=== PATIENT | female | born 1940 | race Caucasian/White ===

== ENCOUNTER 2017-09-14 06:45 | Emergency (ER) | payer MEDICARE, OTHER, SELFPAY ==
[2017-09-14 06:47] VITALS: BP 114/64; PULSE 80; RESP 16; TEMP 36.6; O2SAT 97; BMI 30.8
[2017-09-14 08:32] LABS: ALB/GLOB Ratio 0.9 RATIO (0.9-2.4); AST(SGOT) 30 U/L (15-37); Alanine Aminotransfer ALT/SGPT 55 U/L (13-56); Albumin, Serum 3.1 g/dL (3.2-5.0); Alkaline Phosphatase 250 U/L (45-117); Anion Gap 6 (5-15); BUN 30 mg/dL (7-18); BUN/Creat Ratio 28.3 RATIO (10-20); Calcium,Total 8.7 mg/dL (8.5-10.1); Chloride 104 mmol/L (98-107); Creatinine, Serum 1.06 mg/dL (0.55-1.02); EST Glomerular Filtration Rate 53 mL/min (>60); Est Glom Filt Rate - Afr Amer 65 mL/min (>60); Estimated Creatinine Clearance 39.99 ml/min; Globulin 3.6 g/dL (2.2-4.2); Glucose 89 mg/dL (74-106); Potassium 3.8 mmol/L (3.5-5.1); Protein, Total 6.7 g/dL (6.4-8.2); Sodium Level 140 mmol/L (136-145)
[2017-09-14 09:03] VITALS: BP 129/57; PULSE 71; RESP 16; O2SAT 95
--- NOTE | 2017-09-14 09:44 | ED.VISSUMM ---
- ER Visit Summary Date of Service: 09/14/17 Chief Complaint: Medication reaction History of Present Illness: The patient is a 77 F who had been taking Wallkill for low back pain/sciatica. This was being given to her by her primary care physician who is in [facility]. Patient states that on Monday she began to take Percocet and states that her bilateral feet and legs began to tingle. Last night she took a Percocet at around 0230 hours and shortly thereafter around 0400 hrs. began to have tingling and itching diffusely in her body. She thought that she was taking Benadryl but actually took a Coricidin. The squad was called and they gave her 25 mg of IV Benadryl which has improved her symptoms. Patient does not wish to take the Percocet again. The patient is supposed to have physical therapy coming to her home to meet requirements of an MRI. She denies any foot drop or leg weakness. Physical Examination: Afebrile vital signs are stable Gen: Well-nourished well-developed Head: Normocephalic atraumatic Eyes: Perrl EOMI ENT: TMs clear no rhinorrhea moist mucous membranes Neck: Supple no lymphadenopathy no JVD nontender CVS: Regular rate rhythm no murmurs normal S1-S2 Respiratory: No distress clear to auscultation bilaterally chest nontender Abdomen: Soft nontender nondistended normal bowel sounds no masses Back: Low back diffuse tenderness to palpation Extremity: Nontender no edema Skin: Normal color no rash Neuro: alert orientated ?3 CN II-XII intact normal strength sensation reflexes Psych: Normal affect normal mood Test Results: CMP was normal Emergency Department Course and Treatment: Patient symptoms have resolved. His been greater than 6 hours since her Percocet. She had been taking a half a tablet of 5/325 Wallkill every 3 hours. When I have her take one full tablet every 3 hours as a trial. At this point I would not feel comfortable doing stronger medication such as a fentanyl patch without knowing her history better and we did for your primary care doctor for further pain management. Impression: 1. Medication reaction This note was generated with [employer] dictation software. It may contain incorrect words, spelling, and punctuation that were not noted in review of the chart prior to signing ED Disposition - Plan for ED Patient: Disposition: Home or Assisted Living Chief Complaint: Allergic Reaction Instructions: ED Drug React Adverse Other Prescriptions: Hydrocodone/Acetaminophen [Wallkill 5-325 Tablet] 1 - 2 ea PO Q3H PRN 4 Days #20 tab PRN Reason: Pain Referrals: [facility],Out of [Primary Care Provider] - As soon as possible
--- NOTE | 2017-09-14 09:52 | ED.DCSUM_ITS ---
- ER Visit Summary Date of Service: 09/14/17 Chief Complaint: Medication reaction History of Present Illness: The patient is a 77 F who had been taking Arp for low back pain/sciatica. This was being given to her by her primary care physician who is in [facility]. Patient states that on Monday she began to take Percocet and states that her bilateral feet and legs began to tingle. Last night she took a Percocet at around 0230 hours and shortly thereafter around 0400 hrs. began to have tingling and itching diffusely in her body. She thought that she was taking Benadryl but actually took a Coricidin. The squad was called and they gave her 25 mg of IV Benadryl which has improved her symptoms. Patient does not wish to take the Percocet again. The patient is supposed to have physical therapy coming to her home to meet requirements of an MRI. She denies any foot drop or leg weakness. Physical Examination: Afebrile vital signs are stable Gen: Well-nourished well-developed Head: Normocephalic atraumatic Eyes: Perrl EOMI ENT: TMs clear no rhinorrhea moist mucous membranes Neck: Supple no lymphadenopathy no JVD nontender CVS: Regular rate rhythm no murmurs normal S1-S2 Respiratory: No distress clear to auscultation bilaterally chest nontender Abdomen: Soft nontender nondistended normal bowel sounds no masses Back: Low back diffuse tenderness to palpation Extremity: Nontender no edema Skin: Normal color no rash Neuro: alert orientated ?3 CN II-XII intact normal strength sensation reflexes Psych: Normal affect normal mood Test Results: CMP was normal Emergency Department Course and Treatment: Patient symptoms have resolved. His been greater than 6 hours since her Percocet. She had been taking a half a tablet of 5/325 Arp every 3 hours. When I have her take one full tablet every 3 hours as a trial. At this point I would not feel comfortable doing stronger medication such as a fentanyl patch without knowing her history better and we did for your primary care doctor for further pain management. Impression: 1. Medication reaction This note was generated with [employer] dictation software. It may contain incorrect words, spelling, and punctuation that were not noted in review of the chart prior to signing ED Disposition - Plan for ED Patient: Disposition: Home or Assisted Living Chief Complaint: Allergic Reaction Instructions: ED Drug React Adverse Other Prescriptions: Hydrocodone/Acetaminophen [Arp 5-325 Tablet] 1 - 2 ea PO Q3H PRN 4 Days #20 tab PRN Reason: Pain Referrals: Town [facility],Out of [Primary Care Provider] - As soon as possible
[2017-09-14] MEDS: HYDROcodone Bitartrate/Apap 5/325 Tablet PO (10:00)
[2017-09-14 10:01] VITALS: BP 129/57; PULSE 71; RESP 18; O2SAT 99
== END 2017-09-14 10:03 | disposition home or self-care (01) ==
PROVIDERS: Emergency Provider Emergency Medicine
DX: R20.2 Paresthesia of skin (principal); T40.2X5A Adverse effect of other opioids, initial encounter; Y92.9 Unspecified place or not applicable; E78.00 Pure hypercholesterolemia, unspecified; E11.9 Type 2 diabetes mellitus without complications; K21.9 Gastro-esophageal reflux disease without esophagitis; M54.40 Lumbago with sciatica, unspecified side; Z79.82 Long term (current) use of aspirin; Z79.891 Long term (current) use of opiate analgesic; Z79.899 Other long term (current) drug therapy
CPT/HCPCS: 80053; 99285; A4216

== ENCOUNTER 2018-02-07 10:45 | Outpatient (RCR) | payer MEDICARE, OTHER, SELFPAY ==
[2018-01-17 13:59] VITALS: BP 146/78; PULSE 97; RESP 16; TEMP 36.4; BMI 28.3
[2018-01-17 17:03] LABS: Absolute Lymphocyte Count 1.23 X10^3/ul (0.83-4.51); Absolute Neutrophil Count 6.2 X10^3/uL (2.0-7.7); Basophil# 0.02 X10^3/uL; Basophil% 0.3 % (0-1); Eosinophil# 0.09 X10^3/uL; Eosinophils% 1.1 % (0-5); Hematocrit 41.2 % (37-47); Lymphocyte # 1.23 X10^3/ul (4.0); Lymphocyte % 15.6 % (19-41); Mean Corp Hgb Conc 31.6 g/gl (32-36); Mean Corpuscular Hgb 29.7 pg (27.0-32.0); Mean Corpuscular Volume 94.1 fL (81-99); Mean Platelet Vol. 10.6 fl (6.2-12.0); Monocyte# 0.37 X10^3/uL; Monocyte% 4.7 % (0-10); Neutrophil # 6.18 X10^3/uL (2.7-7.7); Neutrophil % 78.3 % (47-70); POSITIVE COUNT NO; POSITIVE DIFFERENTIAL NO; POSITIVE MORPHOLOGY NO; Platelet Count 295 K/mm3 (150-450); RBC Distribution Width CV 16.2 % (11.6-14.6); RBC Distribution Width SD 56.3 fl (35.1-43.9); Red Blood Count 4.38 M/mm3 (4.2-5.4); White Blood Count 7.9 K/mm3 (4.4-11.0)
[2018-01-17 17:25] LABS: ALB/GLOB Ratio 0.9 RATIO (0.9-2.4); AST(SGOT) 15 U/L (15-37); Alanine Aminotransfer ALT/SGPT 19 U/L (13-56); Albumin, Serum 3.3 g/dL (3.2-5.0); Alkaline Phosphatase 132 U/L (45-117); Anion Gap 8 (5-15); BUN 18 mg/dL (7-18); Calcium,Total 8.9 mg/dL (8.5-10.1); Chloride 105 mmol/L (98-107); EST Glomerular Filtration Rate 57 mL/min (>60); Est Glom Filt Rate - Afr Amer 69 mL/min (>60); Estimated Creatinine Clearance 42.39 ml/min; Globulin 3.8 g/dL (2.2-4.2); Glucose 80 mg/dL (74-106); Potassium 4.1 mmol/L (3.5-5.1); Prealbumin 15.6 mg/dL (20.0-40.0); Protein, Total 7.1 g/dL (6.4-8.2); Sodium Level 143 mmol/L (136-145)
--- NOTE | 2018-01-17 23:26 | PCM.WC.PN ---
(1) Ulcer of left lower extremity with fat layer exposed Status: Chronic Current Visit: Yes Code(s): L97.922 - Non-pressure chronic ulcer of unspecified part of left lower leg with fat layer exposed (2) Localized edema Status: Chronic Current Visit: Yes Code(s): R60.0 - Localized edema (3) Peripheral vascular disease Status: Suspected Current Visit: Yes Code(s): I73.9 - Peripheral vascular disease, unspecified (4) Venous insufficiency Status: Suspected Current Visit: Yes Code(s): I87.2 - Venous insufficiency (chronic) (peripheral) (5) Delayed wound healing Status: Chronic Current Visit: Yes Code(s): T14.8XXD - Other injury of unspecified body region, subsequent encounter (6) Malnutrition Status: Suspected Current Visit: Yes Code(s): E46 - Unspecified protein-calorie malnutrition Type of Wound Date of Service: 01/17/18 Chief Complaint: Left leg ulcer History of Wound: This 77-year-old female with significant past medical history of hypertension, hyperlipidemia, GERD, history of throat cancer now with impaired ability to eat presents with a chronic left leg ulcer with an onset of approximately November 2017. She is previously seeing qa specialist Dr. Scherer for this condition and local wound care has been initiated. She denies fever, chill, nausea, vomiting, loss of appetite. She has continued leg swelling. She denies claudication. She denies rest paresthesias. She does have an ongoing rash to the lower extremities. Surgical history: Knee surgery and cholecystectomy. Social history: Denies smoking. Review of systems: Denies shortness of breath, chest pain, calf pain, GI upset, lower extremity rest paresthesias, claudication Progress of Wound: Stable - Physical Exam Vital Signs Temp Pulse Resp BP 97.5 F L 97 16 146/78 H 01/17/18 13:59 01/17/18 13:59 01/17/18 13:59 01/17/18 13:59 General: Alert, Oriented x3, Cooperative HEENT: Atraumatic Extremities: No cyanosis, Capillary Refill Less than 3 Seconds - All digits bilateral, No Calf Tenderness - Negative Katy and Garrett sign bilateral compartments remain soft and palpation bilateral active range of motion digits and ankles noted bilateral, Edema - Bilateral lower extremity moderate, Peripheral Pulses Normal - 2 out of 4 palpable DP pulse bilateral lower extremity nonpalpable PT pulse bilateral Skin: Ulcer/ Wound - There is no purulence, erythema, streaking, odor, or acute signs of infection left. There is rash noted bilateral lower extremities which is not appear to be localized just at the ulcer site. The ulcer site has fibrous peeling skin slough upon debridement this is granular and there is no deep tissue exposed, - - The peripheral skin is hairless and atrophic Wound Measurements and Assessment WC - Nurse 1 - General Ulcer Measurement Start: 01/17/18 13:58 Freq: Status: Active Protocol: Activity Type Activity Date Activity User E-Sign Co-Sign Detail Recorded Client Recorded Date Recorded By Document 01/17/18 13:59 [id number] 01/17/18 14:13 01/17/18 13:59 Wound Center Nurse 1 [Ulcer Assessment] #1 LATERAL LLE -Combined with other wound No -Current Size (cm) - Length 2 -Current Size (cm) - Width 2 -Current Size (cm) - Depth 0.3 -Total Square Cm 4 -Date of Last Picture (Recall this 01/17/18 field) -Photo Taken Yes -Epithelialization None Present -Tunneling No -Undermining/Tunneling No -Circular Undermining No -Exudate Amt None Present (0 %) -Wound Margin Distinct, Outline Attached -Granulation Amt None Present (0 %) -Granulation Quality N/A -Slough/Fibrin Yes -Necrosis Amt Large (67-100%) -Necrotic Tissue Type Eschar -Structure Exposed None/Limited to Skin Breakdown -Texture (Rosie-wound Skin Appearance) Localized Edema -Moisture (Rosie-wound Skin Appearance Dry/Scaly ) -Color (Rosie-wound Skin Appearance) Erythema -Temperature (Rosie-wound Skin No Abnormality Appearance) (Pt Warm) -Tenderness on Palpation (Rosie-wound Yes Skin Appearance) -Ulcer Cleansing Rinsed/ Irrigated with Saline -Foul Odor after Cleansing No -Anesthetic Used 5% Lidocaine Gel [Edema Assessment] -Lower Limb Edema Present Yes -Right Calf (cm) 34.7 -Right Ankle (cm) 23.4 -Left Calf (cm) 36.7 -Left Ankle (cm) 24.9 WC - Nurse 2 - General Ulcer CM Notes Start: 01/17/18 13:58 Freq: Status: Active Protocol: Activity Type Activity Date Activity User E-Sign Co-Sign Detail Recorded Client Recorded Date Recorded By Document 01/17/18 14:52 [id number] 01/17/18 14:57 01/17/18 14:52 Wound Center Nurse 2 [Procedure/Treatment] #1 LATERAL LLE -Time 14:54 -Correct Patient Yes -Correct Side, Site, Position Yes -Correct Procedure Yes -Procedure Performed Yes -Type of Procedure Debridement -Clinical Debridement Subcutaneous -Post Debridement Size (cm) - Length 2.0 -Post Debridement Size (cm) - Width 1.5 -Post Debridement Size (cm) - Depth 0.2 -Total Square Cm 3.00 -Wound/Ulcer Outcome Not Healed -Ulcer Cleansing Rinsed/ Irrigated with Saline -Foul Odor after Cleansing No -Bioengineered Tissue No -Bleeding Controlled with Pressure -Treatment Response Procedure Tolerated Well [See Physician Procedure note for Specifics] Pain Scale: 0-10 Numeric [Pain] -Is Patient Pain Free? Yes Musculoskeletal: No Tenderness to Palpation of Joints or Extremities, Muscle Wasting Neurological: Sensory exam intact to light touch and pain - Equal bilateral leg ankle and foot dermatomes to light touch Psych/Mental Status: Normal Affect, Appropriate Debridement Note Post-Debridement Measurements/Treatment WC - Nurse 2 - General Ulcer CM Notes Start: 01/17/18 13:58 Freq: Status: Active Protocol: Activity Type Activity Date Activity User E-Sign Co-Sign Detail Recorded Client Recorded Date Recorded By Document 01/17/18 14:52 [id number] 01/17/18 14:57 01/17/18 14:52 Wound Center Nurse 2 #1 [facility] LLE -Time 14:54 -Correct Patient Yes -Correct Side, Site, Position Yes -Correct Procedure Yes -Procedure Performed Yes -Type of Procedure Debridement -Clinical Debridement Subcutaneous -Post Debridement Size (cm) - Length 2.0 -Post Debridement Size (cm) - Width 1.5 -Post Debridement Size (cm) - Depth 0.2 -Total Square Cm 3.00 -Wound/Ulcer Outcome Not Healed -Ulcer Cleansing Rinsed/ Irrigated with Saline -Foul Odor after Cleansing No -Bioengineered Tissue No -Bleeding Controlled with Pressure -Treatment Response Procedure Tolerated Well Pain Scale: 0-10 Numeric Is Patient Pain Free? Yes Wound debrided: lateral leg Laterality: Left Type of Debridement: Excisional debridement Anesthesia Used: 4% Lidocaine Solution Depth: in the subcutaneous layer Percentage of wound debrided: 100 Instrument Used: #15 blade Tissue Removed: fibrous, devitalized subcutaneous, biofilm, slough Severity: Fat Layer Exposed Amount of bleeding with debridement: Mild Bleeding Controlled with: Pressure Patient tolerated procedure well Assessment/Plan Active Problems Ulcer of left lower extremity with fat layer exposed (Chronic) Localized edema (Chronic) Delayed wound healing (Chronic) Assessment: Left leg ulcer with fat layer exposed. Edema lower extremity. Rule out peripheral vascular disease. Malnutrition suspected. Delayed healing Plan: I reviewed and discussed this patient's case today. Subcutaneous excisional debridement was performed as noted in the clinical panel. To change dressing daily with Falguni. This is a chronic ulcer has been present for over one month and a time. Her notes from Dr. Scherer will be requested. I recommend application of advanced wound care product, epi fix, prior authorization will be initiated. The indications, plan application, expected healing time management were discussed in detail. To keep pressure off of this ulcer site by avoiding laying on the side. To also decrease pressure by wearing light compression dressing of the single layer Tubigrip; this is applied today. Noninvasive arterial vascular studies were ordered to rule out arterial deficiency because this is a delayed healing ulcer site and she has nonpalpable PT pulses. I will follow-up with the results upon completion. I also provided an order for baseline labs including CBC CMP and prealbumin. It is noted she mainly takes nutritional supplement shakes as a form of dietary intake and I suspect malnutrition. I will offer her a future nutrition referral to optimize healing. I answered all her questions. She was reassured no local or systemic signs of illness are suspected today. To return to the wound healing center in 1 week or call sooner if she has any questions or concerns.
--- NOTE | 2018-01-17 23:29 | PN.PCM_ITS ---
(1) Ulcer of left lower extremity with fat layer exposed Status: Chronic Current Visit: Yes Code(s): L97.922 - Non-pressure chronic ulcer of unspecified part of left lower leg with fat layer exposed (2) Localized edema Status: Chronic Current Visit: Yes Code(s): R60.0 - Localized edema (3) Peripheral vascular disease Status: Suspected Current Visit: Yes Code(s): I73.9 - Peripheral vascular disease, unspecified (4) Venous insufficiency Status: Suspected Current Visit: Yes Code(s): I87.2 - Venous insufficiency (chronic) (peripheral) (5) Delayed wound healing Status: Chronic Current Visit: Yes Code(s): T14.8XXD - Other injury of unspecified body region, subsequent encounter (6) Malnutrition Status: Suspected Current Visit: Yes Code(s): E46 - Unspecified protein- calorie malnutrition Type of Wound Date of Service: 01/17/18 Chief Complaint: Left leg ulcer History of Wound: This 77-year-old female with significant past medical history of hypertension, hyperlipidemia, GERD, history of throat cancer now with impaired ability to eat presents with a chronic left leg ulcer with an onset of approximately November 2017. She is previously seeing document photographer Dr. Scherer for this condition and local wound care has been initiated. She denies fever, chill, nausea, vomiting, loss of appetite. She has continued leg swelling. She denies claudication. She denies rest paresthesias. She does have an ongoing rash to the lower extremities. Surgical history: Knee surgery and cholecystectomy. Social history: Denies smoking. Review of systems: Denies shortness of breath, chest pain, calf pain, GI upset, lower extremity rest paresthesias, claudication Progress of Wound: Stable - Physical Exam Vital Signs Temp Pulse Resp BP 97.5 F L 97 16 146/78 H 01/17/18 13:59 01/17/18 13:59 01/17/18 13:59 01/17/18 13:59 General: Alert, Oriented x3, Cooperative HEENT: Atraumatic Extremities: No cyanosis, Capillary Refill Less than 3 Seconds - All digits bilateral, No Calf Tenderness - Negative Katy and Garrett sign bilateral compartments remain soft and palpation bilateral active range of motion digits and ankles noted bilateral, Edema - Bilateral lower extremity moderate, Peripheral Pulses Normal - 2 out of 4 palpable DP pulse bilateral lower extremity nonpalpable PT pulse bilateral Skin: Ulcer/ Wound - There is no purulence, erythema, streaking, odor, or acute signs of infection left. There is rash noted bilateral lower extremities which is not appear to be localized just at the ulcer site. The ulcer site has fibrous peeling skin slough upon debridement this is granular and there is no deep tissue exposed, - - The peripheral skin is hairless and atrophic Wound Measurements and Assessment WC - Nurse 1 - General Ulcer Measurement Start: 01/17/18 13:58 Freq: Status: Active Protocol: Activity Type Activity Date Activity User E-Sign Co-Sign Detail Recorded Client Recorded Date Recorded By Document 01/17/18 13:59 [id number] 01/17/18 14:13 01/17/18 13:59 Wound Center Nurse 1 [Ulcer Assessment] #1 LATERAL LLE -Combined with other wound No -Current Size (cm) - Length 2 -Current Size (cm) - Width 2 -Current Size (cm) - Depth 0.3 -Total Square Cm 4 -Date of Last Picture (Recall this 01/17/18 field) -Photo Taken Yes -Epithelialization None Present -Tunneling No -Undermining/Tunneling No -Circular Undermining No -Exudate Amt None Present (0 %) -Wound Margin Distinct, Outline Attached -Granulation Amt None Present (0 %) -Granulation Quality N/A -Slough/Fibrin Yes -Necrosis Amt Large (67-100%) -Necrotic Tissue Type Eschar -Structure Exposed None/Limited to Skin Breakdown -Texture (Rosie-wound Skin Appearance) Localized Edema -Moisture (Rosie-wound Skin Appearance Dry/Scaly ) -Color (Rosie-wound Skin Appearance) Erythema -Temperature (Rosie-wound Skin No Abnormality Appearance) (Pt Warm) -Tenderness on Palpation (Rosie-wound Yes Skin Appearance) -Ulcer Cleansing Rinsed/ Irrigated with Saline -Foul Odor after Cleansing No -Anesthetic Used 5% Lidocaine Gel [Edema Assessment] -Lower Limb Edema Present Yes -Right Calf (cm) 34.7 -Right Ankle (cm) 23.4 -Left Calf (cm) 36.7 -Left Ankle (cm) 24.9 WC - Nurse 2 - General Ulcer CM Notes Start: 01/17/18 13:58 Freq: Status: Active Protocol: Activity Type Activity Date Activity User E-Sign Co-Sign Detail Recorded Client Recorded Date Recorded By Document 01/17/18 14:52 [id number] 01/17/18 14:57 01/17/18 14:52 Wound Center Nurse 2 [Procedure/Treatment] #1 LATERAL LLE -Time 14:54 -Correct Patient Yes -Correct Side, Site, Position Yes -Correct Procedure Yes -Procedure Performed Yes -Type of Procedure Debridement -Clinical Debridement Subcutaneous -Post Debridement Size (cm) - Length 2.0 -Post Debridement Size (cm) - Width 1.5 -Post Debridement Size (cm) - Depth 0.2 -Total Square Cm 3.00 -Wound/Ulcer Outcome Not Healed -Ulcer Cleansing Rinsed/ Irrigated with Saline -Foul Odor after Cleansing No -Bioengineered Tissue No -Bleeding Controlled with Pressure -Treatment Response Procedure Tolerated Well [See Physician Procedure note for Specifics] Pain Scale: 0-10 Numeric [Pain] -Is Patient Pain Free? Yes Musculoskeletal: No Tenderness to Palpation of Joints or Extremities, Muscle Wasting Neurological: Sensory exam intact to light touch and pain - Equal bilateral leg ankle and foot dermatomes to light touch Psych/Mental Status: Normal Affect, Appropriate Debridement Note Post-Debridement Measurements/Treatment WC - Nurse 2 - General Ulcer CM Notes Start: 01/17/18 13:58 Freq: Status: Active Protocol: Activity Type Activity Date Activity User E-Sign Co-Sign Detail Recorded Client Recorded Date Recorded By Document 01/17/18 14:52 [id number] 01/17/18 14:57 01/17/18 14:52 Wound Center Nurse 2 #1 [facility] LLE -Time 14:54 -Correct Patient Yes -Correct Side, Site, Position Yes -Correct Procedure Yes -Procedure Performed Yes -Type of Procedure Debridement -Clinical Debridement Subcutaneous -Post Debridement Size (cm) - Length 2.0 -Post Debridement Size (cm) - Width 1.5 -Post Debridement Size (cm) - Depth 0.2 -Total Square Cm 3.00 -Wound/Ulcer Outcome Not Healed -Ulcer Cleansing Rinsed/ Irrigated with Saline -Foul Odor after Cleansing No -Bioengineered Tissue No -Bleeding Controlled with Pressure -Treatment Response Procedure Tolerated Well Pain Scale: 0-10 Numeric Is Patient Pain Free? Yes Wound debrided: lateral leg Laterality: Left Type of Debridement: Excisional debridement Anesthesia Used: 4% Lidocaine Solution Depth: in the subcutaneous layer Percentage of wound debrided: 100 Instrument Used: #15 blade Tissue Removed: fibrous, devitalized subcutaneous, biofilm, slough Severity: Fat Layer Exposed Amount of bleeding with debridement: Mild Bleeding Controlled with: Pressure Patient tolerated procedure well Assessment/Plan Active Problems Ulcer of left lower extremity with fat layer exposed (Chronic) Localized edema (Chronic) Delayed wound healing (Chronic) Assessment: Left leg ulcer with fat layer exposed. Edema lower extremity. Rule out peripheral vascular disease. Malnutrition suspected. Delayed healing Plan: I reviewed and discussed this patient's case today. Subcutaneous excisional debridement was performed as noted in the clinical panel. To change dressing daily with Falguni. This is a chronic ulcer has been present for over one month and a time. Her notes from Dr. Scherer will be requested. I recommend application of advanced wound care product, epi fix, prior authorization will be initiated. The indications, plan application, expected healing time management were discussed in detail. To keep pressure off of this ulcer site by avoiding laying on the side. To also decrease pressure by wearing light compression dressing of the single layer Tubigrip; this is applied today. Noninvasive arterial vascular studies were ordered to rule out arterial deficiency because this is a delayed healing ulcer site and she has nonpalpable PT pulses. I will follow-up with the results upon completion. I also provided an order for baseline labs including CBC CMP and prealbumin. It is noted she mainly takes nutritional supplement shakes as a form of dietary intake and I suspect malnutrition. I will offer her a future nutrition referral to optimize healing. I answered all her questions. She was reassured no local or systemic signs of illness are suspected today. To return to the wound healing center in 1 week or call sooner if she has any questions or concerns.
[2018-01-24 10:18] VITALS: BP 142/74; PULSE 79; RESP 18; TEMP 36; BMI 28.3
--- NOTE | 2018-01-24 12:00 | PCM.WC.PN ---
(1) Ulcer of left lower extremity with fat layer exposed Status: Chronic Current Visit: Yes Code(s): L97.922 - Non-pressure chronic ulcer of unspecified part of left lower leg with fat layer exposed (2) Localized edema Status: Chronic Current Visit: Yes Code(s): R60.0 - Localized edema (3) Peripheral vascular disease Status: Suspected Current Visit: Yes Code(s): I73.9 - Peripheral vascular disease, unspecified (4) Venous insufficiency Status: Suspected Current Visit: Yes Code(s): I87.2 - Venous insufficiency (chronic) (peripheral) (5) Delayed wound healing Status: Chronic Current Visit: Yes Code(s): T14.8XXD - Other injury of unspecified body region, subsequent encounter (6) Malnutrition Status: Suspected Current Visit: Yes Code(s): E46 - Unspecified protein-calorie malnutrition Type of Wound Date of Service: 01/24/18 Chief Complaint: Left leg ulcer History of Wound: This 77-year-old female with significant past medical history of hypertension, hyperlipidemia, GERD, history of throat cancer now with impaired ability to eat presents with a chronic left leg ulcer with an onset of approximately November 2017. She is previously seeing wire harness assembler Dr. Scherer for this condition and local wound care has been initiated. She denies fever, chill, nausea, vomiting, loss of appetite. She has continued leg swelling. She did obtain her recommended lab work and would like to review that today. She mainly drinks only Ensure shakes each day as her main source of food intake. Progress of Wound: Stable - Physical Exam Vital Signs Temp Pulse Resp BP 96.8 F L 79 18 142/74 H 01/24/18 10:18 01/24/18 10:18 01/24/18 10:18 01/24/18 10:18 General: Alert, Oriented x3, Cooperative Extremities: No cyanosis, Capillary Refill Less than 3 Seconds, No Calf Tenderness - Negative Kayt who presents bilateral, Edema, Peripheral Pulses Normal Skin: Ulcer/ Wound - No purulence, erythema, streaking, odor, or infection Wound Measurements and Assessment WC - Nurse 1 - General Ulcer Measurement Start: 01/17/18 13:58 Freq: Status: Active Protocol: Activity Type Activity Date Activity User E-Sign Co-Sign Detail Recorded Client Recorded Date Recorded By Document 01/24/18 10:18 [id number] 01/24/18 10:24 01/24/18 10:18 Wound Center Nurse 1 [Ulcer Assessment] #1 LATERAL LLE -Current Size (cm) - Length 1.7 -Current Size (cm) - Width 0.9 -Current Size (cm) - Depth 0.1 -Total Square Cm 1.53 -Photo Taken No -Exudate Amt Small (1-33%) -Exudate Type Serosanguineous -Wound Margin Distinct, Outline Attached -Granulation Amt None Present (0 %) -Slough/Fibrin Yes -Necrosis Amt Large (67-100%) -Necrotic Tissue Type Adherent Slough -Structure Exposed N/A -Texture (Rosie-wound Skin Appearance) Localized Edema Scarring -Moisture (Rosie-wound Skin Appearance Dry/Scaly ) -Color (Rosie-wound Skin Appearance) Hemosiderin Staining -Temperature (Rosie-wound Skin No Abnormality Appearance) (Pt Warm) -Ulcer Cleansing Rinsed/ Irrigated with Saline -Foul Odor after Cleansing No -Anesthetic Used 4% Lidocaine Solution [Edema Assessment] -Left Calf (cm) 34 -Left Ankle (cm) 23.5 WC - Nurse 2 - General Ulcer CM Notes Start: 01/17/18 13:58 Freq: Status: Active Protocol: Activity Type Activity Date Activity User E-Sign Co-Sign Detail Recorded Client Recorded Date Recorded By Document 01/24/18 10:58 [id number] 01/24/18 11:12 01/24/18 10:58 Wound Center Nurse 2 [Procedure/Treatment] #1 LATERAL LLE -Time 11:01 -Correct Patient Yes -Correct Side, Site, Position Yes -Correct Procedure Yes -Procedure Performed Yes -Type of Procedure Debridement -Clinical Debridement Subcutaneous -Post Debridement Size (cm) - Length 1.8 -Post Debridement Size (cm) - Width 1.0 -Post Debridement Size (cm) - Depth 0.1 -Total Square Cm 1.80 -Wound/Ulcer Outcome Not Healed -Ulcer Cleansing Rinsed/ Irrigated with Saline -Foul Odor after Cleansing No -Bioengineered Tissue Yes -Type of bioengineered Tissue EPIFIX -Expiration Date 09/10/22 -Product Lot Number [id number] -Percent Used 100 -Saline Lot Number [id number] -Topical Lidocaine (%) 4 -Bleeding Controlled with NA -Treatment Response Procedure Tolerated Well [See Physician Procedure note for Specifics] Pain Scale: 0-10 Numeric [Pain] -Is Patient Pain Free? Yes Musculoskeletal: No Tenderness to Palpation of Joints or Extremities, Muscle Wasting, - - Compartment soft to palpation Neurological: Sensory exam intact to light touch and pain Psych/Mental Status: Normal Affect, Appropriate Debridement Note Post-Debridement Measurements/Treatment WC - Nurse 2 - General Ulcer CM Notes Start: 01/17/18 13:58 Freq: Status: Active Protocol: Activity Type Activity Date Activity User E-Sign Co-Sign Detail Recorded Client Recorded Date Recorded By Document 01/17/18 14:52 [id number] 01/17/18 14:57 Document 01/24/18 10:58 TM [id number] 01/24/18 11:12 01/17/18 01/24/18 14:52 10:58 Wound Center Nurse 2 #1 LATERAL LLE -Time 14:54 11:01 -Correct Patient Yes Yes -Correct Side, Site, Position Yes Yes -Correct Procedure Yes Yes -Procedure Performed Yes Yes -Type of Procedure Debridement Debridement -Clinical Debridement Subcutaneous Subcutaneous -Post Debridement Size (cm) - Length 2.0 1.8 -Post Debridement Size (cm) - Width 1.5 1.0 -Post Debridement Size (cm) - Depth 0.2 0.1 -Total Square Cm 3.00 1.80 -Wound/Ulcer Outcome Not Healed Not Healed -Ulcer Cleansing Rinsed/ Rinsed/ Irrigated with Irrigated with Saline Saline -Foul Odor after Cleansing No No -Bioengineered Tissue No Yes -Type of bioengineered Tissue EPIFIX -Expiration Date 09/10/22 -Product Lot Number [id number] -Percent Used 100 -Saline Lot Number [id number] -Topical Lidocaine (%) 4 -Bleeding Controlled with Pressure NA -Treatment Response Procedure Procedure Tolerated Well Tolerated Well Pain Scale: 0-10 Numeric Is Patient Pain Free? Yes Yes Wound debrided: leg Laterality: Left Type of Debridement: Excisional debridement Anesthesia Used: 4% Lidocaine Solution Depth: in the subcutaneous layer Percentage of wound debrided: 100 Instrument Used: #15 blade Tissue Removed: fibrous, devitalized subcutaneous, biofilm, slough Severity: Fat Layer Exposed Amount of bleeding with debridement: Mild Bleeding Controlled with: Pressure Patient tolerated procedure well Assessment/Plan Active Problems Ulcer of left lower extremity with fat layer exposed (Chronic) Localized edema (Chronic) Delayed wound healing (Chronic) Assessment: Left leg ulcer with fat layer exposed. Edema lower extremity. Rule out peripheral vascular disease. Malnutrition suspected. Delayed healing Plan: I reviewed and discussed this patient's case today. Subcutaneous excisional debridement was performed as noted in the clinical panel. I recommend application of advanced wound care product, epi fix. Prior authorization was obtained and this was applied according to standard protocol after verbal consent was obtained. This was secured in place with Steri-Strips and wound veil. She tolerated this well. She is advised to keep this intact until follow-up visit next week. To keep pressure off of this ulcer site by avoiding laying on the side. To also decrease pressure by wearing light compression dressing of the single layer Tubigrip; this is applied today. Noninvasive arterial vascular studies were reviewed today with a right RICKY of 1.18 and left of 1.3. No significant perfusion impairment is noted. I also provided an order for baseline labs including CBC CMP and prealbumin. No gross abnormalities were noted except the prealbumin level is 15.6. She understands this is a marker of inflammation and possibly nutritional status. It is noted she mainly takes nutritional supplement shakes as a form of dietary intake and I suspect malnutrition. I will offer her a future nutrition referral to optimize healing. A prescription for Fredrick was also provided today and she was advised on proper activities. I answered all her questions. She was reassured no local or systemic signs of illness are suspected today. To return to the wound healing center in 1 week or call sooner if she has any questions or concerns.
--- NOTE | 2018-01-28 20:37 | LEAS ---
Arterial Study - Arterial Study Arterial Study: This is a 77-year-old female with a history of hypertension and hyperlipidemia. The patient also has a history of peripheral arterial occlusive disease. She is brought to the noninvasive vascular laboratory at this time for the purpose of bilateral noninvasive lower extremity arterial assessment. Doppler signal assessment was used to evaluate the pulses at ankle level bilaterally. The posterior tibial and dorsalis pedis pulses were triphasic bilaterally. Segmental limb pressures were obtained bilaterally. The right ankle pressure, as determined by posterior tibial pulse, was measured at 160 mmHg. The right ankle pressure, as determined by dorsalis pedis pulse, was measured at 160 mmHg. The right digital pressure was measured at 118 mmHg. The left ankle pressure, as determined by posterior tibial pulse, was measured at 148 mmHg. The left ankle pressure, as determined by dorsalis pedis pulse, was measured at 177 mmHg. The left digital pressure was measured at 113 mmHg. Pulse?volume recordings were obtained bilaterally and segmentally. Waveform amplitudes appeared to be satisfactory at all levels bilaterally, including low thigh, calf, ankle, and digital levels. Resting ankle?brachial indices were calculated bilaterally. The resting right ankle?brachial index was calculated to be 1.18. The resting left ankle?brachial index was calculated to be 1.30. Digital?brachial indices were calculated bilaterally. The right digital-brachial index was calculated to be 0.87. The left digital-brachial index was calculated to be 0.83. Impression: Based upon the findings of this resting noninvasive lower extremity arterial study, there is no evidence of significant atherosclerotic peripheral arterial occlusive disease in the lower extremities bilaterally. Triphasic waveforms are noted at ankle level bilaterally. Resting ankle?brachial indices were bilaterally normal. Digital-brachial indices were also normal bilaterally. In summary, this represents a normal resting noninvasive lower extremity arterial study bilaterally.
--- NOTE | 2018-01-28 20:43 | LEAS_ITS ---
Arterial Study - Arterial Study Arterial Study: This is a 77-year-old female with a history of hypertension and hyperlipidemia. The patient also has a history of peripheral arterial occlusive disease. She is brought to the noninvasive vascular laboratory at this time for the purpose of bilateral noninvasive lower extremity arterial assessment. Doppler signal assessment was used to evaluate the pulses at ankle level bilaterally. The posterior tibial and dorsalis pedis pulses were triphasic bilaterally. Segmental limb pressures were obtained bilaterally. The right ankle pressure, as determined by posterior tibial pulse, was measured at 160 mmHg. The right ankle pressure, as determined by dorsalis pedis pulse, was measured at 160 mmHg. The right digital pressure was measured at 118 mmHg. The left ankle pressure, as determined by posterior tibial pulse, was measured at 148 mmHg. The left ankle pressure, as determined by dorsalis pedis pulse, was measured at 177 mmHg. The left digital pressure was measured at 113 mmHg. Pulse?volume recordings were obtained bilaterally and segmentally. Waveform a mplitudes appeared to be satisfactory at all levels bilaterally, including low thigh, calf, ankle, and digital levels. Resting ankle?brachial indices were calculated bilaterally. The resting right a nkle?brachial index was calculated to be 1.18. The resting left ankle?brachial index was calculated to be 1.30. Digital?brachial indices were calculated bilaterally. The right digital- brachial index was calculated to be 0.87. The left digital-brachial index was calculated to be 0.83. Impression: Based upon the findings of this resting noninvasive lower extremity arterial study, there is no evidence of significant atherosclerotic peripheral arterial occlusive disease in the lower extremities bilaterally. Triphasic waveforms are noted at ankle level bilaterally. Resting ankle?brachial indices were bilaterally normal. Digital-brachial indices were also normal bilaterally. In summary, this represents a normal resting noninvasive lower extremity arterial study bilaterally.
[2018-01-31 11:36] VITALS: BP 151/78; PULSE 82; RESP 16; TEMP 36.6; BMI 28.3
--- NOTE | 2018-01-31 14:45 | PCM.WC.PN ---
(1) Ulcer of left lower extremity with fat layer exposed Status: Chronic Code(s): L97.922 - Non-pressure chronic ulcer of unspecified part of left lower leg with fat layer exposed (2) Localized edema Status: Chronic Code(s): R60.0 - Localized edema (3) Peripheral vascular disease Status: Suspected Code(s): I73.9 - Peripheral vascular disease, unspecified (4) Venous insufficiency Status: Suspected Code(s): I87.2 - Venous insufficiency (chronic) (peripheral) (5) Delayed wound healing Status: Chronic Code(s): T14.8XXD - Other injury of unspecified body region, subsequent encounter (6) Malnutrition Status: Suspected Code(s): E46 - Unspecified protein-calorie malnutrition Type of Wound Date of Service: 01/31/18 Chief Complaint: Left leg ulcer History of Wound: This 77-year-old female with significant past medical history of hypertension, hyperlipidemia, GERD, history of throat cancer now with impaired ability to eat presents with a chronic left leg ulcer with an onset of approximately November 2017. She is previously seeing line construction supervisor Dr. Scherer for this condition and local wound care has been initiated. She denies fever, chill, nausea, vomiting, loss of appetite. She has continued leg swelling that has decreased with her compression dressing use. She is on a low-dose of prednisone and has decreased skin irritation of her entire body. Progress of Wound: Improving - Physical Exam Vital Signs Temp Pulse Resp BP 97.8 F 82 16 151/78 H 01/31/18 11:36 01/31/18 11:36 01/31/18 11:36 01/31/18 11:36 General: Alert, Oriented x3, Cooperative Extremities: No cyanosis, Capillary Refill Less than 3 Seconds, No Calf Tenderness - Negative Katy and Garrett left, Edema, Peripheral Pulses Normal Skin: Ulcer/ Wound - No purulence, erythema, strain, odor, or infection. The peripheral skin is hairless and atrophic with decreased inflammation. There is peripheral epithelialization that has continued at the ulcer site Wound Measurements and Assessment WC - Nurse 1 - General Ulcer Measurement Start: 01/17/18 13:58 Freq: Status: Active Protocol: Activity Type Activity Date Activity User E-Sign Co-Sign Detail Recorded Client Recorded Date Recorded By Document 01/31/18 11:36 [facility] [id number] 01/31/18 11:44 [facility] 01/31/18 11:36 Wound Center Nurse 1 [Ulcer Assessment] #1 LATERAL LLE -Combined with other wound No -Current Size (cm) - Length 1 -Current Size (cm) - Width 0.5 -Current Size (cm) - Depth 0.1 -Total Square Cm 0.5 -Photo Taken No -Epithelialization Medium 34-66% -Tunneling No -Undermining/Tunneling No -Circular Undermining No -Exudate Amt Small (1-33%) -Exudate Type Serosanguineous -Wound Margin Distinct, Outline Attached -Granulation Amt None Present (0 %) -Slough/Fibrin Yes -Necrosis Amt Large (67-100%) -Necrotic Tissue Type Adherent Slough -Texture (Rosie-wound Skin Appearance) Scarring Rash -Moisture (Rosie-wound Skin Appearance Dry/Scaly ) -Color (Rosie-wound Skin Appearance) Assessed -Temperature (Rosie-wound Skin No Abnormality Appearance) (Pt Warm) -Tenderness on Palpation (Rosie-wound No Skin Appearance) -Ulcer Cleansing Rinsed/ Irrigated with Saline -Foul Odor after Cleansing No -Anesthetic Used 4% Lidocaine Solution [Edema Assessment] -Lower Limb Edema Present Yes -Left Calf (cm) 34.5 -Left Ankle (cm) 23 WC - Nurse 2 - General Ulcer CM Notes Start: 01/17/18 13:58 Freq: Status: Active Protocol: Activity Type Activity Date Activity User E-Sign Co-Sign Detail Recorded Client Recorded Date Recorded By Document 01/31/18 12:29 [id number] 01/31/18 12:30 01/31/18 12:29 Wound Center Nurse 2 [Procedure/Treatment] #1 LATERAL LLE -Time 12:30 -Correct Patient Yes -Correct Side, Site, Position Yes -Correct Procedure Yes -Procedure Performed Yes -Type of Procedure Debridement -Clinical Debridement Subcutaneous -Post Debridement Size (cm) - Length 1.1 -Post Debridement Size (cm) - Width 0.5 -Post Debridement Size (cm) - Depth 0.1 -Total Square Cm 0.55 -Wound/Ulcer Outcome Not Healed -Ulcer Cleansing Rinsed/ Irrigated with Saline -Foul Odor after Cleansing No -Bioengineered Tissue Yes -Type of bioengineered Tissue EPIFIX -Expiration Date 09/10/22 -Product Lot Number [id number] -Percent Used 100 -Saline Lot Number [id number] -Bleeding Controlled with Pressure -Treatment Response Procedure Tolerated Well [See Physician Procedure note for Specifics] Pain Scale: 0-10 Numeric [Pain] -Is Patient Pain Free? Yes Musculoskeletal: No Tenderness to Palpation of Joints or Extremities, Muscle Wasting Neurological: Sensory exam intact to light touch and pain Psych/Mental Status: Normal Affect, Appropriate Debridement Note Post-Debridement Measurements/Treatment WC - Nurse 2 - General Ulcer CM Notes Start: 01/17/18 13:58 Freq: Status: Active Protocol: Activity Type Activity Date Activity User E-Sign Co-Sign Detail Recorded Client Recorded Date Recorded By Document 01/17/18 14:52 [id number] 01/17/18 14:57 Document 01/24/18 10:58 [id number] 01/24/18 11:12 Document 01/31/18 12:29 [id number] 01/31/18 12:30 01/17/18 01/24/18 01/31/18 14:52 10:58 12:29 Wound Center Nurse 2 #1 LATERAL LLE -Time 14:54 11:01 12:30 -Correct Patient Yes Yes Yes -Correct Side, Site, Position Yes Yes Yes -Correct Procedure Yes Yes Yes -Procedure Performed Yes Yes Yes -Type of Procedure Debridement Debridement Debridement -Clinical Debridement Subcutaneous Subcutaneous Subcutaneous -Post Debridement Size (cm) - Length 2.0 1.8 1.1 -Post Debridement Size (cm) - Width 1.5 1.0 0.5 -Post Debridement Size (cm) - Depth 0.2 0.1 0.1 -Total Square Cm 3.00 1.80 0.55 -Wound/Ulcer Outcome Not Healed Not Healed Not Healed -Ulcer Cleansing Rinsed/ Rinsed/ Rinsed/ Irrigated with Irrigated with Irrigated with Saline Saline Saline -Foul Odor after Cleansing No No No -Bioengineered Tissue No Yes Yes -Type of bioengineered Tissue EPIFIX EPIFIX -Expiration Date 09/10/22 09/10/22 -Product Lot Number [id number] -Percent Used 100 100 -Saline Lot Number [id number] -Topical Lidocaine (%) 4 -Bleeding Controlled with Pressure NA Pressure -Treatment Response Procedure Procedure Procedure Tolerated Well Tolerated Well Tolerated Well Pain Scale: 0-10 Numeric Is Patient Pain Free? Yes Yes Yes Wound debrided: leg Laterality: Left Type of Debridement: Excisional debridement Anesthesia Used: 4% Lidocaine Solution Depth: in the subcutaneous layer Percentage of wound debrided: 100 Instrument Used: #15 blade Tissue Removed: fibrous, devitalized subcutaneous, biofilm, slough Severity: Fat Layer Exposed Amount of bleeding with debridement: Mild Bleeding Controlled with: Pressure Patient tolerated procedure well Assessment/Plan Assessment: Left leg ulcer with fat layer exposed. Edema lower extremity. Rule out peripheral vascular disease. Malnutrition suspected. Delayed healing Plan: I reviewed and discussed this patient's case today. Subcutaneous excisional debridement was performed as noted in the clinical panel. I recommend application of advanced wound care product, epi fix. Prior authorization was obtained and this was applied according to standard protocol after verbal consent was obtained. This was secured in place with Steri-Strips and wound veil. She tolerated this well. She is advised to keep this intact until follow-up visit next week. To keep pressure off of this ulcer site by avoiding laying on the side. To also decrease pressure by wearing light compression dressing of the single layer Tubigrip; this is applied today. Noninvasive arterial vascular studies were reviewed today with a right RICKY of 1.18 and left of 1.3. No significant perfusion impairment is noted. I also provided an order for baseline labs including CBC CMP and prealbumin. No gross abnormalities were noted except the prealbumin level is 15.6. She understands this is a marker of inflammation and possibly nutritional status. It is noted she mainly takes nutritional supplement shakes as a form of dietary intake and I suspect malnutrition. I will offer her a future nutrition referral to optimize healing. A prescription for Fredrick was also provided today and she was advised on proper use. I answered all her questions. She was reassured no local or systemic signs of illness are suspected today. To return to the wound healing center in 1 week or call sooner if she has any questions or concerns.
[2018-02-07 11:04] VITALS: BP 130/65; PULSE 92; RESP 18; TEMP 36.4; BMI 28.3
--- NOTE | 2018-02-07 11:49 | PN.PCM_ITS ---
(1) Ulcer of left lower extremity with fat layer exposed Status: Chronic Current Visit: Yes Code(s): L97.922 - Non-pressure chronic ulcer of unspecified part of left lower leg with fat layer exposed (2) Localized edema Status: Chronic Current Visit: Yes Code(s): R60.0 - Localized edema (3) Peripheral vascular disease Status: Suspected Current Visit: Yes Code(s): I73.9 - Peripheral vascular disease, unspecified (4) Venous insufficiency Status: Suspected Current Visit: Yes Code(s): I87.2 - Venous insufficiency (chronic) (peripheral) (5) Delayed wound healing Status: Chronic Current Visit: Yes Code(s): T14.8XXD - Other injury of unspecified body region, subsequent encounter (6) Malnutrition Status: Suspected Current Visit: Yes Code(s): E46 - Unspecified protein- calorie malnutrition Type of Wound Date of Service: 02/07/18 Chief Complaint: Left leg ulcer History of Wound: This 77-year-old female with significant past medical history of hypertension, hyperlipidemia, GERD, history of throat cancer now with impaired ability to eat presents with a chronic left leg ulcer with an onset of approximately November 2017. She is previously seeing maxillofacial surgeon Dr. Scherer for this condition and local wound care has been initiated. She denies fever, chill, nausea, vomiting, loss of appetite. She has continued leg swelling that has decreased with her compression dressing use. She fell and injured her right forearm recently and has a wound at the site now. Progress of Wound: Improving - Physical Exam Vital Signs Temp Pulse Resp BP 97.5 F L 92 18 130/65 H 02/07/18 11:04 02/07/18 11:04 02/07/18 11:04 02/07/18 11:04 General: Alert, Oriented x3, Cooperative Extremities: No cyanosis, Capillary Refill Less than 3 Seconds, No Calf Tenderness - Negative Katy and Garrett sign bilateral, Edema - Moderate bilateral lower extremities Skin: Ulcer/ Wound - No purulence, erythema, streaking, odor, or infection. Peripheral epithelialization is noted. Peripheral skin is hairless, atrophic, and inflammatory lesions are noted and unchanged from last week. Wound Measurements and Assessment WC - Nurse 1 - General Ulcer Measurement Start: 01/17/18 13:58 Freq: Status: Active Protocol: Activity Type Activity Date Activity User E-Sign Co-Sign Detail Recorded Client Recorded Date Recorded By Document 02/07/18 11:04 JF [id number] 02/07/18 11:14 ANNELIESE 02/07/18 11:04 Wound Center Nurse 1 [Ulcer Assessment] 2-right forearm -Combined with other wound No -Current Size (cm) - Length 3.5 -Current Size (cm) - Width 4.0 -Current Size (cm) - Depth 0.1 -Total Square Cm 14.00 -Photo Taken Yes -Epithelialization Small 1-33% -Tunneling No -Undermining/Tunneling No -Circular Undermining No -Exudate Amt Small (1-33%) -Exudate Type Serosanguineous -Wound Margin Flat & Intact -Granulation Amt Large (67-100%) -Granulation Quality [place] -Slough/Fibrin Yes -Necrosis Amt Small (1-33%) -Necrotic Tissue Type Adherent Slough -Structure Exposed N/A -Texture (Rosie-wound Skin Appearance) Assessed Localized Edema -Moisture (Rosie-wound Skin Appearance Assessed ) Dry/Scaly -Color (Rosie-wound Skin Appearance) Assessed -Temperature (Rosie-wound Skin No Abnormality Appearance) (Pt Warm) -Tenderness on Palpation (Rosie-wound No Skin Appearance) -Ulcer Cleansing Rinsed/ Irrigated with Saline -Foul Odor after Cleansing No -Anesthetic Used 4% Lidocaine Solution #1 LATERAL LLE -Combined with other wound No -Current Size (cm) - Length 0.8 -Current Size (cm) - Width 0.4 -Current Size (cm) - Depth 0.1 -Total Square Cm 0.32 -Photo Taken No -Epithelialization Small 1-33% -Tunneling No -Undermining/Tunneling No -Circular Undermining No -Exudate Amt None Present (0 %) -Wound Margin Flat & Intact -Granulation Amt None Present (0 %) -Slough/Fibrin Yes -Necrosis Amt Large (67-100%) -Necrotic Tissue Type Adherent Slough -Structure Exposed N/A -Texture (Rosie-wound Skin Appearance) Assessed Localized Edema -Moisture (Rosie-wound Skin Appearance Assessed ) Dry/Scaly -Color (Rosie-wound Skin Appearance) Assessed -Temperature (Rosie-wound Skin No Abnormality Appearance) (Pt Warm) -Tenderness on Palpation (Rosie-wound No Skin Appearance) -Ulcer Cleansing Wound Cleanser -Foul Odor after Cleansing No -Anesthetic Used 5% Lidocaine Gel [Edema Assessment] -Lower Limb Edema Present Yes -Left Calf (cm) 34.3 -Left Ankle (cm) 22.2 - Nurse 2 - General Ulcer CM Notes Start: 01/17/18 13:58 Freq: Status: Active Protocol: Activity Type Activity Date Activity User E-Sign Co-Sign Detail Recorded Client Recorded Date Recorded By Document 02/07/18 11:26 [id number] 02/07/18 11:28 02/07/18 11:26 Wound Center Nurse 2 [Procedure/Treatment] #1 LATERAL LLE -Time 11:26 -Correct Patient Yes -Correct Side, Site, Position Yes -Correct Procedure Yes -Procedure Performed Yes -Type of Procedure Debridement -Clinical Debridement Subcutaneous -Post Debridement Size (cm) - Length 0.9 -Post Debridement Size (cm) - Width 0.5 -Post Debridement Size (cm) - Depth 0.1 -Total Square Cm 0.45 -Wound/Ulcer Outcome Not Healed -Ulcer Cleansing Rinsed/ Irrigated with Saline -Foul Odor after Cleansing No -Bioengineered Tissue Yes -Type of bioengineered Tissue EPIFIX -Expiration Date 10/11/22 -Product Lot Number [id number] -Percent Used 100 -Saline Lot Number [id number] -Topical Lidocaine (%) 4 -Bleeding Controlled with Pressure -Treatment Response Procedure Tolerated Well [See Physician Procedure note for Specifics] Pain Scale: 0-10 Numeric [Pain] -Is Patient Pain Free? Yes Musculoskeletal: No Tenderness to Palpation of Joints or Extremities, Muscle Wasting, - - Compartments remain soft to palpate left lower extremity Neurological: Sensory exam intact to light touch and pain Psych/Mental Status: Normal Affect, Appropriate Debridement Note Post-Debridement Measurements/Treatment - Nurse 2 - General Ulcer CM Notes Start: 01/17/18 13:58 Freq: Status: Active Protocol: Activity Type Activity Date Activity User E-Sign Co-Sign Detail Recorded Client Recorded Date Recorded By Document 01/17/18 14:52 [id number] 01/17/18 14:57 Document 01/24/18 10:58 TM [id number] 01/24/18 11:12 TM Document 01/31/18 12:29 [id number] 01/31/18 12:30 Document 02/07/18 11:26 [id number] 02/07/18 11:28 01/17/18 01/24/18 01/31/18 14:52 10:58 12:29 Wound Center Nurse 2 #1 LATERAL LLE -Time 14:54 11:01 12:30 -Correct Patient Yes Yes Yes -Correct Side, Site, Position Yes Yes Yes -Correct Procedure Yes Yes Yes -Procedure Performed Yes Yes Yes -Type of Procedure Debridement Debridement Debridement -Clinical Debridement Subcutaneous Subcutaneous Subcutaneous -Post Debridement Size (cm) - Length 2.0 1.8 1.1 -Post Debridement Size (cm) - Width 1.5 1.0 0.5 -Post Debridement Size (cm) - Depth 0.2 0.1 0.1 -Total Square Cm 3.00 1.80 0.55 -Wound/Ulcer Outcome Not Healed Not Healed Not Healed -Ulcer Cleansing Rinsed/ Rinsed/ Rinsed/ Irrigated with Irrigated with Irrigated with Saline Saline Saline -Foul Odor after Cleansing No No No -Bioengineered Tissue No Yes Yes -Type of bioengineered Tissue EPIFIX EPIFIX -Expiration Date 09/10/22 09/10/22 -Product Lot Number [id number] -Percent Used 100 100 -Saline Lot Number [id number] -Topical Lidocaine (%) 4 -Bleeding Controlled with Pressure NA Pressure -Treatment Response Procedure Procedure Procedure Tolerated Well Tolerated Well Tolerated Well Pain Scale: 0-10 Numeric Is Patient Pain Free? Yes Yes Yes 02/07/18 11:26 Wound Center Nurse 2 #1 LATERAL LLE -Time 11:26 -Correct Patient Yes -Correct Side, Site, Position Yes -Correct Procedure Yes -Procedure Performed Yes -Type of Procedure Debridement -Clinical Debridement Subcutaneous -Post Debridement Size (cm) - Length 0.9 -Post Debridement Size (cm) - Width 0.5 -Post Debridement Size (cm) - Depth 0.1 -Total Square Cm 0.45 -Wound/Ulcer Outcome Not Healed -Ulcer Cleansing Rinsed/ Irrigated with Saline -Foul Odor after Cleansing No -Bioengineered Tissue Yes -Type of bioengineered Tissue EPIFIX -Expiration Date 10/11/22 -Product Lot Number [id number] -Percent Used 100 -Saline Lot Number [id number] -Topical Lidocaine (%) 4 -Bleeding Controlled with Pressure -Treatment Response Procedure Tolerated Well Pain Scale: 0-10 Numeric Is Patient Pain Free? Yes Wound debrided: lateral leg Laterality: Left Type of Debridement: Excisional debridement Anesthesia Used: 4% Lidocaine Solution Depth: in the subcutaneous layer Percentage of wound debrided: 100 Instrument Used: #15 blade Tissue Removed: fibrous, devitalized subcutaneous, biofilm, slough Severity: Fat Layer Exposed Amount of bleeding with debridement: Mild Bleeding Controlled with: Pressure Patient tolerated procedure well Assessment/Plan Active Problems Ulcer of left lower extremity with fat layer exposed (Chronic) Localized edema (Chronic) Delayed wound healing (Chronic) Assessment: Left leg ulcer with fat layer exposed. Edema lower extremity. Rule out peripheral vascular disease. Malnutrition suspected. Delayed healing Plan: I reviewed and discussed this patient's case today. Subcutaneous excisional debridement was performed as noted in the clinical panel. I recommend application of advanced wound care product, epi fix. Prior authorization was obtained and this was applied according to standard protocol after verbal consent was obtained. This was secured in place with Steri-Strips and wound veil. She tolerated this well. She is advised to keep this intact until follow-up visit next week. To keep pressure off of this ulcer site by avoiding laying on the side. To also decrease pressure by wearing light compression dressing of the single layer Tubigrip; this is applied today. Noninvasive arterial vascular studies were reviewed today with a right RICKY of 1.18 and left of 1.3. No significant perfusion impairment is noted. I also provided an order for baseline labs including CBC CMP and prealbumin. No gross abnormalities were noted except the prealbumin level is 15.6. She understands this is a marker of inflammation and possibly nutritional status. It is noted she mainly takes nutritional supplement shakes as a form of dietary intake and I suspect malnutrition. I will offer her a future nutrition referral to optimize healing. A prescription for Fredrick was also provided today and she was advised on proper use. I answered all her questions. She was reassured no local or systemic signs of illness are suspected today. To return to the wound healing center in 1 week or call sooner if she has any questions or concerns. Dr. Zuñiga will follow her for her right forearm new wound.
--- NOTE | 2018-02-08 13:26 | PCM.WC.HP ---
(1) Open wound of right forearm Status: Acute Current Visit: Yes Code(s): S51.801A - Unspecified open wound of right forearm, initial encounter Comment: Laceration. History of Present Illness Date of Service: 02/07/18 Chief Complaint: Right forearm wound History of Wound: Ms. Medina is a 77-year-old who is currently following up here at the wound center with Dr. Hill for lower extremity ulcer and now presents with a right forearm wound after she fell against tray table about a week ago. She is applied triple antibiotic ointment and gauze over top with no significant improvement. She otherwise feels well and denies any concerns at this time. 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) Localized edema (Chronic) Delayed wound healing (Chronic) Allergies/Adverse Reactions: Allergies acetaminophen [From Percocet] Allergy (Verified 01/17/18 14:23) Unknown hydrocodone [From Vicodin] Allergy (Verified 01/17/18 14:23) Unknown oxycodone [From Percocet] Allergy (Verified 01/17/18 14:23) Unknown Home Medications: Ambulatory Orders Medication Instructions Recorded Amlodipine [Norvasc] 2.5 mg PO DAILY 12/06/14 Aspirin [Aspirin, Baby] 81 mg PO DAILY@0800 12/06/14 Levothyroxine [Synthroid] 100 mcg PO DAILY 12/06/14 Omeprazole [Prilosec] 40 mg PO DAILY 12/06/14 Pilocarpine HCl 5 mg PO TID 12/06/14 Atorvastatin Calcium [Lipitor] 10 mg PO QHS 01/17/18 Ensure Enlive ml PO 4X/DAY 01/17/18 l [place]/B Bifidum/B Longum 1 each PO DAILY 01/17/18 [Garvey' Colon Health Capsule] Smoking Status: Never smoker Review of Systems Constitutional: Denies: Anorexia, Chills, Fever Eyes: Denies: Blurred vision, Pain, Redness HEENT: Denies: Difficulty Swallowing Cardiovascular: Denies: Chest Pain, Chest Pressure Respiratory: Denies: Cough, Hemoptysis Gastrointestinal: Denies: Abdominal Pain, Hematemesis, Vomiting Skin: Denies: Jaundice - Physical Exam Vital Signs Temp Pulse Resp BP 97.5 F L 92 18 130/65 H 02/07/18 11:04 02/07/18 11:04 02/07/18 11:04 02/07/18 11:04 General: Alert, Oriented x3, Cooperative, No apparent distress HEENT: Atraumatic, Normocephalic Oral: Moist Mucosa Neck: Supple Lungs: Normal air movement Abdomen: Non Tender Extremities: No cyanosis Skin: Ulcer/ Wound Wound Measurements and Assessment WC - Nurse 1 - General Ulcer Measurement Start: 01/17/18 13:58 Freq: Status: Active Protocol: Activity Type Activity Date Activity User E-Sign Co-Sign Detail Recorded Client Recorded Date Recorded By Document 02/07/18 11:04 JF [id number] 02/07/18 11:14 ANNELIESE 02/07/18 11:04 Wound Center Nurse 1 [Ulcer Assessment] 2-right forearm -Combined with other wound No -Current Size (cm) - Length 3.5 -Current Size (cm) - Width 4.0 -Current Size (cm) - Depth 0.1 -Total Square Cm 14.00 -Photo Taken Yes -Epithelialization Small 1-33% -Tunneling No -Undermining/Tunneling No -Circular Undermining No -Exudate Amt Small (1-33%) -Exudate Type Serosanguineous -Wound Margin Flat & Intact -Granulation Amt Large (67-100%) -Granulation Quality [place] -Slough/Fibrin Yes -Necrosis Amt Small (1-33%) -Necrotic Tissue Type Adherent Slough -Structure Exposed N/A -Texture (Rosie-wound Skin Appearance) Assessed Localized Edema -Moisture (Rosie-wound Skin Appearance Assessed ) Dry/Scaly -Color (Rosie-wound Skin Appearance) Assessed -Temperature (Rosie-wound Skin No Abnormality Appearance) (Pt Warm) -Tenderness on Palpation (Rosie-wound No Skin Appearance) -Ulcer Cleansing Rinsed/ Irrigated with Saline -Foul Odor after Cleansing No -Anesthetic Used 4% Lidocaine Solution #1 LATERAL LLE -Combined with other wound No -Current Size (cm) - Length 0.8 -Current Size (cm) - Width 0.4 -Current Size (cm) - Depth 0.1 -Total Square Cm 0.32 -Photo Taken No -Epithelialization Small 1-33% -Tunneling No -Undermining/Tunneling No -Circular Undermining No -Exudate Amt None Present (0 %) -Wound Margin Flat & Intact -Granulation Amt None Present (0 %) -Slough/Fibrin Yes -Necrosis Amt Large (67-100%) -Necrotic Tissue Type Adherent Slough -Structure Exposed N/A -Texture (Rosie-wound Skin Appearance) Assessed Localized Edema -Moisture (Rosie-wound Skin Appearance Assessed ) Dry/Scaly -Color (Rosie-wound Skin Appearance) Assessed -Temperature (Rosie-wound Skin No Abnormality Appearance) (Pt Warm) -Tenderness on Palpation (Rosie-wound No Skin Appearance) -Ulcer Cleansing Wound Cleanser -Foul Odor after Cleansing No -Anesthetic Used 5% Lidocaine Gel [Edema Assessment] -Lower Limb Edema Present Yes -Left Calf (cm) 34.3 -Left Ankle (cm) 22.2 WC - Nurse 2 - General Ulcer CM Notes Start: 01/17/18 13:58 Freq: Status: Active Protocol: Activity Type Activity Date Activity User E-Sign Co-Sign Detail Recorded Client Recorded Date Recorded By Document 02/07/18 11:26 TM [id number] 02/07/18 11:28 TM Document 02/07/18 11:47 MW [id number] 02/07/18 11:49 MW 02/07/18 02/07/18 11:26 11:47 Wound Center Nurse 2 [Procedure/Treatment] 2-right forearm -Time 11:47 -Correct Patient Yes -Correct Side, Site, Position Yes -Correct Procedure Yes -Procedure Performed Yes -Type of Procedure Debridement -Clinical Debridement Subcutaneous -Post Debridement Size (cm) - Length 3.4 -Post Debridement Size (cm) - Width 4.0 -Post Debridement Size (cm) - Depth 0.1 -Total Square Cm 13.60 -Wound/Ulcer Outcome Not Healed -Ulcer Cleansing Rinsed/ Irrigated with Saline -Foul Odor after Cleansing No -Bioengineered Tissue No -Bleeding Controlled with Pressure -Treatment Response Procedure Tolerated Well #1 LATERAL LLE -Time 11:26 -Correct Patient Yes -Correct Side, Site, Position Yes -Correct Procedure Yes -Procedure Performed Yes -Type of Procedure Debridement -Clinical Debridement Subcutaneous -Post Debridement Size (cm) - Length 0.9 -Post Debridement Size (cm) - Width 0.5 -Post Debridement Size (cm) - Depth 0.1 -Total Square Cm 0.45 -Wound/Ulcer Outcome Not Healed -Ulcer Cleansing Rinsed/ Irrigated with Saline -Foul Odor after Cleansing No -Bioengineered Tissue Yes -Type of bioengineered Tissue EPIFIX -Expiration Date 10/11/22 -Product Lot Number [id number] -Percent Used 100 -Saline Lot Number [id number] -Topical Lidocaine (%) 4 -Bleeding Controlled with Pressure -Treatment Response Procedure Tolerated Well [See Physician Procedure note for Specifics] Pain Scale: 0-10 Numeric [Pain] -Is Patient Pain Free? Yes Yes Musculoskeletal: No Muscle Wasting Neurological: Cranial nerves II-XII grossly intact Psych/Mental Status: Normal Affect Debridement Note Post-Debridement Measurements/Treatment WC - Nurse 2 - General Ulcer CM Notes Start: 01/17/18 13:58 Freq: Status: Active Protocol: Activity Type Activity Date Activity User E-Sign Co-Sign Detail Recorded Client Recorded Date Recorded By Document 01/17/18 14:52 [id number] 01/17/18 14:57 Document 01/24/18 10:58 TM [id number] 01/24/18 11:12 TM Document 01/31/18 12:29 JF [id number] 01/31/18 12:30 JF Document 02/07/18 11:26 TM [id number] 02/07/18 11:28 TM Document 02/07/18 11:47 MW [id number] 02/07/18 11:49 MW 01/17/18 01/24/18 01/31/18 14:52 10:58 12:29 Wound Center Nurse 2 2-right forearm -Time -Correct Patient -Correct Side, Site, Position -Correct Procedure -Procedure Performed -Type of Procedure -Clinical Debridement -Post Debridement Size (cm) - Length -Post Debridement Size (cm) - Width -Post Debridement Size (cm) - Depth -Total Square Cm -Wound/Ulcer Outcome -Ulcer Cleansing -Foul Odor after Cleansing -Bioengineered Tissue -Bleeding Controlled with -Treatment Response #1 LATERAL LLE -Time 14:54 11:01 12:30 -Correct Patient Yes Yes Yes -Correct Side, Site, Position Yes Yes Yes -Correct Procedure Yes Yes Yes -Procedure Performed Yes Yes Yes -Type of Procedure Debridement Debridement Debridement -Clinical Debridement Subcutaneous Subcutaneous Subcutaneous -Post Debridement Size (cm) - Length 2.0 1.8 1.1 -Post Debridement Size (cm) - Width 1.5 1.0 0.5 -Post Debridement Size (cm) - Depth 0.2 0.1 0.1 -Total Square Cm 3.00 1.80 0.55 -Wound/Ulcer Outcome Not Healed Not Healed Not Healed -Ulcer Cleansing Rinsed/ Rinsed/ Rinsed/ Irrigated with Irrigated with Irrigated with Saline Saline Saline -Foul Odor after Cleansing No No No -Bioengineered Tissue No Yes Yes -Type of bioengineered Tissue EPIFIX EPIFIX -Expiration Date 09/10/22 09/10/22 -Product Lot Number [id number] -Percent Used 100 100 -Saline Lot Number [id number] -Topical Lidocaine (%) 4 -Bleeding Controlled with Pressure NA Pressure -Treatment Response Procedure Procedure Procedure Tolerated Well Tolerated Well Tolerated Well Pain Scale: 0-10 Numeric Is Patient Pain Free? Yes Yes Yes 02/07/18 02/07/18 11:26 11:47 Wound Center Nurse 2 2-right forearm -Time 11:47 -Correct Patient Yes -Correct Side, Site, Position Yes -Correct Procedure Yes -Procedure Performed Yes -Type of Procedure Debridement -Clinical Debridement Subcutaneous -Post Debridement Size (cm) - Length 3.4 -Post Debridement Size (cm) - Width 4.0 -Post Debridement Size (cm) - Depth 0.1 -Total Square Cm 13.60 -Wound/Ulcer Outcome Not Healed -Ulcer Cleansing Rinsed/ Irrigated with Saline -Foul Odor after Cleansing No -Bioengineered Tissue No -Bleeding Controlled with Pressure -Treatment Response Procedure Tolerated Well #1 LATERAL LLE -Time 11:26 -Correct Patient Yes -Correct Side, Site, Position Yes -Correct Procedure Yes -Procedure Performed Yes -Type of Procedure Debridement -Clinical Debridement Subcutaneous -Post Debridement Size (cm) - Length 0.9 -Post Debridement Size (cm) - Width 0.5 -Post Debridement Size (cm) - Depth 0.1 -Total Square Cm 0.45 -Wound/Ulcer Outcome Not Healed -Ulcer Cleansing Rinsed/ Irrigated with Saline -Foul Odor after Cleansing No -Bioengineered Tissue Yes -Type of bioengineered Tissue EPIFIX -Expiration Date 10/11/22 -Product Lot Number [id number] -Percent Used 100 -Saline Lot Number [id number] -Topical Lidocaine (%) 4 -Bleeding Controlled with Pressure -Treatment Response Procedure Tolerated Well Pain Scale: 0-10 Numeric Is Patient Pain Free? 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 Assessment: Left leg ulcer with fat layer exposed. Edema lower extremity. Rule out peripheral vascular disease. Malnutrition suspected. Delayed healing. Right forearm wound. Plan: Debridement done as documented above. Procedure was well-tolerated. Fibracol with Adaptic over top to right forearm wound. Change daily. Increase protein intake recommended and continue other wound care management per Dr. Hill. Nurse visit for right forearm wound next week and follow-up with me in 2 weeks. This note was generated with [employer] software. It may contain incorrect words, spelling, and punctuation that were not noted in checking the note before signing.
--- NOTE | 2018-02-08 13:31 | HP.PCM_ITS ---
(1) Open wound of right forearm Status: Acute Current Visit: Yes Code(s): S51.801A - Unspecified open wound of right forearm, initial encounter Comment: Laceration. History of Present Illness Date of Service: 02/07/18 Chief Complaint: Right forearm wound History of Wound: Ms. Medina is a 77-year-old who is currently following up here at the wound center with Dr. Hill for lower extremity ulcer and now presents with a right forearm wound after she fell against tray table about a week ago. She is applied triple antibiotic ointment and gauze over top with no significant improvement. She otherwise feels well and denies any concerns at this time. 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) Localized edema (Chronic) Delayed wound healing (Chronic) Allergies/Adverse Reactions: Allergies acetaminophen [From Percocet] Allergy (Verified 01/17/18 14:23) Unknown hydrocodone [From Vicodin] Allergy (Verified 01/17/18 14:23) Unknown oxycodone [From Percocet] Allergy (Verified 01/17/18 14:23) Unknown Home Medications: Ambulatory Orders Medication Instructions Recorded Amlodipine [Norvasc] 2.5 mg PO DAILY 12/06/14 Aspirin [Aspirin, Baby] 81 mg PO DAILY@0800 12/06/14 Levothyroxine [Synthroid] 100 mcg PO DAILY 12/06/14 Omeprazole [Prilosec] 40 mg PO DAILY 12/06/14 Pilocarpine HCl 5 mg PO TID 12/06/14 Atorvastatin Calcium [Lipitor] 10 mg PO QHS 01/17/18 Ensure Enlive ml PO 4X/DAY 01/17/18 l [place]/B Bifidum/B Longum 1 each PO DAILY 01/17/18 [Garvey' Colon Health Capsule] Smoking Status: Never smoker Review of Systems Constitutional: Denies: Anorexia, Chills, Fever Eyes: Denies: Blurred vision, Pain, Redness HEENT: Denies: Difficulty Swallowing Cardiovascular: Denies: Chest Pain, Chest Pressure Respiratory: Denies: Cough, Hemoptysis Gastrointestinal: Denies: Abdominal Pain, Hematemesis, Vomiting Skin: Denies: Jaundice - Physical Exam Vital Signs Temp Pulse Resp BP 97.5 F L 92 18 130/65 H 02/07/18 11:04 02/07/18 11:04 02/07/18 11:04 02/07/18 11:04 General: Alert, Oriented x3, Cooperative, No apparent distress HEENT: Atraumatic, Normocephalic Oral: Moist Mucosa Neck: Supple Lungs: Normal air movement Abdomen: Non Tender Extremities: No cyanosis Skin: Ulcer/ Wound Wound Measurements and Assessment WC - Nurse 1 - General Ulcer Measurement Start: 01/17/18 13:58 Freq: Status: Active Protocol: Activity Type Activity Date Activity User E-Sign Co-Sign Detail Recorded Client Recorded Date Recorded By Document 02/07/18 11:04 JF [id number] 02/07/18 11:14 ANNELIESE 02/07/18 11:04 Wound Center Nurse 1 [Ulcer Assessment] 2-right forearm -Combined with other wound No -Current Size (cm) - Length 3.5 -Current Size (cm) - Width 4.0 -Current Size (cm) - Depth 0.1 -Total Square Cm 14.00 -Photo Taken Yes -Epithelialization Small 1-33% -Tunneling No -Undermining/Tunneling No -Circular Undermining No -Exudate Amt Small (1-33%) -Exudate Type Serosanguineous -Wound Margin Flat & Intact -Granulation Amt Large (67-100%) -Granulation Quality [place] -Slough/Fibrin Yes -Necrosis Amt Small (1-33%) -Necrotic Tissue Type Adherent Slough -Structure Exposed N/A -Texture (Rosie-wound Skin Appearance) Assessed Localized Edema -Moisture (Rosie-wound Skin Appearance Assessed ) Dry/Scaly -Color (Rosie-wound Skin Appearance) Assessed -Temperature (Rosie-wound Skin No Abnormality Appearance) (Pt Warm) -Tenderness on Palpation (Rosie-wound No Skin Appearance) -Ulcer Cleansing Rinsed/ Irrigated with Saline -Foul Odor after Cleansing No -Anesthetic Used 4% Lidocaine Solution #1 LATERAL LLE -Combined with other wound No -Current Size (cm) - Length 0.8 -Current Size (cm) - Width 0.4 -Current Size (cm) - Depth 0.1 -Total Square Cm 0.32 -Photo Taken No -Epithelialization Small 1-33% -Tunneling No -Undermining/Tunneling No -Circular Undermining No -Exudate Amt None Present (0 %) -Wound Margin Flat & Intact -Granulation Amt None Present (0 %) -Slough/Fibrin Yes -Necrosis Amt Large (67-100%) -Necrotic Tissue Type Adherent Slough -Structure Exposed N/A -Texture (Rosie-wound Skin Appearance) Assessed Localized Edema -Moisture (Rosie-wound Skin Appearance Assessed ) Dry/Scaly -Color (Rosie-wound Skin Appearance) Assessed -Temperature (Rosie-wound Skin No Abnormality Appearance) (Pt Warm) -Tenderness on Palpation (Rosie-wound No Skin Appearance) -Ulcer Cleansing Wound Cleanser -Foul Odor after Cleansing No -Anesthetic Used 5% Lidocaine Gel [Edema Assessment] -Lower Limb Edema Present Yes -Left Calf (cm) 34.3 -Left Ankle (cm) 22.2 WC - Nurse 2 - General Ulcer CM Notes Start: 01/17/18 13:58 Freq: Status: Active Protocol: Activity Type Activity Date Activity User E-Sign Co-Sign Detail Recorded Client Recorded Date Recorded By Document 02/07/18 11:26 TM [id number] 02/07/18 11:28 TM Document 02/07/18 11:47 MW [id number] 02/07/18 11:49 MW 02/07/18 02/07/18 11:26 11:47 Wound Center Nurse 2 [Procedure/Treatment] 2-right forearm -Time 11:47 -Correct Patient Yes -Correct Side, Site, Position Yes -Correct Procedure Yes -Procedure Performed Yes -Type of Procedure Debridement -Clinical Debridement Subcutaneous -Post Debridement Size (cm) - Length 3.4 -Post Debridement Size (cm) - Width 4.0 -Post Debridement Size (cm) - Depth 0.1 -Total Square Cm 13.60 -Wound/Ulcer Outcome Not Healed -Ulcer Cleansing Rinsed/ Irrigated with Saline -Foul Odor after Cleansing No -Bioengineered Tissue No -Bleeding Controlled with Pressure -Treatment Response Procedure Tolerated Well #1 LATERAL LLE -Time 11:26 -Correct Patient Yes -Correct Side, Site, Position Yes -Correct Procedure Yes -Procedure Performed Yes -Type of Procedure Debridement -Clinical Debridement Subcutaneous -Post Debridement Size (cm) - Length 0.9 -Post Debridement Size (cm) - Width 0.5 -Post Debridement Size (cm) - Depth 0.1 -Total Square Cm 0.45 -Wound/Ulcer Outcome Not Healed -Ulcer Cleansing Rinsed/ Irrigated with Saline -Foul Odor after Cleansing No -Bioengineered Tissue Yes -Type of bioengineered Tissue EPIFIX -Expiration Date 10/11/22 -Product Lot Number [id number] -Percent Used 100 -Saline Lot Number [id number] -Topical Lidocaine (%) 4 -Bleeding Controlled with Pressure -Treatment Response Procedure Tolerated Well [See Physician Procedure note for Specifics] Pain Scale: 0-10 Numeric [Pain] -Is Patient Pain Free? Yes Yes Musculoskeletal: No Muscle Wasting Neurological: Cranial nerves II-XII grossly intact Psych/Mental Status: Normal Affect Debridement Note Post-Debridement Measurements/Treatment WC - Nurse 2 - General Ulcer CM Notes Start: 01/17/18 13:58 Freq: Status: Active Protocol: Activity Type Activity Date Activity User E-Sign Co-Sign Detail Recorded Client Recorded Date Recorded By Document 01/17/18 14:52 [id number] 01/17/18 14:57 Document 01/24/18 10:58 TM [id number] 01/24/18 11:12 TM Document 01/31/18 12:29 JF [id number] 01/31/18 12:30 JF Document 02/07/18 11:26 TM [id number] 02/07/18 11:28 TM Document 02/07/18 11:47 MW [id number] 02/07/18 11:49 MW 01/17/18 01/24/18 01/31/18 14:52 10:58 12:29 Wound Center Nurse 2 2-right forearm -Time -Correct Patient -Correct Side, Site, Position -Correct Procedure -Procedure Performed -Type of Procedure -Clinical Debridement -Post Debridement Size (cm) - Length -Post Debridement Size (cm) - Width -Post Debridement Size (cm) - Depth -Total Square Cm -Wound/Ulcer Outcome -Ulcer Cleansing -Foul Odor after Cleansing -Bioengineered Tissue -Bleeding Controlled with -Treatment Response #1 LATERAL LLE -Time 14:54 11:01 12:30 -Correct Patient Yes Yes Yes -Correct Side, Site, Position Yes Yes Yes -Correct Procedure Yes Yes Yes -Procedure Performed Yes Yes Yes -Type of Procedure Debridement Debridement Debridement -Clinical Debridement Subcutaneous Subcutaneous Subcutaneous -Post Debridement Size (cm) - Length 2.0 1.8 1.1 -Post Debridement Size (cm) - Width 1.5 1.0 0.5 -Post Debridement Size (cm) - Depth 0.2 0.1 0.1 -Total Square Cm 3.00 1.80 0.55 -Wound/Ulcer Outcome Not Healed Not Healed Not Healed -Ulcer Cleansing Rinsed/ Rinsed/ Rinsed/ Irrigated with Irrigated with Irrigated with Saline Saline Saline -Foul Odor after Cleansing No No No -Bioengineered Tissue No Yes Yes -Type of bioengineered Tissue EPIFIX EPIFIX -Expiration Date 09/10/22 09/10/22 -Product Lot Number [id number] -Percent Used 100 100 -Saline Lot Number [id number] -Topical Lidocaine (%) 4 -Bleeding Controlled with Pressure NA Pressure -Treatment Response Procedure Procedure Procedure Tolerated Well Tolerated Well Tolerated Well Pain Scale: 0-10 Numeric Is Patient Pain Free? Yes Yes Yes 02/07/18 02/07/18 11:26 11:47 Wound Center Nurse 2 2-right forearm -Time 11:47 -Correct Patient Yes -Correct Side, Site, Position Yes -Correct Procedure Yes -Procedure Performed Yes -Type of Procedure Debridement -Clinical Debridement Subcutaneous -Post Debridement Size (cm) - Length 3.4 -Post Debridement Size (cm) - Width 4.0 -Post Debridement Size (cm) - Depth 0.1 -Total Square Cm 13.60 -Wound/Ulcer Outcome Not Healed -Ulcer Cleansing Rinsed/ Irrigated with Saline -Foul Odor after Cleansing No -Bioengineered Tissue No -Bleeding Controlled with Pressure -Treatment Response Procedure Tolerated Well #1 LATERAL LLE -Time 11:26 -Correct Patient Yes -Correct Side, Site, Position Yes -Correct Procedure Yes -Procedure Performed Yes -Type of Procedure Debridement -Clinical Debridement Subcutaneous -Post Debridement Size (cm) - Length 0.9 -Post Debridement Size (cm) - Width 0.5 -Post Debridement Size (cm) - Depth 0.1 -Total Square Cm 0.45 -Wound/Ulcer Outcome Not Healed -Ulcer Cleansing Rinsed/ Irrigated with Saline -Foul Odor after Cleansing No -Bioengineered Tissue Yes -Type of bioengineered Tissue EPIFIX -Expiration Date 10/11/22 -Product Lot Number [id number] -Percent Used 100 -Saline Lot Number [id number] -Topical Lidocaine (%) 4 -Bleeding Controlled with Pressure -Treatment Response Procedure Tolerated Well Pain Scale: 0-10 Numeric Is Patient Pain Free? 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 Assessment: Left leg ulcer with fat layer exposed. Edema lower extremity. Rule out peripheral vascular disease. Malnutrition suspected. Delayed healing. Right forearm wound. Plan: Debridement done as documented above. Procedure was well-tolerated. Fibracol with Adaptic over top to right forearm wound. Change daily. Increase protein intake recommended and continue other wound care management per Dr. Hill. Nurse visit for right forearm wound next week and follow-up with me in 2 weeks. This note was generated with [email or web address] dictation software. It may contain incorrect words, spelling, and punctuation that were not noted in munir cking the note before signing.
== END 2018-02-09 23:59 ==
LOC: WC 10:45
PROVIDERS: Family Provider Internal Medicine; PCP Internal Medicine; Referring Provider Podiatrist; Visit Provider Podiatrist
DX: I73.9 Peripheral vascular disease, unspecified (principal); L97.822 Non-pressure chronic ulcer of other part of left lower leg with fat layer exposed; R60.0 Localized edema; M79.89 Other specified soft tissue disorders; E78.5 Hyperlipidemia, unspecified; K21.9 Gastro-esophageal reflux disease without esophagitis; I10 Essential (primary) hypertension; Z85.819 Personal history of malignant neoplasm of unspecified site of lip, oral cavity, and pharynx; S51.801A Unspecified open wound of right forearm, initial encounter; W19.XXXA Unspecified fall, initial encounter
CPT/HCPCS: 11042; 15271; 80053; 84134; 85025; 93923; 99213; Q4131; G0463

== ENCOUNTER 2018-02-28 10:30 | Outpatient (RCR) | payer MEDICARE, OTHER, SELFPAY ==
[2018-02-10 01:53] VITALS: BP 130/65; PULSE 92; RESP 18; TEMP 36.4
[2018-02-14 13:14] VITALS: BP 141/71; PULSE 90; RESP 18; TEMP 36.3; BMI 28.3
--- NOTE | 2018-02-14 14:58 | PN.PCM_ITS ---
(1) Ulcer of left lower extremity with fat layer exposed Status: Chronic Code(s): L97.922 - Non-pressure chronic ulcer of unspecified part of left lower leg with fat layer exposed (2) Localized edema Status: Chronic Code(s): R60.0 - Localized edema (3) Delayed wound healing Status: Chronic Code(s): T14.8XXD - Other injury of unspecified body region, subsequent encounter (4) Malnutrition Status: Suspected Code(s): E46 - Unspecified protein-calorie malnutrition Type of Wound Chief Complaint: Left leg ulcer History of Wound: Ms. Medina is a 77-year-old who is currently following up here at the wound center for left chronic leg ulcer. She is catheter dressing intact as advised. She denies fever, chills, nausea, vomiting. Her pain is also decreased. Progress of Wound: Improving - Physical Exam Vital Signs Temp Pulse Resp BP 97.3 F L 90 18 141/71 H 02/14/18 13:14 02/14/18 13:14 02/14/18 13:14 02/14/18 13:14 General: Alert, Oriented x3, Cooperative Extremities: No cyanosis, Capillary Refill Less than 3 Seconds, No Calf Tenderness - Negative Katy and Garrett sign bilateral, Diminished Peripheral Pulses, Edema - Bilateral lower extremities Skin: Ulcer/ Wound - No purulence, erythema, streaking, odor, or infection. The peripheral skin is atrophic, hairless, and with inflammatory lesions unchanged from previous visits and with less inflammation Wound Measurements and Assessment WC - Nurse 1 - General Ulcer Measurement Start: 02/14/18 13:14 Freq: Status: Active Protocol: Activity Type Activity Date Activity User E-Sign Co-Sign Detail Recorded Client Recorded Date Recorded By Document 02/14/18 13:14 MW [id number] 02/14/18 13:24 MW 02/14/18 13:14 Wound Center Nurse 1 [Ulcer Assessment] 2-right forearm -Combined with other wound No -Current Size (cm) - Length 2.2 -Current Size (cm) - Width 2.6 -Current Size (cm) - Depth 0.1 -Total Square Cm 5.72 -Photo Taken No -Epithelialization None Present -Tunneling No -Undermining/Tunneling No -Circular Undermining No -Exudate Amt None Present (0 %) -Wound Margin Flat & Intact -Granulation Amt Large (67-100%) -Granulation Quality Red -Slough/Fibrin Yes -Necrosis Amt Small (1-33%) -Necrotic Tissue Type Adherent Slough -Structure Exposed N/A -Texture (Rosie-wound Skin Appearance) Assessed Scarring -Moisture (Rosie-wound Skin Appearance Assessed ) Dry/Scaly -Color (Rosie-wound Skin Appearance) No Abnormality Assessed -Temperature (Rosie-wound Skin No Abnormality Appearance) (Pt Warm) -Tenderness on Palpation (Rosie-wound No Skin Appearance) -Ulcer Cleansing Rinsed/ Irrigated with Saline -Foul Odor after Cleansing No #1 LATERAL LLE -Combined with other wound No -Current Size (cm) - Length 0.1 -Current Size (cm) - Width 0.1 -Current Size (cm) - Depth 0.1 -Total Square Cm 0.01 -Photo Taken No -Epithelialization Small 1-33% -Tunneling No -Undermining/Tunneling No -Circular Undermining No -Exudate Amt None Present (0 %) -Wound Margin Flat & Intact -Granulation Amt None Present (0 %) -Granulation Quality N/A -Slough/Fibrin Yes -Necrosis Amt Large (67-100%) -Necrotic Tissue Type Adherent Slough -Structure Exposed N/A -Texture (Rosie-wound Skin Appearance) Assessed Excoriation Localized Edema Scarring -Moisture (Rosie-wound Skin Appearance Assessed ) Dry/Scaly -Color (Rosie-wound Skin Appearance) Assessed Erythema -Ulcer Cleansing Rinsed/ Irrigated with Saline -Foul Odor after Cleansing No -Anesthetic Used 4% Lidocaine Solution [Edema Assessment] -Lower Limb Edema Present Yes -Right Calf (cm) 35.7 -Right Ankle (cm) 24.2 WC - Nurse 2 - General Ulcer CM Notes Start: 02/14/18 13:14 Freq: Status: Active Protocol: Activity Type Activity Date Activity User E-Sign Co-Sign Detail Recorded Client Recorded Date Recorded By Document 02/14/18 13:42 [email or web address] [id number] 02/14/18 13:44 ANNELIESE 02/14/18 13:42 Wound Center Nurse 2 [Procedure/Treatment] 2-right forearm -Correct Patient No -Correct Side, Site, Position No -Correct Procedure No -Procedure Performed No #1 LATERAL LLE -Time 13:43 -Correct Patient Yes -Correct Side, Site, Position Yes -Correct Procedure Yes -Procedure Performed Yes -Type of Procedure Debridement -Clinical Debridement Subcutaneous -Post Debridement Size (cm) - Length 0.3 -Post Debridement Size (cm) - Width 0.3 -Post Debridement Size (cm) - Depth 0.1 -Total Square Cm 0.09 -Wound/Ulcer Outcome Not Healed -Ulcer Cleansing Rinsed/ Irrigated with Saline -Foul Odor after Cleansing No -Bioengineered Tissue Yes -Type of bioengineered Tissue EPIFIX -Expiration Date 10/11/22 -Product Lot Number [id number] -Percent Used 100 -Saline Lot Number [id number] -Bleeding Controlled with Pressure -Offloading No -Treatment Response Procedure Tolerated Well [See Physician Procedure note for Specifics] Pain Scale: 0-10 Numeric [Pain] -Is Patient Pain Free? Yes Musculoskeletal: No Tenderness to Palpation of Joints or Extremities, Muscle Wasting Neurological: Sensory exam intact to light touch and pain Psych/Mental Status: Normal Affect, Appropriate Debridement Note Post-Debridement Measurements/Treatment WC - Nurse 2 - General Ulcer CM Notes Start: 02/14/18 13:14 Freq: Status: Active Protocol: Activity Type Activity Date Activity User E-Sign Co-Sign Detail Recorded Client Recorded Date Recorded By Document 02/14/18 13:42 [email or web address] [id number] 02/14/18 13:44 ANNELIESE 02/14/18 13:42 Wound Center Nurse 2 2-right forearm -Correct Patient No -Correct Side, Site, Position No -Correct Procedure No -Procedure Performed No #1 LATERAL LLE -Time 13:43 -Correct Patient Yes -Correct Side, Site, Position Yes -Correct Procedure Yes -Procedure Performed Yes -Type of Procedure Debridement -Clinical Debridement Subcutaneous -Post Debridement Size (cm) - Length 0.3 -Post Debridement Size (cm) - Width 0.3 -Post Debridement Size (cm) - Depth 0.1 -Total Square Cm 0.09 -Wound/Ulcer Outcome Not Healed -Ulcer Cleansing Rinsed/ Irrigated with Saline -Foul Odor after Cleansing No -Bioengineered Tissue Yes -Type of bioengineered Tissue EPIFIX -Expiration Date 10/11/22 -Product Lot Number [id number] -Percent Used 100 -Saline Lot Number [id number] -Bleeding Controlled with Pressure -Offloading No -Treatment Response Procedure Tolerated Well Pain Scale: 0-10 Numeric Is Patient Pain Free? Yes Wound debrided: leg Laterality: Left Type of Debridement: Excisional debridement Anesthesia Used: 5% Lidocaine Gel Depth: in the subcutaneous layer Percentage of wound debrided: 100 Instrument Used: #15 blade Tissue Removed: fibrous, devitalized subcutaneous, biofilm, slough Severity: Fat Layer Exposed Amount of bleeding with debridement: Mild Bleeding Controlled with: Pressure Patient tolerated procedure well Assessment/Plan Assessment: Left leg ulcer with fat layer exposed. Edema lower extremity. Rule out peripheral vascular disease. Malnutrition suspected. Delayed healing. Right forearm wound (managed with Dr. Zuñiga) Plan: I reviewed and discussed this patient's case today. Subcutaneous excisional debridement was performed as noted in the clinical panel. I recommend application of advanced wound care product, epi fix. Prior authori zation was obtained and this was applied according to standard protocol after verbal consent was obtained. This was secured in place with Steri-Strips and wound veil. She tolerated this well. She is advised to keep this intact until follow-up visit next week. To keep pressure off of this ulcer site by avoiding laying on the side. To also decrease pressure by wearing light compression dressing of the single layer Tubigrip; this is applied today. Noninvasive arterial vascular studies were reviewed today with a right RICKY of 1.18 and left of 1.3. No significant perfusion impairment is noted. I also provided an order for baseline labs including CBC CMP and prealbumin. No gross abnormalities were noted except the prealbumin level is 15.6. She understands this is a marker of inflammation and possibly nutritional status. It is noted she mainly takes nutritional supplement shakes as a form of dietary intake and I suspect malnutrition. I will offer her a future nutrition referral to optimize healing. A prescription for Fredrick was also provided today and she was advised on proper use. I answered all her questions. She was reassured no local or systemic signs of illness are suspected today. To return to the wound healing center in 1 week or call sooner if she has any questions or concerns. Dr. Zuñiga will follow her for her right forearm ulcer site.
[2018-02-21 10:39] VITALS: BP 120/72; PULSE 83; RESP 16; TEMP 36.2; BMI 28.3
--- NOTE | 2018-02-21 11:10 | PCM.WC.PN ---
(1) Open wound of right forearm Status: Chronic Current Visit: Yes Code(s): S51.801A - Unspecified open wound of right forearm, initial encounter Comment: Laceration. Type of Wound Chief Complaint: Left leg ulcer History of Wound: Ms. Medina is a 77-year-old who is currently following up here at the wound center for left chronic leg ulcer. She is catheter dressing intact as advised. She denies fever, chills, nausea, vomiting. Her pain is also decreased. Progress of Wound: Improving. No new complaints at this time. - Physical Exam Vital Signs Temp Pulse Resp BP 97.1 F L 83 16 120/72 02/21/18 10:39 02/21/18 10:39 02/21/18 10:39 02/21/18 10:39 General: Alert, Oriented x3, Cooperative, No apparent distress HEENT: Atraumatic, Normocephalic Oral: Moist Mucosa Neck: Supple Lungs: Normal air movement Abdomen: Non Tender Extremities: No cyanosis, Edema Skin: Ulcer/ Wound, Rash Present Wound Measurements and Assessment WC - Nurse 1 - General Ulcer Measurement Start: 02/14/18 13:14 Freq: Status: Active Protocol: Activity Type Activity Date Activity User E-Sign Co-Sign Detail Recorded Client Recorded Date Recorded By Document 02/21/18 10:39 [facility] [id number] 02/21/18 10:48 [facility] 02/21/18 10:39 Wound Center Nurse 1 [Ulcer Assessment] 2-right forearm -Combined with other wound No -Current Size (cm) - Length 1.9 -Current Size (cm) - Width 0.9 -Current Size (cm) - Depth 0.1 -Total Square Cm 1.71 -Photo Taken No -Epithelialization Small 1-33% -Tunneling No -Undermining/Tunneling No -Circular Undermining No -Exudate Amt Small (1-33%) -Exudate Type Serosanguineous -Wound Margin Distinct, Outline Attached -Granulation Amt Large (67-100%) -Granulation Quality Red -Slough/Fibrin No -Necrosis Amt None Present (0 %) -Structure Exposed None/Limited to Skin Breakdown -Texture (Rosie-wound Skin Appearance) Excoriation Rash -Moisture (Rosie-wound Skin Appearance Dry/Scaly ) -Color (Rosie-wound Skin Appearance) Assessed Erythema -Temperature (Rosie-wound Skin No Abnormality Appearance) (Pt Warm) -Tenderness on Palpation (Rosie-wound No Skin Appearance) -Ulcer Cleansing Rinsed/ Irrigated with Saline -Foul Odor after Cleansing No -Anesthetic Used 5% Lidocaine Gel #1 LATERAL LLE -Combined with other wound No -Current Size (cm) - Length 0.1 -Current Size (cm) - Width 0.1 -Current Size (cm) - Depth 0.1 -Total Square Cm 0.01 -Epithelialization Large 67-100% -Tunneling No -Undermining/Tunneling No -Circular Undermining No -Exudate Amt Small (1-33%) -Exudate Type Serosanguineous -Wound Margin Distinct, Outline Attached -Texture (Rosie-wound Skin Appearance) Excoriation Scarring Rash -Moisture (Rosie-wound Skin Appearance Dry/Scaly ) -Color (Rosie-wound Skin Appearance) Assessed Erythema -Temperature (Rosie-wound Skin No Abnormality Appearance) (Pt Warm) -Tenderness on Palpation (Rosie-wound No Skin Appearance) -Ulcer Cleansing Rinsed/ Irrigated with Saline -Foul Odor after Cleansing No -Anesthetic Used 5% Lidocaine Gel [Edema Assessment] -Lower Limb Edema Present Yes -Left Calf (cm) 37.6 -Left Ankle (cm) 24.8 WC - Nurse 2 - General Ulcer CM Notes Start: 02/14/18 13:14 Freq: Status: Active Protocol: Activity Type Activity Date Activity User E-Sign Co-Sign Detail Recorded Client Recorded Date Recorded By Document 02/21/18 11:01 MW [id number] 02/21/18 11:02 MW 02/21/18 11:01 Wound Center Nurse 2 [Procedure/Treatment] 2-right forearm -Time 11:01 -Correct Patient Yes -Correct Side, Site, Position Yes -Correct Procedure Yes -Procedure Performed Yes -Type of Procedure Debridement -Clinical Debridement Subcutaneous -Post Debridement Size (cm) - Length 0.9 -Post Debridement Size (cm) - Width 0.9 -Post Debridement Size (cm) - Depth 0.1 -Total Square Cm 0.81 -Wound/Ulcer Outcome Not Healed -Ulcer Cleansing Rinsed/ Irrigated with Saline -Foul Odor after Cleansing No -Bioengineered Tissue No -Bleeding Controlled with Pressure -Offloading No -Treatment Response Procedure Tolerated Well [See Physician Procedure note for Specifics] Pain Scale: 0-10 Numeric [Pain] -Is Patient Pain Free? Yes Musculoskeletal: No Muscle Wasting Neurological: Cranial nerves II-XII grossly intact Psych/Mental Status: Normal Affect Debridement Note Post-Debridement Measurements/Treatment WC - Nurse 2 - General Ulcer CM Notes Start: 02/14/18 13:14 Freq: Status: Active Protocol: Activity Type Activity Date Activity User E-Sign Co-Sign Detail Recorded Client Recorded Date Recorded By Document 02/14/18 13:42 [id number] 02/14/18 13:44 Document 02/21/18 11:01 MW [id number] 02/21/18 11:02 MW 02/14/18 02/21/18 13:42 11:01 Wound Center Nurse 2 2-right forearm -Time 11:01 -Correct Patient No Yes -Correct Side, Site, Position No Yes -Correct Procedure No Yes -Procedure Performed No Yes -Type of Procedure Debridement -Clinical Debridement Subcutaneous -Post Debridement Size (cm) - Length 0.9 -Post Debridement Size (cm) - Width 0.9 -Post Debridement Size (cm) - Depth 0.1 -Total Square Cm 0.81 -Wound/Ulcer Outcome Not Healed -Ulcer Cleansing Rinsed/ Irrigated with Saline -Foul Odor after Cleansing No -Bioengineered Tissue No -Bleeding Controlled with Pressure -Offloading No -Treatment Response Procedure Tolerated Well #1 LATERAL LLE -Time 13:43 -Correct Patient Yes -Correct Side, Site, Position Yes -Correct Procedure Yes -Procedure Performed Yes -Type of Procedure Debridement -Clinical Debridement Subcutaneous -Post Debridement Size (cm) - Length 0.3 -Post Debridement Size (cm) - Width 0.3 -Post Debridement Size (cm) - Depth 0.1 -Total Square Cm 0.09 -Wound/Ulcer Outcome Not Healed -Ulcer Cleansing Rinsed/ Irrigated with Saline -Foul Odor after Cleansing No -Bioengineered Tissue Yes -Type of bioengineered Tissue EPIFIX -Expiration Date 10/11/22 -Product Lot Number [id number] -Percent Used 100 -Saline Lot Number [id number] -Bleeding Controlled with Pressure -Offloading No -Treatment Response Procedure Tolerated Well Pain Scale: 0-10 Numeric Is Patient Pain Free? Yes Yes Wound debrided: Right forearm Wound Grade/Stage: Stage II Type of Debridement: Excisional debridement Anesthesia Used: 4% Lidocaine Solution Depth: Down to and including healthy tissue, in the subcutaneous layer Percentage of wound debrided: 100 Instrument Used: 3mm curette Tissue Removed: Biofilm and devitalized tissue Severity: Fat Layer Exposed Amount of bleeding with debridement: Mild Bleeding Controlled with: Pressure Patient tolerated procedure well Assessment/Plan Active Problems Open wound of right forearm (Chronic) Laceration. Assessment: Left leg ulcer with fat layer exposed. Edema lower extremity. Rule out peripheral vascular disease. Malnutrition suspected. Delayed healing. Right forearm wound (managed with Dr. Zuñiga) Plan: Improving wound. Debridement was documented. Procedure was well-tolerated. Keep right upper extremity as much as possible elevated. Increased protein intake also recommended. All their questions were answered and they were advised to call with any further questions or concerns. Other wound care management per Dr. Hill. Follow-up in 1 week. This note was generated with [employer] dictation software. It may contain incorrect words, spelling, and punctuation that were not noted in checking the note before signing.
--- NOTE | 2018-02-21 11:14 | PN.PCM_ITS ---
(1) Open wound of right forearm Status: Chronic Current Visit: Yes Code(s): S51.801A - Unspecified open wound of right forearm, initial encounter Comment: Laceration. Type of Wound Chief Complaint: Left leg ulcer History of Wound: Ms. Medina is a 77-year-old who is currently following up here at the wound center for left chronic leg ulcer. She is catheter dressing intact as advised. She denies fever, chills, nausea, vomiting. Her pain is also decreased. Progress of Wound: Improving. No new complaints at this time. - Physical Exam Vital Signs Temp Pulse Resp BP 97.1 F L 83 16 120/72 02/21/18 10:39 02/21/18 10:39 02/21/18 10:39 02/21/18 10:39 General: Alert, Oriented x3, Cooperative, No apparent distress HEENT: Atraumatic, Normocephalic Oral: Moist Mucosa Neck: Supple Lungs: Normal air movement Abdomen: Non Tender Extremities: No cyanosis, Edema Skin: Ulcer/ Wound, Rash Present Wound Measurements and Assessment WC - Nurse 1 - General Ulcer Measurement Start: 02/14/18 13:14 Freq: Status: Active Protocol: Activity Type Activity Date Activity User E-Sign Co-Sign Detail Recorded Client Recorded Date Recorded By Document 02/21/18 10:39 [facility] [id number] 02/21/18 10:48 [facility] 02/21/18 10:39 Wound Center Nurse 1 [Ulcer Assessment] 2-right forearm -Combined with other wound No -Current Size (cm) - Length 1.9 -Current Size (cm) - Width 0.9 -Current Size (cm) - Depth 0.1 -Total Square Cm 1.71 -Photo Taken No -Epithelialization Small 1-33% -Tunneling No -Undermining/Tunneling No -Circular Undermining No -Exudate Amt Small (1-33%) -Exudate Type Serosanguineous -Wound Margin Distinct, Outline Attached -Granulation Amt Large (67-100%) -Granulation Quality Red -Slough/Fibrin No -Necrosis Amt None Present (0 %) -Structure Exposed None/Limited to Skin Breakdown -Texture (Rosie-wound Skin Appearance) Excoriation Rash -Moisture (Rosie-wound Skin Appearance Dry/Scaly ) -Color (Rosie-wound Skin Appearance) Assessed Erythema -Temperature (Rosie-wound Skin No Abnormality Appearance) (Pt Warm) -Tenderness on Palpation (Rosie-wound No Skin Appearance) -Ulcer Cleansing Rinsed/ Irrigated with Saline -Foul Odor after Cleansing No -Anesthetic Used 5% Lidocaine Gel #1 LATERAL LLE -Combined with other wound No -Current Size (cm) - Length 0.1 -Current Size (cm) - Width 0.1 -Current Size (cm) - Depth 0.1 -Total Square Cm 0.01 -Epithelialization Large 67-100% -Tunneling No -Undermining/Tunneling No -Circular Undermining No -Exudate Amt Small (1-33%) -Exudate Type Serosanguineous -Wound Margin Distinct, Outline Attached -Texture (Rosie-wound Skin Appearance) Excoriation Scarring Rash -Moisture (Rosie-wound Skin Appearance Dry/Scaly ) -Color (Rosie-wound Skin Appearance) Assessed Erythema -Temperature (Rosie-wound Skin No Abnormality Appearance) (Pt Warm) -Tenderness on Palpation (Rosie-wound No Skin Appearance) -Ulcer Cleansing Rinsed/ Irrigated with Saline -Foul Odor after Cleansing No -Anesthetic Used 5% Lidocaine Gel [Edema Assessment] -Lower Limb Edema Present Yes -Left Calf (cm) 37.6 -Left Ankle (cm) 24.8 WC - Nurse 2 - General Ulcer CM Notes Start: 02/14/18 13:14 Freq: Status: Active Protocol: Activity Type Activity Date Activity User E-Sign Co-Sign Detail Recorded Client Recorded Date Recorded By Document 02/21/18 11:01 MW [id number] 02/21/18 11:02 MW 02/21/18 11:01 Wound Center Nurse 2 [Procedure/Treatment] 2-right forearm -Time 11:01 -Correct Patient Yes -Correct Side, Site, Position Yes -Correct Procedure Yes -Procedure Performed Yes -Type of Procedure Debridement -Clinical Debridement Subcutaneous -Post Debridement Size (cm) - Length 0.9 -Post Debridement Size (cm) - Width 0.9 -Post Debridement Size (cm) - Depth 0.1 -Total Square Cm 0.81 -Wound/Ulcer Outcome Not Healed -Ulcer Cleansing Rinsed/ Irrigated with Saline -Foul Odor after Cleansing No -Bioengineered Tissue No -Bleeding Controlled with Pressure -Offloading No -Treatment Response Procedure Tolerated Well [See Physician Procedure note for Specifics] Pain Scale: 0-10 Numeric [Pain] -Is Patient Pain Free? Yes Musculoskeletal: No Muscle Wasting Neurological: Cranial nerves II-XII grossly intact Psych/Mental Status: Normal Affect Debridement Note Post-Debridement Measurements/Treatment WC - Nurse 2 - General Ulcer CM Notes Start: 02/14/18 13:14 Freq: Status: Active Protocol: Activity Type Activity Date Activity User E-Sign Co-Sign Detail Recorded Client Recorded Date Recorded By Document 02/14/18 13:42 [id number] 02/14/18 13:44 Document 02/21/18 11:01 MW [id number] 02/21/18 11:02 MW 02/14/18 02/21/18 13:42 11:01 Wound Center Nurse 2 2-right forearm -Time 11:01 -Correct Patient No Yes -Correct Side, Site, Position No Yes -Correct Procedure No Yes -Procedure Performed No Yes -Type of Procedure Debridement -Clinical Debridement Subcutaneous -Post Debridement Size (cm) - Length 0.9 -Post Debridement Size (cm) - Width 0.9 -Post Debridement Size (cm) - Depth 0.1 -Total Square Cm 0.81 -Wound/Ulcer Outcome Not Healed -Ulcer Cleansing Rinsed/ Irrigated with Saline -Foul Odor after Cleansing No -Bioengineered Tissue No -Bleeding Controlled with Pressure -Offloading No -Treatment Response Procedure Tolerated Well #1 LATERAL LLE -Time 13:43 -Correct Patient Yes -Correct Side, Site, Position Yes -Correct Procedure Yes -Procedure Performed Yes -Type of Procedure Debridement -Clinical Debridement Subcutaneous -Post Debridement Size (cm) - Length 0.3 -Post Debridement Size (cm) - Width 0.3 -Post Debridement Size (cm) - Depth 0.1 -Total Square Cm 0.09 -Wound/Ulcer Outcome Not Healed -Ulcer Cleansing Rinsed/ Irrigated with Saline -Foul Odor after Cleansing No -Bioengineered Tissue Yes -Type of bioengineered Tissue EPIFIX -Expiration Date 10/11/22 -Product Lot Number [id number] -Percent Used 100 -Saline Lot Number [id number] -Bleeding Controlled with Pressure -Offloading No -Treatment Response Procedure Tolerated Well Pain Scale: 0-10 Numeric Is Patient Pain Free? Yes Yes Wound debrided: Right forearm Wound Grade/Stage: Stage II Type of Debridement: Excisional debridement Anesthesia Used: 4% Lidocaine Solution Depth: Down to and including healthy tissue, in the subcutaneous layer Percentage of wound debrided: 100 Instrument Used: 3mm curette Tissue Removed: Biofilm and devitalized tissue Severity: Fat Layer Exposed Amount of bleeding with debridement: Mild Bleeding Controlled with: Pressure Patient tolerated procedure well Assessment/Plan Active Problems Open wound of right forearm (Chronic) Laceration. Assessment: Left leg ulcer with fat layer exposed. Edema lower extremity. Rule out peripheral vascular disease. Malnutrition suspected. Delayed healing. Right forearm wound (managed with Dr. Zuñiga) Plan: Improving wound. Debridement was documented. Procedure was well- tolerated. Keep right upper extremity as much as possible elevated. Increased protein intake also recommended. All their questions were answered and they were advised to call with any further questions or concerns. Other wound care management per Dr. Hill. Follow-up in 1 week. This note was generated with [employer] dictation software. It may contain incorrect words, spelling, and punctuation that were not noted in checking the note before signing.
--- NOTE | 2018-02-21 13:33 | PN.PCM_ITS ---
(1) Ulcer of left lower extremity with fat layer exposed Status: Chronic Current Visit: Yes Code(s): L97.922 - Non-pressure chronic ulcer of unspecified part of left lower leg with fat layer exposed (2) Localized edema Status: Chronic Current Visit: Yes Code(s): R60.0 - Localized edema (3) Delayed wound healing Status: Chronic Current Visit: Yes Code(s): T14.8XXD - Other injury of unspecified body region, subsequent encounter (4) Malnutrition Status: Suspected Current Visit: Yes Code(s): E46 - Unspecified protein- calorie malnutrition Type of Wound Date of Service: 02/21/18 Chief Complaint: Left leg ulcer History of Wound: Ms. Medina is a 77-year-old who is currently following up here at the wound center for left chronic leg ulcer. She has kept her dressing intact as advised; she denies wound drainage. She denies fever, chills, nausea, vomiting. Her pain is also decreased. Progress of Wound: Healed - Physical Exam Vital Signs Temp Pulse Resp BP 97.1 F L 83 16 120/72 02/21/18 10:39 02/21/18 10:39 02/21/18 10:39 02/21/18 10:39 General: Alert, Oriented x3, Cooperative Extremities: No cyanosis, Capillary Refill Less than 3 Seconds, No Calf Tenderness - Negative Katy and Garrett sign left, Diminished Peripheral Pulses, Edema Skin: Ulcer/ Wound - Full epithelialization is noted to the left leg. There is no purulence, erythema, strength, odor, or infection or deep necrosis. The peripheral skin is hairless and atrophic with inflammatory controlled lesions consistent with her previous examinations Wound Measurements and Assessment WC - Nurse 1 - General Ulcer Measurement Start: 02/14/18 13:14 Freq: Status: Active Protocol: Activity Type Activity Date Activity User E-Sign Co-Sign Detail Recorded Client Recorded Date Recorded By Document 02/21/18 10:39 BMF [id number] 02/21/18 10:48 BMF 02/21/18 10:39 Wound Center Nurse 1 [Ulcer Assessment] 2-right forearm -Combined with other wound No -Current Size (cm) - Length 1.9 -Current Size (cm) - Width 0.9 -Current Size (cm) - Depth 0.1 -Total Square Cm 1.71 -Photo Taken No -Epithelialization Small 1-33% -Tunneling No -Undermining/Tunneling No -Circular Undermining No -Exudate Amt Small (1-33%) -Exudate Type Serosanguineous -Wound Margin Distinct, Outline Attached -Granulation Amt Large (67-100%) -Granulation Quality Red -Slough/Fibrin No -Necrosis Amt None Present (0 %) -Structure Exposed None/Limited to Skin Breakdown -Texture (Rosie-wound Skin Appearance) Excoriation Rash -Moisture (Rosie-wound Skin Appearance Dry/Scaly ) -Color (Rosie-wound Skin Appearance) Assessed Erythema -Temperature (Rosie-wound Skin No Abnormality Appearance) (Pt Warm) -Tenderness on Palpation (Rosie-wound No Skin Appearance) -Ulcer Cleansing Rinsed/ Irrigated with Saline -Foul Odor after Cleansing No -Anesthetic Used 5% Lidocaine Gel #1 LATERAL LLE -Combined with other wound No -Current Size (cm) - Length 0.1 -Current Size (cm) - Width 0.1 -Current Size (cm) - Depth 0.1 -Total Square Cm 0.01 -Epithelialization Large 67-100% -Tunneling No -Undermining/Tunneling No -Circular Undermining No -Exudate Amt Small (1-33%) -Exudate Type Serosanguineous -Wound Margin Distinct, Outline Attached -Texture (Rosie-wound Skin Appearance) Excoriation Scarring Rash -Moisture (Rosie-wound Skin Appearance Dry/Scaly ) -Color (Rosie-wound Skin Appearance) Assessed Erythema -Temperature (Rosie-wound Skin No Abnormality Appearance) (Pt Warm) -Tenderness on Palpation (Rosie-wound No Skin Appearance) -Ulcer Cleansing Rinsed/ Irrigated with Saline -Foul Odor after Cleansing No -Anesthetic Used 5% Lidocaine Gel [Edema Assessment] -Lower Limb Edema Present Yes -Left Calf (cm) 37.6 -Left Ankle (cm) 24.8 WC - Nurse 2 - General Ulcer CM Notes Start: 02/14/18 13:14 Freq: Status: Active Protocol: Activity Type Activity Date Activity User E-Sign Co-Sign Detail Recorded Client Recorded Date Recorded By Document 02/21/18 11:01 MW [id number] 02/21/18 11:02 MW Document 02/21/18 11:10 JF [id number] 02/21/18 11:11 JF 02/21/18 02/21/18 11:01 11:10 Wound Center Nurse 2 [Procedure/Treatment] 2-right forearm -Time 11:01 -Correct Patient Yes -Correct Side, Site, Position Yes -Correct Procedure Yes -Procedure Performed Yes -Type of Procedure Debridement -Clinical Debridement Subcutaneous -Post Debridement Size (cm) - Length 0.9 -Post Debridement Size (cm) - Width 0.9 -Post Debridement Size (cm) - Depth 0.1 -Total Square Cm 0.81 -Wound/Ulcer Outcome Not Healed -Ulcer Cleansing Rinsed/ Irrigated with Saline -Foul Odor after Cleansing No -Bioengineered Tissue No -Bleeding Controlled with Pressure -Offloading No -Treatment Response Procedure Tolerated Well #1 LATERAL LLE -Correct Patient No -Correct Side, Site, Position No -Correct Procedure No -Procedure Performed No -Post Debridement Size (cm) - Length 0 -Post Debridement Size (cm) - Width 0 -Post Debridement Size (cm) - Depth 0 -Total Square Cm 0 -Wound/Ulcer Outcome Healed- Epithelialized [See Physician Procedure note for Specifics] Pain Scale: 0-10 Numeric [Pain] -Is Patient Pain Free? Yes Yes Musculoskeletal: No Tenderness to Palpation of Joints or Extremities, Muscle Wasting Neurological: Sensory exam intact to light touch and pain Psych/Mental Status: Normal Affect, Appropriate Debridement Note Post-Debridement Measurements/Treatment WC - Nurse 2 - General Ulcer CM Notes Start: 02/14/18 13:14 Freq: Status: Active Protocol: Activity Type Activity Date Activity User E-Sign Co-Sign Detail Recorded Client Recorded Date Recorded By Document 02/14/18 13:42 [id number] 02/14/18 13:44 JF Document 02/21/18 11:01 MW [id number] 02/21/18 11:02 MW Document 02/21/18 11:10 JF [id number] 02/21/18 11:11 JF 02/14/18 02/21/18 02/21/18 13:42 11:01 11:10 Wound Center Nurse 2 2-right forearm -Time 11:01 -Correct Patient No Yes -Correct Side, Site, Position No Yes -Correct Procedure No Yes -Procedure Performed No Yes -Type of Procedure Debridement -Clinical Debridement Subcutaneous -Post Debridement Size (cm) - Length 0.9 -Post Debridement Size (cm) - Width 0.9 -Post Debridement Size (cm) - Depth 0.1 -Total Square Cm 0.81 -Wound/Ulcer Outcome Not Healed -Ulcer Cleansing Rinsed/ Irrigated with Saline -Foul Odor after Cleansing No -Bioengineered Tissue No -Bleeding Controlled with Pressure -Offloading No -Treatment Response Procedure Tolerated Well #1 LATERAL LLE -Time 13:43 -Correct Patient Yes No -Correct Side, Site, Position Yes No -Correct Procedure Yes No -Procedure Performed Yes No -Type of Procedure Debridement -Clinical Debridement Subcutaneous -Post Debridement Size (cm) - Length 0.3 0 -Post Debridement Size (cm) - Width 0.3 0 -Post Debridement Size (cm) - Depth 0.1 0 -Total Square Cm 0.09 0 -Wound/Ulcer Outcome Not Healed Healed- Epithelialized -Ulcer Cleansing Rinsed/ Irrigated with Saline -Foul Odor after Cleansing No -Bioengineered Tissue Yes -Type of bioengineered Tissue EPIFIX -Expiration Date 10/11/22 -Product Lot Number [id number] -Percent Used 100 -Saline Lot Number [id number] -Bleeding Controlled with Pressure -Offloading No -Treatment Response Procedure Tolerated Well Pain Scale: 0-10 Numeric Is Patient Pain Free? Yes Yes Yes No debridement was completed today - The ulcer site has healed Assessment/Plan Active Problems Ulcer of left lower extremity with fat layer exposed (Chronic) Localized edema (Chronic) Delayed wound healing (Chronic) Open wound of right forearm (Chronic) Laceration. Assessment: Left leg ulcer healed. Edema lower extremity. Rule out peripheral vascular disease. Malnutrition suspected. Delayed healing. Right forearm wound (managed with Dr. Zuñiga) Plan: I reviewed and discussed her case. Ulcer healing is noted today. To discontinue wound dressings to the left lower extremity because the ulcer site is healed. To continue nutritional supplementation to optimize her arm healing site. She understands the site is very friable and was advised to monitor very close for reopening. She was reassured no signs of infection are noted. Re commend she continue Tubigrip application for edema control until she gets an updated pair of compression stockings. A prescription was provided for her to get knee-high compression stockings with strength 20-30 mmHg at [facility]. She will follow-up with the wound healing center next week with Dr. Zuñiga for her arm ulcer site. To follow-up with the foot [facility] with me in the future if needed. I answered all of her questions.
[2018-02-28 11:54] VITALS: RESP 18; TEMP 37.1; BMI 28.3
--- NOTE | 2018-02-28 12:01 | PCM.WC.PN ---
(1) Open wound of right forearm Status: Chronic Current Visit: Yes Code(s): S51.801A - Unspecified open wound of right forearm, initial encounter Comment: Laceration. Type of Wound Chief Complaint: Left leg ulcer History of Wound: Ms. Medina is a 77-year-old who is currently following up here at the wound center for left chronic leg ulcer. She has kept her dressing intact as advised; she denies wound drainage. She denies fever, chills, nausea, vomiting. Her pain is also decreased. Progress of Wound: Healed - Physical Exam Vital Signs Temp Pulse Resp BP 98.7 F 83 18 120/72 02/28/18 11:54 02/21/18 10:39 02/28/18 11:54 02/21/18 10:39 General: Alert, Oriented x3, Cooperative, No apparent distress HEENT: Atraumatic, Normocephalic Oral: Moist Mucosa Neck: Supple Lungs: Normal air movement Abdomen: Non Tender Extremities: No cyanosis Skin: Rash Present Wound Measurements and Assessment WC - Nurse 1 - General Ulcer Measurement Start: 02/14/18 13:14 Freq: Status: Active Protocol: Activity Type Activity Date Activity User E-Sign Co-Sign Detail Recorded Client Recorded Date Recorded By Document 02/28/18 11:54 [id number] 02/28/18 11:58 02/28/18 11:54 Wound Center Nurse 1 [Ulcer Assessment] 2-right forearm -Combined with other wound No -Current Size (cm) - Length 0 -Current Size (cm) - Width 0 -Current Size (cm) - Depth 0 -Total Square Cm 0 -Date of Last Picture (Recall this 02/28/18 field) -Photo Taken Yes -Epithelialization Large 67-100% -Tunneling No -Undermining/Tunneling No -Circular Undermining No -Classification - Thickness Partial Thickness -Exudate Amt Small (1-33%) -Exudate Type Serous -Wound Margin Distinct, Outline Attached -Granulation Amt Large (67-100%) -Granulation Quality Pale [place] -Slough/Fibrin No -Necrosis Amt None Present (0 %) -Structure Exposed N/A -Texture (Rosie-wound Skin Appearance) Friable -Moisture (Rosie-wound Skin Appearance No Abnormality ) -Color (Rosie-wound Skin Appearance) No Abnormality -Temperature (Rosie-wound Skin No Abnormality Appearance) (Pt Warm) -Tenderness on Palpation (Rosie-wound No Skin Appearance) -Ulcer Cleansing Not Cleansed -Foul Odor after Cleansing No WC - Nurse 2 - General Ulcer CM Notes Start: 02/14/18 13:14 Freq: Status: Active Protocol: Activity Type Activity Date Activity User E-Sign Co-Sign Detail Recorded Client Recorded Date Recorded By Document 02/28/18 11:58 MW [id number] 02/28/18 12:00 MW 02/28/18 11:58 Wound Center Nurse 2 [Procedure/Treatment] -Time 11:59 -Correct Patient Yes -Correct Side, Site, Position Yes -Correct Procedure Yes -Procedure Performed No -Post Debridement Size (cm) - Length 0 -Post Debridement Size (cm) - Width 0 -Post Debridement Size (cm) - Depth 0 -Total Square Cm 0 -Wound/Ulcer Outcome Healed- Epithelialized [See Physician Procedure note for Specifics] Pain Scale: 0-10 Numeric [Pain] -Is Patient Pain Free? Yes Musculoskeletal: No Muscle Wasting Neurological: Cranial nerves II-XII grossly intact Psych/Mental Status: Normal Affect Debridement Note Post-Debridement Measurements/Treatment WC - Nurse 2 - General Ulcer CM Notes Start: 02/14/18 13:14 Freq: Status: Active Protocol: Activity Type Activity Date Activity User E-Sign Co-Sign Detail Recorded Client Recorded Date Recorded By Document 02/14/18 13:42 [id number] 02/14/18 13:44 Document 02/21/18 11:01 [id number] 02/21/18 11:02 Document 02/21/18 11:10 [id number] 02/21/18 11:11 Document 02/28/18 11:58 MW [id number] 02/28/18 12:00 MW 02/14/18 02/21/18 02/21/18 13:42 11:01 11:10 Wound Center Nurse 2 2-right forearm -Time 11:01 -Correct Patient No Yes -Correct Side, Site, Position No Yes -Correct Procedure No Yes -Procedure Performed No Yes -Type of Procedure Debridement -Clinical Debridement Subcutaneous -Post Debridement Size (cm) - Length 0.9 -Post Debridement Size (cm) - Width 0.9 -Post Debridement Size (cm) - Depth 0.1 -Total Square Cm 0.81 -Wound/Ulcer Outcome Not Healed -Ulcer Cleansing Rinsed/ Irrigated with Saline -Foul Odor after Cleansing No -Bioengineered Tissue No -Bleeding Controlled with Pressure -Offloading No -Treatment Response Procedure Tolerated Well #1 LATERAL LLE -Time 13:43 -Correct Patient Yes No -Correct Side, Site, Position Yes No -Correct Procedure Yes No -Procedure Performed Yes No -Type of Procedure Debridement -Clinical Debridement Subcutaneous -Post Debridement Size (cm) - Length 0.3 0 -Post Debridement Size (cm) - Width 0.3 0 -Post Debridement Size (cm) - Depth 0.1 0 -Total Square Cm 0.09 0 -Wound/Ulcer Outcome Not Healed Healed- Epithelialized -Ulcer Cleansing Rinsed/ Irrigated with Saline -Foul Odor after Cleansing No -Bioengineered Tissue Yes -Type of bioengineered Tissue EPIFIX -Expiration Date 10/11/22 -Product Lot Number [id number] -Percent Used 100 -Saline Lot Number [id number] -Bleeding Controlled with Pressure -Offloading No -Treatment Response Procedure Tolerated Well Pain Scale: 0-10 Numeric Is Patient Pain Free? Yes Yes Yes 02/28/18 11:58 Wound Center Nurse 2 2-right forearm -Time 11:59 -Correct Patient Yes -Correct Side, Site, Position Yes -Correct Procedure Yes -Procedure Performed No -Type of Procedure -Clinical Debridement -Post Debridement Size (cm) - Length 0 -Post Debridement Size (cm) - Width 0 -Post Debridement Size (cm) - Depth 0 -Total Square Cm 0 -Wound/Ulcer Outcome Healed- Epithelialized -Ulcer Cleansing -Foul Odor after Cleansing -Bioengineered Tissue -Bleeding Controlled with -Offloading -Treatment Response #1 LATERAL LLE -Time -Correct Patient -Correct Side, Site, Position -Correct Procedure -Procedure Performed -Type of Procedure -Clinical Debridement -Post Debridement Size (cm) - Length -Post Debridement Size (cm) - Width -Post Debridement Size (cm) - Depth -Total Square Cm -Wound/Ulcer Outcome -Ulcer Cleansing -Foul Odor after Cleansing -Bioengineered Tissue -Type of bioengineered Tissue -Expiration Date -Product Lot Number -Percent Used -Saline Lot Number -Bleeding Controlled with -Offloading -Treatment Response Pain Scale: 0-10 Numeric Is Patient Pain Free? Yes No debridement was completed today Assessment/Plan Active Problems Ulcer of left lower extremity with fat layer exposed (Chronic) Localized edema (Chronic) Delayed wound healing (Chronic) Open wound of right forearm (Chronic) Laceration. Assessment: Left leg ulcer healed. Edema lower extremity. Rule out peripheral vascular disease. Malnutrition suspected. Delayed healing. Right forearm wound (managed with Dr. Zuñiga) Plan: Right forearm wound is healed. Adaptic over top for 2 weeks. Keep area protected. Moisturize and hydrate. She was advised to call with any questions or concerns. Discharged from the wound clinic.
--- NOTE | 2018-02-28 12:04 | PN.PCM_ITS ---
(1) Open wound of right forearm Status: Chronic Current Visit: Yes Code(s): S51.801A - Unspecified open wound of right forearm, initial encounter Comment: Laceration. Type of Wound Chief Complaint: Left leg ulcer History of Wound: Ms. Medina is a 77-year-old who is currently following up here at the wound center for left chronic leg ulcer. She has kept her dressing intact as advised; she denies wound drainage. She denies fever, chills, nausea, vomiting. Her pain is also decreased. Progress of Wound: Healed - Physical Exam Vital Signs Temp Pulse Resp BP 98.7 F 83 18 120/72 02/28/18 11:54 02/21/18 10:39 02/28/18 11:54 02/21/18 10:39 General: Alert, Oriented x3, Cooperative, No apparent distress HEENT: Atraumatic, Normocephalic Oral: Moist Mucosa Neck: Supple Lungs: Normal air movement Abdomen: Non Tender Extremities: No cyanosis Skin: Rash Present Wound Measurements and Assessment WC - Nurse 1 - General Ulcer Measurement Start: 02/14/18 13:14 Freq: Status: Active Protocol: Activity Type Activity Date Activity User E-Sign Co-Sign Detail Recorded Client Recorded Date Recorded By Document 02/28/18 11:54 [id number] 02/28/18 11:58 02/28/18 11:54 Wound Center Nurse 1 [Ulcer Assessment] 2-right forearm -Combined with other wound No -Current Size (cm) - Length 0 -Current Size (cm) - Width 0 -Current Size (cm) - Depth 0 -Total Square Cm 0 -Date of Last Picture (Recall this 02/28/18 field) -Photo Taken Yes -Epithelialization Large 67-100% -Tunneling No -Undermining/Tunneling No -Circular Undermining No -Classification - Thickness Partial Thickness -Exudate Amt Small (1-33%) -Exudate Type Serous -Wound Margin Distinct, Outline Attached -Granulation Amt Large (67-100%) -Granulation Quality Pale [place] -Slough/Fibrin No -Necrosis Amt None Present (0 %) -Structure Exposed N/A -Texture (Rosie-wound Skin Appearance) Friable -Moisture (Rosie-wound Skin Appearance No Abnormality ) -Color (Rosie-wound Skin Appearance) No Abnormality -Temperature (Rosie-wound Skin No Abnormality Appearance) (Pt Warm) -Tenderness on Palpation (Rosie-wound No Skin Appearance) -Ulcer Cleansing Not Cleansed -Foul Odor after Cleansing No WC - Nurse 2 - General Ulcer CM Notes Start: 02/14/18 13:14 Freq: Status: Active Protocol: Activity Type Activity Date Activity User E-Sign Co-Sign Detail Recorded Client Recorded Date Recorded By Document 02/28/18 11:58 MW [id number] 02/28/18 12:00 MW 02/28/18 11:58 Wound Center Nurse 2 [Procedure/Treatment] -Time 11:59 -Correct Patient Yes -Correct Side, Site, Position Yes -Correct Procedure Yes -Procedure Performed No -Post Debridement Size (cm) - Length 0 -Post Debridement Size (cm) - Width 0 -Post Debridement Size (cm) - Depth 0 -Total Square Cm 0 -Wound/Ulcer Outcome Healed- Epithelialized [See Physician Procedure note for Specifics] Pain Scale: 0-10 Numeric [Pain] -Is Patient Pain Free? Yes Musculoskeletal: No Muscle Wasting Neurological: Cranial nerves II-XII grossly intact Psych/Mental Status: Normal Affect Debridement Note Post-Debridement Measurements/Treatment WC - Nurse 2 - General Ulcer CM Notes Start: 02/14/18 13:14 Freq: Status: Active Protocol: Activity Type Activity Date Activity User E-Sign Co-Sign Detail Recorded Client Recorded Date Recorded By Document 02/14/18 13:42 [id number] 02/14/18 13:44 Document 02/21/18 11:01 [id number] 02/21/18 11:02 Document 02/21/18 11:10 [id number] 02/21/18 11:11 Document 02/28/18 11:58 MW [id number] 02/28/18 12:00 MW 02/14/18 02/21/18 02/21/18 13:42 11:01 11:10 Wound Center Nurse 2 2-right forearm -Time 11:01 -Correct Patient No Yes -Correct Side, Site, Position No Yes -Correct Procedure No Yes -Procedure Performed No Yes -Type of Procedure Debridement -Clinical Debridement Subcutaneous -Post Debridement Size (cm) - Length 0.9 -Post Debridement Size (cm) - Width 0.9 -Post Debridement Size (cm) - Depth 0.1 -Total Square Cm 0.81 -Wound/Ulcer Outcome Not Healed -Ulcer Cleansing Rinsed/ Irrigated with Saline -Foul Odor after Cleansing No -Bioengineered Tissue No -Bleeding Controlled with Pressure -Offloading No -Treatment Response Procedure Tolerated Well #1 LATERAL LLE -Time 13:43 -Correct Patient Yes No -Correct Side, Site, Position Yes No -Correct Procedure Yes No -Procedure Performed Yes No -Type of Procedure Debridement -Clinical Debridement Subcutaneous -Post Debridement Size (cm) - Length 0.3 0 -Post Debridement Size (cm) - Width 0.3 0 -Post Debridement Size (cm) - Depth 0.1 0 -Total Square Cm 0.09 0 -Wound/Ulcer Outcome Not Healed Healed- Epithelialized -Ulcer Cleansing Rinsed/ Irrigated with Saline -Foul Odor after Cleansing No -Bioengineered Tissue Yes -Type of bioengineered Tissue EPIFIX -Expiration Date 10/11/22 -Product Lot Number [id number] -Percent Used 100 -Saline Lot Number [id number] -Bleeding Controlled with Pressure -Offloading No -Treatment Response Procedure Tolerated Well Pain Scale: 0-10 Numeric Is Patient Pain Free? Yes Yes Yes 02/28/18 11:58 Wound Center Nurse 2 2-right forearm -Time 11:59 -Correct Patient Yes -Correct Side, Site, Position Yes -Correct Procedure Yes -Procedure Performed No -Type of Procedure -Clinical Debridement -Post Debridement Size (cm) - Length 0 -Post Debridement Size (cm) - Width 0 -Post Debridement Size (cm) - Depth 0 -Total Square Cm 0 -Wound/Ulcer Outcome Healed- Epithelialized -Ulcer Cleansing -Foul Odor after Cleansing -Bioengineered Tissue -Bleeding Controlled with -Offloading -Treatment Response #1 LATERAL LLE -Time -Correct Patient -Correct Side, Site, Position -Correct Procedure -Procedure Performed -Type of Procedure -Clinical Debridement -Post Debridement Size (cm) - Length -Post Debridement Size (cm) - Width -Post Debridement Size (cm) - Depth -Total Square Cm -Wound/Ulcer Outcome -Ulcer Cleansing -Foul Odor after Cleansing -Bioengineered Tissue -Type of bioengineered Tissue -Expiration Date -Product Lot Number -Percent Used -Saline Lot Number -Bleeding Controlled with -Offloading -Treatment Response Pain Scale: 0-10 Numeric Is Patient Pain Free? Yes No debridement was completed today Assessment/Plan Active Problems Ulcer of left lower extremity with fat layer exposed (Chronic) Localized edema (Chronic) Delayed wound healing (Chronic) Open wound of right forearm (Chronic) Laceration. Assessment: Left leg ulcer healed. Edema lower extremity. Rule out peripheral vascular disease. Malnutrition suspected. Delayed healing. Right forearm wound (managed with Dr. Zuñiga) Plan: Right forearm wound is healed. Adaptic over top for 2 weeks. Keep area protected. Moisturize and hydrate. She was advised to call with any questions or concerns. Discharged from the wound clinic.
== END 2018-03-12 23:59 ==
LOC: WC 10:30
PROVIDERS: Family Provider Internal Medicine; PCP Internal Medicine; Referring Provider Podiatrist; Visit Provider Podiatrist
DX: L97.822 Non-pressure chronic ulcer of other part of left lower leg with fat layer exposed (principal); R60.0 Localized edema; L98.492 Non-pressure chronic ulcer of skin of other sites with fat layer exposed
CPT/HCPCS: 11042; 15271; 99213; Q4131; G0463

== ENCOUNTER 2019-10-01 11:30 | Outpatient (RCR) | payer MEDICARE, SELFPAY ==
[2018-11-29 13:09] VITALS: BMI 25.0
[2019-09-24 10:48] VITALS: BP 131/61; PULSE 91; RESP 18; TEMP 36.6; BMI 23.3
--- NOTE | 2019-09-24 11:44 | PCM.WC.HP ---
(1) Hypertension Status: Chronic Current Visit: No Code(s): I10 - Essential (primary) hypertension (2) Hyperlipidemia Status: Chronic Current Visit: No Code(s): E78.5 - Hyperlipidemia, unspecified (3) History of tongue cancer Status: Chronic Current Visit: No Code(s): Z85.810 - Personal history of malignant neoplasm of tongue (4) History of skin cancer in adulthood Status: Chronic Current Visit: No Code(s): Z85.828 - Personal history of other malignant neoplasm of skin (5) Hypothyroidism Status: Chronic Current Visit: No Code(s): E03.9 - Hypothyroidism, unspecified (6) Peripheral vascular disease Status: Chronic Current Visit: No Code(s): I73.9 - Peripheral vascular disease, unspecified (7) Venous insufficiency Status: Chronic Current Visit: No Code(s): I87.2 - Venous insufficiency (chronic) (peripheral) (8) Open wound of right forearm Status: Chronic Current Visit: Yes Qualifiers: Encounter type: initial encounter Qualified Code(s): S51.801A - Unspecified open wound of right forearm, initial encounter Code(s): S51.801A - Unspecified open wound of right forearm, initial encounter Comment: Laceration. (9) Dog scratch Status: Acute Current Visit: Yes Code(s): W54.8XXA - Other contact with dog, initial encounter History of Present Illness Date of Service: 09/24/19 Chief Complaint: Traumatic dog scratch of the right forearm History of Wound: This is a 79-year-old female who presents 5 days status post injury to her right forearm. The injury was caused by a scratch from the car of her dog, which is a [place]. Since the time of the injury, the patient has been using Vaseline gauze topically on a daily basis. The traumatic wound has improved since the time of the injury. Nonetheless, the patient has decided to seek attention for definitive evaluation and management. 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 Hypertension (Chronic) Hyperlipidemia (Chronic) History of tongue cancer (Chronic) History of skin cancer in adulthood (Chronic) Hypothyroidism (Chronic) Past Medical History: Patient has a history of hyperlipidemia, hypertension, hypothyroidism, and skin cancer. 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 She was treated with a partial tongue excision, lymphadenectomy of the neck, and radiation treatments. Her history is negative for myocardial infarction, congestive heart failure, diabetes mellitus, cerebrovascular accident, pulmonary disease, and renal disease. Surgical History: - - Patient has undergone partial excision of her tongue, lymphadenectomy of lymph nodes in her neck. She has had skin cancer excised from her face. She has undergone exploratory laparotomy and intestinal resection due to bowel obstruction. She has undergone tonsillectomy and cholecystectomy in the past. She is a G4, P4 Ab0. Allergies/Adverse Reactions: Allergies acetaminophen [From Percocet] Allergy (Verified 11/29/18 13:06) Unknown hydrocodone [From Vicodin] Allergy (Verified 11/29/18 13:06) Unknown oxycodone [From Percocet] Allergy (Verified 11/29/18 13:06) Unknown Home Medications: Ambulatory Orders Medication Instructions Recorded Amlodipine [Norvasc] 2.5 mg PO DAILY 12/06/14 Levothyroxine [Synthroid] 100 mcg PO DAILY 12/06/14 Omeprazole [Prilosec] 40 mg PO DAILY 12/06/14 [place]oc[place] HCl 5 mg PO TID 12/06/14 Atorvastatin Calcium [Lipitor] 10 mg PO QHS 01/17/18 Ensure Enlive 1 bottle PO 4X/DAY 01/17/18 l [place]/B Bifidum/B Longum 1 each PO DAILY 01/17/18 [[facility] Capsule] Cholecalciferol (Vitamin D3) 1,000 unit PO DAILY 11/29/18 [Vitamin D3] - Family History Paternal - - The patient's father at the age of 74 with a history of rheumatoid arthritis. Patient's mother at the age of 47 with heart disease. 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 Smoking Status: Never smoker Tobacco Use: Non-smoker Alcohol: None Drugs: None Review of Systems Constitutional: Denies: Chills, Fever, Weight Change Eyes: Denies: Pain, Vision Change HEENT: Denies: Difficulty Hearing, Difficulty Swallowing, Sinus Congestion Cardiovascular: Denies: Chest Pain, Palpitations Respiratory: Denies: Cough, Shortness of Breath Gastrointestinal: Denies: Diarrhea, Nausea, Vomiting Genitourinary: Denies: Dysuria, Hematuria Endocrine: Denies: Heat/ Cold Intolerance, Polydipsia, Polyuria Hematologic/ Lymphatic: Denies: Easy Bruising, Easy Bleeding - Physical Exam Vital Signs Temp Pulse Resp BP 97.8 F 91 18 131/61 H 09/24/19 10:48 09/24/19 10:48 09/24/19 10:48 09/24/19 10:48 General: Alert, Oriented x3, Cooperative, No apparent distress, Well developed, Well nourished HEENT: Atraumatic, PERRLA, EOMI, Normocephalic Oral: Moist Mucosa Neck: Supple, No JVD, Negative Carotid Bruits, Negative Hepatojugular Reflux, No Nodes, No Nuchal Rigidity, Trachea Midline, - - Postsurgical changes are noted Lungs: Clear to auscultation, Normal air movement, No rhonchi, No wheeze, No rales Cardiovascular: Regular rate, Regular Rhythm, Normal S1, Normal S2, No murmurs Abdomen: Soft, Non Tender, Non-Distended Extremities: No clubbing, No cyanosis, No edema, No Calf Tenderness, - - A superficial wound is noted on the right forearm. There is no sign of infection or cellulitis. Dimensions are documented elsewhere. There is a moderate amount of bioburden and nonviable tissue. Skin: No rashes Wound Measurements and Assessment WC - Nurse 1 - General Ulcer Measurement Start: 09/24/19 10:48 Freq: Status: Active Protocol: Activity Type Activity Date Activity User E-Sign Co-Sign Detail Recorded Client Recorded Date Recorded By Document 09/24/19 10:48 [email or web address] [id number] 09/24/19 11:01 EDDIE 09/24/19 10:48 Wound Center Nurse 1 [Ulcer Assessment] #3 Right Ant Forearm Dog Bite -Combined with other wound No -Current Size (cm) - Length 1.0 -Current Size (cm) - Width 2.0 -Current Size (cm) - Depth 0.1 -Total Square Cm 2.00 -Date of Last Picture (Recall this 09/24/19 field) -Photo Taken Yes -Epithelialization Medium 34-66% -Tunneling No -Undermining/Tunneling No -Circular Undermining No -Classification - Thickness Full Thickness without Exposed Support Structure -Exudate Amt Small -Exudate Type Serosanguineous -Wound Margin Indistinct, Non -Visible -Granulation Amt Medium (34-66%) -Granulation Quality [place] -Slough/Fibrin Yes -Necrosis Amt Small (1-33%) -Necrotic Tissue Type Adherent Slough -Texture (Rosie-wound Skin Appearance) No Abnormality -Moisture (Rosie-wound Skin Appearance No Abnormality ) -Color (Rosie-wound Skin Appearance) No Abnormality -Temperature (Rosie-wound Skin No Abnormality Appearance) (Pt Warm) -Tenderness on Palpation (Rosie-wound No Skin Appearance) -Ulcer Cleansing Rinsed/ Irrigated with Saline -Foul Odor after Cleansing No -Anesthetic Used 4% Lidocaine Solution Neurological: Cranial nerves II-XII grossly intact, Neuro grossly intact Psych/Mental Status: Normal Affect, Appropriate, Alert and oriented to time, place, person, mood and affect Debridement Note Laterality: Right - Forearm Type of Debridement: Excisional debridement Anesthesia Used: 5% Lidocaine Gel Depth: Down to and including healthy tissue, in the subcutaneous layer Percentage of wound debrided: 100 Instrument Used: 5mm curette Tissue Removed: Bioburden Severity: Fat Layer Exposed Amount of bleeding with debridement: Mild Bleeding Controlled with: Compression and gauze Patient tolerated procedure well Assessment/Plan Active Problems (Last Updated 11/29/18 @ 13:14 by Ni Chavez RN) Open wound of right forearm (Chronic) Laceration. Dog scratch (Acute) Assessment: This is a 79-year-old female with multiple medical problems, as detailed above. She presents today with a right forearm wound which is the result of a scratch from her pet dog. The injury occurred approximately 5 days ago. The patient has been using Vaseline gauze topically, and has noted some improvement. At this time, there is no evidence of infection or cellulitis. The injury appears relatively superficial. Plan: Because the injury occurred in the upper extremity, arterial insufficiency is unlikely. Therefore, we will not request vascular studies. The wound is generally superficial, and likely to heal without difficulty. We are to implement the use of collagen hydrogel topically, which will be applied on a daily basis. The patient has been instructed in the appropriate means of application. The patient appears to have somewhat fragile skin, so Adaptic will be used, to avoid irritation and injury to the surrounding skin. Patient is return in 1 week for reassessment. Good nutrition has been recommended. The patient is not a smoker. Influenza vaccine was not administered today. Patient weighs 140 pounds. Her height is 5 feet 5 inches tall. Her BMI is 23, which is normal.
[2019-10-01 11:16] VITALS: BP 151/74; PULSE 83; RESP 16; TEMP 36.2; BMI 23.3
--- NOTE | 2019-10-01 11:45 | PCM.WC.HP ---
(1) Hypertension Status: Chronic Current Visit: No Code(s): I10 - Essential (primary) hypertension (2) Hyperlipidemia Status: Chronic Current Visit: No Code(s): E78.5 - Hyperlipidemia, unspecified (3) History of tongue cancer Status: Chronic Current Visit: No Code(s): Z85.810 - Personal history of malignant neoplasm of tongue (4) History of skin cancer in adulthood Status: Chronic Current Visit: No Code(s): Z85.828 - Personal history of other malignant neoplasm of skin (5) Hypothyroidism Status: Chronic Current Visit: No Code(s): E03.9 - Hypothyroidism, unspecified (6) Peripheral vascular disease Status: Chronic Current Visit: No Code(s): I73.9 - Peripheral vascular disease, unspecified (7) Venous insufficiency Status: Chronic Current Visit: No Code(s): I87.2 - Venous insufficiency (chronic) (peripheral) (8) Open wound of right forearm Status: Chronic Current Visit: Yes Qualifiers: Encounter type: subsequent encounter Qualified Code(s): S51.801D - Unspecified open wound of right forearm, subsequent encounter Code(s): S51.801A - Unspecified open wound of right forearm, initial encounter Comment: Laceration. (9) Dog scratch Status: Acute Current Visit: Yes Code(s): W54.8XXA - Other contact with dog, initial encounter History of Present Illness Date of Service: 10/01/19 Chief Complaint: Traumatic dog scratch of the right forearm History of Wound: This is a 79-year-old female who presented 5 days status post injury to her right forearm. The injury was caused by a scratch from the car of her dog, which is a Chicoyahua. Since the time of the injury, the patient had been using Vaseline gauze topically on a daily basis. The traumatic wound has improved since the time of the injury. Nonetheless, the patient decided to seek attention for definitive evaluation and management. 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 Hypertension (Chronic) Hyperlipidemia (Chronic) History of tongue cancer (Chronic) History of skin cancer in adulthood (Chronic) Hypothyroidism (Chronic) Surgical History: - - Patient has undergone partial excision of her tongue, lymphadenectomy of lymph nodes in her neck. She has had skin cancer excised from her face. She has undergone exploratory laparotomy and intestinal resection due to bowel obstruction. She has undergone tonsillectomy and cholecystectomy in the past. She is a G4, P4 Ab0. Allergies/Adverse Reactions: Allergies acetaminophen [From Percocet] Allergy (Verified 11/29/18 13:06) Unknown hydrocodone [From Vicodin] Allergy (Verified 11/29/18 13:06) Unknown oxycodone [From Percocet] Allergy (Verified 11/29/18 13:06) Unknown Home Medications: Ambulatory Orders Medication Instructions Recorded Amlodipine [Norvasc] 2.5 mg PO DAILY 12/06/14 Levothyroxine [Synthroid] 100 mcg PO DAILY 12/06/14 Omeprazole [Prilosec] 40 mg PO DAILY 12/06/14 Pilocarpine HCl 5 mg PO TID 12/06/14 Atorvastatin Calcium [Lipitor] 10 mg PO QHS 01/17/18 Ensure Enlive 1 bottle PO 4X/DAY 01/17/18 l Gasseri/B Bifidum/B Longum 1 each PO DAILY 01/17/18 [BlackStratus Capsule] Cholecalciferol (Vitamin D3) 1,000 unit PO DAILY 11/29/18 [Vitamin D3] - Family History Paternal - - The patient's father at the age of 74 with a history of rheumatoid arthritis. Patient's mother at the age of 47 with heart disease. Smoking Status: Never smoker Tobacco Use: Non-smoker Alcohol: None Drugs: None Review of Systems Constitutional: Denies: Chills, Fever, Weight Change Eyes: Denies: Pain, Vision Change HEENT: Denies: Difficulty Hearing, Difficulty Swallowing, Sinus Congestion Cardiovascular: Denies: Chest Pain, Palpitations Respiratory: Denies: Cough, Shortness of Breath Gastrointestinal: Denies: Diarrhea, Nausea, Vomiting Genitourinary: Denies: Dysuria, Hematuria Endocrine: Denies: Heat/ Cold Intolerance, Polydipsia, Polyuria Hematologic/ Lymphatic: Denies: Easy Bruising, Easy Bleeding - Physical Exam Vital Signs Temp Pulse Resp BP 97.2 F L 83 16 151/74 H 10/01/19 11:16 10/01/19 11:16 10/01/19 11:16 10/01/19 11:16 General: Alert, Oriented x3, Cooperative, No apparent distress, Well developed, Well nourished HEENT: Atraumatic, PERRLA, EOMI, Normocephalic Oral: Moist Mucosa Neck: No JVD Lungs: Normal air movement Abdomen: Non-Distended Extremities: No clubbing, No cyanosis, No edema, No Calf Tenderness, - - The patient's right forearm wound is now completely healed and epithelialized. Skin: No rashes Wound Measurements and Assessment WC - Nurse 1 - General Ulcer Measurement Start: 09/24/19 10:48 Freq: Status: Active Protocol: Activity Type Activity Date Activity User E-Sign Co-Sign Detail Recorded Client Recorded Date Recorded By Document 10/01/19 11:16 [facility] [id number] 10/01/19 11:23 [facility] 10/01/19 11:16 Wound Center Nurse 1 [Ulcer Assessment] #3 Right Ant Forearm Dog Bite -Combined with other wound No -Current Size (cm) - Length 0.1 -Current Size (cm) - Width 0.1 -Current Size (cm) - Depth 0.1 -Total Square Cm 0.01 -Photo Taken No -Epithelialization Large 67-100% -Tunneling No -Undermining/Tunneling No -Circular Undermining No -Texture (Rosie-wound Skin Appearance) Assessed, Scarring -Moisture (Rosie-wound Skin Appearance Assessed,Dry/ ) Scaly -Color (Rosie-wound Skin Appearance) Assessed -Temperature (Rosie-wound Skin No Abnormality Appearance) (Pt Warm) -Tenderness on Palpation (Rosie-wound No Skin Appearance) WC - Nurse 2 - General Ulcer CM Notes Start: 09/24/19 10:48 Freq: Status: Active Protocol: Activity Type Activity Date Activity User E-Sign Co-Sign Detail Recorded Client Recorded Date Recorded By Document 10/01/19 11:38 DV [id number] 10/01/19 11:40 DV 10/01/19 11:38 Wound Center Nurse 2 [Procedure/Treatment] -Time 11:38 -Correct Patient Yes -Correct Side, Site, Position Yes -Correct Procedure No -Procedure Performed No -Post Debridement Size (cm) - Length 0 -Post Debridement Size (cm) - Width 0 -Post Debridement Size (cm) - Depth 0 -Total Square Cm 0 -Wound/Ulcer Outcome Healed- Epithelialized [See Physician Procedure note for Specifics] Pain Scale: 0-10 Numeric [Pain] -Is Patient Pain Free? Yes Neurological: Cranial nerves II-XII grossly intact, Neuro grossly intact Psych/Mental Status: Normal Affect, Appropriate, Alert and oriented to time, place, person, mood and affect Debridement Note Post-Debridement Measurements/Treatment WC - Nurse 2 - General Ulcer CM Notes Start: 09/24/19 10:48 Freq: Status: Active Protocol: Activity Type Activity Date Activity User E-Sign Co-Sign Detail Recorded Client Recorded Date Recorded By Document 09/24/19 11:40 DV [id number] 09/24/19 11:44 DV Document 10/01/19 11:38 DV [id number] 10/01/19 11:40 DV 09/24/19 10/01/19 11:40 11:38 Wound Center Nurse 2 #3 Right Ant Forearm Dog Bite -Time 11:41 11:38 -Correct Patient Yes Yes -Correct Side, Site, Position Yes Yes -Correct Procedure Yes No -Procedure Performed Yes No -Type of Procedure Debridement -Clinical Debridement Subcutaneous -Post Debridement Size (cm) - Length 1.5 0 -Post Debridement Size (cm) - Width 3.4 0 -Post Debridement Size (cm) - Depth 0.1 0 -Total Square Cm 5.10 0 -Wound/Ulcer Outcome Not Healed Healed- Epithelialized -Ulcer Cleansing Rinsed/ Irrigated with Saline -Foul Odor after Cleansing No -Bioengineered Tissue No -Bleeding Controlled with Pressure -Offloading No -Treatment Response Procedure Tolerated Well Pain Scale: 0-10 Numeric Is Patient Pain Free? Yes Yes No debridement was completed today - The patient's right forearm wound is now completely healed and epithelialized. Assessment/Plan Active Problems (Last Updated 11/29/18 @ 13:14 by Ni Chavez RN) Open wound of right forearm (Chronic) Laceration. Dog scratch (Acute) Assessment: This is a 79-year-old female with multiple medical problems, as detailed above. She presented with a right forearm wound which was the result of a scratch from her pet dog. The injury occurred approximately 5 days prior to presentation. The patient had been using Vaseline gauze topically, and had noted some improvement. There was no evidence of infection or cellulitis. The injury appeared relatively superficial. At today's visit, the right forearm wound is completely healed and epithelialized. Plan: The patient's right forearm wound is completely healed and epithelialized. The patient is to be discharged, and will follow-up henceforth on an as-needed basis. The patient is not a smoker. Influenza vaccine was not administered today. Patient weighs 140 pounds. Her height is 5 feet 5 inches tall. Her BMI is 23, which is normal.
== END 2019-10-11 23:59 ==
LOC: WC 11:30
PROVIDERS: PCP Internal Medicine; Visit Provider Surgery
DX: S50.811A Abrasion of right forearm, initial encounter (principal); W54.1XXA Struck by dog, initial encounter; I87.2 Venous insufficiency (chronic) (peripheral); E78.5 Hyperlipidemia, unspecified; I10 Essential (primary) hypertension; I73.9 Peripheral vascular disease, unspecified; Z85.810 Personal history of malignant neoplasm of tongue; Z85.828 Personal history of other malignant neoplasm of skin; E03.9 Hypothyroidism, unspecified; Z79.899 Other long term (current) drug therapy
CPT/HCPCS: 11042; 99212; 99213; G0463

== ENCOUNTER → 2020-12-24 12:44 | Outpatient (CLI) | payer MEDICARE, OTHER, SELFPAY ==
[2018-11-29 13:09] VITALS: BMI 25.0
--- NOTE | 2020-12-24 12:49 | CT_ITS ---
STUDY: CT CHEST WITHOUT CONTRAST REASON FOR EXAM: Female, 80 years old. COUGH RADIATION DOSAGE (If Supplied By Facility): CTDIvol = ( 9.02 ) mGy, DLP = ( 313.38 ) mGycm TECHNIQUE: Transaxial imaging was performed without the administration of intravenous contrast material. Multiplanar coronal and sagittal images were reformatted. Individualized dose optimization techniques were used for this CT. COMPARISON: None. FINDINGS: Hyperinflation. Mild degree of increased interstitial markings along the anterior aspects of the right and left upper lobes. There is no demonstrated pleural abnormality. There are calcifications of the coronary arteries. Normal mediastinum. Normal hilar regions. Normal unenhanced pulmonary arteries. Dilatation of the root of the ascending thoracic aorta with a transverse dimension of 42.3 mm. Atherosclerotic calcific plaques of the aorta. There are multi-level degenerative changes of the thoracic spine. Mild dextroscoliosis. Large hiatal hernia. Calcified splenic granulomas. CT/Chest without Contrast IMPRESSION: Mild degree of increased interstitial markings along the anterior aspects of the right and left upper lobes. Dilatation of the root of the ascending thoracic aorta with a transverse dimension of 42.3 mm. Electronically Signed: Chuck Sinha MD at 15:37 EDT , Service support ,
== END ==
PROVIDERS: PCP Internal Medicine; Referring Provider Internal Medicine Pulmonary Disease; Visit Provider Internal Medicine Pulmonary Disease
DX: R05.9 Cough, unspecified (principal)
CPT/HCPCS: 71250

== ENCOUNTER → 2021-02-15 08:31 | Outpatient (CLI) | payer MEDICARE, OTHER, SELFPAY ==
[2018-11-29 13:09] VITALS: BMI 25.0
--- NOTE | 2021-02-15 08:33 | RAD_ITS ---
STUDY: X-RAY - ESOPHAGUS (BARIUM SWALLOW) WITH FLUOROSCOPY REASON FOR EXAM: Female, 80 years old. DYSPHAGIA TECHNIQUE: 12 view(s) of the esophagus were obtained following swallowing of barium. FLUOROSCOPY TIME (if supplied): (24 seconds) minutes/seconds COMPARISON: None. FINDINGS: The patient aspirated the ingestion of barium into the trachea and right lower lobe bronchi. Correlation with the speech therapy modified barium swallow is recommended. There is no demonstrated esophageal foreign body. There is no demonstrated stricture or mucosal abnormality. Normal gastroesophageal junction, without a demonstrated hiatal hernia. RAD/Esophagus Dual Contrast IMPRESSION: Aspiration with ingestion of the barium. Electronically Signed: Chuck Sinha MD at 9:26 EST , Service support ,
== END ==
PROVIDERS: PCP Internal Medicine; Referring Provider Internal Medicine Gastroenterology; Visit Provider Internal Medicine Gastroenterology
DX: R13.10 Dysphagia, unspecified (principal)
CPT/HCPCS: 74221

== ENCOUNTER 2021-03-31 13:03 | Outpatient (CLI) | payer MEDICARE, SELFPAY ==
[2018-11-29 13:09] VITALS: BMI 25.0
--- NOTE | 2021-03-31 15:29 | SP.MBSS_ITS ---
Modified Barium Swallow - Patient Information Study Date: 03/31/21 Study Time: 13:00 Direct Billable Minutes: 210 Total Minutes procedure & reportin Diagnosis: Dysphagia, unspecified (R13.10) Referring Physician: Yasir Gonzalez Reason for Referral: Objectively assess swallow function and risk for aspiration. Medical History: The patient is an 80 year old female with PMH below. Patient had tongue cancer with the below mentioned surgeries and radiation treatment in 1997. She has had no recent pneumonias. She has reflux and hiatal hernia. From barium esophagram on 02/15/2022, the patient demonstrated significant aspiration of barium liquids and was referred for MBS study. The patient and patient's daughter, Angi, report she has been on a ground textures / nectar thick liquid diet for over 20 years per her ENT's recommendation. She has not had any speech therapy in the past. 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 She has had skin cancer excised from her face. She has undergone exploratory laparotomy and intestinal resection due to bowel obstruction. She has undergone tonsillectomy and cholecystectomy in the past. Current Diet Ordered: Minced and moist textures / Mildly thick liquids Mental Status: WNL Respiratory Status: Oxygenating on Room Air - Penetration-Aspiration Scale Penetration-Aspiration Scale: OBJECTIVE ASSESSMENT OF SWALLOW FUNCTION (QUANTITATIVE ? PER TRIAL): PENETRATION / ASPIRATION SCALE (RILEY): 1 = does not enter airway 2 = enters airway/above vocal folds/ejected 3 = enters airway/above vocal folds/not ejected 4 = enters airway/contacts vocal folds/ejected 5 = enters airway/contacts vocal folds/not ejected 6 = enters airway/below vocal folds/ejected 7 = enters airway/below vocal folds/not ejected despite effort 8 = enters airway/below vocal folds/no effort - Penetration-Aspiration Scale Score Thin Liquid via 1/2 teaspoon Result: 8= enters airway/below vocal folds/no effort Comment: Pt stated she held back cough - ASSEMBLER TUBING encouraged strong cough with sensation of aspiration. Thin Liquid via 1/2 teaspoon Trial 2 Result: 1= does not enter airway Thin Liquid via 1/2 teaspoon Trial 3 Result: 7= enters airways/below vocal folds/not ejected despite effort [place] Thick Liquid via 1/2 teaspoon Result: 8= enters airway/below vocal folds/no effort [place] Thick Liquid via 1/2 teaspoon with Chin tuck Result: 5= enters airways/contacts vocal folds/not ejected Comment: Cued cough and reswallow after the swallow. Pt likely to experience post prandial aspiration without cough and reswallow. Honey Thick Liquid via 1/2 teaspoon Cued Cough and Reswallow Result: 5= enters airways/contacts vocal folds/not ejected [place] Thick Liquid via small single sip from cup Cued Cough and Reswallow Result: 5= enters airways/contacts vocal folds/not ejected [place] Thick Liquid via small single sip from 1/2 teaspoon Cued Cough and Reswallow Result: 5= enters airways/contacts vocal folds/not ejected Pudding via 1/2 teaspoon Result: 3= enters airways/above vocal folds/not ejected Comment: Majority of bolus remaining in pharynx after initial swallow. Thin Liquid via 1/2 teaspoon Chin tuck Result: 7= enters airways/below vocal folds/not ejected despite effort Thin Liquid via teaspoon Cued Cough and Reswallow Result: 7= enters airways/below vocal folds/not ejected despite effort Thin Liquid via large sip from straw Result: 5= enters airways/contacts vocal folds/not ejected Thin Liquid via small sip from straw Result: 8= enters airway/below vocal folds/no effort Thin Liquid via 1/2 teaspoon Double swallow Result: 8= enters airway/below vocal folds/no effort Thin Liquid via 1/2 teaspoon Partially Reclined Result: 1= does not enter airway Thin Liquid via teaspoon Partially Reclined Result: 7= enters airways/below vocal folds/not ejected despite effort Thin Liquid via 1/2 teaspoon Partially Reclined Trial 2 Result: 5= enters airways/contacts vocal folds/not ejected [place] Liquid via 1/2 teaspoon Partially Reclined Result: 5= enters airways/contacts vocal folds/not ejected Honey via 1/2 teaspoon Partially Reclined Result: 5= enters airways/contacts vocal folds/not ejected Pudding via 1/2 teaspoon Partially Reclined Result: 5= enters airways/contacts vocal folds/not ejected Comment: Post prandial aspiration of honey thick liquid on previous trial. Thin Liquid via 1/2 teaspoon Partially Reclined Trial 3 Result: 5= enters airways/contacts vocal folds/not ejected - Oral Phase Labial Seal: Interlabial escape, no progression to anterior lip Tongue Control During Bolus Hold: Posterior escape of greater than half of bolus Bolus Preparation/Mastication: Minimal chewing/mashing with majority of bolus unchewed - DNT due to concerns for choking and aspiration. Bolus Transport/Lingual Motion: Repetitive/disorganized tongue motion Oral Residue: Residue collection on oral structures - Pharyngeal Phase Initiation of Pharyngeal Swallow: Bolus head in pyriforms Soft Palate Elevation: Trace column of contrast/air between soft palate and pharyngeal wall Laryngeal Elevation: Partial superior movement thyroid cart/partial apprx aryt- epig petiole Anterior Hyoid Excursion: Partial anterior movement Epiglottic Movement: No inversion Laryngeal Vestibule Closure at Height of Swallow: None; wide column of air/contrast in laryngeal vestibule Pharyngeal Stripping Wave: Present - diminished Pharyngoesophageal Segment Opening: Minimal distension and minimal duration; marked obstruction of flow Tongue Base Retraction: Wide column of contrast between tongue base & post. pharyngeal wall Pharyngeal Residue: Collection of residue within or on pharyngeal structures - Esophageal Phase Esophageal Clearance: Esophageal retention - Treatment Strategies Effects of treatment strategies attemped:: Chin tuck = not effective. Decreased bolus size = somewhat effective. Cough and reswallow = somewhat effective. Multiple swallows = somewhat effective in clearing pharyngeal residue of pudding; however, did not decrease laryngeal penetration/aspiration. - Diagnosis/Impression Diagnosis: Severe oropharyngeal phase dysphagia (R13.12) Impression: The oral phase is marked by poor bolus control resulting in premature posterior spillage and delayed swallow onset. The patient had impaired A-P transit of bolus with delayed and repetitive tongue motion. Did not test mastication due to concerns for choking with extent of pharyngeal residue of pudding textures. The pharyngeal phase is marked by severe deficits in airway closure due to minimal anterior hyoid excursion and poor laryngeal vestibular closure. The patient has delayed swallow onset with bolus head in the pyriforms. She had little to no epiglottic inversion, decreased pharyngeal contraction, and decreased distension and duration of UES opening resulting in severe pharyngeal residue of pudding. Thickened liquids also increased pharyngeal residue, which increased pt's risk to penetrate/aspirate residue of thickened liquids and pudding after the swallow. The patient presented with SILENT aspiration of thin liquid via 1/2 tsp, nectar thick liquid via 1/2 tsp, thin liquid via straw, 1/2 tsp of thin liquid with double swallow, and 1/2 tsp honey thick liquid partially reclined (post- prandial). She overtly aspirated 1/2 tsp sip of thin liquid, and full tsp of thin liquid reclined. Pt admitted to holding back a cough consuming first trial of thin liquids and ASSEMBLER TUBING encouraged pt for strong coughing if sensing aspiration. The patient had laryngeal penetration of various liquid trials, both upright and reclined - she was able to somewhat eject contrast from laryngeal vestibule, but could not fully eject contrast. With thickened liquid trials, she had increased pharyngeal residue as compared to thin liquid trials. This residue increases her risk for post prandial aspiration of thickened liquids. - Recommendations Diet: Puree Textures - Thinned and moist pureed textures Comment: Sips and bites should be consumed partially reclined, head level, and via 1/2 tsp. Additionally, would recommend use of cough and reswallow frequently throughout meals. Compensatory Strategies: Slow Rate, Multiple Swallows - Particularly with consumption of purees., Remain sitting upright for 30 minutes after PO intake, Assist with verbal cues to use recommended strategies Supervision: Assist as needed Recommend Repeat Modified Barium Swallow: Yes - 8-10 weeks following intensive dysphagia therapy. Need for Skilled Speech Therapy Services: Yes Comment: Will recommend the patient for intensive outpatient dysphagia therapy to address severe deficits in oropharyngeal swallow function. Would consider the patient for myofascial release and oropharyngeal strengthening to improve severe deficits in anterior hyoid excursion, laryngeal elevation, and UES opening. The patient would benefit from thorough education regarding diet recommendations and recommended compensatory strategies. Would strongly consider the patient for implementation of FFWP (small, single sips of unthickened water) to encourage increased hydration and promote increased opportunities to swallow throughout her day. Recommended Referrals: ENT Consult - Concerns for poor UES opening/duration. In addition, pt presents with densities anteriorly on C2 and C3. SEE images in PACS., Dietitian Consult - Would consider consult to territory sales manager medical if concerns for ability to obtain adequate nutrition with strict aspiration precautions. Education Completed: 1. Described result of evaluation. - ASSEMBLER TUBING attempted to educate patient results and recommendations via phone call; however, patient was out shopping. Plan to call patient on 04/01/2021 to educate her in results and recommendations of this MBS study. - Status Active ST Patient: Active - Contact Information [facility] Speech Therapy:: Nicole Lara M.A. [facility]-ASSEM[facility] TUB[facility] Speech-Language Pathologist [facility] [address] [place] [address] [email or web address] [phone] 03/31/21 15:37
== END 2021-03-31 23:59 | disposition short-term general hospital (02) ==
PROVIDERS: PCP Internal Medicine; Referring Provider Internal Medicine Gastroenterology; Visit Provider Internal Medicine Gastroenterology
DX: R13.10 Dysphagia, unspecified (principal); Y84.4 Aspiration of fluid as the cause of abnormal reaction of the patient, or of later complication, without mention of misadventure at the time of the procedure
CPT/HCPCS: 74230; 92611

== ENCOUNTER → 2021-08-04 | Outpatient (CLI) | payer MEDICARE, SELFPAY ==
[2018-11-29 13:09] VITALS: BMI 25.0
--- NOTE | 2021-08-04 15:45 | PET_ITS ---
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 TECHNIQUE: Following the intravenous administration of 13.32 mCi of F-18 FDG, multiplanar imaging acquisitions of the neck, chest, abdomen/pelvis to the mid thigh, obtained at 1 hour post radiopharmaceutical administration. Interpretation is with co-registeration of similar anatomic distribution of CT. Findings: Normal and physiologic distribution of radioisotope identified in the expected intensity of the hepatic and splenic parenchyma, urinary tract and gastrointestinal structures. There is gross anatomic distribution of the intracranial contents. INDEX LESION SIZE SUV INTERPRETATION: 1. Focal lesion in the left lateral oral cavity/tongue as seen on image 31 series 301 and image 56 series 201 measuring 0.88 x 1.28 cm with abnormal FDG activity (SUV 8.5). CT portion of the exam: There are interstitial fibrotic changes of the lungs. No airspace consolidation or focal pulmonary nodule. Scattered pulmonary calcified granulomata. There is no demonstrated pleural abnormality. Normal heart and pericardium. There are calcifications of the coronary arteries. Normal mediastinum. Normal hilar regions. Normal unenhanced pulmonary arteries. There is atherosclerotic calcification of the aortic arch with tortuosity and elongation of the aortic arch and descending thoracic aorta. Normal liver. There are surgical clips in the gallbladder fossa consistent with a prior cholecystectomy. Capsular calcifications of the spleen are of doubtful significance, likely sequela of prior infection or injury. Normal pancreas. Normal bilateral adrenal glands. No hydronephrosis. Left renal cortical scarring with small cortical calcification. Moderate size hiatal hernia. Normal small intestine. No colon wall thickening. The appendix is visualized and appears normal. There is diffuse atherosclerotic calcification of the abdominal aorta, without a demonstrated aneurysm. Normal inferior vena cava. Normal urinary bladder. Left paramedial anterior abdominal wall hernia measuring 1.4 x 4.3 cm containing a portion of sigmoid colon. There are diffuse degenerative changes of the visualized spine. Degenerative changes of the bilateral hips. PET/PET/CT Tumor Base -Thigh Init IMPRESSION: 1. ABNORMAL EXAMINATION. Focal lesion in the left lateral oral cavity/tongue meets criteria for viable neoplasm. No evidence of metastasis. 2. Left paramedial anterior abdominal wall hernia containing a portion (FLOYD type) of colon without evidence of colonic ischemia or obstruction. 3. Chronic changes, as detailed above. Electronically Signed: Surjit Kirby MD ([place]) at 18:51 EDT ,
--- NOTE | 2021-10-15 13:39 | HP.SP.DC_ITS ---
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 BSE was completed 04/26/2021 and the patient participated in 7 speech therapy sessions for oropharyngeal strengthening in junction with myofascial release. During 7th ST session on 06/23/2021, patient reported concerns for L sided pocketing. H[employer] TUTOR inspected oral cavity at end of the session due to reports of mild pain (03/22) and discovered abnormal growth located in L buccal cavity. H[employer]UD[employer] TUTOR recommended emergent ENT visit. H[employer]CHO[employer]UD[employer] TUTOR placed a follow-up call, but the patient was not requiring speech therapy services at that time as she was undergoing testing for the abnormal growth. H[employer]UD[employer] TUTOR requested pt call back if she required additional dysphagia therapy. Pt has not called to schedule additional visits.
== END | disposition home or self-care (01) ==
PROVIDERS: PCP Internal Medicine; Referring Provider Otolaryngology; Visit Provider Otolaryngology
DX: C04.1 Malignant neoplasm of lateral floor of mouth (principal)
CPT/HCPCS: 78815; A9552

== ENCOUNTER → 2022-06-15 | Outpatient (CLI) | payer MEDICARE, SELFPAY ==
[2018-11-29 13:09] VITALS: BMI 25.0
--- NOTE | 2022-06-15 10:43 | SP.MBSS_ITS ---
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 Medical History: The patient is familiar to this GROCERY BAGGER. She is an 81-year-old female with PMH significant for tongue cancer with partial excision of her tongue and lymphadenectomy of lymph nodes of the neck, localized chronic edema, open wound of R forearm, HTN, HLD, history of skin cancer with excision from her face, tonsillectomy. 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 BSE was completed 04/26/2021 and the patient participated in 7 speech therapy sessions for oropharyngeal strengthening in junction with myofascial release. During 7th dysphagia treatment session on 06/23/2021, patient reported concerns for L sided pocketing. GROCERY BAGGER inspected oral cavity at end of the session due to reports of mild pain (03/22) and discovered abnormal growth located in L buccal cavity/FOM. GROCERY BAGGER recommended emergent ENT visit. GROCERY BAGGER placed a follow-up call, but the patient was not requiring speech therapy services at that time as she was undergoing testing for the abnormal growth. GROCERY BAGGER requested pt call back if she required additional dysphagia therapy. Pt had not called to schedule additional visits and was discharged from POC. PET scan from 08/04/2022 revealed abnormal examination with focal lesion in the L lateral oral cavity/tongue meeting criteria for viable neoplasm with no evidence of metastasis. She returns for repeat MBSS ordered from her PCP, Gary Phoenix. MBSS was recommended by pt's current GROCERY BAGGER. Patient and daughter, Angi, reported the following updates regarding patient's medical history. She had 2 surgeries to resect tumor from her FOM (September 2021 and October 2021) completed by her ENT, Dr. Wheatley. She elected to not proceed with chemotherapy or radiation treatment. No metastases per patient. She has had a PEG tube placed since her second resection last year. It had to be taken out and replaced 1X for malfunctioning. She is currently only eating for pleasure by mouth. She consumes coffee (nectar thickened) daily and will occasionally consume 2-3 Tbsp of soaked cookie or purees. The patient does not desire to advance her diet past pleasure feedings by mouth with continued plans nutrition and hydration to be met by PEG tube. She wishes to know what consistencies are safest for her to consume for pleasure. Current Diet Ordered: PEG tube w/ Puree and NTL for pleasure Dentition: Edentulous Mental Status: WNL Respiratory Status: Oxygenating on Room Air - Penetration-Aspiration Scale Penetration-Aspiration Scale: OBJECTIVE ASSESSMENT OF SWALLOW FUNCTION (QUANTITATIVE ? PER TRIAL): PENETRATION / ASPIRATION SCALE (RILEY): 1 = does not enter airway 2 = enters airway/above vocal folds/ejected 3 = enters airway/above vocal folds/not ejected 4 = enters airway/contacts vocal folds/ejected 5 = enters airway/contacts vocal folds/not ejected 6 = enters airway/below vocal folds/ejected 7 = enters airway/below vocal folds/not ejected despite effort 8 = enters airway/below vocal folds/no effort VIDEOFLOROSCOPIC SCALE SCORE (RILEY): Grade I = aspiration of material that has penetrated into the laryngeal vestibule, intact cough reflex Grade II = aspiration < 10 % of the bolus, intact cough reflex Grade III = aspiration of < 10 % of the bolus, reduced cough reflex or aspiration of > 10 % of the bolus, intact cough reflex Grade IV = aspiration of > 10 % of the bolus, reduced cough reflex - Penetration-Aspiration Scale Score Carbon Thick Liquid via teaspoon slightly reclined with cued cough and re- swallow Result: 8= enters airway/below vocal folds/no effort Comment: Trace barium contrast remained in laryngeal vestibule after cued cough and re- swallow. Thin Liquid via teaspoon slightly reclined with cued cough and re-swallow Result: 8= enters airway/below vocal folds/no effort Comment: Trace barium contrast remained in trachea after cued cough and re-swallow. Carbon Thick Liquid via small single sip from cup slightly reclined with multiple cued coughs and re-swallows Result: 8= enters airway/below vocal folds/no effort Comment: Trace barium contrast remained in laryngeal vestibule after cued cough and re- swallow. Thin Liquid via small single sip from cup slightly reclined with multiple cued coughs and re-swallows Result: 8= enters airway/below vocal folds/no effort Comment: Trace barium contrast remained in trachea after cued cough and re-swallow. Pudding via 1/2 teaspoon Result: 5= enters airways/contacts vocal folds/not ejected Comment: Post prandial aspiration of previous trial observed. Honey Thick Liquid via teaspoon Result: 8= enters airway/below vocal folds/no effort Comment: Post prandial aspiration of previous trial observed. Trace barium contrast remained in laryngeal vestibule after cued cough and re-swallow. - Oral Phase Labial Seal: Interlabial escape, no progression to anterior lip Tongue Control During Bolus Hold: Posterior escape of greater than half of bolus Bolus Transport/Lingual Motion: Slowed tongue motion Oral Residue: Trace residue lining oral structures - Pharyngeal Phase Initiation of Pharyngeal Swallow: Bolus head in pyriforms Soft Palate Elevation: Trace column of contrast/air between soft palate and pharyngeal wall Laryngeal Elevation: Min superior movement thyroid cart/min apprx aryte cart- epig petiole Anterior Hyoid Excursion: No anterior movement - minimal to no anterior hyoid excursion Epiglottic Movement: Partial inversion Laryngeal Vestibule Closure at Height of Swallow: Incomplete; narrow column of air/contrast in laryngeal vestibule Pharyngeal Stripping Wave: Present - diminished Pharyngoesophageal Segment Opening: Parital distension and partial duration; parital obstruction of flow Tongue Base Retraction: Wide column of contrast between tongue base & post. pharyngeal wall Pharyngeal Residue: Majority of contrast within or on pharyngeal structures - Diagnosis/Impression Diagnosis: Severe oropharyngeal phase dysphagia (R13.12) Impression: Trials completed with slight recline due to pt's kyphotic posture in attempts for obtaining a more neutral neck position. All aspiration observed during the study was SILENT in nature. GROCERY BAGGER cued cough and re-swallow throughout the evaluation to decrease the amount of aspiration observed during the study. The oral phase is primarily marked by... -Decreased bolus control with >1/2 of the bolus spilling posteriorly to the vocal folds and pyriforms prior to swallow onset observed with thin and nectar thick liquids especially. -Slowed tongue motion for A-P transport. -Did not complete cookie trial due to concerns for choking with decreased lingual control, poor airway closure, and poor pharyngeal clearance. The pharyngeal phase is primarily marked by... -Severely decreased airway closure during the swallow due to little to no anterior hyoid excursion, partial epiglottic inversion, and decreased laryngeal elevation. Arytenoids did not contact the epiglottic petiole during any trials due to poor laryngeal elevation. -Severely decreased tongue base retraction, moderately decreased UES opening/duration, and partial pharyngeal stripping wave with resulting severe pharyngeal residues after the swallow. -SILENT aspiration of thin, nectar, and honey thick liquids. SILENT post prandial aspiration of pudding thick liquids. GROCERY BAGGER frequently cued cough and re-swallow throughout session to decrease amount of aspiration during the study. Cough was somewhat effective in clearing contrast from the trachea and laryngeal vestibule. GROCERY BAGGER educated the patient and daughter in patient's SILENT nature of aspiration and HIGH risk for aspiration across all consistencies. Patient and daughter verbalized good understanding of education re: aspiration risk and recommended s trategies below when consuming foods/drinks for pleasure. - Recommendations Diet: Puree Textures - MOIST AND BY 1/2 TSP ONLY for patient pleasure, Carbon- thick Liquids - BY TSP ONLY for patient pleasure Comment: Recommend patient meet all nutrition/hydration needs via PEG tube. Oral intake recommendations above for pleasure feeding only. Consider implementation of a modified Campbell Free Water Protocol by tsp with use of cough and re-swallow each sip if the patient desires water. Frequent oral care throughout the day. IF CONCERN FOR WORSENING RESPIRATORY STATUS, RECOMMEND DISCONTINUING ORAL INTAKE AND SEEK MEDICAL ATTENTION. Compensatory Strategies: Small Bites - cough and re-swallow each bite until pt feels bite has cleared - 4 swallows minimum per 1/2 tsp bite, Small Sips - cough and re-swallow each sip until pt feels sip has cleared, Slow Rate - bites and sips one at a time, Sitting upright, Remain sitting upright for 30 minutes after PO intake Supervision: Assist as needed - Family to assist with verbal cues as needed Recommend Repeat Modified Barium Swallow: TBD Need for Skilled Speech Therapy Services: Yes Comment: Will recommend the patient for dysphagia therapy to address for thorough education regarding diet recommendations and recommended compensatory strategies to decrease risk for aspiration. The patient stated she is about to get cut from ST. If patient requires further education re: diet recommendations and strategies to decrease aspiration risk, will recommend the patient for return to OP ST. Education Completed: 1. Described result of evaluation., 2. Pt understands evaluation & agrees with goals and treatment plan., 4. Family/caregivers understand evaluation & agree w/ goals & tx plan., 6. Family/caregivers demonstrate recommended strategies., 7. Pt requires further education on strategies & risks. - Status Active ST Patient: Active - Contact Information [facility] Speech Therapy:: Nicole Lara M.A. [facility] Speech-Language Pathologist [facility] [address] [place] [address] [email or web address] [phone] 06/15/22 14:37
== END | disposition home or self-care (01) ==
LOC: RAD 12:53
PROVIDERS: PCP Internal Medicine; Visit Provider Internal Medicine
DX: R13.10 Dysphagia, unspecified (principal); C06.9 Malignant neoplasm of mouth, unspecified; K11.7 Disturbances of salivary secretion
CPT/HCPCS: 74230; 92611

== ENCOUNTER → 2022-09-05 | Outpatient (CLI) | payer MEDICARE, SELFPAY ==
[2018-11-29 13:09] VITALS: BMI 25.0
[2022-09-05 17:16] LABS: Absolute Lymphocyte Count 0.65 X10^3/uL (0.83-4.51); Absolute Neutrophil Count 3.3 X10^3/uL (2.0-7.7); Basophil# 0.03 X10^3/uL; Basophil% 0.6 % (0-1); Eosinophil# 0.04 X10^3/uL; Eosinophils% 0.9 % (0-5); Hematocrit 39.2 % (37-47); Hemoglobin 12.5 g/dL (12.0-15.0); Lymphocyte # 0.65 X10^3/ul (0.83-4.51); Lymphocyte % 14.1 % (19-41); Mean Corp Hgb Conc 31.9 g/dL (32-36); Mean Corpuscular Hgb 29.8 pg (27.0-32.0); Mean Corpuscular Volume 93.3 fL (81-99); Mean Platelet Vol. 10.1 fl (6.2-12.0); Monocyte# 0.64 X10^3/uL; Monocyte% 13.9 % (0-10); NRBC Flagged by Analyzer 0 % (0-5); Neutrophil # 3.25 X10^3/uL (2.7-7.7); Neutrophil % 70.3 % (47-70); Platelet Count 310 K/mm3 (150-450); RBC Distribution Width CV 14.4 % (11.6-14.6); RBC Distribution Width SD 49.5 fl (35.1-43.9); White Blood Count 4.6 K/mm3 (4.4-11.0)
[2022-09-05 17:52] LABS: ALB/GLOB Ratio 1.1 RATIO (0.9-2.4); AST(SGOT) 16 U/L (15-37); Alanine Aminotransfer ALT/SGPT 15 U/L (13-56); Albumin, Serum 3.4 g/dL (3.2-5.0); Alkaline Phosphatase 96 U/L (45-117); Anion Gap 6 (5-15); BUN 18 mg/dL (7-18); BUN/Creat Ratio 23.9 RATIO (10-20); Calcium,Total 8.6 mg/dL (8.5-10.1); Chloride 100 mmol/L (98-107); Creatinine, Serum 0.75 mg/dL (0.55-1.02); EST Glomerular Filtration Rate 78 mL/min (>60); Est Glom Filt Rate - Afr Amer 95 mL/min (>60); Globulin 3.2 g/dL (2.2-4.2); Glucose 97 mg/dL (74-106); Potassium 4.3 mmol/L (3.5-5.1); Protein, Total 6.6 g/dL (6.4-8.2); Sodium Level 134 mmol/L (136-145); Thyroid Stim Hormone (TSH) 0.25 uIU/mL (0.358-3.74)
[2022-09-05 18:20] LABS: Hepatitis C Antibody Non-Reactive (Nonreactive); Vitamin D,25 Hydroxy 46.1 ng/mL
== END | disposition home or self-care (01) ==
LOC: LAB 16:02
PROVIDERS: PCP Family Medicine Geriatric Medicine; Referring Provider Family Medicine Geriatric Medicine; Visit Provider Family Medicine Geriatric Medicine
DX: Z00.00 Encounter for general adult medical examination without abnormal findings (principal); Z13.89 Encounter for screening for other disorder; E03.9 Hypothyroidism, unspecified; E78.5 Hyperlipidemia, unspecified
CPT/HCPCS: 36415; 80053; 82306; 84443; 85025; 86803

== ENCOUNTER 2022-09-09 10:15 | Outpatient (RCR) | payer MEDICARE, SELFPAY ==
[2018-11-29 13:09] VITALS: BMI 25.0
[2022-08-19 09:03] VITALS: BP 183/79; PULSE 82; RESP 18; TEMP 36.4
--- NOTE | 2022-08-19 12:57 | PCM.WC.HP ---
History of Present Illness Date of Service: 08/19/22 Chief Complaint: Skin tear of the left upper arm History of Wound: This is an 82-year-old female who presented 6 days status post injury to her left upper arm. The injury was caused by a fall where she hit the edge of a table and tore the skin. Since the time of the injury, the patient had been using Vaseline gauze or triple antibiotic ointment topically on a daily basis. 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 She has not had any wound culture or treatment with oral antibiotic. There is only small amount of drainage from the wound. She denies fever, chills, erythema, odor. [facility] Medical History HTN (hypertension) Hypothyroidism Psoriasis Tongue cancer Home Medications amlodipine 5 mg tablet 2.5 mg PO DAILY 12/06/14 [History Last Taken Unknown] levothyroxine 125 mcg tablet 100 mcg PO DAILY 12/06/14 [History Last Taken Unknown] omeprazole 20 mg capsule,delayed release 40 mg PO DAILY 12/06/14 [History Last Taken Unknown] Lactobacills gasseri-Bifidobac bifidum,longum 1.5 billion cell capsule ([employer]) 1 ea PO DAILY 01/17/18 [History Last Taken Unknown] atorvastatin 10 mg tablet 10 mg PO QHS 01/17/18 [History Last Taken Unknown] food supplemt, lactose-reduced 0.08 gram-1.5 kcal/mL oral liquid ([employer]) 1 bottle PO 4X/DAY 01/17/18 [History Last Taken Unknown] cholecalciferol (vitamin D3) 25 mcg (1,000 unit) capsule 1,000 unit PO DAILY 11/29/18 [History Last Taken Unknown] ixekizumab 80 mg/mL subcutaneous auto-injector ([employer] Autoinjector) mg subcut QMONTH 08/19/22 [History Last Taken Unknown] Allergy/AdvReac Type Severity Reaction Status Date / Time acetaminophen [From Percocet] Allergy Unknown Verified 11/29/18 13:06 hydrocodone [From Vicodin] Allergy Unknown Verified 11/29/18 13:06 oxycodone [From Percocet] Allergy Unknown Verified 11/29/18 13:06 Social History Smoking Status: Former smoker ROS Constitutional Constitutional: Denies chills, fatigue or fever(s) Eyes Eyes: Denies blurry vision, change in vision or loss of vision ENT HEENT: Denies dysphagia, hearing loss or sore throat Cardiovascular Cardiovascular: Denies chest pain, edema or palpitations Respiratory/Chest Respiratory/Chest: Denies dry cough, dyspnea, dyspnea on exertion, productive cough or wheezing Gastrointestinal Gastrointestinal: Denies diarrhea, nausea or vomiting Genitourinary Genitourinary: Denies dysuria or polyuria Musculoskeletal Musculoskeletal: Denies arthralgias, joint stiffness or muscle weakness Integumentary Integumentary: Reports erythema and wounds Neurologic Neurologic: Denies dizziness, memory loss or weakness Psychiatric Psychiatric: Denies homicidal ideation or suicidal ideation Endocrine Endocrinology: Denies polydipsia, polyphagia or polyuria Hematologic/Lymphatic Hematologic/Lymphatic: Denies easy bleeding or easy bruising Allergic/Immunologic Allergic/Immunologic: Denies throat swelling, tongue swelling or urticaria Vital Signs Vital Signs Vital Signs: 08/19/22 09:03 Temperature 97.6 F L Temperature Source Temporal Pulse Rate 82 Respiratory Rate 18 Blood Pressure 183/79 H Blood Pressure Mean 113 Blood Pressure Source Monitor Physical Exam Const alert, oriented x3 and no apparent distress General Appearance: cooperative and comfortable HEENT normocephalic and head/scalp atraumatic Resp normal respiratory effort Effort and Inspection: able to speak in complete sentences Cardio regular rate and regular rhythm Skin Wounds: wounds noted Wound Narrative: as in clinical panel Psych mental status grossly normal, thought process normal, cooperative and affect normal Debridement Note Debridement Note Wound debrided: left upper arm Laterality: Left Type of Debridement: Excisional debridement Anesthesia Used: 4% Lidocaine Solution, 5% Lidocaine Gel and Cetacaine Depth: Down to and including healthy tissue and in the subcutaneous layer Percentage of wound debrided: 100 Instrument Used: 3mm curette Tissue Removed: Yellow slough, devitalized tissue Severity: Fat Layer Exposed Amount of bleeding with debridement: Mild Bleeding Controlled with: Compression and gauze Patient tolerated procedure: Patient tolerated procedure well Post-Debridement Measurements and Additional Note: Post-Debridement Measurements/Treatment DANIELLE - Nurse 1 - General Ulcer Assessment Start: 08/19/22 08:23 Freq: Status: Active Protocol: TEODORAT Activity Type Activity Date Activity User E-sign Co-sign Detail Recorded Client Recorded Date Recorded By Document 08/19/22 09:03 BLAKE [id number] 08/19/22 09:08 DL 08/19/22 09:03 - Today's Visit Information Type of service Initial Visit Arrival Mode Ambulatory Transfer Assistance None Patient Identification Verified (Name & Yes ) Patient Requires Transmission-Based No Precautions Vital Signs Temperature (97.8 F-99.1 F) 97.6 F L Temperature Source Temporal Pulse Rate (60-100) 82 Pulse Location Monitor Respiratory Rate (12-18) 18 Respiratory rate source Observation Blood Pressure (90/60-120/80) 183/79 H Blood Pressure Mean (mm Hg) 113 Source Monitor Pain Scale: 0-10 Numeric Is Patient Pain Free? Yes Communication Assessment Preferred language Italian Able to Read Yes Able to Write Yes Communication Tools None Caregiver Communication Skills No Impairment Impairment Right Hearing Abillity Use of Hearing Aid Left Hearing Abillity Use of Hearing Aid Visual Assistive Devices Glasses Teaching Assessment Preferences Verbal,Written, Demonstration Barriers to Learning None Readiness To Learn Good Willingness to Engage in Self Management Med Activies Readiness to Engage in Self Management Med Activities Anxiety Level Calm Cooperation Cooperative Perception Coherent Interest in Health Problem Asks Questions Education Importance Acknowledges Need Does Patient Smoke tobacco or other No substances Smoking Status Former smoker Is Patient Diabetic No Functional Assessment Recent Decline in Ability to Perform Denies Any Declines Culture/Muslim/Marine Oiler Cultural/Muslim Needs that may affect No Treatment Plan Would you allow our hospital investment analyst to No meet you for the purpose of spiritual/ emotional support? Marine Oiler to contact place of episcopalian No Teaching: Wound Center *Welcome to the Wound Center -Person Taught Patient Discharge Instructions -Person Taught Patient WC - Nurse 1 - General Ulcer Measurement Start: 08/19/22 08:23 Freq: Status: Active Protocol: Activity Type Activity Date Activity User E-sign Co-sign Detail Recorded Client Recorded Date Recorded By Document 08/19/22 09:03 BLAKE [id number] 08/19/22 09:08 DL 08/19/22 09:03 Wound Center Nurse 1 #4 L Upper Arm -Current Size (cm) - Length 1.6 -Current Size (cm) - Width 3.8 -Current Size (cm) - Depth 0.1 -Total Square Cm 6.08 -Photo Taken Yes -Granulation Amt Large (67-100%) -Granulation Quality Pale,[place] -Necrosis Amt None Present (0 %) -Structure Exposed N/A -Texture (Rosie-wound Skin Appearance) Scarring -Moisture (Rosie-wound Skin Appearance) No Abnormality -Color (Rosie-wound Skin Appearance) No Abnormality -Temperature (Rosie-wound Skin No Abnormality Appearance) (Pt Warm) -Tenderness on Palpation (Rosie-wound No Skin Appearance) -Ulcer Cleansing Soap and Water -Foul Odor after Cleansing No -Anesthetic Used 5% Lidocaine Gel WC - Nurse 2 - General Ulcer CM Notes Start: 08/19/22 08:23 Freq: Status: Active Protocol: Activity Type Activity Date Activity User E-sign Co-sign Detail Recorded Client Recorded Date Recorded By Document 08/19/22 09:49 MW [id number] 08/19/22 09:59 MW 08/19/22 09:49 Wound Center Nurse 2 -Time 09:51 -Correct Patient Yes -Correct Side, Site, Position Yes -Correct Procedure Yes -Procedure Performed Yes -Type of Procedure Debridement -Clinical Debridement Subcutaneous -Tissue Removed Subcutaneous -Post Debridement (cm) - Length 1.0 -Post Debridement (cm) - Width 4.5 -Post Debridement (cm) - Depth 0.1 -Total Square (Post) (cm) 4.50 -Area of Debridement (cm) - Length 1.0 -Area of Debridement (cm) - Width 4.5 -Total Square (Area) (cm) 4.50 -Tunneling No -Undermining/Tunneling No -Circular Undermining No -Wound/Ulcer Outcome Not Healed -Ulcer Cleansing Rinsed/ Irrigated with Saline -Foul Odor after Cleansing No -Bioengineered Tissue No -Bleeding Controlled with Pressure -Treatment Response Procedure Not Tolerated Well -Offloading No -Debridement - Subq, 1st 20sq cm Yes Pain Scale: 0-10 Numeric Is Patient Pain Free? Yes - Nurse 3 - General Ulcer D/C NN Start: 08/19/22 08:23 Freq: Status: Active Protocol: Activity Type Activity Date Activity User E-sign Co-sign Detail Recorded Client Recorded Date Recorded By Document 08/19/22 10:13 DL [id number] 08/19/22 10:14 DL 08/19/22 10:13 Wound Care Center Nurse 3 #4 L Upper Arm -Ulcer Cleansing Wound Cleanser -Foul Odor after Cleansing No -Primary Dressing Applied C Hydrogel ($), Mepilex Border, NonAdherent Contact Layer -Mepilex Border 1 Treatment Response Procedure Tolerated Well Pain Scale: 0-10 Numeric Is Patient Pain Free? Yes WC - Visit Discharge Discharge Condition Stable Ambulatory Status Ambulatory Transportation Private Auto Assessment/Plan Assessment/Plan (1) Delayed wound healing: CODE(S): T14.8XXD - Other injury of unspecified body region, subsequent encounter (2) Malnutrition: CODE(S): E46 - Unspecified protein-calorie malnutrition (3) Hypertension: CODE(S): I10 - Essential (primary) hypertension (4) Hyperlipidemia: CODE(S): E78.5 - Hyperlipidemia, unspecified (5) History of tongue cancer: CODE(S): Z85.810 - Personal history of malignant neoplasm of tongue (6) Hypothyroidism: CODE(S): E03.9 - Hypothyroidism, unspecified PLAN: Plan Debridement performed today in clinic as annotated above. At home wound-care instructions: Will have her wash with soap and water and dress wound with collagen hydrogel and adaptic and cover with silicone foam dressing daily. Keep dressing clean and dry. Off-loading: The patient was instructed to avoid pressure and friction on the affected areas. Reposition every 2 hours at minimum. Avoid prolonged standing and/or dangling of legs. When seated, feet should be elevated at chest level. Frequent ambulation is encouraged. Diet: Patient encouraged to increase protein intake while taking caution to avoid high carbohydrate and/or sugar intake. Labs/cultures/imaging: No cultures completed due to no sign of infection. Follow-up: Return in 1 week for wound care follow up. Return sooner or report to the emergency room should symptoms worsen, or new symptoms arise. Note: [employer] speech recognition barrel assembly inspector software was used to create portions of this document. Sound-alike and misspelled words, as well as other barrel assembly inspector errors may be contained in the documentation.
[2022-08-26 09:58] VITALS: BP 178/59; PULSE 82; TEMP 35.8
--- NOTE | 2022-08-26 14:17 | PN.PCM_ITS ---
History of Present Illness Date of Service: 08/26/22 Chief Complaint: Skin tear of the left upper arm History of Wound: This is an 82-year-old female who presented 6 days status post injury to her left upper arm. The injury was caused by a fall where she hit the edge of a table and tore the skin. Since the time of the injury, the patient had been using Vaseline gauze or triple antibiotic ointment topically on a daily basis. 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 She has not had any wound culture or treatment with oral antibiotic. There is only small amount of drainage from the wound. She denies fever, chills, erythema, odor. Subjective Subjective She is tolerating treatment well and has improvement in the size of her wound. Denies any fever, chills or increased drainage or erythema. Objective Data Objective Data Vital Signs: Vital Signs Temp Pulse Resp BP 96.5 F L 82 18 178/59 H 08/26/22 09:58 08/26/22 09:58 08/19/22 09:03 08/26/22 09:58 Physical Exam Const alert, oriented x3 and no apparent distress General Appearance: cooperative and comfortable HEENT normocephalic and head/scalp atraumatic Resp normal respiratory effort Effort and Inspection: able to speak in complete sentences Cardio regular rate and regular rhythm Skin Wounds: wounds noted Wound Narrative: as in clinical panel Psych mental status grossly normal, thought process normal, cooperative and affect normal Debridement Note Debridement Note Wound debrided: left upper arm Laterality: Left Type of Debridement: Excisional debridement Anesthesia Used: 4% Lidocaine Solution, 5% Lidocaine Gel and Cetacaine Depth: Down to and including healthy tissue and in the subcutaneous layer Percentage of wound debrided: 100 Instrument Used: 3mm curette Tissue Removed: Yellow slough, devitalized tissue Severity: Fat Layer Exposed Amount of bleeding with debridement: Mild Bleeding Controlled with: Compression and gauze Patient tolerated procedure: Patient tolerated procedure well Post-Debridement Measurements and Additional Note: Post-Debridement Measurements/Treatment DANIELLE - Nurse 1 - General Ulcer Assessment Start: 08/19/22 08:23 Freq: Status: Active Protocol: SAM Activity Type Activity Date Activity User E-sign Co-sign Detail Recorded Client Recorded Date Recorded By Document 08/19/22 09:03 DL [id number] 08/19/22 09:08 DL Document 08/26/22 09:58 AK [id number] 08/26/22 10:00 AK 08/19/22 08/26/22 09:03 09:58 WC - Today's Visit Information Type of service Initial Visit Follow-up Visit (Physician/AESTHETICIAN ) Arrival Mode Ambulatory Ambulatory Transfer Assistance None Patient Identification Verified (Name & Yes Yes ) Patient Requires Transmission-Based No No Precautions Safety Precautions NA Vital Signs Temperature (97.8 F-99.1 F) 97.6 F L 96.5 F L Temperature Source Temporal Temporal Pulse Rate (60-100) 82 82 Pulse Location Monitor Monitor Respiratory Rate (12-18) 18 Respiratory rate source Observation Blood Pressure (90/60-120/80) 183/79 H 178/59 H Blood Pressure Mean (mm Hg) 113 98 Source Monitor Monitor History Since Last Visit- (Skip if this is Patient's initial visit) Have you changed medications since your No last visit? Any new allergies or adverse reactions No Had a fall/change in ADL's that may No increase risk of falls Signs or symptoms of abuse and/or No neglect since last visit Have you been in the hospital since your No last visit? Has dressing in place as prescribed Yes Has compression in place as prescribed N/A Has offloadiing in place as prescribed N/A Experienced any changes in pain level or No management Left Footwear Regular Shoe Right Footwear Regular Shoe Pain Scale: 0-10 Numeric Is Patient Pain Free? Yes Yes Communication Assessment Preferred language Ukrainian Able to Read Yes Able to Write Yes Communication Tools None Caregiver Communication Skills No Impairment Impairment Right Hearing Abillity Use of Hearing Aid Left Hearing Abillity Use of Hearing Aid Visual Assistive Devices Glasses Teaching Assessment Preferences Verbal,Written, Demonstration Barriers to Learning None Readiness To Learn Good Willingness to Engage in Self Management Med Activies Readiness to Engage in Self Management Med Activities Anxiety Level Calm Cooperation Cooperative Perception Coherent Interest in Health Problem Asks Questions Education Importance Acknowledges Need Does Patient Smoke tobacco or other No substances Smoking Status Former smoker Is Patient Diabetic No Functional Assessment Recent Decline in Ability to Perform Denies Any Declines Culture/Restoration/Print Developer Automatic Cultural/Restoration Needs that may affect No Treatment Plan Would you allow our hospital pre planning advisor to No meet you for the purpose of spiritual/ emotional support? Print Developer Automatic to contact place of denominational No Teaching: Wound Center *Welcome to the Wound Center -Person Taught Patient Discharge Instructions -Person Taught Patient WC - Nurse 1 - General Ulcer Measurement Start: 08/19/22 08:23 Freq: Status: Active Protocol: Activity Type Activity Date Activity User E-sign Co-sign Detail Recorded Client Recorded Date Recorded By Document 08/19/22 09:03 DL [id number] 08/19/22 09:08 DL Document 08/26/22 09:58 AK [id number] 08/26/22 10:00 AK 08/19/22 08/26/22 09:03 09:58 Wound Center Nurse 1 #4 L Upper Arm -Combined with other wound No -Current Size (cm) - Length 1.6 0.5 -Current Size (cm) - Width 3.8 2.5 -Current Size (cm) - Depth 0.1 0.1 -Total Square Cm 6.08 1.25 -Photo Taken Yes No -Tunneling No -Undermining/Tunneling No -Circular Undermining No -Change in Wound Grade/Stage No -Exudate Amt Small -Exudate Type Serosanguineous -Wound Margin Distinct, Outline Attached -Granulation Amt Large (67-100%) Medium (34-66%) -Granulation Quality Pale,[place] -Slough/Fibrin Yes -Necrosis Amt None Present (0 Small (1-33%) %) -Structure Exposed N/A N/A -Texture (Rosie-wound Skin Appearance) Scarring No Abnormality, Assessed -Moisture (Rosie-wound Skin Appearance) No Abnormality Assessed -Color (Rosie-wound Skin Appearance) No Abnormality No Abnormality, Assessed -Temperature (Rosie-wound Skin No Abnormality No Abnormality Appearance) (Pt Warm) (Pt Warm) -Tenderness on Palpation (Rosie-wound No No Skin Appearance) -Ulcer Cleansing Soap and Water Rinsed/ Irrigated with Saline -Foul Odor after Cleansing No No -Anesthetic Used 5% Lidocaine 5% Lidocaine Gel Gel WC - Nurse 2 - General Ulcer CM Notes Start: 08/19/22 08:23 Freq: Status: Active Protocol: Activity Type Activity Date Activity User E-sign Co-sign Detail Recorded Client Recorded Date Recorded By Document 08/19/22 09:49 MW [id number] 08/19/22 09:59 MW Document 08/26/22 10:10 MW [id number] 08/26/22 10:17 MW 08/19/22 08/26/22 09:49 10:10 Wound Center Nurse 2 #4 L Upper Arm -Time 09:51 10:12 -Correct Patient Yes Yes -Correct Side, Site, Position Yes Yes -Correct Procedure Yes Yes -Procedure Performed Yes Yes -Type of Procedure Debridement Debridement -Clinical Debridement Subcutaneous Subcutaneous -Tissue Removed Subcutaneous Subcutaneous -Post Debridement (cm) - Length 1.0 0.4 -Post Debridement (cm) - Width 4.5 2.4 -Post Debridement (cm) - Depth 0.1 0.1 -Total Square (Post) (cm) 4.50 0.96 -Area of Debridement (cm) - Length 1.0 0.4 -Area of Debridement (cm) - Width 4.5 2.4 -Total Square (Area) (cm) 4.50 0.96 -Tunneling No No -Undermining/Tunneling No No -Circular Undermining No No -Wound/Ulcer Outcome Not Healed Not Healed -Ulcer Cleansing Rinsed/ Rinsed/ Irrigated with Irrigated with Saline Saline -Foul Odor after Cleansing No No -Bioengineered Tissue No No -Bleeding Controlled with Pressure Pressure -Treatment Response Procedure Not Procedure Tolerated Well Tolerated Well -Offloading No No -Debridement - Subq, 1st 20sq cm Yes Yes Pain Scale: 0-10 Numeric Is Patient Pain Free? Yes Yes WC - Nurse 3 - General Ulcer D/C NN Start: 08/19/22 08:23 Freq: Status: Active Protocol: Activity Type Activity Date Activity User E-sign Co-sign Detail Recorded Client Recorded Date Recorded By Document 08/19/22 10:13 DL [id number] 08/19/22 10:14 DL Document 08/26/22 10:17 MW [id number] 08/26/22 10:18 MW 08/19/22 08/26/22 10:13 10:17 Wound Care Center Nurse 3 #4 L Upper Arm -Ulcer Cleansing Wound Cleanser Rinsed/ Irrigated with Saline -Foul Odor after Cleansing No No -Negative Pressure Wound Therapy N/A -Primary Dressing Applied C Hydrogel ($), Mepilex Border, Mepilex Border, NonAdherent NonAdherent Contact Layer Contact Layer -Other Dressing hydrogel -Mepilex Border 1 1 Treatment Response Procedure Procedure Tolerated Well Tolerated Well Pain Scale: 0-10 Numeric Is Patient Pain Free? Yes Yes Teaching: Wound Center Dressing Your Wound -Person Taught Patient,Family -Teaching Method Discussion -Response to teaching Verbalize understanding WC - Visit Discharge Discharge Condition Stable Stable Ambulatory Status Ambulatory Ambulatory,Cane Transportation Private Auto Private Auto Accompanied by daughter Medication Reconcilliation completed & No provided to patient/care provider Clinical Summary of Care Provided Yes Assessment/Plan Assessment/Plan (1) Delayed wound healing: CODE(S): T14.8XXD - Other injury of unspecified body region, subsequent encounter (2) Malnutrition: CODE(S): E46 - Unspecified protein-calorie malnutrition (3) Hypertension: CODE(S): I10 - Essential (primary) hypertension (4) Hyperlipidemia: CODE(S): E78.5 - Hyperlipidemia, unspecified (5) History of tongue cancer: CODE(S): Z85.810 - Personal history of malignant neoplasm of tongue (6) Hypothyroidism: CODE(S): E03.9 - Hypothyroidism, unspecified PLAN: Plan Debridement performed today in clinic as annotated above. At home wound-care instructions: Will have her wash with soap and water and dress wound with collagen hydrogel and adaptic and cover with silicone foam dressing daily. Keep dressing clean and dry. Off-loading: The patient was instructed to avoid pressure and friction on the affected areas. Reposition every 2 hours at minimum. Avoid prolonged standing and/or dangling of legs. When seated, feet should be elevated at chest level. Frequent ambulation is encouraged. Diet: Patient encouraged to increase protein intake while taking caution to avoid high carbohydrate and/or sugar intake. Labs/cultures/imaging: No cultures completed due to no sign of infection. Follow-up: Return in 2 weeks for wound care follow up. Return sooner or report to the emergency room should symptoms worsen, or new symptoms arise. Note: [employer] speech recognition accounts specialist software was used to create portions of this document. Sound-alike and misspelled words, as well as other accounts specialist errors may be contained in the documentation.
[2022-09-09 11:09] VITALS: BP 130/61; PULSE 68; TEMP 36.3
--- NOTE | 2022-09-09 13:15 | PN.PCM_ITS ---
History of Present Illness Date of Service: 09/09/22 Chief Complaint: Skin tear of the left upper arm History of Wound: This is an 82-year-old female who presented 6 days status post injury to her left upper arm. The injury was caused by a fall where she hit the edge of a table and tore the skin. Since the time of the injury, the patient had been using Vaseline gauze or triple antibiotic ointment topically on a daily basis. 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 She has not had any wound culture or treatment with oral antibiotic. There is only small amount of drainage from the wound. She denies fever, chills, erythema, odor. Subjective Subjective She tolerated treatment and is healed today. Denies any fever, chills or increa sed drainage or erythema. Objective Data Objective Data Vital Signs: Vital Signs Temp Pulse Resp BP 97.4 F L 68 18 130/61 H 09/09/22 11:09 09/09/22 11:09 08/19/22 09:03 09/09/22 11:09 Physical Exam Const alert, oriented x3 and no apparent distress General Appearance: cooperative and comfortable HEENT normocephalic and head/scalp atraumatic Resp normal respiratory effort Effort and Inspection: able to speak in complete sentences Cardio regular rate and regular rhythm Skin Wounds: wounds noted Wound Narrative: as in clinical panel Psych mental status grossly normal, thought process normal, cooperative and affect normal Debridement Note Debridement Note Wound debrided: left forearm Laterality: Left No debridement was completed: No debridement was completed today (she is healed) Post-Debridement Measurements and Additional Note: Post-Debridement Measurements/Treatment DANIELLE - Nurse 1 - General Ulcer Assessment Start: 08/19/22 08:23 Freq: Status: Active Protocol: DANIELLE.LOWROSLYNT Activity Type Activity Date Activity User E-sign Co-sign Detail Recorded Client Recorded Date Recorded By Document 08/19/22 09:03 DL [id number] 08/19/22 09:08 DL Document 08/26/22 09:58 AK [id number] 08/26/22 10:00 AK Document 09/09/22 11:09 AK [id number] 09/09/22 11:10 AK 08/19/22 08/26/2209/09/23 09:03 09:58 11:09 WC - Today's Visit Information Type of service Initial Visit Follow-up Visit Follow-up Visit (Physician/NEUROSURGEON (Physician/NEUROSURGEON ) ) Arrival Mode Ambulatory Ambulatory Ambulatory Transfer Assistance None Patient Identification Verified (Name & Yes Yes Yes ) Patient Requires Transmission-Based No No No Precautions Safety Precautions NA Vital Signs Temperature (97.8 F-99.1 F) 97.6 F L 96.5 F L 97.4 F L Temperature Source Temporal Temporal Temporal Pulse Rate (60-100) 82 82 68 Pulse Location Monitor Monitor Monitor Respiratory Rate (12-18) 18 Respiratory rate source Observation Blood Pressure (90/60-120/80) 183/79 H 178/59 H 130/61 H Blood Pressure Mean (mm Hg) 113 98 84 Source Monitor Monitor Monitor History Since Last Visit- (Skip if this is Patient's initial visit) Have you changed medications since your No No last visit? Any new allergies or adverse reactions No No Had a fall/change in ADL's that may No No increase risk of falls Signs or symptoms of abuse and/or No No neglect since last visit Have you been in the hospital since your No No last visit? Has dressing in place as prescribed Yes Yes Has compression in place as prescribed N/A N/A Has offloadiing in place as prescribed N/A N/A Experienced any changes in pain level or No No management Left Footwear Regular Shoe Regular Shoe Right Footwear Regular Shoe Regular Shoe Pain Scale: 0-10 Numeric Is Patient Pain Free? Yes Yes Yes Communication Assessment Preferred language German Able to Read Yes Able to Write Yes Communication Tools None Caregiver Communication Skills No Impairment Impairment Right Hearing Abillity Use of Hearing Aid Left Hearing Abillity Use of Hearing Aid Visual Assistive Devices Glasses Teaching Assessment Preferences Verbal,Written, Demonstration Barriers to Learning None Readiness To Learn Good Willingness to Engage in Self Management Med Activies Readiness to Engage in Self Management Med Activities Anxiety Level Calm Cooperation Cooperative Perception Coherent Interest in Health Problem Asks Questions Education Importance Acknowledges Need Does Patient Smoke tobacco or other No substances Smoking Status Former smoker Is Patient Diabetic No Functional Assessment Recent Decline in Ability to Perform Denies Any Declines Culture/Nondenominational/Instrument Mechanic Cultural/Nondenominational Needs that may affect No Treatment Plan Would you allow our hospital power shovel operator to No meet you for the purpose of spiritual/ emotional support? Instrument Mechanic to contact place of religion No Teaching: Wound Center *Welcome to the Wound Center -Person Taught Patient Discharge Instructions -Person Taught Patient WC - Nurse 1 - General Ulcer Measurement Start: 08/19/22 08:23 Freq: Status: Active Protocol: Activity Type Activity Date Activity User E-sign Co-sign Detail Recorded Client Recorded Date Recorded By Document 08/19/22 09:03 DL [id number] 08/19/22 09:08 DL Document 08/26/22 09:58 AK [id number] 08/26/22 10:00 AK 08/19/22 08/26/22 09:03 09:58 Wound Center Nurse 1 #4 L Upper Arm -Combined with other wound No -Current Size (cm) - Length 1.6 0.5 -Current Size (cm) - Width 3.8 2.5 -Current Size (cm) - Depth 0.1 0.1 -Total Square Cm 6.08 1.25 -Photo Taken Yes No -Tunneling No -Undermining/Tunneling No -Circular Undermining No -Change in Wound Grade/Stage No -Exudate Amt Small -Exudate Type Serosanguineous -Wound Margin Distinct, Outline Attached -Granulation Amt Large (67-100%) Medium (34-66%) -Granulation Quality Pale,[place] -Slough/Fibrin Yes -Necrosis Amt None Present (0 Small (1-33%) %) -Structure Exposed N/A N/A -Texture (Rosie-wound Skin Appearance) Scarring No Abnormality, Assessed -Moisture (Rosie-wound Skin Appearance) No Abnormality Assessed -Color (Rosie-wound Skin Appearance) No Abnormality No Abnormality, Assessed -Temperature (Rosie-wound Skin No Abnormality No Abnormality Appearance) (Pt Warm) (Pt Warm) -Tenderness on Palpation (Rosie-wound No No Skin Appearance) -Ulcer Cleansing Soap and Water Rinsed/ Irrigated with Saline -Foul Odor after Cleansing No No -Anesthetic Used 5% Lidocaine 5% Lidocaine Gel Gel WC - Nurse 2 - General Ulcer CM Notes Start: 08/19/22 08:23 Freq: Status: Active Protocol: Activity Type Activity Date Activity User E-sign Co-sign Detail Recorded Client Recorded Date Recorded By Document 08/19/22 09:49 MW [id number] 08/19/22 09:59 MW Document 08/26/22 10:10 MW [id number] 08/26/22 10:17 MW Document 09/09/22 11:07 JF [id number] 09/09/22 11:11 JF 08/19/22 08/26/22 09/09/22 09:49 10:10 11:07 Wound Center Nurse 2 #4 L Upper Arm -Time 09:51 10:12 -Correct Patient Yes Yes No -Correct Side, Site, Position Yes Yes No -Correct Procedure Yes Yes No -Procedure Performed Yes Yes No -Type of Procedure Debridement Debridement -Clinical Debridement Subcutaneous Subcutaneous -Tissue Removed Subcutaneous Subcutaneous -Post Debridement (cm) - Length 1.0 0.4 0 -Post Debridement (cm) - Width 4.5 2.4 0 -Post Debridement (cm) - Depth 0.1 0.1 0 -Total Square (Post) (cm) 4.50 0.96 0 -Area of Debridement (cm) - Length 1.0 0.4 0 -Area of Debridement (cm) - Width 4.5 2.4 0 -Total Square (Area) (cm) 4.50 0.96 0 -Tunneling No No -Undermining/Tunneling No No -Circular Undermining No No -Wound/Ulcer Outcome Not Healed Not Healed Healed- Epithelialized -Ulcer Cleansing Rinsed/ Rinsed/ Irrigated with Irrigated with Saline Saline -Foul Odor after Cleansing No No -Bioengineered Tissue No No -Bleeding Controlled with Pressure Pressure -Treatment Response Procedure Not Procedure Tolerated Well Tolerated Well -Offloading No No -Debridement - Subq, 1st 20sq cm Yes Yes Pain Scale: 0-10 Numeric Is Patient Pain Free? Yes Yes Yes - Nurse 3 - General Ulcer D/C NN Start: 08/19/22 08:23 Freq: Status: Active Protocol: Activity Type Activity Date Activity User E-sign Co-sign Detail Recorded Client Recorded Date Recorded By Document 08/19/22 10:13 DL [id number] 08/19/22 10:14 DL Document 08/26/22 10:17 MW [id number] 08/26/22 10:18 MW Document 09/09/22 11:11 JF [id number] 09/09/22 11:12 JF 08/19/22 08/26/22 09/09/22 10:13 10:17 11:11 Wound Care Center Nurse 3 #4 L Upper Arm -Ulcer Cleansing Wound Cleanser Rinsed/ Irrigated with Saline -Foul Odor after Cleansing No No -Negative Pressure Wound Therapy N/A -Primary Dressing Applied C Hydrogel ($), Mepilex Border, Mepilex Border Mepilex Border, NonAdherent NonAdherent Contact Layer Contact Layer -Other Dressing hydrogel -Mepilex Border 1 1 1 Treatment Response Procedure Procedure Tolerated Well Tolerated Well Pain Scale: 0-10 Numeric Is Patient Pain Free? Yes Yes Yes Teaching: Wound Center Dressing Your Wound -Person Taught Patient,Family -Teaching Method Discussion -Response to teaching Verbalize understanding WC - Visit Discharge Discharge Condition Stable Stable Stable Ambulatory Status Ambulatory Ambulatory,Cane Ambulatory Transportation Private Auto Private Auto Private Auto Accompanied by daughter daughter Medication Reconcilliation completed & No Yes provided to patient/care provider Clinical Summary of Care Provided Yes Yes Assessment/Plan Assessment/Plan (1) Delayed wound healing: CODE(S): T14.8XXD - Other injury of unspecified body region, subsequent encounter (2) Malnutrition: CODE(S): E46 - Unspecified protein-calorie malnutrition QUALIFIERS: Malnutrition type: protein-calorie malnutrition Protein-calorie malnutrition severity: moderate Qualified Code(s): E44.0 - Moderate protein-calorie malnutrition (3) Hypertension: CODE(S): I10 - Essential (primary) hypertension QUALIFIERS: Hypertension type: primary hypertension Qualified C ode(s): I10 - Essential (primary) hypertension (4) Hyperlipidemia: CODE(S): E78.5 - Hyperlipidemia, unspecified QUALIFIERS: Hyperlipidemia type: mixed hyperlipidemia Qualified Code(s): E78.2 - Mixed hyperlipidemia (5) History of tongue cancer: CODE(S): Z85.810 - Personal history of malignant neoplasm of tongue (6) Hypothyroidism: CODE(S): E03.9 - Hypothyroidism, unspecified QUALIFIERS: Hypothyroidism type: unspecified Qualified Code(s): E03.9 - Hypothyroidism, unspecified PLAN: Plan She is healed today. At home wound-care instructions: Will have her wash with soap and water and dress with silicone foam dressing for protection for the next week. Keep dressing clean and dry. Off-loading: The patient was instructed to avoid pressure and friction on the affected areas. Reposition every 2 hours at minimum. Avoid prolonged standing and/or dangling of legs. When seated, feet should be elevated at chest level. Frequent ambulation is encouraged. Diet: Patient encouraged to increase protein intake while taking caution to avoid high carbohydrate and/or sugar intake. Labs/cultures/imaging: No cultures completed due to no sign of infection. Follow-up: Return in 2 weeks for wound care follow up. Return sooner or report to the emergency room should symptoms worsen, or new symptoms arise. Note: [employer] speech recognition contact lens inspector software was used to create portions of this document. Sound-alike and misspelled words, as well as other contact lens inspector errors may be contained in the documentation.
== END 2022-09-09 14:17 | disposition home or self-care (01) ==
LOC: WC 10:15
PROVIDERS: PCP Internal Medicine; Referring Provider Internal Medicine; Visit Provider Family Medicine
DX: S51.812A Laceration without foreign body of left forearm, initial encounter (principal); W01.190A Fall on same level from slipping, tripping and stumbling with subsequent striking against furniture, initial encounter; I10 Essential (primary) hypertension; E03.9 Hypothyroidism, unspecified; E78.5 Hyperlipidemia, unspecified; Z87.891 Personal history of nicotine dependence; Z85.810 Personal history of malignant neoplasm of tongue
CPT/HCPCS: 11042; 99212; 99213; G0463

== ENCOUNTER → 2022-10-05 | Outpatient (CLI) | payer MEDICARE, SELFPAY ==
[2018-11-29 13:09] VITALS: BMI 25.0
[2022-10-05 17:16] LABS: Thyroid Stim Hormone (TSH) 0.15 uIU/mL (0.358-3.74)
== END | disposition home or self-care (01) ==
PROVIDERS: PCP Family Medicine Geriatric Medicine; Visit Provider Family Medicine Geriatric Medicine
DX: E03.9 Hypothyroidism, unspecified (principal)
CPT/HCPCS: 36415; 84443

== ENCOUNTER 2022-10-25 10:37 | Day surgery (SDC) | payer MEDICARE, SELFPAY ==
[2018-11-29 13:09] VITALS: BMI 25.0
[2022-10-25] VITALS (7 sets, daily range): BP systolic 132–178; BP diastolic 61–86; PULSE 76–83; RESP 16; TEMP 36.1–36.3; O2SAT 95–100; BMI 22.4
--- NOTE | 2022-10-25 11:01 | PCM.HP.BLA ---
History and Physical Date of Admission: 10/25/22 Date of Service: 10/24/22 MR#: [id number] Acct: [id number] Name: BALA MADDEN Rep #: [id number] : 1940 Provider: Dr. Bertha Servin MD Age/Sex: 82/F Location: [facility] Status: Signed Intake Vital Signs 10/12/1999:40 10/24/2309:00 Height 5 ft 5 in 5 ft 5 in Weight: 134 lb BMI 22.3 BP 180/75 H Blood Pressure Location Rt brachial Position Sitting Respiration 17 Pulse 79 Pulse Source Monitor Temp 97.1 F L Temp Source Temporal Pulse Oximetry (%) 97 Oxygen Delivery Method room air Intake Visit Reasons: PEG TUBE REPLACEMENT Chief Complaint: peg tube placement Is patient in pain?: No Allergies acetaminophen [From Percocet] Allergy (Verified 10/24/22 10:02) Unknownhydrocodone [From Vicodin] Allergy (Verified 10/24/22 10:02) Unknownoxycodone [From Percocet] Allergy (Verified 10/24/22 10:02) Unknown Medications levothyroxine 125 mcg tablet 100 mcg PO DAILY 12/06/14 [History Confirmed 10/24/22] Lactobacills gasseri-Bifidobac bifidum,longum 1.5 billion cell capsule (Bubble Motion) 1 ea PO DAILY 01/17/18 [History Confirmed 10/24/22] food supplemt, lactose-reduced 0.08 gram-1.5 kcal/mL oral liquid (Ensure Enlive) 1 bottle PO 4X/DAY 01/17/18 [History Confirmed 10/24/22] ixekizumab 80 mg/mL subcutaneous auto-injector (Taltz Autoinjector) mg subcut QMONTH 08/19/22 [History Confirmed 10/24/22] famotidine 20 mg tablet 20 mg PO DAILY 10/24/22 [History Confirmed 10/24/22] pantoprazole 40 mg tablet,delayed release 40 mg PO DAILY 10/24/22 [History Confirmed 10/24/22] PFSH Medical History (Updated 10/24/22 @ 10:[address] Bertha Servin MD) History of throat cancer HTN (hypertension) Hypothyroidism Psoriasis Tongue cancer Surgical History (Updated 10/24/22 @ 09:59 by Rebeka Garvey) H/O thyroidectomy History of cholecystectomy Family History (Updated 10/24/22 @ 09:59 by Rebeka Garvey) Sister Diabetes Social History (Updated 10/24/22 @ 10:00 by Rebeka Garvey) Smoking Status: Former smoker alcohol intake: never substance use type: does not use HPI HPI HPI: 82-year-old female presents for PEG tube exchange. Patient had tube placed in March [address] Holly at [facility]. 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 Patient's PEG tube does appear to be a bit worn in the tubing and patient is also been having issues with leaking around the insertion site. ROS General General: No weight change, appetite, fatigue, colon cancer, breast cancer or weakness HEENT HEENT: Yes difficulty swallowing; No eye injury, eye surgery, swollen glands or hoarseness Endo Endocrine: Yes thyroid disease; No diabetes mellitus, thyroid cancer, Hair loss, heat intolerance or cold intolerance Skin Skin: Yes changing moles; No rash Musc Musculoskeletal: No back problems, arthritis, rheumatoid arthritis, gout or joint pain Cardio Cardiovascular: No murmur, pacemaker, heart disease, atrial fibrillation, high blood pressure, heart attack, heart stent, palpitations, shortness of breat with exertion or chest pain Psych Psychiatric: No depression, anxiety or hearing voices Resp Respiratory: No shortness of breath, No sleep apnea, Yes cough, No COPD, No asthma, No emphysema and No wheezing Gastro Gastrointestinal: No abdominal pain, No nausea or vomiting, No diarrhea, No constipation, No blood in stool, Yes acid reflux, No hemorrhoids, No ulcers, Yes gallbladder problem and No black,tarry stools Kayden Hematologic: No blood thinners, No blood disorders, No bleeding, No anemia and No blood clots Neuro Neurologic: No system reviewed and no additional complaints, except as documented, No as per HPI, No abnormal gait, No abnormal hearing, No abnormal movements, No abnormal speech, No behavioral changes, No burning sensations, No confusion, No convulsions, No disequilibrium, No dizziness, No localized weakness, No frequent falls, No headache(s), No lack of coordination, No loss of vision, No memory loss, Yes numbness, No other visual disturbances, No radicular pain, No restless legs, No sensory deficit, No syncope, Yes tingling, No tremor(s), No weakness and No other Exam Const General: cooperative, healthy appearing, comfortable and no acute distress Neck Neck: supple Other: Well-healed incision Resp Effort & Inspection: normal respiratory effort Cardio Rate: regular rate GI Inspection: non-distended Palpation: soft, no hernias and nontender Other: PEG tube in place, skin intact around PEG tube. Tubing of PEG tube is worn/stretched Skin General: no rashes or lesions noted Neuro General: CN's II-XI intact bilaterally Extrem General: normal to inspection Psych Mental Status: mental status grossly normal Attitude: cooperative Assessment and Plan Assessment and Plan (1) PEG (percutaneous endoscopic gastrostomy) adjustment/replacement/removal: Status: Acute Plan Discussed with patient I would not be able to pull this in the office, as the cap would break off the tube patient need to emergently go to endoscopy to retrieve it. Did discuss with patient that all PEG tubes do leak and I do not guarantee that the new PEG tube will not leak around the injury site as well. Patient was interested may be having a Russ button however if it is at the same location patient is unsure if she will be able to hook it up as well as she is able to as 1 with the tube. Discussed with patient and her daughter that we can definitely cut the tube to make it shorter and may be would try 1 with a balloon that would make it easier to be exchanged in the office if need be. I have discussed the above with the patient. I have offered the patient esophagogastroduodenoscopy exchange of PEG tube I have explained the risks/benefits of the procedure and described the procedure. I have discussed the risks with the patient, including but not limited to: infection, bleeding, perforation of the GI tract requiring emergency surgery, inability to complete the procedure, injury to any internal organs, complications of anesthesia, etc. - the patient understands and agrees to proceed. I have answered all the patient's questions to the patient's satisfaction and the patient has no further questions. Bertha Servin M.D. Pager: [phone] [facility] [address] [place] [address], [address] [place] [address] Office: [phone] Coding Level of Care Code Off vis,new,level 3 Diagnoses PEG (percutaneous endoscopic gastrostomy) adjustment/replacement/removal Z43.1 10/24/22 1022 <Electronically signed by Bertha Servin MD> Date Bertha Servin MD
[2022-10-25] MEDS: Lactated Ringers 1,000 ML 15 ML IV (11:13)
[2022-10-25] MEDS: Cefazolin 2 GM in 0.9% Normal Saline 100 ML IV (11:39)
--- NOTE | 2022-10-25 12:13 | OP.EGD_ITS ---
Patient Name: Cherrie Medina Procedure Date: 10/25/2022 11:35 AM Date of : 1940 Age: 82 Procedure: Upper GI endoscopy Indications: Exchange PEG tube due to malfunctioning gastrostomy tube Providers: Bertha Servin MD Medicines: Monitored Anesthesia Care Patient Profile: This is an 82 year old female. Complications: No immediate complications. Procedure: Pre-Anesthesia Assessment: - Prior to the procedure, a History and Physical was performed, and patient medications and allergies were reviewed. The patient's tolerance of previous anesthesia was also reviewed. The risks and benefits of the procedure and the sedation options and risks were discussed with the patient. All questions were answered, and informed consent was obtained. Prior Anticoagulants: The patient has taken no anticoagulant or antiplatelet agents. ASA Grade Assessment: Per anesthesia. After reviewing the risks and benefits, the patient was deemed in satisfactory condition to undergo the procedure. After obtaining informed consent, the endoscope was passed under direct vision. Throughout the procedure, the patient's blood pressure, pulse, and oxygen saturations were monitored continuously. The gastroscope was introduced through the mouth, and advanced to the second part of duodenum. The upper GI endoscopy was technically difficult and complex due to narrowing. The patient tolerated the procedure well. Scope In: 11:43:44 AM Scope Out: 12:05:00 PM Total Procedure Duration Time 0 hours 21 minutes 16 seconds Findings: A hiatal hernia was present. The examined duodenum was normal. Mildly erythematous mucosa without bleeding was found in the gastric antrum. The PEG required removal because it was clogged and was leaking. The PEG was cut externally, grasped, and removed with snare & the scope. Removal was accomplished with moderate difficulty-cap was difficult to get through GEJ narrowing & proximal esophagus. An externally removable 20 Fr Avanos JAYME-RILEY low-profile jejunal extension gastrostomy tube was lubricated. Tube was pushed through tract under endoscopic visualization. The bumper was attached to the gastrostomy tube. The feeding tube was then cut to an appropriate length. The final position of the gastrostomy tube was confirmed by relook endoscopy, and skin marking noted to be 4 cm at the external bumper. The final tension and compression of the abdominal wall by the PEG tube and external bumper were checked and revealed that the bumper was loose and lightly touching the skin. The tube was capped, and the tube site was cleaned and dressed. Impression: - Hiatal hernia. - Normal examined duodenum. - Erythematous mucosa in the antrum. - The PEG was removed because it was clogged and was leaking, and replaced with an externally removable PEG. - No specimens collected. Recommendation: - Discharge patient to home. - Resume previous diet. - Continue present medications. - Please follow the post-PEG recommendations including: change dressing once per day and PRN, may use PEG today for meds and water and flush PEG daily with 30 ml water. Procedure Code(s): --- Professional --- 13412, Esophagogastroduodenoscopy, flexible, transoral; with directed placement of percutaneous gastrostomy tube Diagnosis Code(s): --- Professional --- K44.9, Diaphragmatic hernia without obstruction or gangrene K31.89, Other diseases of stomach and duodenum K94.23, Gastrostomy malfunction CPT copyright 2021 [employer]. All rights reserved. The codes documented in this report are preliminary and upon rental sales associate review may be revised to meet current compliance requirements. MD Bertha Sullivan MD 10/25/2022 12:13:16 PM This report has been signed electronically. Number of Addenda: 0 Note Initiated On: 10/25/2022 11:35 AM
--- NOTE | 2022-10-25 12:14 | OP.CCLET_ITS ---
10/25/2022 Jaspreet Cole MD [address] [place] [address] Re : Upper GI endoscopy procedure for Cherrie Medina Dear Dr. Cole This procedure was performed on Tuesday, October 25, 2022. My impressions and recommendations are as follows: Impressions : - Hiatal hernia. - Normal examined duodenum. - Erythematous mucosa in the antrum. - The PEG was removed because it was clogged and was leaking, and replaced with an externally removable PEG. - No specimens collected. Recommendations : - Discharge patient to home. - Resume previous diet. - Continue present medications. - Please follow the post-PEG recommendations including: change dressing once per day and PRN, may use PEG today for meds and water and flush PEG daily with 30 ml water. My findings are described in the full procedure note, which is enclosed. If I can be of further assistance, please feel free to contact me at Doctor phone number(s): , Work: . Sincerely, MD Bertha Sullivan MD 10/25/2022 12:13:16 PM This report has been signed electronically.
== END 2022-10-25 13:07 | disposition home or self-care (01) ==
LOC: EN 10:37 → AC 10:39
PROVIDERS: PCP Family Medicine Geriatric Medicine; Referring Provider Family Medicine Geriatric Medicine; Visit Provider Surgery
PROC: 0DJ08ZZ Inspection of Upper Intestinal Tract, Via Natural or Artificial Opening Endoscopic (ICD-10-PCS; CPT 43235; principal; 2022-10-25 11:55)
DX: K94.23 Gastrostomy malfunction (principal); K44.9 Diaphragmatic hernia without obstruction or gangrene; I10 Essential (primary) hypertension; Z87.891 Personal history of nicotine dependence; Z79.890 Hormone replacement therapy; K21.9 Gastro-esophageal reflux disease without esophagitis; Z79.899 Other long term (current) drug therapy; E03.9 Hypothyroidism, unspecified; Z90.49 Acquired absence of other specified parts of digestive tract
CPT/HCPCS: 43246; 43247; J7120; J2405

== ENCOUNTER 2022-11-04 09:47 | Outpatient (RCR) | payer MEDICARE, SELFPAY ==
[2018-11-29 13:09] VITALS: BMI 25.0
[2022-11-04 10:15] VITALS: BP 134/59; PULSE 74; RESP 18; TEMP 35.5
--- NOTE | 2022-11-04 13:37 | HP.PCM_ITS ---
History of Present Illness Date of Service: 11/04/22 Chief Complaint: Skin tear of the right upper arm History of Wound: This is an 82-year-old female who presented 2 days status post injury to her right elbow. The injury was caused by a fall where she hit the edge of a screen door and tore the skin. Since the time of the injury, the patient had been using Vaseline gauze or triple antibiotic ointment topically on a daily basis. 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 She has not had any wound culture or treatment with oral antibiotic. There is only small amount of drainage from the wound. She denies fever, chills, erythema, odor. [facility] Medical History Ambulates with cane Dietary restriction Easy bruising Gastric reflux History of stress test History of throat cancer HTN (hypertension) Hypothyroidism Non-smoker Psoriasis Tongue cancer Wears glasses Home Medications levothyroxine 125 mcg tablet 88 mcg PO DAILY 12/06/14 [History Last Taken Unknown] Lactobacills gasseri-Bifidobac bifidum,longum 1.5 billion cell capsule ([facility]) 1 ea PO DAILY 01/17/18 [History Last Taken Unknown] food supplemt, lactose-reduced 0.08 gram-1.5 kcal/mL oral liquid ([facility]live) 1 bottle PO 4X/DAY 01/17/18 [History Last Taken Unknown] ixekizumab 80 mg/mL subcutaneous auto-injector ([facility]altz Autoinjector) 80 mg subcut QMONTH 08/19/22 [History Last Taken Unknown] famotidine 20 mg tablet 20 mg PO DAILY 10/24/22 [History Last Taken Unknown] pantoprazole 40 mg tablet,delayed release 40 mg PO DAILY 10/24/22 [History Last Taken Unknown] Allergy/AdvReac Type Severity Reaction Status Date / Time hydrocodone [From Vicodin] Allergy Unknown Verified 10/27/22 08:57 oxycodone [From Percocet] Allergy Unknown Verified 10/27/22 08:57 Family History Sister Diabetes Surgical History H/O thyroidectomy History of cholecystectomy History of esophagogastroduodenoscopy (EGD) History of total right knee replacement Hx of tonsillectomy Social History Smoking Status: Never smoker alcohol intake: never substance use type: does not use ROS Constitutional Constitutional: Denies chills, fatigue or fever(s) Eyes Eyes: Denies blurry vision, change in vision or loss of vision ENT HEENT: Denies dysphagia, hearing loss or sore throat Cardiovascular Cardiovascular: Denies chest pain, edema or palpitations Respiratory/Chest Respiratory/Chest: Denies dry cough, dyspnea, dyspnea on exertion, productive cough or wheezing Gastrointestinal Gastrointestinal: Denies diarrhea, nausea or vomiting Genitourinary Genitourinary: Denies dysuria or polyuria Musculoskeletal Musculoskeletal: Denies arthralgias, joint stiffness or muscle weakness Integumentary Integumentary: Reports erythema and wounds Neurologic Neurologic: Denies dizziness, memory loss or weakness Psychiatric Psychiatric: Denies homicidal ideation or suicidal ideation Endocrine Endocrinology: Denies polydipsia, polyphagia or polyuria Hematologic/Lymphatic Hematologic/Lymphatic: Denies easy bleeding or easy bruising Allergic/Immunologic Allergic/Immunologic: Denies throat swelling, tongue swelling or urticaria Vital Signs Vital Signs Vital Signs: 11/04/22 10:15 Temperature 96 F L Temperature Source Temporal Pulse Rate 74 Respiratory Rate 18 Blood Pressure 134/59 H Blood Pressure Mean 84 Blood Pressure Source Monitor Blood Pressure Position Semi-Fowlers Blood Pressure Location Left Arm Physical Exam Const alert, oriented x3 and no apparent distress General Appearance: cooperative and comfortable HEENT normocephalic and head/scalp atraumatic Resp normal respiratory effort Effort and Inspection: able to speak in complete sentences Cardio regular rate and regular rhythm Skin Wounds: wounds noted Wound Narrative: as in clinical panel Psych mental status grossly normal, thought process normal, cooperative and affect normal Debridement Note Debridement Note Wound debrided: right upper arm Laterality: Right Type of Debridement: Selective debridement Anesthesia Used: 5% Lidocaine Gel Depth: Down to and including healthy tissue and in the subcutaneous layer Percentage of wound debrided: 100 Instrument Used: - (scissors) Tissue Removed: devitalized skin from skin tear Severity: Fat Layer Exposed Amount of bleeding with debridement: Mild Bleeding Controlled with: Compression and gauze Patient tolerated procedure: Patient tolerated procedure well Post-Debridement Measurements and Additional Note: Post-Debridement Measurements/Treatment - Nurse 1 - General Ulcer Assessment Start: 11/04/22 10:14 Freq: Status: Active Protocol: SAM Activity Type Activity Date Activity User E-sign Co-sign Detail Recorded Client Recorded Date Recorded By Document 11/04/22 10:15 LEONARDA [id number] 11/04/22 10:21 RB 11/04/22 10:15 - Today's Visit Information Type of service Initial Visit Arrival Mode Ambulatory Transfer Assistance None Patient Identification Verified (Name & Yes ) Patient Requires Transmission-Based No Precautions Vital Signs Temperature (97.8 F-99.1 F) 96 F L Temperature Source Temporal Pulse Rate (60-100) 74 Pulse Location Monitor Respiratory Rate (12-18) 18 Respiratory rate source Observation Blood Pressure (90/60-120/80) 134/59 H Blood Pressure Mean 84 Source Monitor Position Semi-Fowlers Blood Pressure Location Left Arm History Since Last Visit- (Skip if this is Patient's initial visit) Have you changed medications since your No last visit? Any new allergies or adverse reactions No Had a fall/change in ADL's that may No increase risk of falls Signs or symptoms of abuse and/or No neglect since last visit Have you been in the hospital since your No last visit? Has dressing in place as prescribed Yes Has compression in place as prescribed No Has offloadiing in place as prescribed No Experienced any changes in pain level or No management Pain Scale: 0-10 Numeric Is Patient Pain Free? Yes Communication Assessment Preferred language [employer] Team Member Required No Able to Read Yes Able to Write Yes Right Hearing Abillity Hard of Hearing ,Use of Hearing Aid Left Hearing Abillity Hard of Hearing ,Use of Hearing Aid Visual Assistive Devices Glasses Teaching Assessment Preferences Verbal,Written, Demonstration Barriers to Learning None Readiness To Learn Good Willingness to Engage in Self Management Med Activies Readiness to Engage in Self Management Med Activities Anxiety Level Calm Cooperation Cooperative Perception Coherent Interest in Health Problem Asks Questions Education Importance Acknowledges Need Does Patient Smoke tobacco or other No substances Smoking Status Never smoker Functional Assessment Recent Decline in Ability to Perform Denies Any Declines Assistive Device With Patient No Culture/Rastafarian/Administrative Personal Assistant Cultural/Rastafarian Needs that may affect No Treatment Plan Would you allow our hospital manager professional development to No meet you for the purpose of spiritual/ emotional support? Administrative Personal Assistant to contact place of taoist No Teaching: Wound Center *Welcome to the Wound Center -Person Taught Patient -Teaching Method Discussion -Response to teaching Verbalize understanding WC - Nurse 1 - General Ulcer Measurement Start: 11/04/22 10:14 Freq: Status: Active Protocol: Activity Type Activity Date Activity User E-sign Co-sign Detail Recorded Client Recorded Date Recorded By Document 11/04/22 10:15 RB [id number] 11/04/22 10:21 RB 11/04/22 10:15 Wound Center Nurse 1 5. R upper arm -Combined with other wound No -Current Size (cm) - Length 1 -Current Size (cm) - Width 4.5 -Current Size (cm) - Depth 0.1 -Total Square Cm 4.5 -Photo Taken Yes -Tunneling No -Undermining/Tunneling No -Circular Undermining No -Exudate Amt Medium -Exudate Type Serosanguineous -Wound Margin Distinct, Outline Attached -Granulation Amt Medium (34-66%) -Granulation Quality [place] -Slough/Fibrin Yes -Necrosis Amt Medium (34-66%) -Necrotic Tissue Type Adherent Slough -Structure Exposed N/A -Texture (Rosie-wound Skin Appearance) Assessed -Moisture (Rosie-wound Skin Appearance) Assessed -Color (Rosie-wound Skin Appearance) Assessed -Temperature (Rosie-wound Skin No Abnormality Appearance) (Pt Warm) -Tenderness on Palpation (Rosie-wound No Skin Appearance) -Ulcer Cleansing Wound Cleanser -Foul Odor after Cleansing No -Anesthetic Used 5% Lidocaine Gel DANIELLE - Nurse 2 - General Ulcer CM Notes Start: 11/04/22 10:14 Freq: Status: Active Protocol: Activity Type Activity Date Activity User E-sign Co-sign Detail Recorded Client Recorded Date Recorded By Document 11/04/22 11:06 MW [id number] 11/04/22 11:12 MW 11/04/22 11:06 Wound Center Nurse 2 -Time 11:07 -Correct Patient Yes -Correct Side, Site, Position Yes -Correct Procedure Yes -Procedure Performed Yes -Type of Procedure Debridement -Clinical Debridement Subcutaneous -Tissue Removed Subcutaneous -Post Debridement (cm) - Length 4.2 -Post Debridement (cm) - Width 0.9 -Post Debridement (cm) - Depth 0.1 -Total Square (Post) (cm) 3.78 -Area of Debridement (cm) - Length 4.2 -Area of Debridement (cm) - Width 0.9 -Total Square (Area) (cm) 3.78 -Tunneling No -Undermining/Tunneling No -Circular Undermining No -Wound/Ulcer Outcome Not Healed -Ulcer Cleansing Rinsed/ Irrigated with Saline -Foul Odor after Cleansing No -Bioengineered Tissue No -Bleeding Controlled with Pressure -Treatment Response Procedure Tolerated Well -Offloading No -Debridement - Subq, 1st 20sq cm Yes Pain Scale: 0-10 Numeric Is Patient Pain Free? Yes - Nurse 3 - General Ulcer D/C NN Start: 11/04/22 10:14 Freq: Status: Active Protocol: Activity Type Activity Date Activity User E-sign Co-sign Detail Recorded Client Recorded Date Recorded By Document 11/04/22 11:21 RB [id number] 11/04/22 11:22 RB 11/04/22 11:21 Wound Care Center Nurse 3 5. R upper arm -Ulcer Cleansing Rinsed/ Irrigated with Saline -Primary Dressing Applied C Hydrogel ($), Mepilex Border, NonAdherent Contact Layer -Mepilex Border 1 Treatment Response Procedure Tolerated Well Pain Scale: 0-10 Numeric Is Patient Pain Free? Yes - Visit Discharge Discharge Condition Stable Ambulatory Status Ambulatory Transportation Private Auto Medication Reconcilliation completed & No provided to patient/care provider Clinical Summary of Care Provided Yes Assessment/Plan Assessment/Plan (1) Hypothyroidism: CODE(S): E03.9 - Hypothyroidism, unspecified QUALIFIERS: Hypothyroidism type: unspecified Qualified Code(s): E03.9 - Hypothyroidism, unspecified (2) History of tongue cancer: CODE(S): Z85.810 - Personal history of malignant neoplasm of tongue (3) Hyperlipidemia: CODE(S): E78.5 - Hyperlipidemia, unspecified QUALIFIERS: Hyperlipidemia type: mixed hyperlipidemia Qualified Code(s): E78.2 - Mixed hyperlipidemia (4) Hypertension: CODE(S): I10 - Essential (primary) hypertension QUALIFIERS: Hypertension type: primary hypertension Qualified Code(s): I10 - Essential (primary) hypertension (5) Open wound of right forearm: CODE(S): S51.801A - Unspecified open wound of right forearm, initial encounter QUALIFIERS: Encounter type: subsequent encounter Qualified Code(s): S51.801D - Unspecified open wound of right forearm, subsequent encounter (6) Delayed wound healing: CODE(S): T14.8XXD - Other injury of unspecified body region, subsequent encounter (7) Malnutrition: CODE(S): E46 - Unspecified protein-calorie malnutrition QUALIFIERS: Malnutrition type: protein-calorie malnutrition Protein-calorie malnutrition severity: moderate Qualified Code(s): E44.0 - Moderate protein-calorie malnutrition PLAN: Plan Debridement performed today in clinic as annotated above. At home wound-care instructions: Wash with soap and water daily and apply hydrogel and cover with adaptic and foam dressing. Keep dressing clean and dry. Off-loading: The patient was instructed to avoid pressure and friction on the affected areas. Reposition every 2 hours at minimum. Avoid prolonged standing and/or dangling of legs. When seated, feet should be elevated at chest level. Frequent ambulation is encouraged. Diet: Patient encouraged to increase protein intake while taking caution to avoid high carbohydrate and/or sugar intake. Labs/cultures/imaging: Follow-up: Return in 1 week for wound care follow up. Return sooner or report to the emergency room should symptoms worsen, or new symptoms arise. Note: [employer] speech recognition machine hand software was used to create portions of this document. Sound-alike and misspelled words, as well as other machine hand errors may be contained in the documentation.
== END 2022-11-10 23:59 | disposition home or self-care (01) ==
LOC: WC 09:47
PROVIDERS: PCP Family Medicine Geriatric Medicine; Referring Provider Family Medicine; Visit Provider Family Medicine
DX: L98.492 Non-pressure chronic ulcer of skin of other sites with fat layer exposed (principal); S51.801A Unspecified open wound of right forearm, initial encounter; W01.198A Fall on same level from slipping, tripping and stumbling with subsequent striking against other object, initial encounter; I10 Essential (primary) hypertension; E78.2 Mixed hyperlipidemia; E89.0 Postprocedural hypothyroidism; Z79.890 Hormone replacement therapy; Z79.899 Other long term (current) drug therapy; Z85.810 Personal history of malignant neoplasm of tongue
CPT/HCPCS: 11042; 99213; G0463

== ENCOUNTER 2022-11-18 09:15 | Outpatient (RCR) | payer MEDICARE, SELFPAY ==
[2018-11-29 13:09] VITALS: BMI 25.0
[2022-11-11 00:23] VITALS: BP 134/59; PULSE 74; RESP 18; TEMP 35.5
[2022-11-11 09:14] VITALS: BP 153/63; PULSE 74; RESP 18; TEMP 36.4
--- NOTE | 2022-11-11 09:53 | PCM.WC.PN ---
History of Present Illness Date of Service: 11/11/22 Chief Complaint: Skin tear of the right upper arm History of Wound: This is an 82-year-old female who presented 2 days status post injury to her right elbow. The injury was caused by a fall where she hit the edge of a screen door and tore the skin. Since the time of the injury, the patient had been using Vaseline gauze or triple antibiotic ointment topically on a daily basis. 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 She has not had any wound culture or treatment with oral antibiotic. There is only small amount of drainage from the wound. She denies fever, chills, erythema, odor. Subjective Subjective She is tolerating treatment well and has improvement in the size of her wound. Denies any fever, chills or increased drainage or erythema. Objective Data Objective Data Vital Signs: Vital Signs Temp Pulse Resp BP 97.5 F L 74 18 153/63 H 11/11/22 09:14 11/11/22 09:14 11/11/22 09:14 11/11/22 09:14 Physical Exam Const alert, oriented x3 and no apparent distress General Appearance: cooperative and comfortable HEENT normocephalic and head/scalp atraumatic Resp normal respiratory effort Effort and Inspection: able to speak in complete sentences Cardio regular rate and regular rhythm Skin Wounds: wounds noted Wound Narrative: as in clinical panel Psych mental status grossly normal, thought process normal, cooperative and affect normal Debridement Note Debridement Note Wound debrided: right upper arm Laterality: Right Type of Debridement: Selective debridement Anesthesia Used: 5% Lidocaine Gel Depth: Down to and including healthy tissue and in the subcutaneous layer Percentage of wound debrided: 100 Instrument Used: 3mm curette Tissue Removed: Yellow slough, devitalized tissue Severity: Fat Layer Exposed Amount of bleeding with debridement: Mild Bleeding Controlled with: Compression and gauze Patient tolerated procedure: Patient tolerated procedure well Post-Debridement Measurements and Additional Note: Post-Debridement Measurements/Treatment DANIELLE - Nurse 1 - General Ulcer Assessment Start: 11/11/22 09:14 Freq: Status: Active Protocol: SAM Activity Type Activity Date Activity User E-sign Co-sign Detail Recorded Client Recorded Date Recorded By Document 11/11/22 09:14 BLAKE [id number] 11/11/22 09:19 DL 11/11/22 09:14 - Today's Visit Information Type of service Follow-up Visit (Physician/AEROBICS TEACHER ) Arrival Mode Ambulatory Transfer Assistance None Patient Identification Verified (Name & Yes ) Patient Requires Transmission-Based No Precautions Vital Signs Temperature (97.8 F-99.1 F) 97.5 F L Temperature Source Temporal Pulse Rate (60-100) 74 Pulse Location Monitor Respiratory Rate (12-18) 18 Respiratory rate source Observation Blood Pressure (90/60-120/80) 153/63 H Blood Pressure Mean (mm Hg) 93 Source Monitor History Since Last Visit- (Skip if this is Patient's initial visit) Have you changed medications since your No last visit? Any new allergies or adverse reactions No Had a fall/change in ADL's that may No increase risk of falls Signs or symptoms of abuse and/or No neglect since last visit Have you been in the hospital since your No last visit? Has dressing in place as prescribed Yes Has compression in place as prescribed N/A Has offloadiing in place as prescribed N/A Experienced any changes in pain level or No management Pain Scale: 0-10 Numeric Is Patient Pain Free? Yes - Nurse 1 - General Ulcer Measurement Start: 11/11/22 09:14 Freq: Status: Active Protocol: Activity Type Activity Date Activity User E-sign Co-sign Detail Recorded Client Recorded Date Recorded By Document 11/11/22 09:14 [id number] 11/11/22 09:19 DL 11/11/22 09:14 Wound Center Nurse 1 5. R upper arm -Combined with other wound No -Current Size (cm) - Length 0.6 -Current Size (cm) - Width 2.3 -Current Size (cm) - Depth 0.1 -Total Square Cm 1.38 -Photo Taken Yes -Tunneling No -Undermining/Tunneling No -Circular Undermining No -Exudate Amt Medium -Exudate Type Serosanguineous -Wound Margin Distinct, Outline Attached -Granulation Amt Medium (34-66%) -Granulation Quality [employer] -Slough/Fibrin Yes -Necrosis Amt Medium (34-66%) -Necrotic Tissue Type Adherent Slough -Structure Exposed N/A -Texture (Rosie-wound Skin Appearance) Assessed -Moisture (Rosie-wound Skin Appearance) Assessed -Color (Rosie-wound Skin Appearance) Assessed -Temperature (Rosie-wound Skin No Abnormality Appearance) (Pt Warm) -Tenderness on Palpation (Rosie-wound No Skin Appearance) -Ulcer Cleansing Wound Cleanser -Foul Odor after Cleansing No -Anesthetic Used 5% Lidocaine Gel WC - Nurse 3 - General Ulcer D/C NN Start: 11/11/22 09:14 Freq: Status: Active Protocol: Activity Type Activity Date Activity User E-sign Co-sign Detail Recorded Client Recorded Date Recorded By Document 11/11/22 09:34 RB [id number] 11/11/22 09:38 RB 11/11/22 09:34 Wound Care Center Nurse 3 -Ulcer Cleansing Rinsed/ Irrigated with Saline -Primary Dressing Applied C Hydrogel ($), Mepilex Border, NonAdherent Contact Layer -Mepilex Border 1 Treatment Response Procedure Tolerated Well Pain Scale: 0-10 Numeric Is Patient Pain Free? Yes WC - Visit Discharge Discharge Condition Stable Transportation Private Auto Medication Reconcilliation completed & No provided to patient/care provider Clinical Summary of Care Provided Yes Assessment/Plan Assessment/Plan (1) Hypothyroidism: CODE(S): E03.9 - Hypothyroidism, unspecified QUALIFIERS: Hypothyroidism type: unspecified Qualified Code(s): E03.9 - Hypothyroidism, unspecified (2) History of tongue cancer: CODE(S): Z85.810 - Personal history of malignant neoplasm of tongue (3) Hyperlipidemia: CODE(S): E78.5 - Hyperlipidemia, unspecified QUALIFIERS: Hyperlipidemia type: mixed hyperlipidemia Qualified Code(s): E78.2 - Mixed hyperlipidemia (4) Hypertension: CODE(S): I10 - Essential (primary) hypertension QUALIFIERS: Hypertension type: primary hypertension Qualified Code(s): I10 - Essential (primary) hypertension (5) Open wound of right forearm: CODE(S): S51.801A - Unspecified open wound of right forearm, initial encounter QUALIFIERS: Encounter type: subsequent encounter Qualified Code(s): S51.801D - Unspecified open wound of right forearm, subsequent encounter (6) Delayed wound healing: CODE(S): T14.8XXD - Other injury of unspecified body region, subsequent encounter (7) Malnutrition: CODE(S): E46 - Unspecified protein-calorie malnutrition QUALIFIERS: Malnutrition type: protein-calorie malnutrition Protein-calorie malnutrition severity: moderate Qualified Code(s): E44.0 - Moderate protein-calorie malnutrition PLAN: Plan Debridement performed today in clinic as annotated above. At home wound-care instructions: Wash with soap and water daily and apply hydrogel and cover with adaptic and foam dressing. Keep dressing clean and dry. Off-loading: The patient was instructed to avoid pressure and friction on the affected areas. Reposition every 2 hours at minimum. Avoid prolonged standing and/or dangling of legs. When seated, feet should be elevated at chest level. Frequent ambulation is encouraged. Diet: Patient encouraged to increase protein intake while taking caution to avoid high carbohydrate and/or sugar intake. Labs/cultures/imaging: Follow-up: Return in 1 week for wound care follow up. Return sooner or report to the emergency room should symptoms worsen, or new symptoms arise. Note: [employer] speech recognition ironworker foreman software was used to create portions of this document. Sound-alike and misspelled words, as well as other ironworker foreman errors may be contained in the documentation.
[2022-11-18 09:18] VITALS: BP 167/56; PULSE 67; RESP 18; TEMP 36.3
--- NOTE | 2022-11-18 10:12 | PCM.WC.PN ---
History of Present Illness Date of Service: 11/18/22 Chief Complaint: Skin tear of the right upper arm History of Wound: This is an 82-year-old female who presented 2 days status post injury to her right elbow. The injury was caused by a fall where she hit the edge of a screen door and tore the skin. Since the time of the injury, the patient had been using Vaseline gauze or triple antibiotic ointment topically on a daily basis. 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 She has not had any wound culture or treatment with oral antibiotic. There is only small amount of drainage from the wound. She denies fever, chills, erythema, odor. Subjective Subjective She is tolerating treatment well and has improvement in the size of her wound. Denies any fever, chills or increased drainage or erythema. Objective Data Objective Data Vital Signs: Vital Signs Temp Pulse Resp BP O2 Del Method 97.3 F L 67 18 167/56 H Room Air 11/18/22 09:18 11/18/22 09:18 11/18/22 09:18 11/18/22 09:18 11/18/22 09:18 Oxygen Delivery Method Room Air Physical Exam Const alert, oriented x3 and no apparent distress General Appearance: cooperative and comfortable HEENT normocephalic and head/scalp atraumatic Resp normal respiratory effort Effort and Inspection: able to speak in complete sentences Cardio regular rate and regular rhythm Skin Wounds: wounds noted Wound Narrative: as in clinical panel Psych mental status grossly normal, thought process normal, cooperative and affect normal Debridement Note Debridement Note Wound debrided: right upper arm Laterality: Right Type of Debridement: Selective debridement Anesthesia Used: 5% Lidocaine Gel Depth: Down to and including healthy tissue and in the subcutaneous layer Percentage of wound debrided: 100 Instrument Used: 3mm curette Tissue Removed: Yellow slough, devitalized tissue Severity: Fat Layer Exposed Amount of bleeding with debridement: Mild Bleeding Controlled with: Compression and gauze Patient tolerated procedure: Patient tolerated procedure well Post-Debridement Measurements and Additional Note: Post-Debridement Measurements/Treatment DANIELLE - Nurse 1 - General Ulcer Assessment Start: 11/11/22 09:14 Freq: Status: Active Protocol: SAM Activity Type Activity Date Activity User E-sign Co-sign Detail Recorded Client Recorded Date Recorded By Document 11/11/22 09:14 [id number] 11/11/22 09:19 DL Document 11/18/22 09:18 NH [id number] 11/18/22 09:23 NH 11/11/22 11/18/22 09:14 09:18 - Today's Visit Information Type of service Follow-up Visit Follow-up Visit (Physician/SOCIAL MEDIA DESIGNER (Physician/SOCIAL MEDIA DESIGNER ) ) Arrival Mode Ambulatory Ambulatory,Cane Transfer Assistance None Accompanied by self Patient Identification Verified (Name & Yes Yes ) Patient Requires Transmission-Based No Precautions Safety Precautions Fall Prevention Vital Signs Temperature (97.8 F-99.1 F) 97.5 F L 97.3 F L Temperature Source Temporal Temporal Pulse Rate (60-100) 74 67 Pulse Location Monitor Monitor Respiratory Rate (12-18) 18 18 Respiratory rate source Observation Observation Oxygen Delivery Method Room Air Blood Pressure (90/60-120/80) 153/63 H 167/56 H Blood Pressure Mean (mm Hg) 93 93 Source Monitor Monitor Position Sitting Blood Pressure Location Right Arm History Since Last Visit- (Skip if this is Patient's initial visit) Have you changed medications since your No last visit? Any new allergies or adverse reactions No Had a fall/change in ADL's that may No increase risk of falls Signs or symptoms of abuse and/or No neglect since last visit Have you been in the hospital since your No last visit? Has dressing in place as prescribed Yes Yes Has compression in place as prescribed N/A N/A Has offloadiing in place as prescribed N/A N/A Experienced any changes in pain level or No No management Left Footwear Regular Shoe Right Footwear Regular Shoe Pain Scale: 0-10 Numeric Is Patient Pain Free? Yes Yes - Nurse 1 - General Ulcer Measurement Start: 11/11/22 09:14 Freq: Status: Active Protocol: Activity Type Activity Date Activity User E-sign Co-sign Detail Recorded Client Recorded Date Recorded By Document 11/11/22 09:14 [id number] 11/11/22 09:19 DL Document 11/18/22 09:18 NH [id number] 11/18/22 09:23 NH 11/11/22 11/18/22 09:14 09:18 Wound Center Nurse 1 5. R upper arm -Combined with other wound No -Current Size (cm) - Length 0.6 0.1 -Current Size (cm) - Width 2.3 0.1 -Current Size (cm) - Depth 0.1 0.1 -Total Square Cm 1.38 0.01 -Date of Last Picture (Recall this 11/18/22 field) -Photo Taken Yes Yes -Tunneling No No -Undermining/Tunneling No No -Circular Undermining No No -Exudate Amt Medium None Present -Exudate Type Serosanguineous -Wound Margin Distinct, Flat & Intact Outline Attached -Granulation Amt Medium (34-66%) None Present (0 %) -Granulation Quality [place] -Slough/Fibrin Yes -Necrosis Amt Medium (34-66%) None Present (0 %) -Necrotic Tissue Type Adherent Slough -Structure Exposed N/A -Texture (Rosie-wound Skin Appearance) Assessed Assessed -Moisture (Rosie-wound Skin Appearance) Assessed Assessed -Color (Rosie-wound Skin Appearance) Assessed No Abnormality -Temperature (Rosie-wound Skin No Abnormality No Abnormality Appearance) (Pt Warm) (Pt Warm) -Tenderness on Palpation (Rosie-wound No No Skin Appearance) -Ulcer Cleansing Wound Cleanser Rinsed/ Irrigated with Saline -Foul Odor after Cleansing No -Anesthetic Used 5% Lidocaine 5% Lidocaine Gel Gel Lower Limb Edema Present NA WC - Nurse 2 - General Ulcer CM Notes Start: 11/11/22 09:14 Freq: Status: Active Protocol: Activity Type Activity Date Activity User E-sign Co-sign Detail Recorded Client Recorded Date Recorded By Document 11/11/22 13:09 [id number] 11/11/22 13:14 EDDIE 11/11/22 13:09 Wound Center Nurse 2 5. R upper arm -Time 09:21 -Correct Patient Yes -Correct Side, Site, Position Yes -Correct Procedure Yes -Procedure Performed Yes -Type of Procedure Debridement -Clinical Debridement Subcutaneous -Tissue Removed Subcutaneous -Post Debridement (cm) - Length 3.2 -Post Debridement (cm) - Width 0.5 -Post Debridement (cm) - Depth 0.1 -Total Square (Post) (cm) 1.60 -Area of Debridement (cm) - Length 3.2 -Area of Debridement (cm) - Width 0.5 -Total Square (Area) (cm) 1.60 -Tunneling No -Undermining/Tunneling No -Circular Undermining No -Wound/Ulcer Outcome Not Healed -Ulcer Cleansing Rinsed/ Irrigated with Saline -Foul Odor after Cleansing No -Bioengineered Tissue No -Bleeding Controlled with Pressure -Treatment Response Procedure Tolerated Well -Debridement - Subq, 1st 20sq cm Yes Pain Scale: 0-10 Numeric Is Patient Pain Free? Yes - Nurse 3 - General Ulcer D/C NN Start: 11/11/22 09:14 Freq: Status: Active Protocol: Activity Type Activity Date Activity User E-sign Co-sign Detail Recorded Client Recorded Date Recorded By Document 11/11/22 09:34 RB [id number] 11/11/22 09:38 RB Document 11/18/22 09:43 RB Desktop 11/18/22 09:44 RB 11/11/22 11/18/22 09:34 09:43 Wound Care Center Nurse 3 5. R upper arm -Ulcer Cleansing Rinsed/ Rinsed/ Irrigated with Irrigated with Saline Saline -Primary Dressing Applied C Hydrogel ($), Mepilex Border, Mepilex Border, NonAdherent NonAdherent Contact Layer Contact Layer -Other Dressing hydrogel -Mepilex Border 1 1 Treatment Response Procedure Procedure Tolerated Well Tolerated Well Pain Scale: 0-10 Numeric Is Patient Pain Free? Yes Yes - Visit Discharge Discharge Condition Stable Stable Ambulatory Status Ambulatory,Cane Transportation Private Auto Private Auto Medication Reconcilliation completed & No No provided to patient/care provider Clinical Summary of Care Provided Yes Yes Assessment/Plan Assessment/Plan (1) Hypothyroidism: CODE(S): E03.9 - Hypothyroidism, unspecified QUALIFIERS: Hypothyroidism type: unspecified Qualified Code(s): E03.9 - Hypothyroidism, unspecified (2) History of tongue cancer: CODE(S): Z85.810 - Personal history of malignant neoplasm of tongue (3) Hyperlipidemia: CODE(S): E78.5 - Hyperlipidemia, unspecified QUALIFIERS: Hyperlipidemia type: mixed hyperlipidemia Qualified Code(s): E78.2 - Mixed hyperlipidemia (4) Hypertension: CODE(S): I10 - Essential (primary) hypertension QUALIFIERS: Hypertension type: primary hypertension Qualified Code(s): I10 - Essential (primary) hypertension (5) Open wound of right forearm: CODE(S): S51.801A - Unspecified open wound of right forearm, initial encounter QUALIFIERS: Encounter type: subsequent encounter Qualified Code(s): S51.801D - Unspecified open wound of right forearm, subsequent encounter (6) Delayed wound healing: CODE(S): T14.8XXD - Other injury of unspecified body region, subsequent encounter (7) Malnutrition: CODE(S): E46 - Unspecified protein-calorie malnutrition QUALIFIERS: Malnutrition type: protein-calorie malnutrition Protein-calorie malnutrition severity: moderate Qualified Code(s): E44.0 - Moderate protein-calorie malnutrition PLAN: Plan Debridement performed today in clinic as annotated above. At home wound-care instructions: Wash with soap and water daily and apply hydrogel and cover with adaptic and foam dressing. Keep dressing clean and dry. Off-loading: The patient was instructed to avoid pressure and friction on the affected areas. Reposition every 2 hours at minimum. Avoid prolonged standing and/or dangling of legs. When seated, feet should be elevated at chest level. Frequent ambulation is encouraged. Diet: Patient encouraged to increase protein intake while taking caution to avoid high carbohydrate and/or sugar intake. Labs/cultures/imaging: Follow-up: Return in 2 weeks for wound care follow up. Return sooner or report to the emergency room should symptoms worsen, or new symptoms arise. Note: [employer] speech recognition college service officer software was used to create portions of this document. Sound-alike and misspelled words, as well as other college service officer errors may be contained in the documentation.
== END 2022-12-10 23:59 | disposition home or self-care (01) ==
LOC: WC 09:15
PROVIDERS: PCP Family Medicine Geriatric Medicine; Referring Provider Family Medicine; Visit Provider Family Medicine
DX: S51.011A Laceration without foreign body of right elbow, initial encounter (principal); W01.198A Fall on same level from slipping, tripping and stumbling with subsequent striking against other object, initial encounter; E03.9 Hypothyroidism, unspecified; E78.5 Hyperlipidemia, unspecified; I10 Essential (primary) hypertension; Z79.890 Hormone replacement therapy; Z79.899 Other long term (current) drug therapy; Z85.810 Personal history of malignant neoplasm of tongue
CPT/HCPCS: 11042

== ENCOUNTER → 2022-11-21 | Outpatient (CLI) | payer MEDICARE, SELFPAY ==
[2018-11-29 13:09] VITALS: BMI 25.0
== END | disposition home or self-care (01) ==
LOC: POLAB3 11:48
PROVIDERS: PCP Family Medicine Geriatric Medicine; Visit Provider Family Medicine Geriatric Medicine
DX: E03.9 Hypothyroidism, unspecified (principal)
CPT/HCPCS: 36415; 84443

== ENCOUNTER → 2023-02-22 | Outpatient (CLI) | payer MEDICARE, SELFPAY ==
[2018-11-29 13:09] VITALS: BMI 25.0
--- NOTE | 2023-02-22 12:35 | RAD_ITS ---
STUDY: X-RAY - RIGHT FOOT CLINICAL: Female, 82 years old. Right heel pain. TECHNIQUE: 3 view(s) of the foot. COMPARISON: None. FINDINGS: Osteopenia. Mild arthrosis of the tibiotalar joint. Mild arthrosis of the subtalar joint. Small superior and inferior calcaneal spurs. Mild arthrosis of the midfoot. Moderate arthrosis of the TMT joints. Moderate arthrosis of the MTP and IP joints with marked hammertoe deformities. Diffuse soft tissue swelling. RAD/Foot min 3 Views IMPRESSION: Osteopenia, osteoarthritic changes and calcaneal spurs as described. No acute abnormality. Electronically Signed: Ric Lam MD at 13:30 EST ,
[2023-02-22 12:40] LABS: Absolute Lymphocyte Count 0.79 X10^3/uL (0.83-4.51); Basophil# 0.03 X10^3/uL; Basophil% 0.5 % (0-1); Eosinophil# 0.06 X10^3/uL; Eosinophils% 1.1 % (0-5); Hematocrit 37.6 % (37-47); Hemoglobin 11.9 g/dL (12.0-15.0); Lymphocyte # 0.79 X10^3/ul (0.83-4.51); Mean Corp Hgb Conc 31.6 g/dL (32-36); Mean Corpuscular Hgb 29.4 pg (27.0-32.0); Mean Corpuscular Volume 92.8 fL (81-99); Mean Platelet Vol. 9.8 fl (6.2-12.0); Monocyte# 0.73 X10^3/uL; Monocyte% 12.9 % (0-10); NRBC Flagged by Analyzer 0 % (0-5); Neutrophil # 4.01 X10^3/uL (2.7-7.7); Neutrophil % 71.1 % (47-70); Platelet Count 309 K/mm3 (150-450); RBC Distribution Width CV 14.2 % (11.6-14.6); RBC Distribution Width SD 48.6 fl (35.1-43.9); Red Blood Count 4.05 M/mm3 (4.2-5.4); White Blood Count 5.6 K/mm3 (4.4-11.0)
[2023-02-22 12:50] LABS: Vitamin D,25 Hydroxy 33.8 ng/mL
[2023-02-22 13:18] LABS: AST(SGOT) 16 U/L (15-37); Alanine Aminotransfer ALT/SGPT 16 U/L (13-56); Albumin, Serum 3.3 g/dL (3.2-5.0); Alkaline Phosphatase 94 U/L (45-117); Anion Gap 7 (5-15); BUN 14 mg/dL (7-18); Calcium,Total 8.4 mg/dL (8.5-10.1); Chloride 102 mmol/L (98-107); Creatinine, Serum 0.82 mg/dL (0.55-1.02); EST Glomerular Filtration Rate 70 mL/min (>60); Est Glom Filt Rate - Afr Amer 85 mL/min (>60); Globulin 3.4 g/dL (2.2-4.2); Glucose 84 mg/dL (74-106); Potassium 4.5 mmol/L (3.5-5.1); Protein, Total 6.7 g/dL (6.4-8.2); Sodium Level 137 mmol/L (136-145)
== END | disposition home or self-care (01) ==
LOC: POLAB3 11:46
PROVIDERS: PCP Family Medicine Geriatric Medicine; Visit Provider Family Medicine Geriatric Medicine
DX: M79.671 Pain in right foot (principal); R53.83 Other fatigue; E55.9 Vitamin D deficiency, unspecified
CPT/HCPCS: 36415; 73630; 80053; 82306; 84443; 85025

== ENCOUNTER 2023-03-02 10:00 | Outpatient (RCR) | payer MEDICARE, SELFPAY ==
[2018-11-29 13:09] VITALS: BMI 25.0
[2022-12-11 00:18] VITALS: BP 167/56; PULSE 67; RESP 18; TEMP 36.3
[2023-02-16 13:07] VITALS: BP 133/47; PULSE 84; RESP 18; TEMP 36.6; BMI 22.4
--- NOTE | 2023-02-17 14:45 | HP.PCM_ITS ---
History of Present Illness Date of Service: 02/16/23 Chief Complaint: Right buttock pressure ulceration History of Wound: Patient is referred to the wound care center by her primary care Dr. Cole for evaluation and management of a right buttock pressure sore. Patient is accompanied to her appointment today by a family member who helps with her care. Patient reports that this pressure sore has been present for about 2 weeks. The area is very tender. She has not noted a lot of drainage and does not report a foul odor from the area. At home she has been occasionally covering with Band- Aids and otherwise just keeping the area clean. She has never had a wound like this before. She reports that she feels she is generally pretty active; however, she does sleep sitting up. She sleeps sitting propped nearly straight up in her bed, does not sleep in a recliner. She has to sleep this way in order to rest and breathe comfortably and this is back and very due to her history of tongue cancer. She does not feel she sits for long periods of time. She does not have any offloading padding on her bed. She receives nutrition via PEG tube. Otherwise her medical history is significant for history of tongue cancer as noted above, hypertension, PEG tube, hypothyroidism, psoriasis (on Taltz). She denies any fevers or chills. FOR[facility]LY [facility], LATER [facility] Medical History Ambulates with cane Dietary restriction Easy bruising Gastric reflux History of stress test History of throat cancer HTN (hypertension) Hypothyroidism Non-smoker Psoriasis Tongue cancer Wears glasses Home Medications levothyroxine 125 mcg tablet 88 mcg PO DAILY 12/06/14 [History Last Taken Unknown] food supplemt, lactose-reduced 0.08 gram-1.5 kcal/mL oral liquid (Ensure Enlive) 1 bottle PO 4X/DAY 01/17/18 [History Last Taken Unknown] ixekizumab 80 mg/mL subcutaneous auto-injector (Taltz Autoinjector) 80 mg subcut QMONTH 08/19/22 [History Last Taken Unknown] famotidine 20 mg tablet 20 mg PO DAILY 10/24/22 [History Last Taken Unknown] pantoprazole 40 mg tablet,delayed release 40 mg PO DAILY 10/24/22 [History Last Taken Unknown] Allergy/AdvReac Type Severity Reaction Status Date / Time hydrocodone [From Vicodin] Allergy Unknown Verified 02/14/23 13:07 oxycodone [From Percocet] Allergy Unknown Verified 02/14/23 13:07 Family History Sister Diabetes Surgical History H/O thyroidectomy History of cholecystectomy History of esophagogastroduodenoscopy (EGD) History of total right knee replacement Hx of tonsillectomy Social History Smoking Status: Former smoker alcohol intake: never substance use type: does not use Vital Signs Vital Signs Vital Signs: Weight Weight: 135 lb Body Mass Index (BMI) 22.4 Physical Exam Const alert, oriented x3 and no apparent distress HEENT head/scalp atraumatic Nose: external nose normal External Ear: external ears normal Eyes EOMs intact bilaterally General Eye: normal appearance of both eyes Resp normal respiratory effort, no retractions and no use of accessory muscles Effort and Inspection: able to speak in complete sentences Cardio regular rate and regular rhythm Skin Wounds: wounds noted Wound Narrative: Patient has small stage II pressure ulceration to the right buttock. There is slough at the wound base but otherwise granulation tissue is noted. There is minimal erythema around the wound edges. There is no significant swelling, warmth, drainage, foul odor. There is no tracking/tunneling. She also has very small stage I pressure injury to the left buttock. Neuro oriented x3, moves all extremities and no focal motor deficits Debridement Note Debridement Note Wound debrided: R buttock pressure ulcer Laterality: Right Wound Grade/Stage: Stage II Type of Debridement: Excisional debridement Anesthesia Used: 5% Lidocaine Gel Depth: Down to and including healthy tissue Percentage of wound debrided: 100 Instrument Used: 3mm curette Tissue Removed: slough Severity: Limited To Skin Breakdown Amount of bleeding with debridement: Mild Bleeding Controlled with: Pressure Patient tolerated procedure: Patient tolerated procedure well Post-Debridement Measurements and Additional Note: Post-Debridement Measurements/Treatment DANIELLE - Nurse 1 - General Ulcer Assessment Start: 02/16/23 13:02 Freq: Status: Active Protocol: SAM Activity Type Activity Date Activity User E-sign Co-sign Detail Recorded Client Recorded Date Recorded By Document 02/16/23 13:07 KW Desktop 02/16/23 13:13 KW 02/16/23 13:07 WC - Today's Visit Information Type of service Initial Visit Arrival Mode Ambulatory Accompanied by daughter Patient Identification Verified (Name & Yes ) Height and Weight Height 5 ft 5 in Weight 135 lb Weight in Pounds 135.0 lbs Body Mass Index (BMI) 22.4 BMI Classification Normal BSA - [place] 1.67 Vital Signs Temperature (97.8 F-99.1 F) 97.8 F Temperature Source Temporal Pulse Rate (60-100) 84 Pulse Location Monitor Respiratory Rate (12-18) 18 Respiratory rate source Observation Oxygen Delivery Method Room Air Blood Pressure (90/60-120/80) 133/47 H Blood Pressure Mean 75 Source Monitor Position Sitting Blood Pressure Location Left Arm History Since Last Visit- (Skip if this is Patient's initial visit) Left Footwear Regular Shoe Right Footwear Regular Shoe Pain Scale: 0-10 Numeric Is Patient Pain Free? No sacrum -Pain Behavior Facial Grimacing -Pain Aggravating Factors Palpation -Alleviating Factors/Interventions Medication, Turning/ Repositioning, Will continue to monitor Communication Assessment Preferred language [place] Crew Truck Driver Required No Able to Read Yes Able to Write Yes Communication Tools None Caregiver Communication Skills No Impairment Impairment Right Hearing Abillity Use of Hearing Aid Left Hearing Abillity Use of Hearing Aid Visual Assistive Devices Glasses Teaching Assessment Preferences Verbal,Written, Demonstration Barriers to Learning None Readiness To Learn Excellent Willingness to Engage in Self Management High Activies Readiness to Engage in Self Management High Activities Anxiety Level Calm Cooperation Cooperative Perception Coherent Interest in Health Problem Asks Questions Education Importance Acknowledges Need Does Patient Smoke tobacco or other No substances Smoking Status Former smoker Is Patient Diabetic No Functional Assessment Recent Decline in Ability to Perform Denies Any Declines Assistive Device With Patient No Culture/Confucianism/Business Mail Entry Clerk Cultural/Confucianism Needs that may affect No Treatment Plan Would you allow our hospital director sanitation bureau to No meet you for the purpose of spiritual/ emotional support? Business Mail Entry Clerk to contact place of roman catholic No WC - Nurse 1 - General Ulcer Measurement Start: 02/16/23 13:02 Freq: Status: Active Protocol: Activity Type Activity Date Activity User E-sign Co-sign Detail Recorded Client Recorded Date Recorded By Document 02/16/23 13:07 KW Desktop 02/16/23 13:13 KW 02/16/23 13:07 Wound Center Nurse 1 #6 RT BUTTOCK -Current Size (cm) - Length 0.7 -Current Size (cm) - Width 0.8 -Current Size (cm) - Depth 0.2 -Total Square Cm 0.56 -Date of Last Picture (Recall this 02/16/23 field) -Photo Taken Yes -Exudate Amt Small -Exudate Type Serosanguineous -Wound Margin Distinct, Outline Attached -Granulation Amt Small (1-33%) -Granulation Quality Red -Necrosis Amt Large (67-100%) -Necrotic Tissue Type Adherent Slough -Texture (Rosie-wound Skin Appearance) Assessed -Moisture (Rosie-wound Skin Appearance) Assessed -Color (Rosie-wound Skin Appearance) Assessed -Temperature (Rosie-wound Skin No Abnormality Appearance) (Pt Warm) -Ulcer Cleansing Rinsed/ Irrigated with Saline -Anesthetic Used 5% Lidocaine Gel WC - Nurse 2 - General Ulcer CM Notes Start: 02/16/23 13:02 Freq: Status: Active Protocol: Activity Type Activity Date Activity User E-sign Co-sign Detail Recorded Client Recorded Date Recorded By Document 02/16/23 16:22 PL [id number] 02/16/23 16:22 PL 02/16/23 16:22 Wound Center Nurse 2 -Time 13:29 -Correct Patient Yes -Correct Side, Site, Position Yes -Correct Procedure Yes -Procedure Performed Yes -Type of Procedure Debridement -Clinical Debridement Subcutaneous -Tissue Removed Subcutaneous -Post Debridement (cm) - Length 0.5 -Post Debridement (cm) - Width 1.0 -Post Debridement (cm) - Depth 0.1 -Total Square (Post) (cm) 0.50 -Area of Debridement (cm) - Length 0.5 -Area of Debridement (cm) - Width 1.0 -Total Square (Area) (cm) 0.50 -Tunneling No -Undermining/Tunneling No -Circular Undermining No -Wound/Ulcer Outcome Not Healed -Ulcer Cleansing Rinsed/ Irrigated with Saline -Foul Odor after Cleansing No -Bioengineered Tissue No -Bleeding Controlled with Pressure -Treatment Response Procedure Tolerated Well -Debridement - Subq, 1st 20sq cm Yes Pain Scale: 0-10 Numeric Is Patient Pain Free? Yes WC - Nurse 3 - General Ulcer D/C NN Start: 02/16/23 13:02 Freq: Status: Active Protocol: Activity Type Activity Date Activity User E-sign Co-sign Detail Recorded Client Recorded Date Recorded By Document 02/16/23 13:54 Laptop 02/16/23 13:54 02/16/23 13:54 Wound Care Center Nurse 3 #6 RT BUTTOCK -Ulcer Cleansing Rinsed/ Irrigated with Saline -Foul Odor after Cleansing No -Primary Dressing Applied Mepilex Border, Promogran Falguni Matter -Mepilex Border 1 -Promogran Falguni Matter 1 Pain Scale: 0-10 Numeric Is Patient Pain Free? Yes WC - Visit Discharge Discharge Condition Stable Ambulatory Status Ambulatory,Cane Transportation Private Auto Accompanied by daughter Medication Reconcilliation completed & Yes provided to patient/care provider Clinical Summary of Care Provided Yes Charges/Coding Visit Charges Office Visits / Consults: [id number] OV L3 New Procedures Integumentary [id number]: [id number] Lety subq tissue 20 sq cm/< Assessment/Plan Assessment/Plan (1) Pressure ulcer of right buttock, stage 2: CODE(S): L89.312 - Pressure ulcer of right buttock, stage 2 (2) Pressure ulcer of left buttock, stage 1: CODE(S): L89.321 - Pressure ulcer of left buttock, stage 1 PLAN: Plan Debridement as noted above, patient tolerated well. No signs/symptoms concerning for infection on exam today. Will apply Falguni to the wound beds, cover with foam border dressing. Change the dressing daily or more often as needed to keep clean and dry. With dressing changes, gently cleanse the area with soap and water and pat to dry. We discussed the importance of offloading pressure to the area to support healing. I advise obtaining eggcrate foam pads for the bed and any chair/couch she may frequently sit in. If sitting for long periods of time, I advise changing positions and/or getting up to walk around a bit every hour. Return to the wound care center in 1 week or sooner as needed.
[2023-02-23 13:15] VITALS: BP 137/48; PULSE 85; RESP 16; TEMP 36.1; BMI 22.4
--- NOTE | 2023-02-24 08:10 | PN.PCM_ITS ---
History of Present Illness Date of Service: 02/23/23 Chief Complaint: Right buttock pressure ulceration History of Wound: Patient is referred to the wound care center by her primary care Dr. Cole for evaluation and management of a right buttock pressure sore. Patient is accompanied to her appointment today by a family member who helps with her care. Patient reports that this pressure sore has been present for about 2 weeks. The area is very tender. She has not noted a lot of drainage and does not report a foul odor from the area. At home she has been occasionally covering with Band- Aids and otherwise just keeping the area clean. She has never had a wound like this before. She reports that she feels she is generally pretty active; however, she does sleep sitting up. She sleeps sitting propped nearly straight up in her bed, does not sleep in a recliner. She has to sleep this way in order to rest and breathe comfortably and this is back and very due to her history of tongue cancer. She does not feel she sits for long periods of time. She does not have any offloading padding on her bed. She receives nutrition via PEG tube. Otherwise her medical history is significant for history of tongue cancer as noted above, hypertension, PEG tube, hypothyroidism, psoriasis (on Taltz). She denies any fevers or chills. Subjective Subjective Patient is doing well this week. She reports much less pain around the wound. They have been managing the dressing changes well at home. No new redness, swelling, increased drainage, foul odor. She did obtain the eggcrate foam pads as discussed and is doing her best to offload pressure to the area. Objective Data Objective Data Vital Signs: Vital Signs Temp Pulse Resp BP O2 Del Method 97 F L 85 16 137/48 H Room Air 02/23/23 13:15 02/23/23 13:15 02/23/23 13:15 02/23/23 13:15 02/23/23 13:15 Oxygen Delivery Method Room Air Weight: 135 lb Body Mass Index (BMI) 22.4 Charges/Coding Procedures Integumentary 111xxx-113xx: 49352 Lety subq tissue 20 sq cm/< Physical Exam Const alert, oriented x3 and no apparent distress HEENT head/scalp atraumatic Nose: external nose normal External Ear: external ears normal Eyes EOMs intact bilaterally General Eye: normal appearance of both eyes Resp normal respiratory effort, no retractions and no use of accessory muscles Effort and Inspection: able to speak in complete sentences Skin Wounds: wounds noted Wound Narrative: Patient has a stage II pressure ulceration to the right buttock. There is slough at the wound base but otherwise granulation tissue is noted. There is minimal erythema around the wound edges. There is no significant swelling, warmth, drainage, foul odor. There is no tracking/tunneling. It is significantly reduced in size from last week. She also has very small stage I pressure injury to the left buttock. Neuro oriented x3, moves all extremities and no focal motor deficits Debridement Note Debridement Note Wound debrided: R buttock pressure ulcer Laterality: Right Wound Grade/Stage: Stage II Type of Debridement: Excisional debridement Anesthesia Used: 5% Lidocaine Gel Depth: Down to and including healthy tissue Percentage of wound debrided: 100 Instrument Used: 3mm curette Tissue Removed: slough Severity: Limited To Skin Breakdown Amount of bleeding with debridement: Mild Bleeding Controlled with: Pressure Patient tolerated procedure: Patient tolerated procedure well Post-Debridement Measurements and Additional Note: Post-Debridement Measurements/Treatment - Nurse 1 - General Ulcer Assessment Start: 02/16/23 13:02 Freq: Status: Active Protocol: [email or web address].HECTOR Activity Type Activity Date Activity User E-sign Co-sign Detail Recorded Client Recorded Date Recorded By Document 02/16/23 13:07 [employer] Desktop 02/16/23 13:13 KW Document 02/23/23 13:15 [facility] Desktop 02/23/23 13:18 [facility] 02/16/23 02/23/23 13:07 13:15 - Today's Visit Information Type of service Initial Visit Follow-up Visit (Physician/BUSINESS INTELLIGENCE ANALYST ) Arrival Mode Ambulatory Ambulatory Transfer Assistance None Accompanied by daughter daughter domi Patient Identification Verified (Name & Yes Yes ) Patient Requires Transmission-Based No Precautions Height and Weight Height 5 ft 5 in Weight 135 lb Weight in Pounds 135.0 lbs Body Mass Index (BMI) 22.4 22.4 BMI Classification Normal Normal BSA - Bentley 1.67 Vital Signs Temperature (97.8 F-99.1 F) 97.8 F 97 F L Temperature Source Temporal Temporal Pulse Rate (60-100) 84 85 Pulse Location Monitor Monitor Respiratory Rate (12-18) 18 16 Respiratory rate source Observation Observation Oxygen Delivery Method Room Air Room Air Blood Pressure (90/60-120/80) 133/47 H 137/48 H Blood Pressure Mean (mm Hg) 75 77 Source Monitor Monitor Position Sitting Sitting Blood Pressure Location Left Arm Left Arm History Since Last Visit- (Skip if this is Patient's initial visit) Have you changed medications since your No last visit? Any new allergies or adverse reactions No Had a fall/change in ADL's that may No increase risk of falls Signs or symptoms of abuse and/or No neglect since last visit Have you been in the hospital since your No last visit? Has dressing in place as prescribed Yes Has compression in place as prescribed N/A Has offloadiing in place as prescribed N/A Experienced any changes in pain level or No management Left Footwear Regular Shoe Regular Shoe Right Footwear Regular Shoe Regular Shoe Pain Scale: 0-10 Numeric Is Patient Pain Free? No Yes sacrum -Pain Behavior Facial Grimacing -Pain Aggravating Factors Palpation -Alleviating Factors/Interventions Medication, Turning/ Repositioning, Will continue to monitor Communication Assessment Preferred language [place]ian Telephone Operator Chief Required No Able to Read Yes Able to Write Yes Communication Tools None Caregiver Communication Skills No Impairment Impairment Right Hearing Abillity Use of Hearing Aid Left Hearing Abillity Use of Hearing Aid Visual Assistive Devices Glasses Teaching Assessment Preferences Verbal,Written, Demonstration Barriers to Learning None Readiness To Learn Excellent Willingness to Engage in Self Management High Activies Readiness to Engage in Self Management High Activities Anxiety Level Calm Cooperation Cooperative Perception Coherent Interest in Health Problem Asks Questions Education Importance Acknowledges Need Does Patient Smoke tobacco or other No substances Smoking Status Former smoker Is Patient Diabetic No Functional Assessment Recent Decline in Ability to Perform Denies Any Declines Assistive Device With Patient No Culture/Episcopal/[employer] Cultural/Episcopal Needs that may affect No Treatment Plan Would you allow our hospital technical sales director to No meet you for the purpose of spiritual/ emotional support? [employer] to contact place of religion No WC - Nurse 1 - General Ulcer Measurement Start: 02/16/23 13:02 Freq: Status: Active Protocol: Activity Type Activity Date Activity User E-sign Co-sign Detail Recorded Client Recorded Date Recorded By Document 02/16/23 13:07 KW Desktop 02/16/23 13:13 KW Document 02/23/23 13:15 [facility] Desktop 02/23/23 13:18 [facility] 02/16/23 02/23/23 13:07 13:15 Wound Center Nurse 1 #6 RT BUTTOCK -Combined with other wound No -Current Size (cm) - Length 0.7 0.2 -Current Size (cm) - Width 0.8 0.3 -Current Size (cm) - Depth 0.2 0.1 -Total Square Cm 0.56 0.06 -Date of Last Picture (Recall this 02/16/23 02/23/23 field) -Photo Taken Yes Yes -Tunneling No -Undermining/Tunneling No -Circular Undermining No -Exudate Amt Small Medium -Exudate Type Serosanguineous Serosanguineous -Wound Margin Distinct, Distinct, Outline Outline Attached Attached -Granulation Amt Small (1-33%) Small (1-33%) -Granulation Quality [place] -Slough/Fibrin Yes -Necrosis Amt Large (67-100%) Medium (34-66%) -Necrotic Tissue Type Adherent Slough Adherent Slough -Texture (Rosie-wound Skin Appearance) Assessed Assessed, Scarring -Moisture (Rosie-wound Skin Appearance) Assessed Assessed -Color (Rosie-wound Skin Appearance) Assessed Assessed, Erythema -Temperature (Rosie-wound Skin No Abnormality No Abnormality Appearance) (Pt Warm) (Pt Warm) -Tenderness on Palpation (Rosie-wound No Skin Appearance) -Ulcer Cleansing Rinsed/ Rinsed/ Irrigated with Irrigated with Saline Saline -Foul Odor after Cleansing No -Anesthetic Used 5% Lidocaine 5% Lidocaine Gel Gel WC - Nurse 2 - General Ulcer CM Notes Start: 02/16/23 13:02 Freq: Status: Active Protocol: Activity Type Activity Date Activity User E-sign Co-sign Detail Recorded Client Recorded Date Recorded By Document 02/16/23 16:22 PL [id number] 02/16/23 16:22 PL Document 02/23/23 16:06 PL [id number] 02/23/23 16:07 PL 02/16/23 02/23/23 16:22 16:06 Wound Center Nurse 2 #6 RT BUTTOCK -Time 13:29 13:24 -Correct Patient Yes Yes -Correct Side, Site, Position Yes Yes -Correct Procedure Yes Yes -Procedure Performed Yes Yes -Type of Procedure Debridement Debridement -Clinical Debridement Subcutaneous Subcutaneous -Tissue Removed Subcutaneous Subcutaneous -Post Debridement (cm) - Length 0.5 0.3 -Post Debridement (cm) - Width 1.0 0.4 -Post Debridement (cm) - Depth 0.1 0.1 -Total Square (Post) (cm) 0.50 0.12 -Area of Debridement (cm) - Length 0.5 0.3 -Area of Debridement (cm) - Width 1.0 0.4 -Total Square (Area) (cm) 0.50 0.12 -Tunneling No No -Undermining/Tunneling No No -Circular Undermining No No -Wound/Ulcer Outcome Not Healed Not Healed -Ulcer Cleansing Rinsed/ Rinsed/ Irrigated with Irrigated with Saline Saline -Foul Odor after Cleansing No No -Bioengineered Tissue No No -Bleeding Controlled with Pressure Pressure -Treatment Response Procedure Procedure Tolerated Well Tolerated Well -Debridement - Subq, 1st 20sq cm Yes Yes Pain Scale: 0-10 Numeric Is Patient Pain Free? Yes Yes - Nurse 3 - General Ulcer D/C NN Start: 02/16/23 13:02 Freq: Status: Active Protocol: Activity Type Activity Date Activity User E-sign Co-sign Detail Recorded Client Recorded Date Recorded By Document 02/16/23 13:54 Laptop 02/16/23 13:54 Document 02/23/23 13:48 Laptop 02/23/23 13:49 02/16/23 02/23/23 13:54 13:48 Wound Care Center Nurse 3 #6 RT BUTTOCK -Ulcer Cleansing Rinsed/ Rinsed/ Irrigated with Irrigated with Saline Saline -Foul Odor after Cleansing No No -Primary Dressing Applied Mepilex Border, Mepilex Border, Promogran Promogran Falguni Matter Falguni Matter -Mepilex Border 1 1 -Promogran Falguni Matter 1 1 Pain Scale: 0-10 Numeric Is Patient Pain Free? Yes Yes - Visit Discharge Discharge Condition Stable Stable Ambulatory Status Ambulatory,Cane Ambulatory,Cane Transportation Private Auto Private Auto Accompanied by daughter daughter Medication Reconcilliation completed & Yes Yes provided to patient/care provider Clinical Summary of Care Provided Yes Yes Assessment/Plan Assessment/Plan (1) Pressure ulcer of right buttock, stage 2: CODE(S): L89.312 - Pressure ulcer of right buttock, stage 2 (2) Pressure ulcer of left buttock, stage 1: CODE(S): L89.321 - Pressure ulcer of left buttock, stage 1 PLAN: Plan Debridement as noted above, patient tolerated well. No signs/symptoms concerning for infection on exam today. Will continue to apply Falguni to the wound beds, cover with foam border dressing. Change the dressing daily or more often as needed to keep clean and dry. With dressing changes, gently cleanse the area with soap and water and pat to dry. She is encouraged to continue with offloading measures including utilizing extra foam pads for her chair/bed, changing positions at least every 1-2 hours, and frequent ambulation as tolerated. Return to the wound care center in 1 week or sooner as needed.
[2023-03-02 09:48] VITALS: BP 159/65; PULSE 84; RESP 20; TEMP 36.1; BMI 22.4
--- NOTE | 2023-03-03 07:33 | PN.PCM_ITS ---
History of Present Illness Date of Service: 03/02/23 Chief Complaint: Right buttock pressure ulceration History of Wound: Patient is referred to the wound care center by her primary care Dr. Cole for evaluation and management of a right buttock pressure sore. Patient is accompanied to her appointment today by a family member who helps with her care. Patient reports that this pressure sore has been present for about 2 weeks. The area is very tender. She has not noted a lot of drainage and does not report a foul odor from the area. At home she has been occasionally covering with Band- Aids and otherwise just keeping the area clean. She has never had a wound like this before. She reports that she feels she is generally pretty active; however, she does sleep sitting up. She sleeps sitting propped nearly straight up in her bed, does not sleep in a recliner. She has to sleep this way in order to rest and breathe comfortably and this is back and very due to her history of tongue cancer. She does not feel she sits for long periods of time. She does not have any offloading padding on her bed. She receives nutrition via PEG tube. Otherwise her medical history is significant for history of tongue cancer as noted above, hypertension, PEG tube, hypothyroidism, psoriasis (on Taltz). She denies any fevers or chills. Subjective Subjective She is doing well with dressing changes at home. No new redness, swelling, drainage. No N/V, F/C. She continues to report reduced pain to that area. Objective Data Objective Data Vital Signs: Vital Signs Temp Pulse Resp BP O2 Del Method 96.9 F L 84 20 H 159/65 H Room Air 03/02/23 09:48 03/02/23 09:48 03/02/23 09:48 03/02/23 09:48 02/23/23 13:15 Oxygen Delivery Method Room Air Weight: 135 lb Body Mass Index (BMI) 22.4 Charges/Coding Procedures Integumentary 111xxx-113xx: 64183 Lety subq tissue 20 sq cm/< Physical Exam Const alert, oriented x3 and no apparent distress HEENT head/scalp atraumatic Nose: external nose normal External Ear: external ears normal Eyes EOMs intact bilaterally General Eye: normal appearance of both eyes Resp normal respiratory effort, no retractions and no use of accessory muscles Effort and Inspection: able to speak in complete sentences Skin Wounds: wounds noted Wound Narrative: Patient has a stage II pressure ulceration to the right buttock. There is slough at the wound base but otherwise granulation tissue is noted. There is minimal erythema around the wound edges. There is no significant swelling, warmth, drainage, foul odor. There is no tracking/tunneling. It is significantly reduced in size from last week. Neuro oriented x3, moves all extremities and no focal motor deficits Debridement Note Debridement Note Wound debrided: R buttock pressure ulcer Laterality: Right Wound Grade/Stage: Stage II Type of Debridement: Excisional debridement Anesthesia Used: 5% Lidocaine Gel Depth: Down to and including healthy tissue Percentage of wound debrided: 100 Instrument Used: 3mm curette Tissue Removed: slough Severity: Limited To Skin Breakdown Amount of bleeding with debridement: Mild Bleeding Controlled with: Pressure Patient tolerated procedure: Patient tolerated procedure well Post-Debridement Measurements and Additional Note: Post-Debridement Measurements/Treatment - Nurse 1 - General Ulcer Assessment Start: 02/16/23 13:02 Freq: Status: Active Protocol: SMA Activity Type Activity Date Activity User E-sign Co-sign Detail Recorded Client Recorded Date Recorded By Document 02/16/23 13:07 KW Desktop 02/16/23 13:13 KW Document 02/23/23 13:15 [facility] Desktop 02/23/23 13:18 [facility] Document 03/02/23 09:48 DL Desktop 03/02/23 09:52 DL 02/16/23 02/23/23 03/02/23 13:07 13:15 09:48 - Today's Visit Information Type of service Initial Visit Follow-up Visit Follow-up Visit (Physician/BED RUBBER (Physician/BED RUBBER ) ) Arrival Mode Ambulatory Ambulatory Ambulatory Transfer Assistance None None Accompanied by daughter daughter domi Patient Identification Verified (Name & Yes Yes Yes ) Patient Requires Transmission-Based No No Precautions Height and Weight Height 5 ft 5 in Weight 135 lb Weight in Pounds 135.0 lbs Body Mass Index (BMI) 22.4 22.4 22.4 BMI Classification Normal Normal Normal BSA - Bent[place] 1.67 Vital Signs Temperature (97.8 F-99.1 F) 97.8 F 97 F L 96.9 F L Temperature Source Temporal Temporal Temporal Pulse Rate (60-100) 84 85 84 Pulse Location Monitor Monitor Monitor Respiratory Rate (12-18) 18 16 20 H Respiratory rate source Observation Observation Observation Oxygen Delivery Method Room Air Room Air Blood Pressure (90/60-120/80) 133/47 H 137/48 H 159/65 H Blood Pressure Mean (mm Hg) 75 77 96 Source Monitor Monitor Monitor Position Sitting Sitting Blood Pressure Location Left Arm Left Arm History Since Last Visit- (Skip if this is Patient's initial visit) Have you changed medications since your No No last visit? Any new allergies or adverse reactions No No Had a fall/change in ADL's that may No No increase risk of falls Signs or symptoms of abuse and/or No No neglect since last visit Have you been in the hospital since your No No last visit? Has dressing in place as prescribed Yes Yes Has compression in place as prescribed N/A N/A Has offloadiing in place as prescribed N/A Yes Experienced any changes in pain level or No No management Left Footwear Regular Shoe Regular Shoe Right Footwear Regular Shoe Regular Shoe Pain Scale: 0-10 Numeric Is Patient Pain Free? No Yes Yes sacrum -Pain Behavior Facial Grimacing -Pain Aggravating Factors Palpation -Alleviating Factors/Interventions Medication, Turning/ Repositioning, Will continue to monitor Communication Assessment Preferred language Citizen Of [place] Electronic Publishing Specialist Required No Able to Read Yes Able to Write Yes Communication Tools None Caregiver Communication Skills No Impairment Impairment Right Hearing Abillity Use of Hearing Aid Left Hearing Abillity Use of Hearing Aid Visual Assistive Devices Glasses Teaching Assessment Preferences Verbal,Written, Demonstration Barriers to Learning None Readiness To Learn Excellent Willingness to Engage in Self Management High Activies Readiness to Engage in Self Management High Activities Anxiety Level Calm Cooperation Cooperative Perception Coherent Interest in Health Problem Asks Questions Education Importance Acknowledges Need Does Patient Smoke tobacco or other No substances Smoking Status Former smoker Is Patient Diabetic No Functional Assessment Recent Decline in Ability to Perform Denies Any Declines Assistive Device With Patient No Culture/Hoahaoism/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 [employer] to contact place of church No WC - Nurse 1 - General Ulcer Measurement Start: 02/16/23 13:02 Freq: Status: Active Protocol: Activity Type Activity Date Activity User E-sign Co-sign Detail Recorded Client Recorded Date Recorded By Document 02/16/23 13:07 KW Desktop 02/16/23 13:13 KW Document 02/23/23 13:15 [facility] Desktop 02/23/23 13:18 BMF Document 03/02/23 09:48 DL Desktop 03/02/23 09:52 DL 02/16/23 02/23/23 03/02/23 13:07 13:15 09:48 Wound Center Nurse 1 #6 RT BUTTOCK -Combined with other wound No -Current Size (cm) - Length 0.7 0.2 0.1 -Current Size (cm) - Width 0.8 0.3 0.1 -Current Size (cm) - Depth 0.2 0.1 0.1 -Total Square Cm 0.56 0.06 0.01 -Date of Last Picture (Recall this 02/16/23 02/23/23 field) -Photo Taken Yes Yes -Tunneling No -Undermining/Tunneling No -Circular Undermining No -Exudate Amt Small Medium None Present -Exudate Type Serosanguineous Serosanguineous -Wound Margin Distinct, Distinct, Distinct, Outline Outline Outline Attached Attached Attached -Granulation Amt Small (1-33%) Small (1-33%) None Present (0 %) -Granulation Quality [place] -Slough/Fibrin Yes -Necrosis Amt Large (67-100%) Medium (34-66%) Small (1-33%) -Necrotic Tissue Type Adherent Slough Adherent Slough Adherent Slough -Structure Exposed N/A -Texture (Rosie-wound Skin Appearance) Assessed Assessed, Scarring Scarring -Moisture (Rosie-wound Skin Appearance) Assessed Assessed No Abnormality -Color (Rosie-wound Skin Appearance) Assessed Assessed, No Abnormality Erythema -Temperature (Rosie-wound Skin No Abnormality No Abnormality No Abnormality Appearance) (Pt Warm) (Pt Warm) (Pt Warm) -Tenderness on Palpation (Rosie-wound No No Skin Appearance) -Ulcer Cleansing Rinsed/ Rinsed/ Rinsed/ Irrigated with Irrigated with Irrigated with Saline Saline Saline -Foul Odor after Cleansing No No -Anesthetic Used 5% Lidocaine 5% Lidocaine 5% Lidocaine Gel Gel Gel WC - Nurse 2 - General Ulcer CM Notes Start: 02/16/23 13:02 Freq: Status: Active Protocol: Activity Type Activity Date Activity User E-sign Co-sign Detail Recorded Client Recorded Date Recorded By Document 02/16/23 16:22 PL [id number] 02/16/23 16:22 PL Document 02/23/23 16:06 PL [id number] 02/23/23 16:07 PL Document 03/02/23 12:59 PL [id number] 03/02/23 13:00 PL 02/16/23 02/23/23 03/02/23 16:22 16:06 12:59 Wound Center Nurse 2 #6 RT BUTTOCK -Time 13:29 13:24 10:06 -Correct Patient Yes Yes Yes -Correct Side, Site, Position Yes Yes Yes -Correct Procedure Yes Yes Yes -Procedure Performed Yes Yes Yes -Type of Procedure Debridement Debridement Debridement -Clinical Debridement Subcutaneous Subcutaneous Subcutaneous -Tissue Removed Subcutaneous Subcutaneous Subcutaneous -Post Debridement (cm) - Length 0.5 0.3 0.2 -Post Debridement (cm) - Width 1.0 0.4 0.4 -Post Debridement (cm) - Depth 0.1 0.1 0.1 -Total Square (Post) (cm) 0.50 0.12 0.08 -Area of Debridement (cm) - Length 0.5 0.3 0.2 -Area of Debridement (cm) - Width 1.0 0.4 0.4 -Total Square (Area) (cm) 0.50 0.12 0.08 -Tunneling No No No -Undermining/Tunneling No No No -Circular Undermining No No No -Wound/Ulcer Outcome Not Healed Not Healed Not Healed -Ulcer Cleansing Rinsed/ Rinsed/ Rinsed/ Irrigated with Irrigated with Irrigated with Saline Saline Saline -Foul Odor after Cleansing No No No -Bioengineered Tissue No No No -Bleeding Controlled with Pressure Pressure Pressure -Treatment Response Procedure Procedure Procedure Tolerated Well Tolerated Well Tolerated Well -Debridement - Subq, 1st 20sq cm Yes Yes Yes Pain Scale: 0-10 Numeric Is Patient Pain Free? Yes Yes Yes WC - Nurse 3 - General Ulcer D/C NN Start: 02/16/23 13:02 Freq: Status: Active Protocol: Activity Type Activity Date Activity User E-sign Co-sign Detail Recorded Client Recorded Date Recorded By Document 02/16/23 13:54 Laptop 02/16/23 13:54 Document 02/23/23 13:48 JF Laptop 02/23/23 13:49 Document 03/02/23 10:24 KW Desktop 03/02/23 10:25 KW 02/16/23 02/23/23 03/02/23 13:54 13:48 10:24 Wound Care Center Nurse 3 #6 RT BUTTOCK -Ulcer Cleansing Rinsed/ Rinsed/ Irrigated with Irrigated with Saline Saline -Foul Odor after Cleansing No No -Primary Dressing Applied Mepilex Border, Mepilex Border, Promogran Promogran Promogran Falguni Matter Falguni Matter Falguni Matter -Mepilex Border 1 1 -Promogran Falguni Matter 1 1 1 Pain Scale: 0-10 Numeric Is Patient Pain Free? Yes Yes Yes WC - Visit Discharge Discharge Condition Stable Stable Stable Ambulatory Status Ambulatory,Cane Ambulatory,Cane Transportation Private Auto Private Auto Private Auto Accompanied by daughter daughter Medication Reconcilliation completed & Yes Yes No provided to patient/care provider Clinical Summary of Care Provided Yes Yes Yes Assessment/Plan Assessment/Plan (1) Pressure ulcer of right buttock, stage 2: CODE(S): L89.312 - Pressure ulcer of right buttock, stage 2 PLAN: Plan Debridement as noted above, patient tolerated well. No signs/symptoms concerning for infection on exam today. Right buttock wound is very small and superficial now. Will continue to apply [place] to the wound bed, cover with foam border dressing. Change the dressing daily or more often as needed to keep clean and dry. With dressing changes, gently cleanse the area with soap and water and pat to dry. She is encouraged to continue with offloading measures including utilizing extra foam pads for her chair/bed, changing positions at least every 1-2 hours, and frequent ambulation as tolerated. Return to the wound care center in 2 weeks.
== END 2023-03-12 23:59 | disposition home or self-care (01) ==
LOC: WC 10:00
PROVIDERS: PCP Family Medicine Geriatric Medicine; Referring Provider Family Medicine; Visit Provider Physician Assistant
DX: L89.312 Pressure ulcer of right buttock, stage 2 (principal); Z93.1 Gastrostomy status; I10 Essential (primary) hypertension; L89.321 Pressure ulcer of left buttock, stage 1; E03.9 Hypothyroidism, unspecified; L40.9 Psoriasis, unspecified; Z79.890 Hormone replacement therapy; Z79.899 Other long term (current) drug therapy; Z87.891 Personal history of nicotine dependence; Z85.810 Personal history of malignant neoplasm of tongue
CPT/HCPCS: 11042; 99213; G0463

== ENCOUNTER → 2023-03-15 | Outpatient (CLI) | payer MEDICARE, SELFPAY ==
[2018-11-29 13:09] VITALS: BMI 25.0
--- OUTSIDE RECORDS SUMMARY | 2023-03-15 16:40 | XMS RPT_ITS | CCD ---
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 Name Role Phone MALLORY VITALE Unavailable Unavai labkenyon VITALE, MALLORY STEPHEN Unavailable Unavai labkenyon VITALE, MALLORY STEPHEN Unavailable Alesiavai labkenyon VITALE, MALLORY STEPHEN Unavailable Alesiavai labkenyon VITALE, MALLORY STEPHEN Unavailable Scarletti nabeel VITALE, MALLORY STEPHEN Unavailable AlesiavaADELINE Wolf Attending Unavailable MALLORY VITALE Referring ADELINE Pearson Attending Unavailable ADELINE VALENTINO Referring Unavailable AHMED, SHAMEEM AZUCENAAMMBECKI Admitting Unavaila ble AHMED SHAMEEM CARMEN Attending Unavaila ble AHMED SHAMPHYLLIS MORALES Referring Unavaila ble AHMED, SHAMEEM M Admitting Unavailable ASA, SHAMEEM M Attending Unavailable MALLORY VITALE Primary Care Unavailabl e ASA SHAMEEM Vikki Referring Unavailable ADELINE VALENTINO Attending Unavailable ADELINE VALENTINO Referring Unavailable MALLORY VITALE Primary Care UnavailPRATIMA Martinez Attending Unavailable ADELINE VALENTINO Referring Unavailable MALLORY VITALE Primary Care UnavailADELINE Leija Attending Unavailable ADELINE VALENTINO Referring Unavailable MALLORY VITALE Primary Care UnavailADELINE Leija Attending Unavailable MALLORY VITALE Referring UnavailMALLORY Feliciano Primary Care Unavaildenny Vitale MD, Mallory Escobar Primary Care Provider Surjit Mello MD Unavailable [phone] IAM MORGAN, DR MALLORY STEPHEN Primary Care Reyna owusu Iam MORGAN, Mallory Escobar Primary Care Provider Iam MORGAN, Mallory Escobar Primary Care Provider Mallory Vitale Referring Unavailable [facility], [facility] Unavailable DioniNatasha Attending Unavailable Dioni, Natasha Attending Unavailable Iam, Mallory Referring [facility] Unavailable Iam, Christgaby Referring Unavailable [facility] Unavailable Dioni, Natasha Attending Unavailable Iam MORGAN, Mallory Escobar Primary Care Provider FEMI ELAM Attending Unavailable DINESH GUTIERREZ Referring Unavailable IAM, [facility] Primary Care Unavailable FERMÍN, BÁRBARA Attending Unavailable DIONI, NATASHA Referring Unavailable FERMÍN, BÁRBARA Attending Unavailable IAM, [facility] Primary Care Unavailable FEMI ELAM Attending Unavailable IAM, [facility] Primary Care Unavailable FERMÍN, BÁRBARA Admitting Unavailable FERMÍN, BÁRBARA Attending Unavailable AGUSTINA MORGAN, DR JUANA Brito Attending Unavaildenny BYRD MD, DR SHELTON Primary Care Unavailable HILARY MORGAN, DR VELEZ Attending Unavaildenny VITALE MD, DR MALLORY STEPHEN Primary Care Unavailable IAM MORGAN, DR MALLORY STEPHEN Attending Unavailable IAM MORGAN, DR MALLORY STEPHEN Primary Care Unavailable ZHANG COUGHLIN MD Attending Unavailable IAM MORGAN, DR MALLORY STEPHEN Primary Care Unavailable CARSON MORGAN, DR SHELTON Primary Care Physician Allergies Allergy Classification Reported Allergen(s) Allergy Type Date of Onset Reaction(s) Facility (3 sources) Acetaminophen / HYDROcodone; Translations: [HYDROCODONE-ACET AMINOPHEN] Drug Allergy 02-29-20 18 [facility] Repository (3 sources) Acetaminophen / oxyCODONE; Translations: [OXYCODONE-ACETAM INOPHEN] Drug Allergy 09-23-19 18 Itching [facility]ository (1 source) Acetaminophen / HYDROcodone Drug Allergy 04-20-19 22 Rash, itching [facility]: (1 source) Acetaminophen / oxyCODONE Drug Allergy 04-20-19 Rash, itching [facility] Work Phone: (1 source) Opiate agonist; Translations: [narcotic analgesics] Drug allergy [facility] (6 sources) Acetaminophen / HYDROcodone; Translations: [acetaminophen-hy drocodone] Drug Allergy [facility] (6 sources) Acetaminophen / oxyCODONE; Translations: [acetaminophen-ox ycodone] Drug Allergy [facility] (2 sources) Adhesive Tape Propensity to adverse reactions to drug 09-10-19 [facility] (2 sources) HYDROcodone Drug Allergy 09-10-19 Itching [facility] Work Phone: (2 sources) oxyCODONE Drug Allergy 09-10-19 [facility] ([facility] source) Latex Propensity to adverse reactions to drug 09-18-19 Rash [facility] (1 source) Latex Propensity to adverse reactions 09-18-19 Rash [facility] (1 source) Wound Dressing Adhesive Drug Intolerance 09-10-19 [facility] Medications Current Medications Medication Drug Class(es) Dates Sig (Normalized) Sig (Original) acetaminophen 24 mg/ml / codeine phosphate 2.4 mg/ml oral solution (1 source) Opioid Agonist Start: 11-25-2021 End: 11-28-2021 take 200 mL by mouth every six hours as needed for pain acetaminophen-co deine 120-12 MG/5ML solution Indications: Mouth cancer (HCC) 10 mLs by PEG Tube route every 6 hours as needed for Pain for up to 3 days. 200 mL 0 11/25/2021 11/28/2021 Active acetaminophen 21.7 mg/ml / HYDROcodone bitartrate 0.5 mg/ml oral solution (1 source) Opioid Agonist Start: 11-25-2021 End: 12-02-2021 HYDROcodone-acet aminophen 7.5-325 MG per 15ML solution Indications: Mouth cancer (HCC) Take 10 mLs by mouth every 6 hours as needed for Pain for up to 7 days. 240 mL 0 11/25/2021 12/02/2021 Active amLODIPine 5 mg oral tablet (10 sources) Dihydropyridine Calcium Channel Veena Start: 06-04-2015 End: 09-09-2021 amLODIPine 5 mg oral tablet Dose : 5 mg = 1 tab(s), Oral, Daily Start Date: 12/24/15 Status: Ordered aspirin 81 mg delayed release oral tablet (3 sources) Platelet Aggregation Inhibitor, Nonsteroidal Anti-inflammatory Drug Start: 12-24-2015 Aspir-Low 81 mg oral delayed release tablet Dose : 81 mg = 1 tab(s), Oral, qDay Start Date: 12/24/15 Status: Ordered Completed/Discontinued Medications Medication Drug Class(es) Dates Sig (Normalized) Sig (Original) ascorbic acid 500 mg oral tablet (2 sources) Vitamin C take 1 tablet by mouth once daily vitamin C (ASCORBIC ACID) 500 MG tablet Take 500 mg by mouth daily 0 Suspended baclofen 10 mg oral tablet (1 source) gamma-Aminobutyri c Acid-ergic Agonist Start: 09-06-2017 End: 09-13-2017 baclofen 10 mg oral tablet Dose : 5 mg = 0.5 tab(s), Oral, TID, # 10 tab(s), 0 Refill(s) Start Date: 09/06/17 Stop Date: 09/13/17 Status: Ordered cholecalciferol 0.05 mg oral capsule (1 source) Vitamin D Cholecalciferol (VITAMIN D3) 50 MCG (1999 UT) CAPS Take by mouth 0 Suspended ibuprofen 20 mg/ml oral suspension (2 sources) Nonsteroidal Anti-inflammatory Drug Start: 09-18-2021 ibuprofen (CHILDRENS ADVIL) 100 MG/5ML suspension 20 mLs by Per G Tube route every 8 hours as needed for Fever 240 mL 3 09/18/2021 Suspended Problems Active Problems Problem Classification Problem Date Documented Date Episodic/Chronic Abdominal hernia (7 sources) Hernia of abdominal cavity 12-24-2015 Episodic Abdominal pain (2 sources) Generalized abdominal pain; Translations: [Abdominal pain] Onset: 08-16-19 Episodic Allergic reactions (8 sources) Allergy status to narcotic agent status; Translations: [Latex allergy status] Onset: 09-18-19 Episodic Cancer of head and neck (7 sources) Malignant tumor of oral cavity ; 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, unspecified] Onset: 09-18-19 Chronic Cancer; other and unspecified primary (2 sources) Personal history of malignant neoplasm of other organs and systems; Translations: [Personal history of malignant neoplasm of organs and systems] Onset: 09-18-19 Episodic Coagulation and hemorrhagic disorders (2 sources) Thrombocytopenia, unspecified; Translations: [Thrombocytopenia, unspecified] Onset: 09-10-19 Chronic Complications of surgical procedures or medical care (3 sources) Complication of gastrostomy; Translations: [Gastrostomy complication, unspecified] Onset: 07-15-19 Episodic Coronary atherosclerosis and other heart disease (2 sources) Presence of coronary angioplasty implant and graft; Translations: [Presence of coronary angioplasty implant and graft] Onset: 09-18-19 Episodic Diseases of mouth; excluding dental (1 source) Disturbances of salivary secretion; Translations: [Disturbances of salivary secretion] Onset: 09-01-19 Episodic Disorders of lipid metabolism (7 sources) Hypercholesterolemia 12-24-2015 Chronic Esophageal disorders (6 sources) Gastroesophageal reflux disease; Translations: [Gastro-esophageal reflux disease without esophagitis] Onset: 12-10-19 16 12-10-2015 Chronic Essential hypertension (13 sources) Hypertensive disorder; Translations: [Essential (primary) hypertension] Onset: 12-10-19 16 12-10-2015 Chronic Fever of unknown origin (1 source) Fever; Translations: [Fever, unspecified] Onset: 08-25-19 Episodic Headache; including migraine (2 sources) Migraine; Translations: [Migraine, unspecified, not intractable, without status migrainosus] Onset: 10-16-19 Chronic Malignant neoplasm without specification of site (7 sources) 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-24-2015 Chronic Other aftercare (2 sources) Other terminal computer operator (current) drug therapy; Translations: [Other terminal computer operator (current) drug therapy] Onset: 09-18-19 Episodic Other connective tissue disease (2 sources) Presence of right artificial knee joint; Translations: [Presence of right artificial knee joint] Onset: 09-10-19 Chronic Other gastrointestinal disorders (1 source) Dysphagia, oropharyngeal phase; Translations: [Dysphagia, oropharyngeal phase] Onset: 09-01-19 Episodic Other gastrointestinal disorders (7 sources) Heartburn 12-24-2015 Episodic Other injuries and conditions due to external causes (1 source) Traumatic AND/OR non-traumatic injury; Translations: [Other injury of unspecified body region, initial encounter] Onset: 08-14-19 Episodic Other non-traumatic joint disorders (2 sources) Pain in unspecified knee; Translations: [Pain in unspecified knee] Onset: 04-28-19 Episodic Other non-traumatic joint disorders (2 sources) Pain in right knee; Translations: [Pain in right knee] Onset: 04-28-19 Episodic Other nutritional; endocrine; and metabolic disorders (1 source) Abnormal weight loss; Translations: [Abnormal weight loss] Onset: 06-13-19 Episodic Residual codes; unclassified (2 sources) Personal history of irradiation; Translations: [Personal history of irradiation] Onset: 09-18-19 Episodic Spondylosis; intervertebral disc disorders; other back problems (3 sources) Other intervertebral disc degeneration, lumbar region; Translations: [Degeneration of lumbosacral intervertebral disc] Onset: 09-22-19 17 09-21-2016 Chronic Thyroid disorders (13 sources) Hypothyroidism; Translations: [Hypothyroidism, unspecified] Onset: 12-10-19 16 12-10-2015 Chronic Unclassified (1 source) Thrombocytosis, unspecified; Translations: [Thrombocytosis, unspecified] Onset: 09-18-19 22 Unclassified (2 sources) New Patient; Translations: [New Patient] Onset: 03-10-20 22 Past or Other Problems Problem Classification Problem Date Documented Da te Episodic/Chronic Intestinal obstruction without hernia (4 sources) Intestinal obstruction co-occurrent and due to decreased peristalsis; Translations: [Ileus, unspecified] Onset: 12-10-2015 12-10-2015 Episodic Other acquired deformities (2 sources) Spondylolisthesis; Translations: [Spondylolisthesis, lumbar region] Onset: 04-21-2016 04-21-2016 Episodic Other connective tissue disease (4 sources) Triggering of digit; Translations: [Trigger finger, right middle finger] Onset: 06-09-2015 12-31-2019 Episodic Other connective tissue disease (2 sources) Ganglion of flexor tendon sheath of finger; Translations: [Ganglion, left hand] Onset: 09-14-2018 09-14-2018 Episodic Other fractures (1 source) Unspecified fracture of sacrum, subsequent encounter for fracture with routine healing; Translations: [Unspecified fracture of sacrum, subsequent encounter for fracture with routine healing] Onset: 11-10-2017 Episodic Other gastrointestinal disorders (5 sources) Dysphagia, unspecified; Translations: [Dysphagia, unspecified] Onset: 06-12-2018 Episodic Pathological fracture (1 source) Pathological fracture, other site, initial encounter for fracture; Translations: [Pathological fracture, other site, initial encounter for fracture] Onset: 09-22-2017 Episodic Spondylosis; intervertebral disc disorders; other back problems (5 sources) Low back pain; Translations: [Lumbosacral radiculitis] Onset: 04-21-2016 09-21-2016 Episodic Unclassified (2 sources) Problem Unclassified (1 source) Thrombocytosis, unspecified; Translations: [Thrombocytosis, unspecified] Onset: 09-17-2021 Urinary tract infections (2 sources) Urinary tract infection, site not specified; Translations: [Urinary tract infection, site not specified] Onset: 04-21-2022 Episodic Results Test Name Value Interpretation Reference Range Facil ity Vital Signs Date Time Vital Sign Value Performing Clinician Facility 10-15-2022 10:42-0400 Diastolic Blood Pressure Non-Invasive [address] JUANA BERRIOS MD [facility] 10-15-2022 10:42-0400 Heart rate 72 /min DR JUANA BERRIOS MD [facility] 10-15-2022 10:42-0400 Reason For Taking VItal Signs DR JUANA BERRIOS MD [facility] 10-15-2022 10:42-0400 Respiratory rate 16 /min DR JUANA BERRIOS MD [facility] 10-15-2022 10:42-0400 Systolic Blood Pressure Non-Invasive [address] JUANA BERRIOS MD [facility] 10-15-2022 10:16-0400 Diastolic Blood Pressure Non-Invasive [address] JUANA BERRIOS MD [facility] 10-15-2022 10:16-0400 Heart rate 75 /min DR JUANA BERRIOS MD [facility] 10-15-2022 10:16-0400 Reason For Taking VItal Signs DR JUANA BERRIOS MD [facility] 10-15-2022 10:16-0400 Respiratory rate 20 /min DR JUANA BERRIOS MD [facility] 10-15-2022 10:16-0400 Systolic Blood Pressure Non-Invasive [address] JUANA BERRIOS MD [facility] 10-15-2022 09:25-0400 Diastolic Blood Pressure Non-Invasive [address] JUNAA BERRIOS MD [facility] 10-15-2022 09:25-0400 Heart rate 78 /min DR JUANA BERRIOS MD [facility] 10-15-2022 09:25-0400 Reason For Taking VItal Signs DR JUANA BERRIOS MD [facility] 10-15-2022 09:25-0400 Respiratory rate 16 /min DR JUANA BERRIOS MD [facility] 10-15-2022 09:25-0400 Systolic Blood Pressure Non-Invasive [address] JUANA BERRIOS MD [facility] 10-15-2022 09:00-0400 Body temperature 97.52 [degF] DR JUANA BERRIOS MD [facility] 10-15-2022 09:00-0400 Heart rate 77 /min DR JUANA BERRIOS MD [facility] 10-15-2022 08:47-0400 Heart rate 83 /min DR JUANA BERRIOS MD [facility] 10-15-2022 08:42-[address] JUANA BERRIOS MD [facility] 10-15-2022 08:42-0400 Heart rate 86 /min DR JUANA BERRIOS MD [facility] 08-13-2022 15:47-0400 Body temperature 97.52 [degF] ZHANG COUGHLIN MD [facility] 08-13-2022 15:47-0400 Diastolic Blood Pressure Non-Invasive 64 1 ZHANG COUGHLIN MD [facility] 08-13-2022 15:47-0400 Heart rate 84 /min ZHANG COUGHLIN MD [facility] 08-13-2022 15:47-0400 Respiratory rate 18 /min ZHANG COUGHLIN MD [facility] 08-13-2022 15:47-0400 Systolic Blood Pressure Non-Invasive 136 1 ZHANG COUGHLIN MD [facility] 07-14-2022 10:51-0400 Body height 160 cm Bárbara Holly MD Work Phone: [facility] [employer] 07-14-2022 10:51-0400 Body mass index (BMI) [Ratio] 23.91 kg/m2 Bárbara Holly MD Work Phone: [employer] 07-14-2022 10:51-0400 Body temperature 97.3 [degF] Bárbara Holly MD Work Phone: [employer] 07-14-2022 10:51-0400 Body weight 61.24 kg Bárbara Holly MD Work Phone: [employer] 07-14-2022 10:51-0400 Diastolic blood pressure 78 mm[Hg] Bárbara Holly MD Work Phone: [facility] 07-14-2022 10:51-0400 Heart rate 88 /min Bárbara Holly MD Work Phone: [facility] 07-14-2022 10:51-0400 Systolic blood pressure 159 mm[Hg] Bárbara Holly MD Work Phone: [facility] 01-31-2022 09:01-0500 Diastolic Blood Pressure Non-Invasive [address] ROSIE RICHARD MD [facility] 01-31-2022 09:01-0500 Systolic Blood Pressure Non-Invasive [address] ROSIE RICHARD MD [facility] 01-31-2022 08:59-0500 Diastolic Blood Pressure Non-Invasive [address] ROSIE RICHARD MD [facility] 01-31-2022 08:59-0500 Heart rate 88 /min DR ROSIE RICHARD MD [facility] 01-31-2022 08:59-0500 Respiratory rate 18 /min DR ROSIE RICHARD MD [facility] 01-31-2022 08:59-0500 Systolic Blood Pressure Non-Invasive [address] ROSIE RICHARD MD [facility] 01-31-2022 08:57-0500 Body temperature 96.62 [degF] DR ROSIE RICHARD MD [facility] 01-31-2022 08:57-0500 Heart rate 87 /min DR ROSIE RICHARD MD [facility] 01-31-2022 08:57-0500 Reason For Taking VItal Signs DR RSOIE RICHARD MD [facility] 01-31-2022 08:57-0500 Respiratory rate 15 /min DR ROSIE RICHARD MD [facility] 01-31-2022 07:46-0500 Body height [address] ROSIE RICHARD MD [facility] 01-31-2022 07:41-0500 Blood Pressure Cuff Size DR ROSIE RICHARD MD [facility] 01-31-2022 07:41-[address] ROSIE RICHARD MD [facility] 01-31-2022 07:41-[address] ROSIE RICHARD MD [facility] 01-31-2022 07:41-0500 Body temperature 96.62 [degF] DR ROSIE RICHARD MD [facility] 01-31-2022 07:41-0500 Diastolic Blood Pressure Non-Invasive [address] ROSIE RICHARD MD [facility] 01-31-2022 07:41-0500 Heart rate 83 /min DR ROSIE RICHARD MD [facility] 01-31-2022 07:41-0500 Respiratory rate 17 /min DR ROSIE RICHARD MD [facility] 01-31-2022 07:41-0500 Systolic Blood Pressure Non-Invasive [address] ROSIE RICHARD MD [facility] 11-25-2021 10:54-0400 Body temperature 97.59 [degF] Natasha Wheatley DO Work Phone: [facility] 11-25-2021 10:54-0400 Diastolic blood pressure 77 mm[Hg] Natasha Kelloggigham Work Phone: [facility] 11-25-2021 10:54-0400 Heart rate 74 /min [employer] [email or web address] 11-25-2021 10:54-0400 Respiratory rate 20 /min Natasha [employer] Phone: [facility] 11-25-2021 10:54-0400 SaO2% (BldA) [Mass fraction] 98 % Natasha [employer] [email or web address] 11-25-2021 10:54-0400 Systolic blood pressure 129 mm[Hg] Natasha [employer] Phone[email or web address] 11-25-2021 07:07-0400 Body height 160 cm [employer] Phone: [facility] 11-25-2021 07:07-0400 Body mass index (BMI) [Ratio] 24.62 kg/m2 [employer] Phone: [facility] 11-25-2021 07:07-0400 Body weight 63.05 kg [employer] Phone: [facility] 09-09-2021 13:41-0400 Body temperature 98.1 [degF] Natasha [employer] Phone: [facility] 09-09-2021 13:41-0400 Diastolic blood pressure 68 mm[Hg] [employer] Phone: [facility] 09-09-2021 13:41-0400 Heart rate 85 /min Natasha [employer] Phone: [facility] 09-09-2021 13:41-0400 SaO2% (BldA) [Mass fraction] 96 % [employer] Phone: [facility] 09-09-2021 13:41-0400 Systolic blood pressure 137 mm[Hg] Natasha [employer] Phone: [facility] 09-09-2021 13:32-0400 Body height 160 cm [employer] Phone: [facility] 09-09-2021 13:32-0400 Respiratory rate 16 /min Natasha Wheatley DO [facility] 08-24-2021 22:48-0400 Body temperature 100.58 [degF] DR LIDYA TUTTLE MD [facility] 08-24-2021 22:48-0400 Diastolic blood pressure 52 mm[Hg] DR LIDYA TUTTLE MD [facility] 08-24-2021 22:48-0400 Heart rate 105 /min DR LIDYA TUTTLE MD [facility] 08-24-2021 22:48-0400 Respiratory rate 20 /min DR LIDYA TUTTLE MD [facility] 08-24-2021 22:48-0400 Systolic blood pressure 94 mm[Hg] DR LIDYA TUTTLE MD [facility] 08-24-2021 21:33-0400 Diastolic blood pressure 61 mm[Hg] DR LIDYA TUTTLE MD [facility] 08-24-2021 21:33-0400 Heart rate 104 /min DR LIDYA TUTTLE MD [facility] 08-24-2021 21:33-0400 Respiratory rate 20 /min DR LIDYA TUTTLE MD [facility] 08-24-2021 21:33-0400 Systolic blood pressure 97 mm[Hg] DR LIDYA TUTTLE MD [facility] 08-24-2021 21:08-0400 Diastolic blood pressure 54 mm[Hg] DR LIDYA TUTTLE MD [facility] 08-24-2021 21:08-0400 Heart rate 107 /min DR LIDYA TUTTLE MD [facility] 08-24-2021 21:08-0400 Respiratory rate 23 /min DR LIDYA TUTTLE MD [facility] 08-24-2021 21:08-0400 Systolic blood pressure 90 mm[Hg] DR LIDYA TUTTLE MD [facility] 08-24-2021 20:32-0400 Heart rate 108 /min DR LIDYA TUTTLE MD [facility] 08-24-2021 19:16-0400 Body temperature 99.86 [degF] DR LIDYA TUTTLE MD [facility] 08-24-2021 19:16-0400 Body weight 61.[address] LIDYA TUTTLE MD [facility] 08-24-2021 19:16-0400 Heart rate 126 /min DR LIDYA TUTTLE MD [facility] 08-23-2021 10:57-0400 Body temperature 97.16 [degF] DR ROSIE RICHARD MD [facility] 08-23-2021 10:57-0400 Heart rate 88 /min DR ROSIE RICHARD MD [facility] 08-23-2021 10:57-0400 Respiratory rate 14 /min DR ROSIE RICHARD MD [facility] 08-23-2021 10:55-0400 Diastolic Blood Pressure NBP [address] ROSIE RICHARD MD [facility] 08-23-2021 10:55-0400 Heart rate 89 /min DR ROSIE RICHARD MD [facility] 08-23-2021 10:55-0400 Respiratory rate 12 /min DR ROSIE RICHARD MD [facility] 08-23-2021 10:55-0400 Systolic Blood Pressure NBP [address] ROSIE RICHARD MD [facility] 08-23-2021 10:40-0400 Diastolic Blood Pressure NBP [address] ROSIE RICHARD MD [facility] 08-23-2021 10:40-0400 Heart rate 87 /min DR ROSIE RICHARD MD [facility] 08-23-2021 10:40-0400 Respiratory rate 16 /min DR ROSIE RICHARD MD [facility] 08-23-2021 10:40-0400 Systolic Blood Pressure NBP [address] ROSIE RICHARD MD [facility] 08-23-2021 10:25-0400 Body temperature 96.08 [degF] DR ROSIE RICHARD MD [facility] 08-23-2021 10:25-0400 Diastolic Blood Pressure NBP [address] ROSIE RICHARD MD [facility] 08-23-2021 10:25-0400 Heart rate 82 /min DR ROSIE RICHARD MD [facility] 08-23-2021 10:25-0400 Systolic Blood Pressure NBP [address] ROSIE RICHARD MD [facility] 08-23-2021 08:06-0400 Body height [address] ROSIE RICHARD MD [facility] 08-23-2021 08:06-0400 Body temperature 96.62 [degF] DR ROSIE RICHARD MD [facility] 08-23-2021 08:06-0400 Body weight [address] ROSIE RICHARD MD [facility] 08-23-2021 08:06-0400 Body weight 23.83 kg/m2 DR ROSIE RICHARD MD [facility] 08-23-2021 08:06-0400 Diastolic blood pressure 66 mm[Hg] DR ROSIE RICHARD MD [facility] 08-23-2021 08:06-0400 Heart rate 84 /min DR ROSIE RICHARD MD [facility] 08-23-2021 08:06-0400 Systolic blood pressure 175 mm[Hg] DR ROSIE RICHARD MD [facility] NEGATED: Highlighted [id number] 14:02-0500 Body height 157.48 cm Mackenzie Valerio RN [facility] Work Phone: NEGATED: Highlighted [id number] 14:02-0500 Body height 157 cm Mackenzie Valerio RN [facility] Work Phone: NEGATED: Highlighted [id number] 14:02-0500 Body mass index (BMI) [Ratio] 25.33 kg/m2 Mackenzie Valerio RN [facility] Work Phone: NEGATED: Highlighted [id number] 14:02-0500 Body weight 62.6 kg Mackenzie Valerio RN [facility] Work Phone: NEGATED: Highlighted [id number] 14:02-0500 Body weight 63 kg Mackenzie Valerio RN [facility] Work Phone: NEGATED: Highlighted [id number] 12:57-0400 Body height 160.02 cm Shannon Browne RN [facility] Work Phone: NEGATED: Highlighted [id number] 12:57-0400 Body height 160 cm Shannon Hollie RN [facility] Work Phone: NEGATED: Highlighted [id number] 12:57-0400 Body mass index (BMI) [Ratio] 24.71 kg/m2 Shannon Browne RN [facility] Work Phone: NEGATED: Highlighted [id number] 12:57-0400 Body weight 63.05 kg Shannon Browne RN [facility] Work Phone: NEGATED: Highlighted [id number] 12:57-0400 Body weight 63 kg Shannon Browne RN [facility] Work Phone: Encounters Encounter Date Encounter Type Care Provider Facility Start: 10-15-2022 End: 10-15-2022 Emergency department patient visit DR JUANA BERRIOS MD Facility:B Start: 10-15-2022 End: 10-15-2022 Emergency department patient visit DR JUANA BERRIOS MD [facility] Start: 08-13-2022 End: 08-13-2022 Emergency department patient visit ZHANG COUGHLIN MD Facility:B Start: 08-13-2022 End: 08-13-2022 Emergency department patient visit ZHANG COUGHLIN MD [facility] Start: 07-14-2022 End: 07-14-2022 ambulatory BÁRBARA HOLLY [facility] Start: 07-14-2022 End: 07-14-2022 Office outpatient visit 15 minutes Bárbara Holly MD Work Phone: [facility] General Surgery Procedures Date Procedure Procedure Detail Performing Clinician Start: 09-09-2021 Basic metabolic panel calcium total Savage Sepulveda MD Work Phone: Start: 09-09-2021 Ecg routine ecg w/least 12 lds w/i&r Lucio Sepulveda MD Work Phone: Start: 08-23-2021 Esophagogastroduodenoscopy gastric outlet reduction DR ROSIE RICHARD MD Plan of Treatment Date Care Activity Detail Author Start: 12-03-2021 Screening for osteoporosis Bone Density Scan [facility] Start: 11-11-2021 Influenza vaccination Flu vaccine (#1) [facility] Start: 09-17-2021 Subsequent hospital visit by physician 09/17/2021 Hospital Encounter General Surgery Dioni Natasha Maykel, [address] [place] [address] B General Surgery Start: 09-13-2021 Annual Wellness Visit (AWV) Annual Wellness Visit (AWV) [facility] Start: 07-04-2021 COVID-19 Vaccine (4 - Booster for Moderna series) COVID-19 Vaccine (4 - Booster for Moderna series) [facility] Start: 04-20-2021 End: 04-20-2021 Patient encounter procedure Appointment [facility] Work Phone: Start: 11-11-2020 Influenza vaccination Flu vaccine (#1) [facility] Work Phone: Start: 12-31-2019 End: 12-31-2019 Patient encounter procedure App[facility]ment [facility] Work Phone: Start: 12-07-2014 DTaP/Tdap/Td vaccine (1 - Tdap) DTaP/Tdap/Td vaccine (1 - Tdap) [facility] Start: 12-07-2014 DTaP/Tdap/Td Vaccines (1 - Tdap) DTaP/Tdap/Td Vaccines (1 - Tdap) [facility] Start: 1990 Shingles Vaccine (1 of 2) Shingles Vaccine (1 of 2) [facility] Start: 1990 Zoster Vaccines (1 of 2) Zoster Vaccines (1 of 2) [facility] Start: 1952 Depression Screen Depression Screen [facility] Start: 1952 Depression Screening Depression Screening [facility] Start: 1950 Lipid panel [facility] Start: 1945 COVID-19 Vaccine (1) COVID-19 Vaccine (1) [facility] Start: 01-06-1941 COVID-19 Vaccine (#1) COVID-19 Vaccine (#1) [facility] Start: 1940 Hepatitis B Vaccines (1 of 3 - 3-dose series) Hepatitis B Vaccines (1 of 3 - 3-dose series) [facility] Start: 1940 Lipid panel Lipid Panel [facility] Start: 1940 Thyroid stimulating hormone measurement [facility] EKG 12 Lead EKG 12 Lead ECG Routine 09/09/2021 1:54 PM EDT [facility] Work Phone: End: 11-25-2021 Intermittent pulse oximetry Pulse Oximetry Spot Check Respiratory Care Routine One Time for 1 Occurrences starting 11/25/2021 until 11/25/2021 [facility] Work Phone: Immunizations Immunization Date Immunization Notes Care Provider Fa artis NEGATED: Highlighted row has not occurred!09-23-2017 tetanus toxoid, reduced diphtheria toxoid, and acellular pertussis vaccine, adsorbed Mallory Vitale MD Work Phone: [facility] Payers Date Payer Category Payer Medicare [id number] 2021 Medicare [employer] [id number] 2021-Present [address] [place] [address] Medicare HMO [id number] 1940 Unknown [id number] 1940 Unknown [id number] 1940 Unknown [id number] 1940 Unknown [id number] 1940 Unknown [id number] 1940 Unknown [id number] 1940 Unknown [id number] 1940 Unknown [id number] 1940 Unknown [id number] 1940 Unknown [id number] 1940 Unknown [id number] 1940 Unknown [id number] Medicare [id number] Medicare [id number] Medicare [id number] Unknown Social History Date Type Detail Facility Start: 09-23-2017 End: 04-28-2022 Tobacco smoking status NHIS Never smoker [facility] Work Phone: Start: 09-23-2017 End: 11-25-2021 Alcohol intake Current non-drinker of alcohol (finding) [facility] Work Phone: Start: 1940 Sex Assigned At Not on file [facility] Work Phone: Start: 12-31-2019 End: 04-20-2021 Assertion Unknown if ever smoked [facility] Work Phone: Sex Assigned At Sex [facility] Start: 08-23-2021 Tobacco smoking status Ex-smoker (finding) [facility] Start: 12-10-2015 End: 04-28-2022 Tobacco use and exposure Smokeless tobacco non-user [facility] Work Phone: Start: 08-30-2021 End: 07-14-2022 Exposure to SARS-CoV-2 (event) Not sure [facility] Work Phone: Start: 07-14-2022 Alcohol intake Lifetime non-d alvin (finding) [facility] NEGATED: Highlighted rowStart: NINF History of tobacco use Passive smoker [facility] Functional Status Date Assessment Result Facility 10-15-2022 [facility] Status [facility]-13-2022 Functional Status Standard Safet y ID band on, Allergy Band on, Call device within reach, Bed in low position, Wheels locked, Upper/Half-Length side-rails up, Bedside Cart Locked, Safety level maintained [facility] 01-31-2022 Functional Status Maintained [facility] 08-24-2021 Functional Status Minimum assistance [facility] 08-24-2021 Functional Status ID band on, Call device within reach, Bed in low position, Wheels locked, Visitor at bedside [facility] 08-23-2021 Functional Status [facility] 08-23-2021 Functional Status Maintained, More than 8 hours [facility] Mental Status Date Assessment Result Facility 10-15-2022 Mental Status Orientation Oriented x 4 [facility] 08-13-2022 Mental Status Orientation Oriented x 4 [facility] 01-31-2022 Mental Status Orientation Oriented x 4 [facility] 01-31-2022 Mental Status [facility] 08-24-2021 Mental Status Orientation Oriented x 4 [facility] 08-24-2021 Mental Status [facility] 06-13-2022 Mental Status Oriented x 4 [facility] [place] 08-23-2021 Mental Status [facility] Clinical Notes 04-20-2021 to 10-15-2022 Mar FlorezHugo Zuleikahan - 07/14/2022 10:45 AM Earl Holly MD - 07/14/2022 10:45 AM Pieter Quintana RN - 11/25/2021 10:55 AM Shan Lujan RN - 11/25/2021 9:37 AM EDTInstructions Note Date & Type Note Facility 10-15-2022 Hospital Discharge instructions Patient Education 10/15/2022 10:54:52 Headache, Migraine, Classic Migraine Headache This often severe type of headache is different from other types of headaches in that symptoms other than pain occur with the headache. Nausea and vomiting, lightheadedness, sensitivity to light (photophobia), and other visual disturbances are common migraine symptoms. The pain may last from a few hours to several days. It is not clear why migraines occur but certain factors called triggers can raise the risk of having a migraine attack. A migraine may be triggered by emotional stress or depression, or by hormone changes during the menstrual cycle. Other triggers include control pills, overuse of migraine medicines, alcohol or caffeine, foods with tyramine (such as aged cheese and wine), eyestrain, weather changes, missed meals, or too little or too much sleep. Home care Follow these tips when taking care of yourself at home: Don t drive yourself home if you were given pain medicine for your headache or are having visual symptoms. Instead, have someone else drive you home. Try to sleep when you get home. You should feel much better when you wake up. Cold can help ease migraine symptoms. Put an ice pack on your forehead or at the base of your skull. Put heat on the back of your neck to help ease any neck spasm. Drink only clear liquids or eat a light diet until your symptoms get better. This will help you avoid nausea and vomiting. How to prevent migraines Pay attention to what seems to trigger your headache. Try to avoid the triggers when you can. If you have frequent headaches, consider keeping a headache diary. In it, write down what you were doing, feeling, or eating in the hours before each headache. Show this to your healthcare provider to help find the cause of your headaches. If stress seems to be a trigger for your headaches, figure out what is causing stress in your life. Learn new ways to handle your stress. Ideas include regular exercise, biofeedback, self-hypnosis, yoga, and meditation. Talk with your healthcare provider to find out more information about managing stress. Many books and digital media are also available on this subject. Tyramine is a substance found in many foods. It can trigger a migraine in some people. These foods contain tyramine: Chocolate Yogurt All cheeses, but especially aged cheeses Smoked or pickled fish and meat, including conrad, caviar, bologna, pepperoni, and salami Liver Avocados Bananas Figs Raisins Red wine Try staying away from these foods for 1 to 2 months to see if you have fewer headaches. How to treat future headaches Take time out at the first sign of a headache, if possible. Find a quiet, dark, comfortable place to sit or lie down. Let yourself relax or sleep. Put an ice pack on your forehead or on the area of greatest pain. A heating pad and massage may help if you are having a muscle spasm and tightness in your neck. If you have been prescribed a medicine to stop a migraine headache, use this at the first warning sign of the headache for best results. First signs may be an aura or pain. If you need to take medicine often for your migraine, talk with your healthcare provider about other ways to prevent your headaches. Follow-up care Follow up with your healthcare provider, or as advised. Talk with your provider if you have frequent headaches. He or she can figure out a treatment plan. Ask if you can have medicine to take at home the next time you get a bad headache. This may keep you from having to visit the emergency department in the future. You may need to see a headache specialist (neurologist) if you continue to have headaches. When to seek medical advice Call your healthcare provider right away if any of these occur: Your head pain gets worse, or doesn t get better within 24 hours You can t keep liquids down (repeated vomiting) Pain in your sinuses, ears, or throat Fever of 100.4 F (38 C) or higher, or as directed by your healthcare provider Stiff neck Extreme drowsiness, confusion, or fainting Dizziness, or dizziness with spinning sensation (vertigo) Weakness in an arm or leg, or on one side of your face Difficulty talking or seeing 5020-0590 [employer]. [address] [place] [address]. All rights reserved. This information is not intended as a substitute for professional medical care. Always follow your healthcare professional's instructions. Follow Up Care 10/15/2022 08:33:24 With:CAT BYRD MD Address: [facility] [place] [address]- When:2-4 days [facility] 10-15-2022 Emergency department Discharge summary Discharge Instructions Thank you for allowing [facility] to assist you with your healthcare needs. The following is important discharge information regarding your hospital visit. Diagnosis from Today's Visit Headache Hypertension Migraine What to Do Next Instructions from Your Care Team No qualifying data available. Post Acute Orders No qualifying data available. You Need to Schedule the Following Appointments Follow Up with CAT BYRD MD When Within 2-4 days Where: [facility] [place], [place] [address]- Allergies Percocet Vicodin Medications Please ask your primary doctor or pharmacist before taking any other medication not listed, including over the counter drugs, herbal medications, vitamins and or supplements as they may interact with your home medications. What How Much When Instructions Last Dose Unchanged atorvastatin (atorvastatin 10 mg oral tablet) 1 tab(s) by mouth Every day Unchanged famotidine (famotidine 20 mg oral tablet) 1 tab(s) by mouth Once a day Unchanged ixekizumab (Taltz Autoinjector 80 mg/ mL subcutaneous solution) 1 Milliliter Subcutaneous Every 4 weeks Unchanged levothyroxine 100 Microgram by mouth Once a day Unchanged Misc Medication PEG tube Four (4) times a day Unchanged pantoprazole (pantoprazole 40 mg oral enteric coated tablet) 1 tab(s) by mouth Once a day Please take this list to your next doctor s visit. Bring all medications you take, including over the counter medications, herbals and other supplements with you to your doctor s visit. Patients and families are reminded to discard old lists and to update any records with all medication providers or retail pharmacies. Education Materials Migraine Headache This often severe type of headache is different from other types of headaches in that symptoms other than pain occur with the headache. Nausea and vomiting, lightheadedness, sensitivity to light (photophobia), and other visual disturbances are common migraine symptoms. The pain may last from a few hours to several days. It is not clear why migraines occur but certain factors called triggers can raise the risk of having a migraine attack. A migraine may be triggered by emotional stress or depression, or by hormone changes during the menstrual cycle. Other triggers include control pills, overuse of migraine medicines, alcohol or caffeine, foods with tyramine (such as aged cheese and wine), eyestrain, weather changes, missed meals, or too little or too much sleep. Home care Follow these tips when taking care of yourself at home: Don t drive yourself home if you were given pain medicine for your headache or are having visual symptoms. Instead, have someone else drive you home. Try to sleep when you get home. You should feel much better when you wake up. Cold can help ease migraine symptoms. Put an ice pack on your forehead or at the base of your skull. Put heat on the back of your neck to help ease any neck spasm. Drink only clear liquids or eat a light diet until your symptoms get better. This will help you avoid nausea and vomiting. How to prevent migraines Pay attention to what seems to trigger your headache. Try to avoid the triggers when you can. If you have frequent headaches, consider keeping a headache diary. In it, write down what you were doing, feeling, or eating in the hours before each headache. Show this to your healthcare provider to help find the cause of your headaches. If stress seems to be a trigger for your headaches, figure out what is causing stress in your life. Learn new ways to handle your stress. Ideas include regular exercise, biofeedback, self-hypnosis, yoga, and meditation. Talk with your healthcare provider to find out more information about managing stress. Many books and digital media are also available on this subject. Tyramine is a substance found in many foods. It can trigger a migraine in some people. These foods contain tyramine: Chocolate Yogurt All cheeses, but especially aged cheeses Smoked or pickled fish and meat, including conrad, caviar, bologna, pepperoni, and salami Liver Avocados Bananas Figs Raisins Red wine Try staying away from these foods for 1 to 2 months to see if you have fewer headaches. How to treat future headaches Take time out at the first sign of a headache, if possible. Find a quiet, dark, comfortable place to sit or lie down. Let yourself relax or sleep. Put an ice pack on your forehead or on the area of greatest pain. A heating pad and massage may help if you are having a muscle spasm and tightness in your neck. If you have been prescribed a medicine to stop a migraine headache, use this at the first warning sign of the headache for best results. First signs may be an aura or pain. If you need to take medicine often for your migraine, talk with your healthcare provider about other ways to prevent your headaches. Follow-up care Follow up with your healthcare provider, or as advised. Talk with your provider if you have frequent headaches. He or she can figure out a treatment plan. Ask if you can have medicine to take at home the next time you get a bad headache. This may keep you from having to visit the emergency department in the future. You may need to see a headache specialist (neurologist) if you continue to have headaches. When to seek medical advice Call your healthcare provider right away if any of these occur: Your head pain gets worse, or doesn t get better within 24 hours You can t keep liquids down (repeated vomiting) Pain in your sinuses, ears, or throat Fever of 100.4 F (38 C) or higher, or as directed by your healthcare provider Stiff neck Extreme drowsiness, confusion, or fainting Dizziness, or dizziness with spinning sensation (vertigo) Weakness in an arm or leg, or on one side of your face Difficulty talking or seeing [id number] [employer]. [address] [facility], [place] [address]. All rights reserved. This information is not intended as a substitute for professional medical care. Always follow your healthcare professional's instructions. Additional Information VACCINATE! IT SAVES LIVES! Members of the community who have not yet received the COVID-19 vaccine and would like to receive it can visit one of [facility] vaccine clinics. There are many vaccine clinic locations within the State. For locations and available times, please visit www.gettheshot.coronavirus.[place].gov/. It is important to note that some COVID mobile vaccine clinics are held outdoors and may be canceled in rainy or stormy conditions. To learn more about pediatric vaccinations (ages 5-11), we invite you to visit the [facility] webpage. https://www.[employer].org/pages/63-Cwwfx-Pwxdozwzjep-Nnghdlxvkh-Rjufq-L uestions.html To learn more about the COVID-19 vaccine, we invite you to visit the CDC website for a list of frequently asked questions. https://www.cdc.gov/coronavirus/2019-nc ov/vaccines/faq.html [facility] Patient Portal Access Instructions: Stay connected with your healthcare team and access your personal medical information anytime with the [facility] Patient Portal. If you would like a full copy of your medical records please contact the [facility] Medical Records Department Monday through Monday between 8a.m. and 4:30p.m. Please follow the directions below to access the portal: 1.Access the email account you provided upon registration to the hospital.2.Look for an invitation email from [facility].3.Open the email and access the invitation link: Accept Invitation to [facility]4.Fill in the required antoine to create your account. Sign into [email or web address] with your username and password that you created in the above steps to stay up to date. You can then view a summary of results, a summary of your visits, and the ability to download your summaries to your computer or send the information securely to a physician. Remember that your healthcare information is confidential, so carefully consider who you will allow to register on the [facility] Patient Portal for access to your information. You can also access the [facility] Patient Portal on the [employer] frank. Simply click on Health Records under Health Data and then click on the [facility] logo. HOW TO SAFELY DISPOSE OF PRESCRIPTION MEDICATIONS Please use one of the following methods to safely dispose of your unused medications. 1.Use a drug disposal kit: the drug disposal pouch allows you to safely discard your old and unused drugs. Ask your nurse to give you one when you are discharged.2.Visit a local take-back location: Many local pharmacies and police departments have programs that collect old and unwanted prescription drugs. Call your local pharmacy or go to http://[employer].YellowBrck/9U3Io1q to find one close to you.3.Make use of household items: Use cat litter or old coffee grounds to dispose medications if other options are not available. Mix your drugs with these household products, seal them in an airtight container and throw it into the garbage. Call [facility]: [phone] to be sure your drugs can be disposed of in this way. Some medicines may require a different approach.4.Never flush your medications down the toilet. IF YOU HAVE BEEN PRESCRIBED AN OPIOIDS FOR PAIN If you have been prescribed an opioid (such as hydrocodone, oxycodone or morphine), it is critical to understand the possible side effects and risks of opioid pain medications. Even when taken as directed, opioids can have several side effects including: Tolerance, meaning you might need to take more of a medication for the same pain relief. Nausea, vomiting and/or constipation. Sleepiness, dizziness, dry mouth, confusion, depression or itching. Physical dependence, meaning you have withdrawal symptoms when a medication is stopped ? this can develop within a few days. KNOW YOUR RESPONSIBILITIES It is important to know exactly how much and how often to take the opioid pain medications you are prescribed. Never take opioids in higher amounts or more often than prescribed. Do not combine opioids with alcohol or other drugs that cause drowsiness, such as benzodiazepines, also known as benzos, including diazepam and alprazolam, muscle relaxants or sleep aids. Never sell or share prescription opioids. This is illegal. Store opioids in a secure place and out of reach of others (including children, family, friends and visitors). The last page(s) of this document has been signed and retained as a CHART COPY Signatures Patient Education Materials Headache, Migraine, Classic Medication Leaflets My discharge plan and instructions have been reviewed and explained to me and IMARYANNE SUSAN M understand my current condition and have read and understand these discharge instructions. I have received a written copy of the plan/instructions. If I have questions, I am aware that I should contact my doctor. Patient/Service Line Layer Signature: Date/Time: Relationship to Patient: Witness Name/Signature: Date/Time: [facility] 10-15-2022 Note ORIGINAL EXAMINATION: CT OF THE HEAD WITHOUT CONTRAST 10/15/2022 9:27 am TECHNIQUE: CT of the head was performed without the administration of intravenous contrast. Automated exposure control, iterative reconstruction, and/or weight based adjustment of the mA/kV was utilized to reduce the radiation dose to as low as reasonably achievable. COMPARISON: August 13, 2022 HISTORY: ORDERING SYSTEM PROVIDED HISTORY: Reason for Exam: pain/headache FINDINGS: There is some volume loss and thickening of the zamora of the maxillary sinuses, compatible with chronic sinusitis. No calvarial abnormality seen. The study is somewhat compromised by motion artifact, but allowing for this, there is no intracranial hemorrhage or mass identified. Ventricles, sulci and crowley-white junctions are preserved. Mild chronic ischemic small vessel white matter changes are noted. No additional contributory abnormality. IMPRESSION: No acute finding allowing for motion artifact. Interpreted by: Adeline Garner MD Preliminary Report By: Adeline Garner MD Electronically signed By Adeline Garner MD Dictated Date: 10/15/2022 9:32:08 AM Prelim Date: 10/15/2022 9:34:14 AM Sign Date: 10/15/2022 9:34:14 AM Ordering Provider: JUANA BERRIOS [facility] 10-15-2022 Note Sinus rhythm Borderline prolonged WV interval Electronic Signature: JUANA BERRIOS MD 10/15/2022 08:56:20 [facility] 08-13-2022 Hospital Discharge instructions Patient Education 08/13/2022 17:03:41 Laceration, Small or Superficial: Not Sutured Small or Superficial Laceration: Not Stitched A laceration is a cut through the skin. A laceration requires stitches or huma if it is deep or spread open. A small laceration often doesn't require stitches. You may need a tetanus shot. This may be given if you have no record of this vaccination and the object that caused the cut may lead to tetanus Home care Your healthcare provider may prescribe an antibiotic. This is to help prevent infection. Follow all instructions for taking this medicine. Take the medicine every day until it is gone or you are told to stop. You should not have any left over. The healthcare provider may prescribe medicines for pain. Follow instructions for taking them. Follow the healthcare provider s instructions on how to care for the cut. Wash your hands with soap and warm water before and after caring for cut. This helps prevent infection. Keep the wound clean and dry. If a bandage was applied and it becomes wet or dirty, replace it. Otherwise, leave it in place for the first 24 hours, then change it once a day or as directed. Clean the wound daily: oAfter removing any bandage, wash the area with soap and water. Use a wet cotton swab to loosen and remove any blood or crust that forms. oAfter cleaning, keep the wound clean and dry. Talk with your healthcare provider before applying any antibiotic ointment to the wound. Reapply a fresh bandage. You may remove the bandage to shower as usual after the first 24 hours, but don't soak the area in water (no tub baths or swimming) for the next 5 days. If the area gets wet, gently pat it dry with a clean cloth. Replace the wet bandage with a dry one. Don't do activities that may reinjure your wound. Don't scratch, rub, or pick at the area. Check the wound daily for signs of infection listed below. Follow-up care Follow up with your healthcare provider, or as advised. When to seek medical advice Call your healthcare provider right away if any of these occur: Wound bleeding not controlled by direct pressure Signs of infection, including increasing pain in the wound, increasing wound redness or swelling, or pus or bad odor coming from the wound Fever of 100.4 F (38 C) or higher, or as directed by your healthcare provider Wound edges reopen Wound changes colors Numbness around the wound Decreased movement around the injured area [id number] [employer]. [address] [place] [address], [place] [address]. All rights reserved. This information is not intended as a substitute for professional medical care. Always follow your healthcare professional's instructions. Follow Up Care 08/13/2022 15:44:54 With:MALLORY VITALE MD Address: [address] [place] [id number] [phone] When:2-4 days [facility] 08-13-2022 Emergency department Discharge summary Discharge Instructions Thank you for allowing [facility] to assist you with your healthcare needs. The following is important discharge information regarding your hospital visit. Diagnosis from Today's Visit Skin tear What to Do Next Instructions from Your Care Team No qualifying data available. Post Acute Orders No qualifying data available. You Need to Schedule the Following Appointments Follow Up with MALLORY VITALE MD When Within 2-4 days Where: [address] [place] [phone] Allergies Percocet Vicodin Medications Please ask your primary doctor or pharmacist before taking any other medication not listed, including over the counter drugs, herbal medications, vitamins and or supplements as they may interact with your home medications. What How Much When Instructions Last Dose Unchanged amLODIPine (amLODIPine 5 mg oral tablet) 1 tab(s) by mouth Every day Unchanged atorvastatin (atorvastatin 10 mg oral tablet) 1 tab(s) by mouth Every day Unchanged ixekizumab (Taltz Autoinjector 80 mg/ mL subcutaneous solution) 1 Milliliter Subcutaneous Every 4 weeks Unchanged levothyroxine 100 Microgram by mouth Once a day Unchanged omeprazole (NF) (omeprazole 20 mg oral delayed release capsule (NF)) 3 cap by mouth Once a day Please take this list to your next doctor s visit. Bring all medications you take, including over the counter medications, herbals and other supplements with you to your doctor s visit. Patients and families are reminded to discard old lists and to update any records with all medication providers or retail pharmacies. Education Materials Small or Superficial Laceration: Not Stitched A laceration is a cut through the skin. A laceration requires stitches or huma if it is deep or spread open. A small laceration often doesn't require stitches. You may need a tetanus shot. This may be given if you have no record of this vaccination and the object that caused the cut may lead to tetanus Home care Your healthcare provider may prescribe an antibiotic. This is to help prevent infection. Follow all instructions for taking this medicine. Take the medicine every day until it is gone or you are told to stop. You should not have any left over. The healthcare provider may prescribe medicines for pain. Follow instructions for taking them. Follow the healthcare provider s instructions on how to care for the cut. Wash your hands with soap and warm water before and after caring for cut. This helps prevent infection. Keep the wound clean and dry. If a bandage was applied and it becomes wet or dirty, replace it. Otherwise, leave it in place for the first 24 hours, then change it once a day or as directed. Clean the wound daily: oAfter removing any bandage, wash the area with soap and water. Use a wet cotton swab to loosen and remove any blood or crust that forms. oAfter cleaning, keep the wound clean and dry. Talk with your healthcare provider before applying any antibiotic ointment to the wound. Reapply a fresh bandage. You may remove the bandage to shower as usual after the first 24 hours, but don't soak the area in water (no tub baths or swimming) for the next 5 days. If the area gets wet, gently pat it dry with a clean cloth. Replace the wet bandage with a dry one. Don't do activities that may reinjure your wound. Don't scratch, rub, or pick at the area. Check the wound daily for signs of infection listed below. Follow-up care Follow up with your healthcare provider, or as advised. When to seek medical advice Call your healthcare provider right away if any of these occur: Wound bleeding not controlled by direct pressure Signs of infection, including increasing pain in the wound, increasing wound redness or swelling, or pus or bad odor coming from the wound Fever of 100.4 F (38 C) or higher, or as directed by your healthcare provider Wound edges reopen Wound changes colors Numbness around the wound Decreased movement around the injured area [id number] [employer]. [address] [place] [address]. All rights reserved. This information is not intended as a substitute for professional medical care. Always follow your healthcare professional's instructions. Additional Information VACCINATE! IT SAVES LIVES! Members of the community who have not yet received the COVID-19 vaccine and would like to receive it can visit one of [facility] vaccine clinics. There are many vaccine clinic locations within the [facility]. For locations and available times, please visit www.gettheshot.coronavirus.[place].gov/. It is important to note that some COVID mobile vaccine clinics are held outdoors and may be canceled in rainy or stormy conditions. To learn more about pediatric vaccinations (ages 5-11), we invite you to visit the [facility] webpage. https://www.[employer].org/pages/07-Naden-Caohhgxvgrk-Xmrilojwzo-Ugbxk-V uestions.html To learn more about the COVID-19 vaccine, we invite you to visit the CDC website for a list of frequently asked questions. https://www.cdc.gov/coronavirus/2019-nc ov/vaccines/faq.html [facility] Patient Portal Access Instructions: Stay connected with your healthcare team and access your personal medical information anytime with the [facility] Patient Portal. If you would like a full copy of your medical records please contact the [facility] Medical Records Department Monday through Monday between 8a.m. and 4:30p.m. Please follow the directions below to access the portal: 1.Access the email account you provided upon registration to the hospital.2.Look for an invitation email from [facility].3.Open the email and access the invitation link: Accept Invitation to [facility]4.Fill in the required antoine to create your account. Sign into [email or web address] with your username and password that you created in the above steps to stay up to date. You can then view a summary of results, a summary of your visits, and the ability to download your summaries to your computer or send the information securely to a physician. Remember that your healthcare information is confidential, so carefully consider who you will allow to register on the [facility] Patient Portal for access to your information. You can also access the [facility] Patient Portal on the [employer] frank. Simply click on Health Records under Health Data and then click on the [facility] logo. HOW TO SAFELY DISPOSE OF PRESCRIPTION MEDICATIONS Please use one of the following methods to safely dispose of your unused medications. 1.Use a drug disposal kit: the drug disposal pouch allows you to safely discard your old and unused drugs. Ask your nurse to give you one when you are discharged.2.Visit a local take-back location: Many local pharmacies and police departments have programs that collect old and unwanted prescription drugs. Call your local pharmacy or go to http://[employer]YellowBrck/7W4Ll7s to find one close to you.3.Make use of household items: Use cat litter or old coffee grounds to dispose medications if other options are not available. Mix your drugs with these household products, seal them in an airtight container and throw it into the garbage. Call [facility]: [phone] to be sure your drugs can be disposed of in this way. Some medicines may require a different approach.4.Never flush your medications down the toilet. IF YOU HAVE BEEN PRESCRIBED AN OPIOIDS FOR PAIN If you have been prescribed an opioid (such as hydrocodone, oxycodone or morphine), it is critical to understand the possible side effects and risks of opioid pain medications. Even when taken as directed, opioids can have several side effects including: Tolerance, meaning you might need to take more of a medication for the same pain relief. Nausea, vomiting and/or constipation. Sleepiness, dizziness, dry mouth, confusion, depression or itching. Physical dependence, meaning you have withdrawal symptoms when a medication is stopped ? this can develop within a few days. KNOW YOUR RESPONSIBILITIES It is important to know exactly how much and how often to take the opioid pain medications you are prescribed. Never take opioids in higher amounts or more often than prescribed. Do not combine opioids with alcohol or other drugs that cause drowsiness, such as benzodiazepines, also known as benzos, including diazepam and alprazolam, muscle relaxants or sleep aids. Never sell or share prescription opioids. This is illegal. Store opioids in a secure place and out of reach of others (including children, family, friends and visitors). The last page(s) of this document has been signed and retained as a CHART COPY Signatures Patient Education Materials Laceration, Small or Superficial: Not Sutured Medication Leaflets My discharge plan and instructions have been reviewed and explained to me and IMARYANNE SUSAN M understand my current condition and have read and understand these discharge instructions. I have received a written copy of the plan/instructions. If I have questions, I am aware that I should contact my doctor. Patient/Service Line Layer Signature: Date/Time: Relationship to Patient: Witness Name/Signature: Date/Time: [facility] 08-13-2022 Note ORIGINAL EXAMINATION: CT OF THE HEAD WITHOUT CONTRAST 08/13/2022 4:43 pm TECHNIQUE: CT of the head was performed without the administration of intravenous contrast. Automated exposure control, iterative reconstruction, and/or weight based adjustment of the mA/kV was utilized to reduce the radiation dose to as low as reasonably achievable. COMPARISON: None. HISTORY: ORDERING SYSTEM PROVIDED HISTORY: Reason for Exam: INJURY FINDINGS: BRAIN/VENTRICLES: There is no acute intracranial hemorrhage, mass effect or midline shift. No abnormal extra-axial fluid collection. The crowley-white differentiation is maintained without evidence of an acute infarct. Scattered white matter hypodensities are most consistent with the sequela of chronic small vessel change. There is no evidence of hydrocephalus. ORBITS: The visualized portion of the orbits demonstrate no acute abnormality. SINUSES: The visualized paranasal sinuses and mastoid air cells demonstrate no acute abnormality. SOFT TISSUES/SKULL: No acute abnormality of the visualized skull or soft tissues. IMPRESSION: No acute intracranial abnormality. Interpreted by: Roshan Arredondo Preliminary Report By: Roshan Arredondo Electronically signed By Roshan Arredondo Dictated Date: 08/13/2022 4:47:48 PM Prelim Date: 08/13/2022 4:50:46 PM Sign Date: 08/13/2022 4:50:46 PM [facility] Note ORIGINAL EXAMINATION: CT OF THE HEAD WITHOUT CONTRAST 08/13/2022 4:43 pm TECHNIQUE: CT of the head was performed without the administration of intravenous contrast. Automated exposure control, iterative reconstruction, and/or weight based adjustment of the mA/kV was utilized to reduce the radiation dose to as low as reasonably achievable. COMPARISON: None. HISTORY: ORDERING SYSTEM PROVIDED HISTORY: Reason for Exam: INJURY FINDINGS: BRAIN/VENTRICLES: There is no acute intracranial hemorrhage, mass effect or midline shift. No abnormal extra-axial fluid collection. The crowley-white differentiation is maintained without evidence of an acute infarct. Scattered white matter hypodensities are most consistent with the sequela of chronic small vessel change. There is no evidence of hydrocephalus. ORBITS: The visualized portion of the orbits demonstrate no acute abnormality. SINUSES: The visualized paranasal sinuses and mastoid air cells demonstrate no acute abnormality. SOFT TISSUES/SKULL: No acute abnormality of the visualized skull or soft tissues. IMPRESSION: No acute intracranial abnormality. Interpreted by: Roshan Arredondo Preliminary Report By: Roshan Arredondo Electronically signed By Roshan Arredondo Dictated Date: 08/13/2022 4:47:48 PM Prelim Date: 08/13/2022 4:50:46 PM Sign Date: 08/13/2022 4:50:46 PM Ordering Provider: [facility] 07-14-2022 History of Present illness Narrative The patient comes in for G-tube check. She states she was originally placed on Jevity tube feeds, then was changed to a different formula due to a national shortage of the Jevity. She noted some coating of her tube which she was unable to clear. She is also noted some drainage at the G-tube site. She is now back on Jevity and is tolerating it well. She states her weight has been stable. On exam, she is alert and oriented x3. She is in no acute distress. Weight is 135 pounds. Skin and sclerae are anicteric. Chest excursions are normal. The abdomen is soft and nontender. Hypertrophic granulation tissue at the tube site was treated with silver nitrate. No evidence of infection. The tube flushes easily. Impression: Hypertrophic granulation tissue. Plan: Continue present management. Advised tube flushing with ruth kurtis daily. Return as needed. documented in this encounter [facility] 04-05-2022 Note Have them clean arou nd PEG twice daily with peroxide and place a gauze under the bumper. I did place an order for home health care at the time of her procedure. I will put another order in today. [facility] 03-18-2022 Note Patient: Bala acuna Procedure Summary Date: 03/18/22 Room / Location: [facility] Operating Room Anesthesia Start: 837 Anesthesia Stop: 911 Procedure: PEG PLACEMENT Diagnosis: Dysphagia, unspecified (Dysphagia, unspecified [R13.10]) Surgeons: Bárbara Holly MD Responsible Provider: Jonathan Tuttle MD Anesthesia Type: general anesthesia, TIVA ASA Status: 3 Anesthesia Type: general anesthesia, TIVA Vitals Value Taken Time BP 109/53 03/18/22 0917 Temp 97.5 03/18/22 0917 Pulse 75 03/18/22 0917 Resp 16 03/18/22 0917 SpO2 100 03/18/22 0917 Anesthesia Post Evaluation Patient location during evaluation: PACU Patient participation: complete - patient participated Level of consciousness: sleepy but conscious Pain management: satisfactory to patient Airway patency: patent Dental Injury: no Cardiovascular status: acceptable, blood pressure returned to baseline and hemodynamically stable Respiratory status: acceptable and spontaneous ventilation Hydration status: euvolemic Nausea/Vomiting: controlled No notable events documented. Patient can be discharged once all PACU criteria has been met. [facility] 03-18-2022 Note Patient: Bala acuna Procedure Summary Date: 03/18/22 Room / Location: [facility] Operating Room Anesthesia Start: 837 Anesthesia Stop: 911 Procedure: PEG PLACEMENT Diagnosis: Dysphagia, unspecified (Dysphagia, unspecified [R13.10]) Surgeons: Bárbara Holly MD Responsible Provider: Jonathan Tuttle MD Anesthesia Type: general anesthesia, TIVA ASA Status: 3 Anesthesia Type: general anesthesia, TIVA Vitals Value Taken Time BP 109/53 03/18/22 0916 Temp 97.5 03/18/22 0916 Pulse 75 03/18/22 0916 Resp 16 03/18/22 0916 SpO2 100 03/18/22 0916 Anesthesia Post Evaluation Patient location during evaluation: PACU Patient participation: complete - patient participated Level of consciousness: sleepy but conscious Pain management: satisfactory to patient Multimodal analgesia pain management approach Airway patency: patent Two or more strategies used to mitigate risk of obstructive sleep apnea Cardiovascular status: acceptable and hemodynamically stable Respiratory status: acceptable Hydration status: acceptable No notable events documented. MIPS #430 PONV Patient did not receive an inhalational anesthetic ([id number] MIPS # 424 Perioperative Temperature Management Anesthesia time was less than 60 minutes ([id number]) MIPS #477 Multimodal Pain Management Not emergent case Patientw was administered multimodal pain management (two or more drugs and/or interventions excluding systemic opioids) in the periopeartive period occurring at some time between 6 hours prior to anesthesia start time until discharged from PACU ([id number]) MIPS #404 Anesthesiology Smoking Abstinence MIPS 404 I completed my handoff to the receiving clinician during which we: 1. Identified the patient 2. Identified the responsible provider 3. Reviewed the pertinent medical history 4. Discussed the surgical course 5. Reviewed intra-op anesthesia management and issues during anesthesia 6. Set expectations for post-procedure period 7. Allowed opportunity for questions and acknowledgement of understanding. [facility] 03-18-2022 Note H&P reviewed. The pa tient was examined and there are no changes to the H&P. [facility] 03-11-2022 Note Patient: Bala acuna Procedure Information Date/Time: 03/18/2230 Procedure: PEG PLACEMENT Location: [facility] OR [address] [place] [address] Operating Room Surgeons: Bárbara Holly MD Past Medical History: Past Medical History: No date: Arthritis No date: Cancer (CMS/HCC) (HCC) Comment: tongue ; SCHEDULED FOR THE SURGERY ON 09/17/21 No date: GERD (gastroesophageal reflux disease) No date: Hypertension No date: Thyroid disease Past Surgical History: Past Surgical History: No date: CAROTID ENDARTERECTOMY No date: CATARACT EXTRACTION, BILATERAL; Bilateral No date: CHOLECYSTECTOMY No date: COLON SURGERY No date: COLONOSCOPY No date: GASTROSTOMY TUBE PLACEMENT No date: KNEE ARTHROPLASTY; Right No date: LYMPHADENECTOMY Comment: R side neck No date: MOUTH FLOOR MASS EXCISION No date: TONGUE BIOPSY No date: TONSILLECTOMY (HISTORICAL) Social History: TOBACCO: reports that she has never smoked. She has never used smokeless tobacco. ETOH: reports no history of alcohol use. Social History Substance and Sexual Activity Drug Use No Family History: Family History Problem Relation Name Age of Onset ? Heart disease Mother Screening: Postmenopausal Clinical information reviewed: Tobacco Allergies Meds Problems Med Hx Surg Hx OB Status Fam Hx Soc Hx Physical Exam Airway Mallampati: III TM distance: >3 FB Neck ROM: full Comments: Tongue cancer hxMouth Open: limitedendotracheal tube not in place Cardiovascular Dental (+) edentulous Pulmonary Abdominal Anesthesia Plan ASA 3 general anesthesia and TIVA The patient is not a current smoker. Patient was not previously instructed to abstain from smoking on day of procedure. Anesthetic plan and risks discussed with patient (daughter). patient is NPO Short ERAS Pt with hx hemiglossectomy with subsequent radiation therapy AMI Screening STOP-Bang Total Score: 2 Labs: Lab Results Component Value Date WBC 8.4 09/18/2021 HGB 11.6 (L) 09/18/2021 MCV 90.0 09/18/2021 Lab Results Component Value Date NA 133 (L) 09/18/2021 K 4.5 09/18/2021 CL 103 09/18/2021 CO2 24 09/18/2021 BUN 14 09/18/2021 CREATININE 0.82 09/18/2021 GLUCOSE 167 (H) 09/18/2021 CALCIUM 8.3 (L) 09/18/2021 PROT 5.8 (L) 09/18/2021 ALKPHOS 86 09/18/2021 AST 31 09/18/2021 No components found for: LVEF, LVEFMODE No echocardiogram results found for the past 14 days (Final) Narrative Ordered by an unspecified provider. SINUS RHYTHM PROLONGED QT INTERVAL Compared to ECG 09/09/2021 13:54:19 Prolonged QT interval now present Electronically Signed On 09-18-2021 20:26:36 EDT by [facility] 03-11-2022 Note Comprehensive PreSur gical History and Physical ? Name: Bala Medina : 1940 (Age-81 y.o.) Date of Service: Pt seen/examined on 03/11/2022 Procedure Information Date/Time: 01/06/23 0830 Procedure: PEG PLACEMENT Location: [facility] Operating Room Surgeons: Bárbara Holly MD Chief Complaint: Dysphagia History Of Present Illness: 81 y.o. female who we are asked to see/evaluate by No name on file for pre-operative evaluation prior to . ? Pt. Presenting for the above surgery for dysphagia.She has swallowing dysfunction and she states she is unable to tolerate liquid or solid foods without a significant amount of coughing after she swallows. She states she is now afraid to eat. In 1997, she had what sounds like a partial glossectomy with RND and adjuvant chemoradiation. Pt. Was seen and evaluated by Dr. Holly and elected for procedure. Past Medical History: Past Medical History: No date: Arthritis No date: Cancer (CMS/HCC) (HCC) Comment: tongue ; SCHEDULED FOR THE SURGERY ON 09/17/21 No date: GERD (gastroesophageal reflux disease) No date: Hypertension No date: Thyroid disease Past Surgical History: Past Surgical History: No date: CAROTID ENDARTERECTOMY No date: CATARACT EXTRACTION, BILATERAL; Bilateral No date: CHOLECYSTECTOMY No date: COLON SURGERY No date: COLONOSCOPY No date: GASTROSTOMY TUBE PLACEMENT No date: KNEE ARTHROPLASTY; Right No date: LYMPHADENECTOMY Comment: R side neck No date: MOUTH FLOOR MASS EXCISION No date: TONGUE BIOPSY No date: TONSILLECTOMY (HISTORICAL) Medications Prior to Admission: Prior to Admission medications Medication Sig Start Date End Date Taking? Authorizing Provider BUDESONIDE PO Take by mouth. Historical Provider, ibuprofen 100 MG/5ML suspension 20 MLS BY PER G TUBE ROUTE EVERY 6 HOURS NEEDED FOR PAIN Patient not taking: Reported on 03/10/2022 09/17/21 09/17/22 Natasha Wheatley DO levothyroxine (Synthroid, Levoxyl) 100 MCG tablet Take 100 mcg by mouth every morning. Take on an empty stomach. 01/17/22 Historical Provider, pantoprazole (ProtoNix) 40 MG EC tablet Take 40 mg by mouth. 09/18/21 Historical Provider, CHRONIC NARCOTIC USE: No Allergies: Oxycodone-acetaminophen, Hydrocodone-acetaminophen, Wound dressing adhesive, and Latex If patient has opioid allergy, is it okay to take Acetaminophen: Yes Social History: TOBACCO: reports that she has never smoked. She has never used smokeless tobacco. ETOH: reports no history of alcohol use. Social History Substance and Sexual Activity Drug Use No Family History: Family History Problem Relation Name Age of Onset Heart disease Mother REVIEW OF SYSTEMS: Review of Systems Constitutional: Negative. Negative for unexpected weight change. HENT: Negative. Eyes: Negative. Respiratory: Negative. Cardiovascular: Negative. Gastrointestinal: Negative. Endocrine: Negative. Genitourinary: Negative. Musculoskeletal: Negative. Skin: Negative. Neurological: Negative. Hematological: Negative. Psychiatric/Behavioral: Negative. All other systems reviewed and are negative. Physical Exam: Physical Exam Vitals reviewed. Constitutional: Appearance: Normal appearance. HENT: Head: Normocephalic. Right Ear: Tympanic membrane normal. Left Ear: Tympanic membrane normal. Nose: Nose normal. Eyes: Extraocular Movements: Extraocular movements intact. Pupils: Pupils are equal, round, and reactive to light. Cardiovascular: Rate and Rhythm: Normal rate and regular rhythm. Pulses: Normal pulses. Heart sounds: Normal heart sounds. Pulmonary: Effort: Pulmonary effort is normal. Breath sounds: Normal breath sounds. Abdominal: General: Abdomen is flat. Bowel sounds are normal. Palpations: Abdomen is soft. Musculoskeletal: Cervical back: Normal range of motion and neck supple. Skin: General: Skin is warm and dry. Neurological: General: No focal deficit present. Mental Status: She is alert. Psychiatric: Mood and Affect: Mood normal. Vitals: Vitals Value Taken Time BP 88/58 03/11/22 1255 Temp 36.6 ?C (97.8 ?F) 03/11/22 1243 Pulse 86 03/11/22 1243 Resp 16 03/11/22 1243 SpO2 94 % 03/11/22 1243 Labs: Lab Results Component Value Date WBC 8.4 09/18/2021 HGB 11.6 (L) 09/18/2021 MCV 90.0 09/18/2021 Lab Results Component Value Date NA 133 (L) 09/18/2021 K 4.5 09/18/2021 CL 103 09/18/2021 CO2 24 09/18/2021 BUN 14 09/18/2021 CREATININE 0.82 09/18/2021 GLUCOSE 167 (H) 09/18/2021 CALCIUM 8.3 (L) 09/18/2021 PROT 5.8 (L) 09/18/2021 ALKPHOS 86 09/18/2021 AST 31 09/18/2021 Mike's Simple Cardiac Risk Index: MIKE'S SIMPLE CARDIAC RISK SCORE: 0 Interpretation: 0 Points Class I 0.5% 1 Point Class II 1.3% 2 Points Class III 3.6% 3+ Points Class IV 9.1% PAT Pain Score: Postop Pain Management Plan (Pain consult ordered?): Pain consult not indicated at (more content not included)... [facility] 03-11-2022 Note Comprehensive PreSur gical History and Physical ? Name: Bala Medina : 1940 (Age-81 y.o.) Date of Service: Pt seen/examined on 03/11/2022 Procedure Information Date/Time: 03/18/22829 Procedure: PEG PLACEMENT Location: [facility] OR Operating Room Surgeons: Bárbara Holly MD Chief Complaint: Dysphagia History Of Present Illness: 81 y.o. female who we are asked to see/evaluate by No name on file for pre-operative evaluation prior to . ? Pt. Presenting for the above surgery for dysphagia.She has swallowing dysfunction and she states she is unable to tolerate liquid or solid foods without a significant amount of coughing after she swallows. She states she is now afraid to eat. In 1997, she had what sounds like a partial glossectomy with RND and adjuvant chemoradiation. Pt. Was seen and evaluated by Dr. Holly and elected for procedure. 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 ; SCHEDULED FOR THE SURGERY ON 09/17/21 No date: GERD (gastroesophageal reflux disease) No date: Hypertension No date: Thyroid disease Past Surgical History: Past Surgical History: No date: CAROTID ENDARTERECTOMY No date: CATARACT EXTRACTION, BILATERAL; Bilateral No date: CHOLECYSTECTOMY No date: COLON SURGERY No date: COLONOSCOPY No date: GASTROSTOMY TUBE PLACEMENT No date: KNEE ARTHROPLASTY; Right No date: LYMPHADENECTOMY Comment: R side neck No date: MOUTH FLOOR MASS EXCISION No date: TONGUE BIOPSY No date: TONSILLECTOMY (HISTORICAL) Medications Prior to Admission: Prior to Admission medications Medication Sig Start Date End Date Taking? Authorizing Provider BUDESONIDE PO Take by mouth. Historical Provider, ibuprofen 100 MG/5ML suspension 20 MLS BY PER G TUBE ROUTE EVERY 6 HOURS NEEDED FOR PAIN Patient not taking: Reported on 03/10/2022 09/17/21 09/17/22 Natasha Wheatley DO levothyroxine (Synthroid, Levoxyl) 100 MCG tablet Take 100 mcg by mouth every morning. Take on an empty stomach. 01/17/22 Historical Provider, pantoprazole (ProtoNix) 40 MG EC tablet Take 40 mg by mouth. 09/18/21 Historical Provider, CHRONIC NARCOTIC USE: No Allergies: Oxycodone-acetaminophen, Hydrocodone-acetaminophen, Wound dressing adhesive, and Latex If patient has opioid allergy, is it okay to take Acetaminophen: Yes Social History: TOBACCO: reports that she has never smoked. She has never used smokeless tobacco. ETOH: reports no history of alcohol use. Social History Substance and Sexual Activity Drug Use No Family History: Family History Problem Relation Name Age of Onset Heart disease Mother REVIEW OF SYSTEMS: Review of Systems Constitutional: Negative. Negative for unexpected weight change. HENT: Negative. Eyes: Negative. Respiratory: Negative. Cardiovascular: Negative. Gastrointestinal: Negative. Endocrine: Negative. Genitourinary: Negative. Musculoskeletal: Negative. Skin: Negative. Neurological: Negative. Hematological: Negative. Psychiatric/Behavioral: Negative. All other systems reviewed and are negative. Physical Exam: Physical Exam Vitals reviewed. Constitutional: Appearance: Normal appearance. HENT: Head: Normocephalic. Right Ear: Tympanic membrane normal. Left Ear: Tympanic membrane normal. Nose: Nose normal. Eyes: Extraocular Movements: Extraocular movements intact. Pupils: Pupils are equal, round, and reactive to light. Cardiovascular: Rate and Rhythm: Normal rate and regular rhythm. Pulses: Normal pulses. Heart sounds: Normal heart sounds. Pulmonary: Effort: Pulmonary effort is normal. Breath sounds: Normal breath sounds. Abdominal: General: Abdomen is flat. Bowel sounds are normal. Palpations: Abdomen is soft. Musculoskeletal: Cervical back: Normal range of motion and neck supple. Skin: General: Skin is warm and dry. Neurological: General: No focal deficit present. Mental Status: She is alert. Psychiatric: Mood and Affect: Mood normal. Vitals: Vitals Value Taken Time BP 88/58 03/11/22 1255 Temp 36.6 ?C (97.8 ?F) 03/11/22 1243 Pulse 86 03/11/22 1243 Resp 16 03/11/22 1243 SpO2 94 % 03/11/22 1243 Labs: Lab Results Component Value Date WBC 8.4 09/18/2021 HGB 11.6 (L) 09/18/2021 MCV 90.0 09/18/2021 Lab Results Component Value Date NA 133 (L) 09/18/2021 K 4.5 09/18/2021 CL 103 09/18/2021 CO2 24 09/18/2021 BUN 14 09/18/2021 CREATININE 0.82 09/18/2021 GLUCOSE 167 (H) 09/18/2021 CALCIUM 8.3 (L) 09/18/2021 PROT 5.8 (L) 09/18/2021 ALKPHOS 86 09/18/2021 AST 31 09/18/2021 Mike's Simple Cardiac Risk Index: MIKE'S SIMPLE CARDIAC RISK SCORE: 0 Interpretation: 0 Points Class I 0.5% 1 Point Class II 1.3% 2 Points Class III 3.6% 3+ Points Class IV 9.1% PAT Pain Score: Postop Pain Management Plan (Pain consult ordered?): Pain consult not indicated at (more content not included)... [facility] 01-31-2022 Hospital Discharge instructions Patient Education 01/31/2022 09:02:20 PEG Tube Removal, Care After PEG Tube Removal, Care After This sheet gives you information about how to care for yourself after your procedure. Your health care provider may also give you more specific instructions. If you have problems or questions, contact your health care provider. What can I expect after the procedure? After the procedure, it is common to have: Mild discomfort at the opening in your skin where the tube was removed (tube removal site). A small amount of drainage from the opening. Follow these instructions at home: Care of the tube removal site Follow instructions from your health care provider about how to take care of your tube removal site. Make sure you: ?Wash your hands with soap and water before you change your bandage (dressing). If soap and water are not available, use hand floorman. ?Change your dressing as told by your health care provider. Check your tube removal site every day for signs of infection. Check for: ?Redness, swelling, or pain. ?Fluid or blood. ?Warmth. ?Pus or a bad smell. Do not take baths, swim, or use a hot tub until your health care provider approves. Ask your health care provider if you may take showers. You may only be allowed to take sponge baths. Activity Return to your normal activities as told by your health care provider. Ask your health care provider what activities are safe for you. Do not lift anything that is heavier than 10 lb (4.5 kg), or the limit that you are told, until your health care provider says that it is safe. General instructions Take fixk-ves-obxhicu and prescription medicines only as told by your health care provider. Follow instructions from your health care provider about eating and drinking. Keep all follow-up visits as told by your health care provider. This is important. Contact a health care provider if: You have a fever. You have pain in your abdomen. You have redness, swelling, or pain around your tube removal site. You have fluid or blood coming from your tube removal site. Your tube removal site feels warm to the touch. You have pus or a bad smell coming from your tube removal site. You have nausea or vomiting. Get help right away if: You have persistent bleeding from your tube removal site. You have severe pain in your abdomen. You are not able to eat or drink anything by mouth. Summary Follow instructions from your health care provider about how to take care of your tube removal site. Do not take baths, swim, or use a hot tub until your health care provider approves. Ask your health care provider if you may take showers. You may only be allowed to take sponge baths. Check your tube removal site every day for signs of infection. Return to your normal activities as told by your health care provider. This information is not intended to replace advice given to you by your health care provider. Make sure you discuss any questions you have with your health care provider. Document Released: 10/30/2017 Document Revised: 02/09/2018 Document Reviewed: 10/30/2017 Tweet Category Patient Education 2020 [employer] Follow Up Care 01/25/2022 13:20:11 With:ROSIE RICHARD MD Address: [address] [place] [phone] When: only if needed [facility] 01-31-2022 Summary of episode note Discharge Instructions Thank you for allowing [facility] to assist you with your healthcare needs. The following is important discharge information regarding your hospital visit. Your Care Team IAM MORGAN, MALLORY STEPHEN What to do next Follow Up Appointments Follow Up with ROSIE RICHARD MD When Only if needed Where: [address] [facility] [address] [place] [address]- [phone] Allergies Percocet Vicodin Medications Please ask your primary doctor or pharmacist before taking any other medication not listed, including over the counter drugs, herbal medications, vitamins and or supplements as they may interact with your home medications. What How Much When Instructions Last Dose Unchanged amLODIPine (amLODIPine 5 mg oral tablet) 1 tab(s) by mouth Every day Unchanged atorvastatin (atorvastatin 10 mg oral tablet) 1 tab(s) by mouth Every day Unchanged ixekizumab (Taltz Autoinjector 80 mg/ mL subcutaneous solution) 1 Milliliter Subcutaneous Every 4 weeks Unchanged levothyroxine 100 Microgram by mouth Once a day Unchanged omeprazole (NF) (omeprazole 20 mg oral delayed release capsule (NF)) 3 cap by mouth Once a day Please take this list to your next doctor s visit. Bring all medications you take, including over the counter medications, herbals and other supplements with you to your doctor s visit. Patients and families are reminded to discard old lists and to update any records with all medication providers or retail pharmacies. Education Materials PEG Tube Removal, Care After This sheet gives you information about how to care for yourself after your procedure. Your health care provider may also give you more specific instructions. If you have problems or questions, contact your health care provider. What can I expect after the procedure? After the procedure, it is common to have: Mild discomfort at the opening in your skin where the tube was removed (tube removal site). A small amount of drainage from the opening. Follow these instructions at home: Care of the tube removal site Follow instructions from your health care provider about how to take care of your tube removal site. Make sure you: ? Wash your hands with soap and water before you change your bandage (dressing). If soap and water are not available, use hand floorman. ? Change your dressing as told by your health care provider. Check your tube removal site every day for signs of infection. Check for: ? Redness, swelling, or pain. ? Fluid or blood. ? Warmth. ? Pus or a bad smell. Do not take baths, swim, or use a hot tub until your health care provider approves. Ask your health care provider if you may take showers. You may only be allowed to take sponge baths. Activity Return to your normal activities as told by your health care provider. Ask your health care provider what activities are safe for you. Do not lift anything that is heavier than 10 lb (4.5 kg), or the limit that you are told, until your health care provider says that it is safe. General instructions Take agic-pui-husxxtb and prescription medicines only as told by your health care provider. Follow instructions from your health care provider about eating and drinking. Keep all follow-up visits as told by your health care provider. This is important. Contact a health care provider if: You have a fever. You have pain in your abdomen. You have redness, swelling, or pain around your tube removal site. You have fluid or blood coming from your tube removal site. Your tube removal site feels warm to the touch. You have pus or a bad smell coming from your tube removal site. You have nausea or vomiting. Get help right away if: You have persistent bleeding from your tube removal site. You have severe pain in your abdomen. You are not able to eat or drink anything by mouth. Summary Follow instructions from your health care provider about how to take care of your tube removal site. Do not take baths, swim, or use a hot tub until your health care provider approves. Ask your health care provider if you may take showers. You may only be allowed to take sponge baths. Check your tube removal site every day for signs of infection. Return to your normal activities as told by your health care provider. This information is not intended to replace advice given to you by your health care provider. Make sure you discuss any questions you have with your health care provider. Document Released: 10/30/2017 Document Revised: 02/09/2018 Document Reviewed: 10/30/2017 Tweet Category Patient Education 2020 [employer] Additional Information VACCINATE! IT SAVES LIVES! Members of the community who have not yet received the COVID-19 vaccine and would like to receive it can visit one of [facility] vaccine clinics. There are many vaccine clinic locations within the [facility]. For locations and available times, please visit https://[email or web address].[place].gov /. It is important to note that some COVID mobile vaccine clinics are held outdoors and may be canceled in rainy or stormy conditions. To learn more about pediatric vaccinations (ages 5-11), we invite you to visit the [facility] webpage. [email or web address]/[email or web address]-[email or web address]-Y [email or web address].html To learn more about the COVID-19 vaccine, we invite you to visit the [employer] website for a list of frequently asked questions. [email or web address] [facility] Patient Portal Access Instructions: Stay connected with your healthcare team and access your personal medical information anytime with the [facility] Patient Portal.If you would like a full copy of your medical records, please contact the [facility] Medical Records Department, Monday through Monday between 8a.m. and 4:30p.m. Please follow the directions below to access the portal: 1.Access the email account you provided upon registration to the hospital.2.Look for an invitation email from [facility].3.Open the email and access the invitation link: Accept Invitation to [facility]4.Fill in the required antoine to create your account. Sign into [email or web address] with your username and password that you created in the above steps to stay up to date. You can then view a summary of results, a summary of your visits, and the ability to download your summaries to your computer or send the information securely to a physician. Remember that your healthcare information is confidential, so carefully consider who you will allow to register on the [facility] Patient Portal for access to your information. You can also access the [facility] Patient Portal on the [employer] frank. Simply click on Health Records under Health Data and then click on the [employer] logo. HOW TO SAFELY DISPOSE OF PRESCRIPTION MEDICATIONS Please use one of the following methods to safely dispose of your unused medications. 1.Use a drug disposal kit: the drug disposal pouch allows you to safely discard your old and unused drugs. Ask your nurse to give you one when you are discharged.2.Visit a local take-back location: Many local pharmacies and police departments have programs that collect old and unwanted prescription drugs. Call your local pharmacy or go to http://[employer].YellowBrck/5A0Ut8b to find one close to you.3.Make use of household items: Use cat litter or old coffee grounds to dispose medications if other options are not available. Mix your drugs with these household products, seal them in an airtight container and throw it into the garbage. Call [facility]: [phone] to be sure your drugs can be disposed of in this way. Some medicines may require a different approach.4.Never flush your medications down the toilet. IF YOU HAVE BEEN PRESCRIBED AN OPIOID FOR PAIN If you have been prescribed an opioid (such as hydrocodone, oxycodone or morphine), it is critical to understand the possible side effects and risks of opioid pain medications. Even when taken as directed, opioids can have several side effects including: Tolerance, meaning you might need to take more of a medication for the same pain relief. Nausea, vomiting and/or constipation. Sleepiness, dizziness, dry mouth, confusion, depression or itching. Physical dependence, meaning you have withdrawal symptoms when a medication is stopped, can develop within a few days. KNOW YOUR RESPONSIBILITIES It is important to know exactly how much and how often to take the opioid pain medications you are prescribed. Never take opioids in higher amounts or more often than prescribed. Do not combine opioids with alcohol or other drugs that cause drowsiness, such as benzodiazepines, also known as benzos, including diazepam and alprazolam, muscle relaxants or sleep aids. Never sell or share prescription opioids. This is illegal. Store opioids in a secure place and out of reach of others (including children, family, friends and visitors). The last page of this document has been signed and retained as a CHART COPY. Signatures Patient Education Materials PEG Tube Removal, Care After Medication Leaflets My discharge plan and instructions have been reviewed and explained to me and IMARYANNE SUSAN M understand my current condition and have read and understand these discharge instructions. I have received a written copy of the plan/instructions. If I have questions, I am aware that I should contact my doctor. Patient/Service Line Layer Signature: Date/Time: Relationship to Patient: Witness Name/Signature: Date/Time: [facility] History of Present illness Narrative Pt and family verbalized understanding of recovery instructions, pt verbalized a readiness to be discharged home. Pt discharged home via wheelchair accompanied by RN/volunteer. Pt has had all their belongings returned to them at discharge Pt received from OR via cart, spont. Resp. With NEONATAL PEDIATRIC NURSE in attendance. Placed on monitor. Monitor alarms on in PACU documented in this encounter [facility] Work Phone: 11-25-2021 Hospital Discharge instructions Natasha Wheatley DO - 11/25/2021 9:43 AM EDT Home Instructions Dietary Instructions Abundant water, Popsicles, Broth, Jello, Gatorade, Tea, Sherbet - Frequently Repeated Advance to soft foods may be added gradually as tolerated: Mashed Potatoes, Soft Cereals, Soft-Boiled and Poached Eggs, Rice, Noodles, Puddings, Soups, Gravy, and Apple Sauce AVOID: [place] Fruit (orange and lemon juices), Hot and Seasoned Foods, and Regular Solid Foods General Instructions 1. Quiet activity for 7 days. Heavy lifting, straining, or physical exertion should be avoided. 2. Milk and dairy products may be introduced after you can swallow effectively to clear secretions. Otherwise the phlegm and mucus build-up in the throat may cause too much congestion. Coughing, hacking, and clearing of the throat are to be avoided. 3. Encourage fluids and adequate intake of soft foods. Drink plenty of fluids after the surgery. Staying well-hydrated is associated with less pain. The pain may radiate and cause ear discomfort. It is normal for the pain to be more apparent during sleep and in the mornings. 4. A sore throat/mouth is to be expected and may last up to 2 weeks in duration. An ice collar or cold compress to the neck is soothing and may be used if desired. 5. Ibuprofen (Motrin or Advil) can be used safely for pain control after surgery. For the first few days following surgery, pain medication should be given on a regular schedule. 6. A low-grade fever up to 100.5 degrees may persist for a few days after the surgery. Good fluid intake helps to keep the fever down. 7. You should have the prescriptions filled for use beginning the day of the operation. Take them as directed. Resume home medications unless instructed otherwise. Call our Office at [phone] 1. If bleeding should occur. 2. If you have any problems, questions, or concerns IF YOU HAVE AN EMERGENCY, AND ARE UNABLE TO REACH THE DOCTOR AT THE ABOVE NUMBER, CALL 911. documented in this encounter [facility] Work Phone: 09-18-2021 Note Physician Discharge Summary Patient Name: Bala Medina Patient Age: 81 y.o. Patient : 1940 Admit date: 09/17/2021 Discharge date: 09/18/2021 Admitting Physician: No admitting provider for patient encounter. 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 * Consults: none Disposition: home Code status, advanced directives: Reason for Admission (data from H&P) Ms. 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 She had a local recurrence for which she underwent resection of the floor of mouth with full thickness skin graft. She has had issues with swallowing and has PEG tube for nutrition . She continues to eat comfort foods by mouth. She is independent with ADLs at baseline and loves to cook and bake on a regular basis. She lives alone. She does not have too much difficulty in her daily chores as long as she takes her time Specific reportable studies: Recent Results (from the past 48 hour(s)) Lactic acid, plasma Collection Time: 09/18/21 4:00 AM Result Value Ref Range Lactic Acid 2.3 (HH) 0.7 - 2.0 mmol/L Calcium, Ionized Collection Time: 09/18/21 4:00 AM Result Value Ref Range Ionized Ca 4.20 (L) 4.30 - 5.20 mg/dL pH, Bld 7.45 7.31 - 7.46 NA CBC auto differential Collection Time: 09/18/21 4:00 AM Result Value Ref Range WBC 8.4 3.6 - 10.7 10*3/uL RBC 3.84 3.80 - 5.20 10*6/uL Hemoglobin 11.6 (L) 11.7 - 16.0 g/dL Hematocrit 34.6 (L) 35.0 - 47.0 % MCV 90.0 79.0 - 98.0 fL MCH 30.3 26.0 - 34.0 pg MCHC 33.6 32.0 - 36.0 % RDW 15.2 (H) 11.5 - 14.5 % Platelets 333 140 - 440 10*3/uL MPV 8.2 7.4 - 12.4 fL Granulocytes % 88.8 (H) 40.0 - 80.0 % Lymphocyte % 4.4 (L) 20.0 - 40.0 % Monocytes 6.7 2.0 - 10.0 % Eosinophils 0.0 (L) 1.0 - 6.0 % Basophils 0.1 0.0 - 2.0 % Absolute Neut # 7.5 (H) 1.8 - 7.0 10*3/uL Absolute Lymph # 0.4 (L) 1.0 - 4.3 10*3/uL Absolute Union # 0.6 0.0 - 0.8 10*3/uL Absolute Eos # 0.0 0.0 - 0.5 10*3/uL Absolute Baso # 0.0 0.0 - 0.2 10*3/uL Protime-INR Collection Time: 09/18/21 4:00 AM Result Value Ref Range Protime 10.6 9.0 - 12.0 s INR 1.0 0.9 - 1.1 NA APTT Collection Time: 09/18/21 4:00 AM Result Value Ref Range aPTT 26.3 20.0 - 30.5 s Magnesium Collection Time: 09/18/21 4:00 AM Result Value Ref Range Magnesium 2.1 1.6 - 2.3 mg/dL Phosphorus Collection Time: 09/18/21 4:00 AM Result Value Ref Range Phosphorus 3.2 2.5 - 4.5 mg/dL Comprehensive Metabolic Panel Collection Time: 09/18/21 4:00 AM Result Value Ref Range Sodium 133 (L) 135 - 145 mmol/L Potassium 4.5 3.5 - 5.1 mmol/L Chloride 103 98 - 107 mmol/L CO2 24 22 - 30 mmol/L Anion Gap 6 3 - 13 mmol/L Glucose 167 (H) 70 - 100 mg/dL BUN 14 9 - 20 mg/dL CREATININE 0.82 0.52 - 1.25 mg/dL eGFR 77.7 >60 mL/min EGFR IF NonAfrican Malian 67.0 >60 mL/min Calcium 8.3 (L) 8.4 - 10.4 mg/dL Albumin,Serum 3.4 (L) 3.5 - 5.0 g/dL Total Protein 5.8 (L) 6.3 - 8.2 g/dL Total Bilirubin 0.5 0.2 - 1.3 mg/dL Alkaline Phosphatase 86 38 - 126 U/L ALT 16 0 - 34 U/L AST 31 15 - 46 U/L Vitals: 09/18/21 0500 09/18/21 0600 09/18/21 0700 09/18/21 0825 BP: (!) 101/48 (!) 133/57 (!) 105/49 Pulse: 85 85 83 Resp: 13 14 15 Temp: 97 ?F (36.1 ?C) TempSrc: Axillary SpO2: 96% 96% 100% Weight: Height: Summation of hospital course: She was observed in the icu for over 12 hrs after the surgery, she was extubated in the immediate post op Period . She had an uneventful night at the ICU . As per the discussion with the ENT surgeon she is being discharged home in a stable condition with out patient follow up with ENT . Physical Examination Upon Discharge: General- AAOx3, patient compliant with exam, in no acute distress HEENT / neck Several scars and post op deformity of the head and neck area from total neck dissection in the past Supple, No JVD, no lymphadenopathy s/p lymphadenectomy , no thyromegaly, no masses Cardiovascular No visualized heaves/lifts or palbable thrills, RRR, S1S2, No M/R/G Pulmonary Adequate and equal lung expansion, no use of accesory muscles, no discrepancies noted on palpation/percussion, CTA b/l, no R/R/W Abdomen: + BS x 4, soft, NTND, no organomegaly Extremities + Radial pulses b/l, + PT/DP pulses b/l, no C/C/E x 4 Neurological CN II-XII grossly intact b/l, no focal nerve deficits noted, Strength 5/5 in all 4 Extremities, Reflexes 2/4 throughout. Future Appointment(s) Mallory Vitale MD Patient Instructions Discharge Diet: regular diet and Tube feeds via PEG Special Instructions: Please return to ED or call your physician if you have: 1. Fevers > 101.5 unresponsive to tylenol. 2. Abdominal pain and/or distention 3. Intractable nausea, v (more content not included)... [facility] 09-09-2021 Hospital Discharge instructions Lisa Holly RN - 09/09/2021 HOLD MULTIVITAMINS FOR 5 DAYS BEFORE SURGERY MAY TAKE TYLENOL NEEDED FOR PAIN MAY TAKE ALL OTHER MEDICATIONS PRESCRIBED ARRIVE 2 HOURS PRIOR TO SURGERY BE AT THE HOSPITAL AT 11:00 am Check in at registration using photo ID and insurance card Have a responsible adult that will be able to take you home and will be able to stay with you when you are home. NO FOOD AFTER MIDNIGHT THE NIGHT BEFORE SURGERY This includes candy, gum, and mints MAY have CLEAR LIQUIDS (WATER, APPLE JUICE, CRANBERRY JUICE, BLACK COFFEE, TEA, CARBONATED POP GATORADE) To drink until arrival time for surgery *(NOTE: IF YOU ARE A DIABETIC AVOID HIGH SUGAR BEVERAGES)* Wear loose comfortable clean clothing that you can go home in Leave all jewelry, contact lenses and valuables at home Only one visitor is permitted at this time Bring printed medication list with you Write the date and times of last dose DO NOT USE alcohol, recreational drugs or tobacco products for 24 hours before surgery Please write down any questions that you may have for your surgeon, anesthesiologist, Etc. The following attachments cannot be sent through Care Everywhere.Skin Grafts: Pre-op (Chilean)Skin Grafts: Post-op (Chilean)documented in this encounter [facility] Work Phone: 08-24-2021 Hospital Discharge instructions Patient Education 08/24/2021 21:58:39 Abdominal Pain, Unknown Cause, (Female) Unknown Causes of Abdominal Pain (Female) The exact cause of your belly (abdominal) pain is not clear. This does not mean that this is something to worry about. Everyone likes to know the exact cause of the problem. But sometimes with belly pain, there is no clear-cut cause, and this could be a good thing. The good news is that your symptoms can be treated, and you will feel better. Your condition does not seem serious now. But sometimes the signs of a serious problem may take more time to appear. For this reason, it is important for you to watch for any new symptoms, problems, or worsening of your condition. Over the next few days, the abdominal pain may come and go. Or it may be constant. Other common symptoms can include nausea and vomiting. Sometimes it can be difficult to tell if you feel nauseous. You may just feel bad and not connect that feeling to nausea. Constipation, diarrhea, and a fever may go along with the pain. The pain may continue even if treated correctly over the following days. Depending on how things go, sometimes the cause can become clear and may need more or different treatment. Additional evaluations, medicines, or tests may also be needed. Home care Your healthcare provider may prescribe medicine for pain, symptoms, or an infection. Follow the healthcare provider's instructions for taking these medicines. General care Rest as much as you can until your next exam. No strenuous activities. Try to find positions that ease discomfort. A small pillow placed on the abdomen may help relieve pain. Something warm on your abdomen (such as a heating pad) may help, but be careful not to burn yourself. Diet Don t force yourself to eat, especially if having cramps, vomiting, or diarrhea. Water is important so you don't get dehydrated. Soup may also be good. Sports drinks may also help, especially if they are not too acidic. Don't drink sugary drinks as this can make things worse. Take liquids in small amounts. Don t guzzle them. Caffeine sometimes makes the pain and cramping worse. Don t take dairy products if you have vomiting or diarrhea. Don't eat large amounts at a time. Wait a few minutes between bites. Eat a diet low in fiber (called a low-residue diet). Foods allowed include refined breads, white rice, fruit and vegetable juices without pulp, tender meats. These foods will pass more easily through the intestine. Don t have whole-grain foods, whole fruits and vegetables, meats, seeds and nuts, fried or fatty foods, dairy, alcohol and spicy foods until your symptoms go away. Follow-up care Follow up with your healthcare provider, or as advised, if your pain does not begin to improve in the next 24 hours. Call 911 Call 911 if any of these occur: Trouble breathing Confusion Fainting or loss of consciousness Rapid heart rate Seizure When to seek medical advice Call your healthcare provider right away if any of these occur: Pain gets worse or moves to the right lower abdomen New or worsening vomiting or diarrhea Swelling of the abdomen Unable to pass stool for more than 3 days Fever of 100.4 F (38 C) or higher, or as directed by your healthcare provider. Blood in vomit or bowel movements (dark red or black color) Yellow color of eyes and skin (jaundice) Weakness, dizziness Chest, arm, back, neck, or jaw pain Unexpected vaginal bleeding or missed period Can't keep down liquids or water and you are getting dehydrated [id number] [employer]. [address] [place] [address], [place] [address]. All rights reserved. This information is not intended as a substitute for professional medical care. Always follow your healthcare professional's instructions. Follow Up Care 08/24/2021 18:57:56 With:MALLORY VITALE Address: [address] [place] [address] [address] [place] [address]- [phone] Business (1) When:1-2 days Comments:Be sure to follow-up closely with your doctor, return if any worsening concerning symptoms such as worsening pain vomiting fever. [facility] 08-24-2021 SARS-CoV-2 (COVID-19) RNA PAYAM+probe Ql (Nph) Negative (08/24/21 7:51 PM) AO Auto Urine SS 08-24-2021 Evaluation + Plan note Diagnostic Tests PendingUrine Culture 08/24/21Blood Culture (bacterial) 08/24/21Blood Culture (bacterial) 08/24/21 [facility] 08-23-2021 Hospital Discharge instructions Patient Education 08/23/2021 11:05:14 How to Care for a Feeding Tube How to Care for a Feeding Tube A feeding tube is a soft, flexible tube through which medicine, water, and liquid food can be given. A person may have a feeding tube if she or he has trouble swallowing or cannot have food or medicine by mouth. Supplies needed to care for the tube site: Clean gloves. Clean washcloth, gauze pads, or soft paper towel. Cotton swabs. Skin barrier ointment or cream, such as petroleum jelly. Soap and water. Pre-cut foam pads or gauze for around the tube. Tube tape. Anchoring device (optional). How to care for the tube site 1.Have all supplies ready and available. 2.Wash your hands well. 3.Put on clean gloves. 4.If there is a foam pad or gauze under the tube stabilizing disc and it is soiled or moist or has been there for more than one day, replace it. 5.Check the skin around the tube site for redness, a rash, swelling, drainage, or extra tissue growth. If you notice any of these, call your health care provider. 6.Use water and soap to moisten gauze pads and cotton swabs. 7.Use the moistened cotton swabs to wipe the area closest to the tube, right near the opening in the abdomen (stoma). 8.Use the moistened gauze pads to wipe the surrounding skin. 9.Rinse with water. 10.Use a washcloth, dry gauze pad, or soft paper towel to dry the skin and stoma site. 11.If the skin is red, use a cotton swab to apply a skin barrier cream or ointment in a circular motion. The cream or ointment will help the wound to heal. Do not apply antibiotic ointments at the tube site. 12.Apply a new pre-cut foam pad or gauze around the tube. If there is no drainage, you can leave off the foam pads or gauze. 13.Secure the pre-cut foam pad or gauze with tape around the edges. 14.Use tape or an anchoring device to fasten the feeding tube to the skin for comfort or as directed. Alternate where you put the tape to avoid damaging the skin. 15.Position the person in a semi-upright position, at about a 30 45 degree angle. 16.Throw away used supplies. 17.Remove your gloves. 18.Wash your hands. Supplies needed to flush a feeding tube: Clean gloves. A clean 60 mL syringe that connects to the feeding tube. Towel. Sterile or purified water. Follow these guidelines: ?Use sterile water if: ?You have a weak immune system and have difficulty fighting off infections (are immunocompromised). ?You are unsure about the amount of chemical contaminants in purified or drinking water. ?Do not use fresh water found in lakes, [place]andran, reservoirs, or aquifers without treating or filtering first. ?To purify drinking water by boiling: ?Boil water for at least 1 minute. Keep a lid over the water while it boils. ?Allow the water to cool to room temperature before using. How to flush a feeding tube 1.Have all supplies ready and available. 2.Wash your hands well. 3.Put on clean gloves. 4.Draw up 30 mL of water into the syringe. 5.Before flushing, place the towel under the tube to catch any fluid leaks. 6.Kink the feeding tube while disconnecting it from the feeding-bag tubing or while removing the cap at the end of the tube. Kinking closes the tube and prevents fluid in the tube from spilling out. 7.Insert the tip of the syringe into the end of the feeding tube. 8.Release the kink. 9.Slowly inject the water. If you are unable to inject the water, the tip of the tube may be against the person's stomach, blocking fluid flow. To fix this problem, have the person with the feeding tube lie on his or her left side. Then, try injecting the water again. If there is resistance, do not use a lot of force to overcome it because this could cause the tube to tear. 10.Remove the syringe and replace the cap. 11.Throw away used supplies. 12.Remove your gloves. 13.Wash your hands. Follow these instructions at home: Caring for the tube If there is a foam pad or gauze under the tube stabilizing disc, change it every day and when it is soiled or moist. Do not apply antibiotic ointments at the tube site. Flushing the tube Do not use a syringe that is smaller than 60 mL. To prevent medicine from clogging the tube, flush the tube at all of these times: ?Before the person is given the first medicine. ?Between medicines. ?After the person is given the final medicine before starting a feeding. Do not mix medicines with formula or with other medicines. Thoroughly flush medicines through the tube so they do not mix with formula. Contact a health care provider if: The tube becomes blocked or clogged. You find any of these on the skin around the tube site: ?Redness. ?A rash. ?Swelling. ?Drainage. ?Extra tissue growth. Summary A feeding tube is a soft, flexible tube through which medicine, water, and liquid food can be given. A person may have a feeding tube if she or he has trouble swallowing or cannot have food or medicine by mouth. Follow instructions from your health care provider about daily care and flushing of the tube. Contact your health care provider if the tube becomes blocked or clogged, or if you notice swelling, drainage, or changes in skin around the tube site. This information is not intended to replace advice given to you by your health care provider. Make sure you discuss any questions you have with your health care provider. Document Released: 02/27/2006 Document Revised: 02/09/2018 Document Reviewed: 04/01/2017 Tweet Category Patient Education 2020 [employer] 08/23/2021 11:04:59 Hiatal Hernia Hiatal Hernia A hiatal hernia occurs when part of the stomach slides above the muscle that separates the abdomen from the chest (diaphragm). A person can be born with a hiatal hernia (congenital), or it may develop over time. In almost all cases of hiatal hernia, only the top part of the stomach pushes through the diaphragm. Many people have a hiatal hernia with no symptoms. The larger the hernia, the more likely it is that you will have symptoms. In some cases, a hiatal hernia allows stomach acid to flow back into the tube that carries food from your mouth to your stomach (esophagus). This may cause heartburn symptoms. Severe heartburn symptoms may mean that you have developed a condition called gastroesophageal reflux disease (GERD). What are the causes? This condition is caused by a weakness in the opening (hiatus) where the esophagus passes through the diaphragm to attach to the upper part of the stomach. A person may be born with a weakness in the hiatus, or a weakness can develop over time. What increases the risk? This condition is more likely to develop in: Older people. Age is a major risk factor for a hiatal hernia, especially if you are over the age of 50. women. People who are overweight. People who have frequent constipation. What are the signs or symptoms? Symptoms of this condition usually develop in the form of GERD symptoms. Symptoms include: Heartburn. Belching. Indigestion. Trouble swallowing. Coughing or wheezing. Sore throat. Hoarseness. Chest pain. Nausea and vomiting. How is this diagnosed? This condition may be diagnosed during testing for GERD. Tests that may be done include: X-rays of your stomach or chest. An upper gastrointestinal (GI) series. This is an X-ray exam of your GI tract that is taken after you swallow a chalky liquid that shows up clearly on the X-ray. Endoscopy. This is a procedure to look into your stomach using a thin, flexible tube that has a tiny camera and light on the end of it. How is this treated? This condition may be treated by: Dietary and lifestyle changes to help reduce GERD symptoms. Medicines. These may include: ?Mwuo-fzw-rjpnxyl antacids. ?Medicines that make your stomach empty more quickly. ?Medicines that block the production of stomach acid (H2 blockers). ?Stronger medicines to reduce stomach acid (proton pump inhibitors). Surgery to repair the hernia, if other treatments are not helping. If you have no symptoms, you may not need treatment. Follow these instructions at home: Lifestyle and activity Do not use any products that contain nicotine or tobacco, such as cigarettes and e-cigarettes. If you need help quitting, ask your health care provider. Try to achieve and maintain a healthy body weight. Avoid putting pressure on your abdomen. Anything that puts pressure on your abdomen increases the amount of acid that may be pushed up into your esophagus. ?Avoid bending over, especially after eating. ?Raise the head of your bed by putting blocks under the legs. This keeps your head and esophagus higher than your stomach. ?Do not wear tight clothing around your chest or stomach. ?Try not to strain when having a bowel movement, when urinating, or when lifting heavy objects. Eating and drinking Avoid foods that can worsen GERD symptoms. These may include: ?Fatty foods, like fried foods. ?[place] fruits, like oranges or lemon. ?Other foods and drinks that contain acid, like orange juice or tomatoes. ?Spicy food. ?Chocolate. Eat frequent small meals instead of three large meals a day. This helps prevent your stomach from getting too full. ?Eat slowly. ?Do not lie down right after eating. ?Do not eat 1 2 hours before bed. Do not drink beverages with caffeine. These include cola, coffee, cocoa, and tea. Do not drink alcohol. General instructions Take rmna-mun-pzytchs and prescription medicines only as told by your health care provider. Keep all follow-up visits as told by your health care provider. This is important. Contact a health care provider if: Your symptoms are not controlled with medicines or lifestyle changes. You are having trouble swallowing. You have coughing or wheezing that will not go away. Get help right away if: Your pain is getting worse. Your pain spreads to your arms, neck, jaw, teeth, or back. You have shortness of breath. You sweat for no reason. You feel sick to your stomach (nauseous) or you vomit. You vomit blood. You have bright red blood in your stools. You have black, tarry stools. This information is not intended to replace advice given to you by your health care provider. Make sure you discuss any questions you have with your health care provider. Document Released: 05/19/2004 Document Revised: 02/09/2018 Document Reviewed: 10/02/2017 Tweet Category Patient Education 2020 [employer]. 08/23/2021 11:04:46 9 - AO Minor Esophagogastroduodenoscopy (05/24)(CUSTOM) Esophagogastroduodenoscopy This is an endoscopic procedure (a procedure that uses a device like a flexible telescope) that allows your caregiver to view the upper stomach and small bowel. This test allows your caregiver to look at the esophagus. The esophagus carries food from your mouth to your stomach. They can also look at your duodenum. This is the first part of the small intestine that attaches to the stomach. This test is used to detect problems in the bowel such as ulcers and inflammation. MEANING OF TEST Your caregiver will go over the test results with you and discuss the importance and meaning of your results, as well as treatment options and the need for additional tests if necessary. OBTAINING THE TEST RESULTS Your caregiver s office will call you with the results of the test. POST SEDATION INSTRUCTIONS Rest at home today. Since your coordination may be impaired, be cautious on stairways, do not drive any vehicle or operate any heavy machinery, or use any sharp instruments for the remainder of the day. Do not drink any alcoholic beverages or make any major decisions for 24 hours. POST PROCEDURE INSTRUCTIONS Progress slowly with full liquids then resume previous diet and medications. Belching or passing of gas is to be expected. Notify the physician if you have severe chest pain, fever, or if difficulty when swallowing persists. 05/21/13 Custom Follow Up Care 08/20/2021 14:11:56 With:ROSIE RICHARD [facility] [address] [address] [phone] Business (1) When: only if needed [facility] 08-05-2021 Evaluation + Plan note Diagnostic Tests PendingTB Quantiferon, Incubated 08/05/21 [facility] [employer] Work Phone: Evaluation noteThere may be information available, but it has not been provided by the sender.[facility] Work Phone: Evaluation note* 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, unspecified site documented in this encounter [facility] Work Phone: Evaluation note* Diagnosis Gastrostomy complication, unspecified (HCC)- Primary Gastrostomy complication, unspecified [facility] Narrative No data available for this section [facility] Hospital Discharge instructions No data available for this section [facility] InstructionsNo information available.[facility] [employer] [facility] Work Phone: Progress note No data available for this section [facility] Summary Purpose Family History No Family History Records FoundNo Family History Records FoundNo Family History Records FoundThere may be information available, but it has not been provided by the sender.There may be information available, but it has not been provided by the sender.No Family History Records FoundNo Family HistoryRecords FoundNo Family History Records Found No data available for this section Advance Directives Documents on File Type Date Recorded Patient Service Line Layer Expl anation ACP-Advance Directive ACP-Power of Legal Billing Clerk Latest Code Status on File Code Status Date Activated Date Inactivated Comments Full Code 12/10/2015 10:38 PM 12/12/2015 7:21 PM Latest Code Status on File Code Status Date Activated Date Inactivated Comments Full Code 11/25/2021 9:45 AM Full Code 09/17/2021 7:03 PM 09/18/2021 12:48 PM Full Code 09/17/2021 10:53 AM 09/17/2021 5:06 PM Full Code 12/10/2015 10:38 PM 12/12/2015 7:21 PM Latest Code Status on File Code Status Date Activated Date Inactivated Comments Full Code 03/18/2022 6:49 AM 03/18/2022 1:06 PM Chief Complaint Chief Complaint Description Start Date bilateral third finger pain Preliminary chief co mplaint data, not yet signed by the author as of Chief Complaint Description Start Date right middle finger Preliminary chief co mplaint data, not yet signed by the author as of Additional Source Comments INFORMATION SOURCE (unrecogn ized section and content) DATE CREATED AUTHOR AUTHOR'S ORGANIZ ATION 06/14/2018 [facility] DATE CREATED AUTHOR AUTHOR'S ORGANIZ ATION 06/19/2018 [facility] DATE CREATED AUTHOR AUTHOR'S ORGANIZ ATION 12/10/2021 [facility] DATE CREATED AUTHOR AUTHOR'S ORGANIZ ATION 07/18/2022 [facility] DATE CREATED AUTHOR AUTHOR'S ORGANIZ ATION 10/15/2022 [facility] ([place]) Reason for Visit (unrecogniz ed section and content) Reason For Visit Description Start Date New Complaint Preliminary reason f or visit data, not yet signed by the author as of right middle finger Reason Comments OTHER Check peg- leaking Care Team (unrecognized sect ion and content) Care Team Personnel Name: CAT BYRD MD Member Role: Primary Care Physician Address: Address: [facility] [place] [address]- Name: JUANA BERRIOS MD Position: ED Physician Member Role: Attending Physician Address: Address: [address] [place] [id number] Name: Lauren sTang RN Position: RN Member Role: RN Care Team Related Persons Name: ZULEMA BHAKTA Name: ZULEMA BHAKTA Name: ZULEMA BHAKTA Name: ZULEMA BHAKTA Name: ZULEMA BHAKTA Name: ZULEMA BHAKTA Name: DEVYN CASH Marine Equipment Sales Engineer Relationship Specialty Start Date End Date Mallory Vitale MD PCP - General 07/22/15 Marine Equipment Sales Engineer Relationship Specialty Start Date End Date Mallory Vitale MD [address] [place] [address] PCP - General 07/22/15 Ordered Prescriptions (unrec ognized section and content) Scheduled Active and Recently Administ ered Medications (unrecognized section and content) Continuous Medication Order 11/23/2021 11/24/2021 11/25/2021 lactated ringers infusion IntraVENous, at 50 mL/hr, CONTINUOUS, Starting on Alona 11/25/21 at 0715, Upon admission to sameday - please start iv if patient does not have iv access. Use 500ml NS for patients on dialysis., Pre-op (day of surgery) 0730 (New Bag - Prov ider: Shila Handley RN) PRN Medication Order 11/23/2021 11/24/2021 11/25/2021 0.9 % sodium chloride infusion IntraVENous, at 5-250 mL/hr, PRN, if patient receiving piggyback infusions and maintenance fluids are not ordered OR KVO fluids to protect IV site / prevent frequent line interruptions/ long duration, Starting on Alona 11/25/21 at 0649, For piggyback infusion, administer at same rate as piggyback for a total of 25 mL. Enter 25 mL into dose field and piggyback rate into rate field of order. If piggyback is infusing at a rate less than 100 mL/hr, enter 25 mL into dose field and 100 mL/hr into rate field of order. For KVO fluids, enter rate of 20 mL/hr or less into rate field of order., Pre-op (day of surgery) 0.9 % sodium chloride infusion IntraVENous, at 5-250 mL/hr, PRN, if patient receiving piggyback infusions and maintenance fluids are not ordered OR KVO fluids to protect IV site / prevent frequent line interruptions/ long duration, Starting on Alona 11/25/21 at 0944, For piggyback infusion, administer at same rate as piggyback for a total of 25 mL. Enter 25 mL into dose field and piggyback rate into rate field of order. If piggyback is infusing at a rate less than 100 mL/hr, enter 25 mL into dose field and 100 mL/hr into rate field of order. For KVO fluids, enter rate of 20 mL/hr or less into rate field of order., Pre-op (day of surgery) lidocaine PF 1 % injection 1 mL 1 mL, IntraDERmal, ONCE PRN, 1 dose, Starting on Alona 11/25/21 at 0649, Until Alona 11/25/21 at 2359, IV start, Pre-op (day of surgery) sodium chloride flush 0.9 % injection 5-40 mL 5-40 mL, IntraVENous, PRN, Starting on Alona 11/25/21 at 0649, Until Discontinued, Line Care, After every IV line use, For Line Patency: Peripheral IV = 5 mL; Midline or Central Line = 10 mL/lumen. If following IV push medication, administer flush at same rate as the IV push. Flush volume is determined by type of infusion therapy being given. For non-viscous solutions use: Peripheral IV = 5 mL Midline or Central Line = 10 mL/lumen For viscous solutions (i.e. blood components, parenteral nutrition, contrast media, or after obtaining blood sample) use: Peripheral IV = 10 mL Midline or Central Line = 20 mL/lumen, Pre-op (day of surgery) sodium chloride flush 0.9 % injection 5-40 mL 5-40 mL, IntraVENous, PRN, Starting on Alona 11/25/21 at 0944, Until Discontinued, Line Care, After every IV line use, For Line Patency: Peripheral IV = 5 mL; Midline or Central Line = 10 mL/lumen. If following IV push medication, administer flush at same rate as the IV push. Flush volume is determined by type of infusion therapy being given. For non-viscous solutions use: Peripheral IV = 5 mL Midline or Central Line = 10 mL/lumen For viscous solutions (i.e. blood components, parenteral nutrition, contrast media, or after obtaining blood sample) use: Peripheral IV = 10 mL Midline or Central Line = 20 mL/lumen, Pre-op (day of surgery) Care Team (unrecognized sect ion and content) Care Team Personnel Name: MALLORY VITALE MD Member Role: Primary Care Physician Address: Address: [address] [place] [address] [place] [address] Care Team Related Persons Name: ZULEMA BHAKTA Name: ZULEMA BHAKTA Name: ZULEMA BHAKTA Name: ZULEMA BHAKTA Name: YONY, ZULEMA Name: ZULEMA BHAKTA Name: DEVYN CASH Care Team Personnel Name: MALLORY VITALE MD Member Role: Primary Care Physician Address: Address: [address] [place] [address] [place] [address] Care Team Related Persons Name: ZULEMA BHAKTA Name: ZULEMA BHAKTA Name: YONY, ZULEMA Name: YONY, ZULEMA Name: YONY, ZULEMA Name: ZULEMA BHAKTA Name: DEVYN CASH FOR RECORDS PERTAINING TO PATIENTS WHO ARE OR HAVE BEEN ENROLLED IN A CHEMICAL DEPENDENCY/SUBSTANCEABUSE PROGRAM, SOME INFORMATION MAY BE OMITTED. This clinical summary was aggregated from multiple sources. Caution should be exercised in using it in the provision of clinical care. This summary normalizes information from multiple sources, and as a consequence, information in this document may materially change the coding, format and clinical context of patient data. In addition, data may be omitted in some cases. CLINICAL DECISIONS SHOULD BE BASED ON THE PRIMARY CLINICAL RECORDS. [facility] [employer] [facility]. provides no warranty or guarantee of the accuracy or completeness of information in this document.
== END | disposition home or self-care (01) ==
LOC: POLAB3 15:53
PROVIDERS: PCP Family Medicine Geriatric Medicine; Visit Provider Family Medicine Geriatric Medicine
DX: N39.0 Urinary tract infection, site not specified (principal)
CPT/HCPCS: 87086; 87088

== ENCOUNTER 2023-03-16 15:22 | Outpatient (RCR) | payer MEDICARE, SELFPAY ==
[2018-11-29 13:09] VITALS: BMI 25.0
[2023-03-13 00:07] VITALS: BP 159/65; PULSE 84; RESP 20; TEMP 36.1; BMI 22.4
[2023-03-16 15:26] VITALS: BP 154/50; PULSE 88; RESP 18; BMI 22.4
--- NOTE | 2023-03-17 14:54 | PN.PCM_ITS ---
History of Present Illness Date of Service: 03/16/23 Chief Complaint: Right buttock pressure ulceration History of Wound: Patient is referred to the wound care center by her primary care Dr. Cole for evaluation and management of a right buttock pressure sore. Patient is accompanied to her appointment today by a family member who helps with her care. Patient reports that this pressure sore has been present for about 2 weeks. The area is very tender. She has not noted a lot of drainage and does not report a foul odor from the area. At home she has been occasionally covering with Band- Aids and otherwise just keeping the area clean. She has never had a wound like this before. She reports that she feels she is generally pretty active; however, she does sleep sitting up. She sleeps sitting propped nearly straight up in her bed, does not sleep in a recliner. She has to sleep this way in order to rest and breathe comfortably and this is back and very due to her history of tongue cancer. She does not feel she sits for long periods of time. She does not have any offloading padding on her bed. She receives nutrition via PEG tube. Otherwise her medical history is significant for history of tongue cancer as noted above, hypertension, PEG tube, hypothyroidism, psoriasis (on Taltz). She denies any fevers or chills. Subjective Subjective Her wound is healed today. Objective Data Objective Data Vital Signs: Vital Signs Temp Pulse Resp BP O2 Del Method 96.9 F L 88 18 154/50 H Room Air 03/13/23 00:07 03/16/23 15:26 03/16/23 15:26 03/16/23 15:26 03/16/23 15:26 Oxygen Delivery Method Room Air Weight: 135 lb Body Mass Index (BMI) 22.4 Charges/Coding Visit Charges Office Visits / Consults: 23578 OV L3 Est 20min Physical Exam Const alert, oriented x3 and no apparent distress HEENT head/scalp atraumatic Nose: external nose normal External Ear: external ears normal Eyes EOMs intact bilaterally General Eye: normal appearance of both eyes Resp normal respiratory effort, no retractions and no use of accessory muscles Effort and Inspection: able to speak in complete sentences Skin Wounds: wounds noted Wound Narrative: Right buttock pressure wound is healed today Neuro oriented x3, moves all extremities and no focal motor deficits Debridement Note Debridement Note No debridement was completed: No debridement was completed today Post-Debridement Measurements and Additional Note: Post-Debridement Measurements/Treatment DANIELLE - Nurse 1 - General Ulcer Assessment Start: 03/16/23 15:26 Freq: Status: Active Protocol: SAM Activity Type Activity Date Activity User E-sign Co-sign Detail Recorded Client Recorded Date Recorded By Document 03/16/23 15:26 [facility] Desktop 03/16/23 15:29 [facility] 03/16/23 15:26 WC - Today's Visit Information Type of service Follow-up Visit (Physician/FIRST OFFICER AND FLIGHT INSTRUCTOR ) Arrival Mode Ambulatory Transfer Assistance None Patient Identification Verified (Name & Yes ) Patient Requires Transmission-Based No Precautions Height and Weight Body Mass Index (BMI) 22.4 BMI Classification Normal Vital Signs Pulse Rate (60-100) 88 Pulse Location Monitor Respiratory Rate (12-18) 18 Respiratory rate source Observation Oxygen Delivery Method Room Air Blood Pressure (90/60-120/80) 154/50 H Blood Pressure Mean (mm Hg) 84 Source Monitor Position Sitting Blood Pressure Location Left Arm History Since Last Visit- (Skip if this is Patient's initial visit) Have you changed medications since your No last visit? Any new allergies or adverse reactions No Had a fall/change in ADL's that may No increase risk of falls Signs or symptoms of abuse and/or No neglect since last visit Have you been in the hospital since your No last visit? Has compression in place as prescribed N/A Has offloadiing in place as prescribed N/A Experienced any changes in pain level or No management Left Footwear Regular Shoe Right Footwear Regular Shoe Pain Scale: 0-10 Numeric Is Patient Pain Free? Yes DANIELLE Fall Nurse 1 - General Ulcer Measurement Start: 03/16/23 15:26 Freq: Status: Active Protocol: Activity Type Activity Date Activity User E-sign Co-sign Detail Recorded Client Recorded Date Recorded By Document 03/16/23 15:26 [facility] Desktop 03/16/23 15:29 [facility] 03/16/23 15:26 Wound Center Nurse 1 #6 RT BUTTOCK -Combined with other wound No -Current Size (cm) - Length 0.1 -Current Size (cm) - Width 0.1 -Current Size (cm) - Depth 0.1 -Total Square Cm 0.01 -Date of Last Picture (Recall this 03/16/23 field) -Photo Taken Yes -Epithelialization Large 67-100% -Tunneling No -Undermining/Tunneling No -Circular Undermining No -Exudate Amt None Present -Texture (Rosie-wound Skin Appearance) Assessed, Scarring -Moisture (Rosie-wound Skin Appearance) Assessed,Dry/ Scaly -Color (Rosie-wound Skin Appearance) Assessed -Temperature (Rosie-wound Skin No Abnormality Appearance) (Pt Warm) -Tenderness on Palpation (Rosie-wound No Skin Appearance) -Ulcer Cleansing Soap and Water -Foul Odor after Cleansing No -Anesthetic Used 5% Lidocaine Gel WC - Nurse 2 - General Ulcer CM Notes Start: 03/16/23 15:26 Freq: Status: Active Protocol: Activity Type Activity Date Activity User E-sign Co-sign Detail Recorded Client Recorded Date Recorded By Document 03/16/23 16:26 PL [id number] 03/16/23 16:26 PL 03/16/23 16:26 Wound Center Nurse 2 -Procedure Performed No -Wound/Ulcer Outcome Healed- Epithelialized Pain Scale: 0-10 Numeric Is Patient Pain Free? Yes - Nurse 3 - General Ulcer D/C NN Start: 03/16/23 15:26 Freq: Status: Active Protocol: Activity Type Activity Date Activity User E-sign Co-sign Detail Recorded Client Recorded Date Recorded By Document 03/16/23 15:55 DL Desktop 03/16/23 15:57 DL 03/16/23 15:55 Wound Care Center Nurse 3 #6 RT BUTTOCK -Foul Odor after Cleansing No -Primary Dressing Applied Mepilex Border -Mepilex Border 1 Treatment Response Procedure Tolerated Well Pain Scale: 0-10 Numeric Is Patient Pain Free? Yes WC - Visit Discharge Discharge Condition Stable Ambulatory Status Ambulatory Transportation Private Auto Notes: Healed/ discharged. Assessment/Plan Assessment/Plan (1) Pressure ulcer of right buttock, stage 2: CODE(S): L89.312 - Pressure ulcer of right buttock, stage 2 PLAN: Plan The right buttock pressure wound is healed today. She is instructed to continue to cover with a foam border dressing for another week to avoid any trauma to the newly healed area. May continue to apply barrier cream to this area after another week of padding and protecting. She is encouraged to continue with offloading measures including utilizing extra foam pads for her chair/bed, changing positions at least every 1-2 hours, and frequent ambulation as tolerated to avoid recurrent pressure ulcerations. She is discharged from the wound care center today and will return as needed.
== END 2023-04-12 23:59 | disposition home or self-care (01) ==
LOC: WC 15:22
PROVIDERS: PCP Family Medicine Geriatric Medicine; Referring Provider Family Medicine; Visit Provider Physician Assistant
DX: Z09 Encounter for follow-up examination after completed treatment for conditions other than malignant neoplasm (principal); I10 Essential (primary) hypertension; E03.9 Hypothyroidism, unspecified; L40.9 Psoriasis, unspecified; Z79.890 Hormone replacement therapy; Z79.899 Other long term (current) drug therapy
CPT/HCPCS: 99213; G0463

== ENCOUNTER → 2023-09-19 | Outpatient (CLI) | payer MEDICARE, SELFPAY ==
[2023-06-05 08:51] VITALS: BMI 25.0
--- NOTE | 2023-09-19 12:14 | RAD_ITS ---
STUDY: X-RAY - CERVICAL SPINE REASON FOR EXAM: Female, 83 years old. NECK PAIN TECHNIQUE: 3 view(s) of the cervical spine were obtained. COMPARISON: None FINDINGS: Normal anterior atlantoaxial articulation. Normal odontoid process. Normal cervical lordosis. Normal vertebral bodies and endplates. Focal disc space narrowing at C5/C6 consistent with degenerative disc disease. Dense flowing paravertebral ossification in the upper cervical spine consistent with diffuse idiopathic skeletal hyperostosis (DISH) (. Mild loss of height and wedging deformity at the T2 vertebral body consistent with a compression fracture. The soft tissue structures are unremarkable. RAD/Cerv Spine 2 or 3 Views IMPRESSION: 1. Mild compression fracture of the T2 vertebral body which may be acute or chronic and clinical correlation and MRI may be useful. 2. Degenerative disc disease lower cervical spine. 3. Suspect diffuse idiopathic skeletal hyperostosis (DISH). Electronically Signed: Ariel Cisneros MD at 15:42 EDT ,
[2023-09-19 12:50] LABS: Vitamin D,25 Hydroxy 30.4 ng/mL
[2023-09-19 12:51] LABS: Absolute Lymphocyte Count 0.66 X10^3/uL (0.83-4.51); Absolute Neutrophil Count 3.6 X10^3/uL (2.0-7.7); Basophil# 0.02 X10^3/uL; Basophil% 0.4 % (0-1); Eosinophil# 0.06 X10^3/uL; Eosinophils% 1.2 % (0-5); Hematocrit 38.6 % (37-47); Hemoglobin 12.6 g/dL (12.0-15.0); Lymphocyte # 0.66 X10^3/ul (0.83-4.51); Lymphocyte % 13.4 % (19-41); Mean Corp Hgb Conc 32.6 g/dL (32-36); Mean Corpuscular Hgb 29.7 pg (27.0-32.0); Mean Platelet Vol. 10.2 fl (6.2-12.0); Monocyte# 0.59 X10^3/uL; Monocyte% 11.9 % (0-10); NRBC Flagged by Analyzer 0 % (0-5); Neutrophil % 72.9 % (47-70); Platelet Count 321 K/mm3 (150-450); RBC Distribution Width CV 14.3 % (11.6-14.6); Red Blood Count 4.24 M/mm3 (4.2-5.4); White Blood Count 4.9 K/mm3 (4.4-11.0)
[2023-09-19 13:36] LABS: AST(SGOT) 15 U/L (15-37); Alanine Aminotransfer ALT/SGPT 16 U/L (13-56); Albumin, Serum 3.5 g/dL (3.2-5.0); Alkaline Phosphatase 98 U/L (45-117); Anion Gap 6 (5-15); BUN 14 mg/dL (7-18); BUN/Creat Ratio 17.2 RATIO (10-20); Calcium,Total 9.1 mg/dL (8.5-10.1); Chloride 98 mmol/L (98-107); Creatinine, Serum 0.81 mg/dL (0.55-1.02); EST Glomerular Filtration Rate 71 mL/min (>60); Est Glom Filt Rate - Afr Amer 86 mL/min (>60); Globulin 3.6 g/dL (2.2-4.2); Glucose 78 mg/dL (74-106); Potassium 4.5 mmol/L (3.5-5.1); Protein, Total 7.1 g/dL (6.4-8.2); Sodium Level 132 mmol/L (136-145); Thyroid Stim Hormone (TSH) 1.12 uIU/mL (0.358-3.74)
== END | disposition home or self-care (01) ==
LOC: POLAB3 11:13
PROVIDERS: PCP Family Medicine Geriatric Medicine; Visit Provider Family Medicine Geriatric Medicine
DX: R53.83 Other fatigue (principal); E55.9 Vitamin D deficiency, unspecified; M54.2 Cervicalgia
CPT/HCPCS: 36415; 72040; 80053; 82306; 84443; 85025

== ENCOUNTER → 2023-10-11 | Outpatient (CLI) | payer MEDICARE, SELFPAY ==
[2023-06-05 08:51] VITALS: BMI 25.0
--- NOTE | 2023-10-11 13:09 | MRI_ITS ---
STUDY: MRI THORACIC SPINE WITHOUT CONTRAST REASON FOR EXAM: Female, 83 years old. PAIN TECHNIQUE: Standardized fat and water weighted pulse sequences were obtained in the sagittal and axial planes. COMPARISON: None. FINDINGS: Exaggerated kyphosis of the thoracic spine. There is mild scoliosis. T1-2, T2-3, T3-4, T4-5, T5-6, T6-7, T7-8, T8-9, T9-10, T10-11, T11-12: Normal endplates. There is very mild multilevel disc space narrowing and disc degeneration without focal disc protrusion significant narrowing of the spinal canal or cord compression... Normal visualized thoracic cord. Normal conus medullaris that terminates at T12-L1 The soft tissue structures are unremarkable. MRI/Spine Thoracic (Routine) IMPRESSION: Mild kyphoscoliosis. Mild spondylosis and multilevel disc degeneration without disc protrusion spinal stenosis or cord compression. No acute fracture or other significant bony pathology Electronically Signed: Piter Reyna MD at 22:23 EDT ,
== END | disposition home or self-care (01) ==
PROVIDERS: PCP Family Medicine Geriatric Medicine; Referring Provider Family Medicine Geriatric Medicine; Visit Provider Family Medicine Geriatric Medicine
DX: S22.020A Wedge compression fracture of second thoracic vertebra, initial encounter for closed fracture (principal); X58.XXXA Exposure to other specified factors, initial encounter
CPT/HCPCS: 72146

== ENCOUNTER 2023-11-09 19:38 | Emergency (ER) | payer MEDICARE, SELFPAY ==
[2023-06-05 08:51] VITALS: BMI 25.0
[2023-11-09 19:39] VITALS: BP 209/84; PULSE 86; RESP 18; TEMP 36.1; O2SAT 100; BMI 23.3
--- NOTE | 2023-11-09 20:27 | EX.ED.DYSGE1 ---
HPI History of Present Illness Chief Complaint: Other, Pain/Inj Narrative Narrative: 83-year-old female presents with her family because of leaking around her G-tube. She states 2 weeks ago she was having the same problem. She awoke with the pad surrounding her G-tube saturated. She had it changed 2 weeks ago, and this morning she had awoke with the pad saturated again with a brown darker substance. She denies any fevers or chills, no nausea or vomiting. She has had a G-tube for at least 20 years. She presents because it is leaking again, but when she came over here, she noticed that her pad surrounding the G-tube was still dry. [facility] Medical History Wears glasses Ambulates with cane Easy bruising Dietary restriction Gastric reflux Non-smoker History of stress test History of throat cancer Psoriasis Hypothyroidism HTN (hypertension) Tongue cancer Home Medications ?Medication ?Instructions ?Recorded ?Last Taken ?Type levothyroxine 125 mcg tablet 88 mcg PO DAILY 12/06/14 Unknown History food supplemt, lactose-reduced 1 bottle PO 4X/DAY 01/17/18 Unknown History 0.08 gram-1.5 kcal/mL oral liquid (Ensure Enlive) ixekizumab 80 mg/mL subcutaneous 80 mg subcut QMONTH 08/19/22 Unknown History auto-injector (Taltz Autoinjector) famotidine 20 mg tablet 20 mg PO DAILY 10/24/22 Unknown History pantoprazole 40 mg tablet,delayed 40 mg PO DAILY 10/24/22 Unknown History release baclofen 10 mg tablet 10 mg PO BID 11/09/23 Unknown History cephalexin 500 mg tablet 500 mg PO BID 11/09/23 Unknown History clobetasol 0.05 % topical ointment 1 applic topical DAILY 11/09/23 Unknown History hydrocortisone 2.5 % topical cream applic topical 11/09/23 Unknown History naproxen 250 mg tablet 250 mg PO BID 11/09/23 Unknown History prednisone 10 mg tablet 10 mg PO 11/09/23 Unknown History triamcinolone acetonide 0.1 % applic topical 11/09/23 Unknown History topical cream Allergy/AdvReac Type Severity Reaction Status Date / Time hydrocodone (From Vicodin) Allergy Unknown Verified 11/09/23 19:39 oxycodone (From Percocet) Allergy Unknown Verified 11/09/23 19:39 Family History Sister Diabetes Surgical History History of esophagogastroduodenoscopy (EGD) Hx of tonsillectomy History of total right knee replacement H/O thyroidectomy History of cholecystectomy Social History Smoking Status: Former smoker alcohol intake: never substance use type: does not use ROS ROS ED ROS Narrative Constitutional: No fever, no chills. HEENT: No sore throat. No neck pain. No loss of vision. No rhinorrhea. Cardiovascular: No chest pain. No palpitations. No pedal edema. Respiratory: No cough, no shortness of breath. Abdominal: No abdominal pain. No nausea. No vomiting. Genitourinary: No dysuria. No hematuria. Reported leaking G-tube, around site. EXAM Physical Exam Narrative Exam Narrative: Afebrile. Vital signs noted. Regular rate and rhythm. Lungs clear to auscultation bilaterally. Abdomen soft nontender with normoactive bowel sounds. +20 Tamazight G-tube in left abdomen. No evidence of purulent drainage, no surrounding erythema. Const Vital Signs: 11/09/23 19:39 11/09/23 20:00 Temperature 96.9 F L Temperature Source Temporal Pulse Rate 86 Respiratory Rate 18 Respiratory Effort Normal Non-Labored Respiratory Pattern Normal Blood Pressure 209/84 H Blood Pressure Mean 125 Pulse Ox 100 Oxygen Delivery Method Room Air MDM MDM MDM Narrative Medical decision making narrative: I reviewed the patient's prior records. Does not appear that she had been here recently. However, she was seen by Dr. Jones as she had originally been seen by Dr. Servin. He had replaced the PEG tube with a 20 Tamazight. The PEG tube had been leaking previously and he suggested that it be inserted to the #4, then a split gauze pad inserted between her skin and the bumper. The bumper should be at the level 5 as it had come out to 7 before. This was performed by the RN, and additionally she was able to flush and draw back so the PEG tube is patent. At this point in time, I discussed with the patient and her daughter that there really is no need to exchange out her PEG tube again. She can follow-up with her surgeon tomorrow. Return instructions to the emergency department were reviewed. Disposition is discharged in stable condition. History & Record Review Discussion w/independent historian: Patient and Family Discharge Plan Triage Chief Complaint: Other, Pain/Inj ED Provider: Leonardo Oviedo Dx/Rx/DC Orders Clinical Impression: PEG (percutaneous endoscopic gastrostomy) adjustment/replacement/removal, Leaking PEG tube Instructions: ED Feeding Tube Replacement Prescriptions: No Action famotidine 20 mg tablet 20 mg PO DAILY pantoprazole 40 mg tablet,delayed release (DR/EC) 40 mg PO DAILY levothyroxine 125 MCG tablet 88 mcg PO DAILY Ensure Enlive 120 ML liquid 1 bottle PO 4X/DAY Taltz Autoinjector 80 mg/mL Auto-Injector 80 mg SUBCUT QMONTH baclofen 10 mg tablet 10 mg PO BID cephalexin 500 mg tablet 500 mg PO BID clobetasol 0.05 % ointment 1 applic TOPICAL DAILY prednisone 10 mg tablet 10 mg PO naproxen 250 mg tablet 250 mg PO BID hydrocortisone 2.5 % cream topical triamcinolone acetonide 0.1 % cream topical Primary Care Provider: Jaspreet Cole Chi Referrals: Jaspreet Cole Chi, MD [Primary Care Provider] - Bertha Servin MD [Med Staff - Active Staff] - 1 Day Activity Restrictions/Additional Instructions: Your feeding tube appears to be functioning. It may be leaking around the tube. It is to be inserted at 4 with the bumper pushed down to the #5 with a split gauze pad underneath it. Follow-up with your surgeon tomorrow. Return with displacement of PEG tube, new or worsening symptoms. Print Language: Serbian Disposition Disposition: Home, Self Care
[2023-11-09 21:10] VITALS: BP 195/76; PULSE 77; RESP 18; TEMP 36.1; O2SAT 95
== END 2023-11-09 21:12 | disposition home or self-care (01) ==
PROVIDERS: Emergency Provider Emergency Medicine; PCP Family Medicine Geriatric Medicine; Visit Provider Emergency Medicine
DX: K94.23 Gastrostomy malfunction (principal); I10 Essential (primary) hypertension; E89.0 Postprocedural hypothyroidism; Z79.890 Hormone replacement therapy; Z79.899 Other long term (current) drug therapy; Z87.891 Personal history of nicotine dependence; K21.9 Gastro-esophageal reflux disease without esophagitis
CPT/HCPCS: 99282

== ENCOUNTER → 2023-11-23 | Outpatient (CLI) | payer MEDICARE, SELFPAY ==
[2023-06-05 08:51] VITALS: BMI 25.0
--- NOTE | 2023-11-23 16:28 | MRI_ITS ---
EXAM: MR CERVICAL SPINE WITHOUT AND WITH INTRAVENOUS CONTRAST CLINICAL INDICATION: NECK PAIN, MASS,ABCESS TECHNIQUE: Multiplanar and multisequence MR images of the cervical spine without and with intravenous contrast were performed. CONTRAST: IV 13ML CLARISCAN COMPARISON: No relevant prior studies available. FINDINGS: VERTEBRAE: Unremarkable. Normal vertebral bodies and posterior elements. Normal alignment. Normal craniocervical junction and cervicothoracic junction. No spondylolisthesis. There is preservation of the normal cervical lordosis. SPINAL CORD: Unremarkable in signal and morphology. SOFT TISSUES: Distended, fluid-filled esophagus. 3.2 x 2.7 cm supraclavicular left neck mass, best seen on series 7 image 75. LYMPH NODES: Unremarkable. There is no cervical adenopathy. DISCS/SPINAL CANAL/NEURAL FORAMINA: C2-3: Normal disc height and morphology. Normal central canal. Foramina are patent. C3-4: Normal disc height and morphology. Normal central canal. Foramina are patent. C4-5: Normal disc height and morphology. Normal central canal. Foramina are patent. C5-6: Disc space narrowing. Mild spondylotic bar causes mild cord flattening. No canal stenosis. Severe foraminal stenosis due to uncinate hypertrophy. C6-7: Normal disc height and morphology. Normal central canal. Foramina are patent. C7-T1: Normal disc height and morphology. Normal central canal. Foramina are patent. MRI/Spine Cervical W/WO Contrast IMPRESSION: Mild C5-6 cord flattening due to spondylosis. C5-6 foraminal stenosis. Left neck mass suspicious for mass or adenopathy. Correlation with physical examination is recommended, with contrast-enhanced CT of the neck as clinically warranted. Distended, fluid-filled esophagus. Electronically Signed: Dorothy Julio MD at 20:01 EDT Reading Location ID and State: [id number] / Tel , Service support ,
[2023-11-23 17:15] LABS: CREATININE FINGERSTICK < 1.0 mg/dL (0.55-1.02); EGFR FINGERSTICK > 60.0000 mL/min (>60)
== END | disposition home or self-care (01) ==
PROVIDERS: PCP Family Medicine Geriatric Medicine; Referring Provider Family Medicine Geriatric Medicine; Visit Provider Family Medicine Geriatric Medicine
DX: R22.1 Localized swelling, mass and lump, neck (principal); M54.2 Cervicalgia; L02.91 Cutaneous abscess, unspecified
CPT/HCPCS: 72156; A9575

== ENCOUNTER → 2023-12-12 | Outpatient (CLI) | payer MEDICARE, SELFPAY ==
[2023-06-05 08:51] VITALS: BMI 25.0
--- NOTE | 2023-12-12 09:00 | PET_ITS ---
EXAMINATION: FDG PET-CT INDICATIONS: An 83-year-old female with a history of primary head and neck carcinoma presenting for restaging examination. COMPARISON EXAMINATION: None available. INDEX LESION SIZE SUV INTERPRETATION NEW: Left anterior neck level IV 48.1 mm 24.3 Fulfills quantitative criteria for viable neoplasm. PREVIOUS: Left oral cavity Demonstrates metabolic resolution on the current examination. NEW: Left axilla 2.6 Associated with fatty hilus, low likelihood of viable neoplasm. TECHNIQUE: Following the intravenous administration of 12.94 mCi of F-18 deoxyglucose via the right hand, multiplanar image acquisitions of the head, neck, chest, abdomen and pelvis to level of mid-thigh, lower extremities obtained at one hour post radiopharmaceutical administration contemporaneously interpreted with the current CT of the head, neck, chest, abdomen and pelvis to level of mid-thigh, lower extremities dated 12/12/23, via coregistration reveal: SERUM GLUCOSE LEVEL: 101 mg/dl. HEIGHT: 61 inches. WEIGHT: 139 lbs. FINDINGS: Head/Neck: Newly identified increased radiopharmaceutical concentration is noted in the left anterior neck involving level IV. The calculated maximum standard uptake value is 24.3. The maximum axial diameter of the metabolic, morphologic abnormality is 48.1 mm. The previously identified oral cavity hypermetabolic focus is not apparent on the current examination. The visualized portion of the cerebral cortical-subcortical structures demonstrate symmetric and preserved glucose metabolism. CHEST: Facilitated uptake is noted in a single nodular focus in the left axillary region. The calculated maximum standard uptake value is 2.6. The corresponding soft tissue density demonstrates fatty hilus formation. Prominent radiopharmaceutical concentration is identified in the left ventricular myocardium commensurate with the [place]. Pertinent chest CT findings are as follows. There is atherosclerotic calcification defined in the thoracic aorta without evidence of dilatation-aneurysm formation. Coronary arterial calcification is observed. A prominent sized hiatal hernia is defined. A right hemithorax pleural effusion demonstrates no evidence of quantitatively significant increased FDG uptake. Abdomen/Pelvis: Normal physiologic distribution of the radiopharmaceutical is apparent in the hepatic () and splenic parenchyma, both renal units, bladder and visualized intestinal tract. Diffuse radiopharmaceutical concentration is noted in all four quadrants of the abdomen and pelvis. Pertinent abdomen and pelvis CT findings are as follows. A left anterior pelvic wall hernia is demonstrated with visualized intestinal tract. Right and left inguinal soft tissue is ametabolic. Gastrostomy tube placement is noted. There is atherosclerotic calcification defined in the abdominal aorta without evidence of dilatation-aneurysm formation. Abdominal-pelvic arterial calcification is observed. Calcification is defined within the left kidney. There appears to be calcification of the splenic capsule. Skeletal: Degenerative changes are noted in the cervical, thoracic and lumbar spine. PET/PET/CT Tumor Base -Thigh Init IMPRESSION: 1. ABNORMAL EXAMINATION INDICATIVE OF MALIGNANT-VIABLE NEOPLASM. 2. Increased FDG uptake noted in the left anterior neck fulfills quantitative criteria for viable neoplasm. 3. Enhanced tracer uptake noted in the left axilla associated with soft tissue expressing fatty hilus formation is associated with a low likelihood of viable neoplasm. ([place], Cancer Imaging 9:104, 2009) 4. There is interim resolution of the prior defined left oral cavity hypermetabolic abnormality. 5. Overall, compared to the prior FDG PET CT study dated 08/04/21, there is interval resolution of the prior defined oral cavity hypermetabolic focus with newly identified uptake in the left anterior neck consistent with neoplastic disease. Electronic Signature Ariel Patterson D.O. Accurate Quantification of SUVs for this report are calculated using the exclusive [employer] Technology, ([place]. Patent No. [id number] [phone] [phone] [place] patent [phone] ). Standardization and correction of the FDG SUV metric exclusively available with [employer] intellectual property, allow for vendor non-specific objective quantitative sequential FDG PET-CT comparison and otherwise unobtainable optimization of the sensitivity and specificity of the examination. [email or web address] Electronically Signed: Ariel Patterson DO at 7:36 EDT ,
== END | disposition home or self-care (01) ==
PROVIDERS: PCP Family Medicine Geriatric Medicine; Referring Provider Otolaryngology; Visit Provider Otolaryngology
DX: C44.42 Squamous cell carcinoma of skin of scalp and neck (principal)
CPT/HCPCS: 78815; A9552

== ENCOUNTER 2024-01-04 13:00 | Outpatient (RCR) | payer MEDICARE, SELFPAY ==
[2023-06-05 08:51] VITALS: BMI 25.0
[2024-01-04 13:20] VITALS: BP 157/70; PULSE 97; RESP 18; TEMP 35.8; BMI 22.9
--- NOTE | 2024-01-04 20:44 | PCM.WC.HP ---
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 This L neck fungating mass has an ulcerated center which drains pink-tinged fluid per patient. She has noticed this growing rather quickly over the last couple months. She is established with radiation oncology Dr. Lamar and will be starting radiation next week. As noted, she had this oral tongue cancer many years ago as well and had her tongue resected in addition to extensive radiation and chemo. 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 [facility] Medical History Wears glasses Ambulates with cane Easy bruising Dietary restriction Gastric reflux Non-smoker History of stress test History of throat cancer Psoriasis Hypothyroidism HTN (hypertension) Tongue cancer Home Medications ?Medication ?Instructions ?Recorded ?Last Taken ?Type ixekizumab 80 mg/mL subcutaneous 80 mg subcut QMONTH 08/19/22 Unknown History auto-injector (Taltz Autoinjector) famotidine 20 mg tablet 20 mg PO DAILY 10/24/22 Unknown History ibuprofen 100 mg/5 mL oral 200 mg PO Q6H PRN 12/19/23 Unknown History suspension lactose-reduced food with fiber ml PO 12/19/23 Unknown History 0.06 gram-1.5 kcal/mL oral liquid (Jevity 1.5 Buddy) levothyroxine 100 mcg tablet 100 mcg PO QDAY 12/19/23 Unknown History pantoprazole 40 mg tablet,delayed 40 mg PO QDAY 12/19/23 Unknown History release tramadol 50 mg tablet 50 mg PO BID PRN 12/25/23 Unknown History Allergy/AdvReac Type Severity Reaction Status Date / Time hydrocodone (From Vicodin) Allergy Unknown Verified 12/25/23 13:27 oxycodone (From Percocet) Allergy Unknown Verified 12/25/23 13:27 Family History Sister Diabetes Surgical History History of esophagogastroduodenoscopy (EGD) Hx of tonsillectomy History of total right knee replacement H/O thyroidectomy History of cholecystectomy Social History Smoking Status: Former smoker alcohol intake: never substance use type: does not use Vital Signs Vital Signs Vital Signs: 01/04/24 13:20 Temperature 96.4 F L Temperature Source Temporal Pulse Rate 97 Respiratory Rate 18 Blood Pressure 157/70 H Blood Pressure Mean 99 Blood Pressure Source Monitor Blood Pressure Position Semi-Fowlers Blood Pressure Location Left Arm Oxygen Delivery Method Room Air Weight Weight: 138 lb Body Mass Index (BMI) 22.9 Physical Exam Const alert, oriented x3 and no apparent distress General Appearance: cooperative and comfortable HEENT normocephalic, hearing grossly normal bilaterally, external ears normal and external nose normal Mouth: tongue abnormal other (s/p glossectomy) Eyes EOMs intact bilaterally General Eye: normal appearance of both eyes Neck Neck Narrative: L neck fungating mass with ulcerated center. No surrounding erythema/excess warmth/foul odor. Serosanguineous drainage is noted. Lymph Lymphatic: lymphadenopathy Resp normal respiratory effort, no retractions and no use of accessory muscles Effort and Inspection: able to speak in complete sentences; Negative for labored, grunting or stridor Cardio regular rate and regular rhythm Extremity normal to inspection, no clubbing, cyanosis or edema and no calf tenderness Skin Wound Narrative: L neck fungating mass with ulcerated center. No surrounding erythema/excess warmth/foul odor. Serosanguineous drainage is noted. Neuro oriented x3, CN's II-XII intact bilaterally, moves all extremities, no focal motor deficits and no sensory deficits noted Debridement Note Debridement Note No debridement was completed: No debridement was completed today Post-Debridement Measurements and Additional Note: Post-Debridement Measurements/Treatment WC - Nurse 1 - General Ulcer Assessment Start: 01/04/24 13:20 Freq: Status: Active Protocol: [email or web address].LOWEXT Activity Type Activity Date Activity User E-sign Co-sign Detail Recorded Client Recorded Date Recorded By Document 01/04/24 13:20 KW [id number] 01/04/24 13:23 KW 01/04/24 13:20 WC - Today's Visit Information Type of service Initial Visit Arrival Mode Ambulatory Patient Identification Verified (Name & Yes ) Height and Weight Height 5 ft 5 in Weight 138 lb Weight in Pounds 138.0 lbs Weight Measurement Method Estimated by Patient Body Mass Index (BMI) 22.9 BMI Classification Normal BSA - Bentley 1.69 Vital Signs Temperature (97.8 F-99.1 F) 96.4 F L Temperature Source Temporal Pulse Rate (60-100) 97 Pulse Location Monitor Respiratory Rate (12-18) 18 Respiratory rate source Observation Oxygen Delivery Method Room Air Blood Pressure (90/60-120/80) 157/70 H Blood Pressure Mean 99 Source Monitor Position Semi-Fowlers Blood Pressure Location Left Arm History Since Last Visit- (Skip if this is Patient's initial visit) Left Footwear Regular Shoe Right Footwear Regular Shoe Pain Scale: 0-10 Numeric Is Patient Pain Free? No neck -Intensity 6 -Alleviating Factors/Interventions Medication, Medicate when due Communication Assessment Preferred language Moroccan Able to Read Yes Able to Write Yes Right Hearing Abillity Normal Left Hearing Abillity Normal Visual Assistive Devices Glasses Teaching Assessment Preferences Verbal,Written, Demonstration Barriers to Learning None Readiness To Learn Excellent Willingness to Engage in Self Management High Activies Readiness to Engage in Self Management High Activities Anxiety Level Calm Cooperation Cooperative Perception Coherent Interest in Health Problem Asks Questions Education Importance Acknowledges Need Does Patient Smoke tobacco or other No substances Is Patient Diabetic No Functional Assessment Recent Decline in Ability to Perform Denies Any Declines Culture/Uatsdin/[employer] Ground Operations Supervisor Cultural/Uatsdin Needs that may affect No Treatment Plan Would you allow our hospital medical center manager to No meet you for the purpose of spiritual/ emotional support? [employer] Ground Operations Supervisor to contact place of moravian No WC - Nurse 1 - General Ulcer Measurement Start: 01/04/24 13:20 Freq: Status: Active Protocol: Activity Type Activity Date Activity User E-sign Co-sign Detail Recorded Client Recorded Date Recorded By Document 01/04/24 13:20 KW [id number] 01/04/24 13:23 KW 01/04/24 13:20 Wound Center Nurse 1 #7 LT LAT NECK -Current Size (cm) - Length 5 -Current Size (cm) - Width 4.5 -Current Size (cm) - Depth 0 -Total Square Cm 22.5 -Date of Last Picture (Recall this 01/04/24 field) -Exudate Amt None Present -Granulation Quality Hyper- granulation -Necrosis Amt Small (1-33%) -Necrotic Tissue Type Eschar -Texture (Rosie-wound Skin Appearance) Assessed -Moisture (Rosie-wound Skin Appearance) Assessed -Color (Rosie-wound Skin Appearance) Assessed -Temperature (Rosie-wound Skin No Abnormality Appearance) (Pt Warm) -Tenderness on Palpation (Rosie-wound No Skin Appearance) -Ulcer Cleansing Rinsed/ Irrigated with Saline -Foul Odor after Cleansing No -Wound Comment(s) growth is about 1.5cm from the base to the top WC - Nurse 2 - General Ulcer CM Notes Start: 01/04/24 13:20 Freq: Status: Active Protocol: Activity Type Activity Date Activity User E-sign Co-sign Detail Recorded Client Recorded Date Recorded By Document 01/04/24 13:31 [id number] 01/04/24 13:38 01/04/24 13:31 Wound Center Nurse 2 -Time 13:31 -Correct Patient Yes -Correct Side, Site, Position Yes -Wound/Ulcer Outcome Not Healed -Wound Comment(s) skin cancer Pain Scale: 0-10 Numeric Is Patient Pain Free? Yes - Nurse 3 - General Ulcer D/C NN Start: 01/04/24 13:20 Freq: Status: Active Protocol: Activity Type Activity Date Activity User E-sign Co-sign Detail Recorded Client Recorded Date Recorded By Document 01/04/24 13:39 [id number] 01/04/24 13:40 01/04/24 13:39 Wound Care Center Nurse 3 #7 LT LAT NECK -Ulcer Cleansing Not Cleansed -Foul Odor after Cleansing No -Primary Dressing Applied Mepilex Border -Mepilex Border 1 Pain Scale: 0-10 Numeric Is Patient Pain Free? 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 She is starting radiation next week. For now, will plan to cover with silicone foam-border dressing to manage drainage but which should be gentle on her skin. Do not feel any additional dressings are likely to be of benefit right now. I recommend gently washing the area with antibacterial soap and water with dressing changes. No signs/symptoms of infection today. She is going to have 2 days of radiation next week then will have 3-4 weeks off prior to the next round of radiation. Will have her return to clinic in 2-3 weeks to reassess, sooner as needed.
--- NOTE | 2024-01-05 10:03 | WC ---
PHOTO 01/04/24 LEFT LATERAL NECK
== END 2024-01-11 23:59 | disposition home or self-care (01) ==
LOC: WC 13:00
PROVIDERS: PCP Family Medicine Geriatric Medicine; Referring Provider Family Medicine Geriatric Medicine; Visit Provider Physician Assistant
DX: C44.92 Squamous cell carcinoma of skin, unspecified (principal); C77.0 Secondary and unspecified malignant neoplasm of lymph nodes of head, face and neck; I10 Essential (primary) hypertension; E03.9 Hypothyroidism, unspecified; Z79.890 Hormone replacement therapy; Z79.899 Other long term (current) drug therapy; Z87.891 Personal history of nicotine dependence; Z85.810 Personal history of malignant neoplasm of tongue; Z92.3 Personal history of irradiation; Z92.21 Personal history of antineoplastic chemotherapy
CPT/HCPCS: 77301; 99213; G0463

== ENCOUNTER → 2024-01-17 | Outpatient (CLI) | payer MEDICARE, SELFPAY ==
[2023-06-05 08:51] VITALS: BMI 25.0
--- NOTE | 2024-01-17 12:40 | CT_ITS ---
STUDY: CT BRAIN WITHOUT CONTRAST REASON FOR EXAM: Female, 83 years old. MIGRAINE Neck cancer with radiation RADIATION DOSAGE (If Supplied By Facility): CTDIvol = ( 47.06 ) mGy, DLP = ( 907.97 ) mGycm TECHNIQUE: Transaxial CT imaging of the brain was performed without administration of intravenous contrast material. Individualized dose optimization techniques were used for this CT. COMPARISON: No relevant priors. FINDINGS: Normal soft tissue structures. There is hyperostosis frontalis internus. There is mild cerebral atrophy with widening of the extra-axial spaces and ventricular dilatation. There are areas of decreased attenuation within the white matter tracts of the supratentorial brain, consistent with microvascular disease changes. Normal basal ganglia and thalami. Normal brainstem. Normal cerebellum. There is no intracranial hemorrhage. There are no findings of an acute ischemic infarction. Atherosclerotic calcification of the cavernous portions of the internal carotid arteries bilaterally. Calcification of the vertebral arteries bilaterally. Mild degree of mucosal thickening of the maxillary sinuses as well as the ethmoid sinuses bilaterally. CT/Brain/Head without Contrast IMPRESSION: Chronic involutional changes of the brain. Electronically Signed: Chuck Sinha MD at 13:38 EST ,
== END | disposition home or self-care (01) ==
PROVIDERS: PCP Family Medicine Geriatric Medicine; Referring Provider Family Medicine Geriatric Medicine; Visit Provider Family Medicine Geriatric Medicine
DX: G43.909 Migraine, unspecified, not intractable, without status migrainosus (principal); L03.221 Cellulitis of neck; S11.90XA Unspecified open wound of unspecified part of neck, initial encounter
CPT/HCPCS: 70450; 87070; 87075; 87077; 87186; 87205; 87640

== ENCOUNTER 2024-01-22 11:55 | Inpatient (IN) | payer MEDICARE, SELFPAY ==
[2023-06-05 08:51] VITALS: BMI 25.0
[2024-01-22] VITALS (11 sets, daily range): BP systolic 104–167; BP diastolic 50–93; PULSE 79–93; RESP 14–22; TEMP 36.4–36.6; O2SAT 94–97; BMI 22.8
--- NOTE | 2024-01-22 13:12 | EDS_ITS ---
HPI History of Present Illness Chief Complaint: Cellulitis Narrative Narrative: Cultures from 12/17/2023 shows ESBL Klebsiella pneumoniae, Corynebacterium straitum, Prevotella oralis, anaerobic cocci. Imipenem and beta-lactamase positive [facility] Medical History Wears glasses Ambulates with cane Easy bruising Dietary restriction Gastric reflux Non-smoker History of stress test History of throat cancer Psoriasis Hypothyroidism HTN (hypertension) Tongue cancer Home Medications ?Medication ?Instructions ?Recorded ?Last Taken ?Type ixekizumab 80 mg/mL subcutaneous 80 mg subcut QMONTH 08/19/22 Unknown History auto-injector ([employer] Autoinjector) famotidine 20 mg tablet 20 mg PO DAILY 10/24/22 Unknown History lactose-reduced food with fiber 240 ml PO TID 12/19/23 Unknown History 0.06 gram-1.5 kcal/mL oral liquid (Jevity 1.5 Buddy) pantoprazole 40 mg tablet,delayed 40 mg PO QDAY 12/19/23 Unknown History release tramadol 50 mg tablet 50 mg PO BID PRN pain 12/25/23 Unknown History baclofen 10 mg tablet 10 mg PO BID 01/22/24 Unknown History baclofen 10 mg tablet 10 mg PO BID 01/22/24 Unknown History cephalexin 500 mg tablet 500 mg PO BID 01/22/24 Unknown History cephalexin 500 mg tablet 500 mg PO BID 01/22/24 Unknown History gabapentin 100 mg capsule 100 mg feeding tube Q12H 01/22/24 Unknown History gabapentin 100 mg capsule mg 01/22/24 Unknown History lactulose 10 gram/15 mL oral 30 ml PO DAILY PRN constipation 01/22/24 Unknown History solution levothyroxine 88 mcg tablet 88 mcg PO DAILY 01/22/24 Unknown History morphine concentrate 100 mg/5 mL 10 mg PO PRN pain 01/22/24 Unknown History (20 mg/mL) oral solution morphine concentrate 100 mg/5 mL 10 mg PO Q3H PRN pain 01/22/24 Unknown History (20 mg/mL) oral solution naloxone 4 mg/actuation nasal spray intranasal 01/22/24 Unknown History sulfamethoxazole 800 1 tab PO Q12.TCU 01/22/24 Unknown History mg-trimethoprim 160 mg tablet Allergy/AdvReac Type Severity Reaction Status Date / Time hydrocodone (From Vicodin) Allergy Unknown Verified 01/22/24 11:58 oxycodone (From Percocet) Allergy Unknown Verified 01/22/24 11:58 Family History Sister Diabetes Surgical History History of esophagogastroduodenoscopy (EGD) Hx of tonsillectomy History of total right knee replacement H/O thyroidectomy History of cholecystectomy Social History Smoking Status: Former smoker alcohol intake: never substance use type: does not use EXAM Physical Exam Const Vital Signs: 01/22/24 11:56 01/22/24 11:58 Temperature 97.8 F 97.8 F Temperature Source Oral Oral Pulse Rate 93 92 Respiratory Rate 16 18 Blood Pressure 104/93 H 166/57 H Blood Pressure Mean 96 93 Pulse Ox 96 96 Oxygen Delivery Method Room Air Room Air Discharge Plan Triage Chief Complaint: Cellulitis ED Provider: Gene Modi Dx/Rx/DC Orders Prescriptions: No Action famotidine 20 mg tablet 20 mg PO DAILY pantoprazole 40 mg tablet,delayed release (DR/EC) 40 mg PO QDAY Jevity 1.5 Buddy 0.06 gram-1.5 kcal/mL liquid 240 ml PO TID tramadol 50 mg tablet 50 mg PO BID PRN (Reason: pain) [place] Autoinjector 80 mg/mL Auto-Injector 80 mg SUBCUT QMONTH morphine concentrate 100 mg/5 mL (20 mg/mL) solution 10 mg PO Q3H PRN (Reason: pain) sulfamethoxazole-trimethoprim 800-160 mg tablet 1 tab PO Q12.TCU levothyroxine 88 mcg tablet 88 mcg PO DAILY baclofen 10 mg tablet 10 mg PO BID cephalexin 500 mg tablet 500 mg PO BID gabapentin 100 mg capsule 100 mg feeding tube Q12H Patient Comments: TAKE 1 CAP BY PEG AT BED X7DAYS THEN INCREASE TO 1 CAP 2X/DAY VIA PEG TUBE. NEOPLASM PAIN lactulose 10 gram/15 mL solution 30 ml PO DAILY PRN (Reason: constipation) naloxone 4 mg/actuation spray,non-aerosol INTRANASAL Patient Comments: ADMINISTER A SINGLE SPRAY INTRANASALLY INTO ONE NOSTRIL OF VICTIM SUSPECTED OF EXPERIENCING AN OPIOID-RELATED OVERDOSE. CALL 911. REPEAT WITH SECOND DEVICE INTO OTHER NOSTRIL AFTER 2-3 MINUTES IF NO OR MINIMAL RESPONSE. morphine concentrate 100 mg/5 mL (20 mg/mL) solution 10 mg PO PRN (Reason: pain) baclofen 10 mg tablet 10 mg PO BID cephalexin 500 mg tablet 500 mg PO BID gabapentin 100 mg capsule Patient Comments: TAKE 1 CAP BY PEG AT BED X7DAYS THEN INCREASE TO 1 CAP 2X/DAY VIA PEG TUBE. NEOPLASM PAIN Primary Care Provider: Jaspreet Cole Chi Referrals: Jaspreet Cole Chi, MD [Primary Care Provider] - Print Language: Greenlandic
--- NOTE | 2024-01-22 13:12 | EX.ED.DYSGE1 ---
HPI History of Present Illness Chief Complaint: Cellulitis Narrative Narrative: Chief complaint and HPI: Squamous cell carcinoma mass infection. 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 She states the past several weeks it has been red, painful, and purulent. She states that she saw her doctor who ordered wound cultures last week. She does follow with wound care. She states that she got a call from her doctor today that she needed to come to the emergency department for IV antibiotics given the culture results. She denies any fever, chills, URI symptoms. She does endorse nausea. She denies any chest pain, shortness of breath, abdominal pain, vomiting, diarrhea. Review of systems: See HPI Medications: As listed on the chart Allergies: As listed on the chart PFSH: Per chart Vital signs: As listed on the chart. Reviewed. Physical exam: Gen: A&O x3, NAD Head: Normocephalic, atraumatic Eyes: No sclera icterus, conjunctiva clear, PERRL, EOMI ENT: TMs clear BL, mildly dry mucous membranes, posterior oropharynx unremarkable, patient has asymmetry of the tongue given her previous cancer Neck: Trachea midline, large squamous cell carcinoma of the lateral left neck that is erythematous, painful, purulent-excoriated and friable CV: RRR, no murmurs, no peripheral edema Resp: Lungs CTA BL, no w/r/c GI: Abd soft, non-distended, non-tender, no r/r/g, PEG Musc: Moves all extremity, no deformity Skin: Warm, dry, no rash Neuro: Alert, oriented, grossly intact, sensation intact Psych: Cooperative, appropriate mood and affect [facility] Medical History Wears glasses Ambulates with cane Easy bruising Dietary restriction Gastric reflux Non-smoker History of stress test History of throat cancer Psoriasis Hypothyroidism HTN (hypertension) Tongue cancer Home Medications ?Medication ?Instructions ?Recorded ?Last Taken ?Type ixekizumab 80 mg/mL subcutaneous 80 mg subcut QMONTH 08/19/22 01/03/24 History auto-injector ([employer] Autoinjector) famotidine 20 mg tablet 20 mg PO DAILY 10/24/22 01/22/24 History lactose-reduced food with fiber 240 ml PO TID 12/19/23 Unknown History 0.06 gram-1.5 kcal/mL oral liquid (Jevity 1.5 Buddy) pantoprazole 40 mg tablet,delayed 40 mg PO QDAY 12/19/23 01/22/24 History release tramadol 50 mg tablet 50 mg PO BID PRN pain 12/25/23 01/22/24 History cephalexin 500 mg tablet 500 mg PO BID 01/22/24 01/21/24 History gabapentin 100 mg capsule 100 mg feeding tube Q12H 01/22/24 01/21/24 History lactulose 10 gram/15 mL oral 30 ml PO DAILY PRN constipation 01/22/24 01/21/24 History solution levothyroxine 88 mcg tablet 88 mcg PO DAILY 01/22/24 01/22/24 History morphine concentrate 100 mg/5 mL 10 mg PO Q3H PRN pain 01/22/24 01/21/24 History (20 mg/mL) oral solution naloxone 4 mg/actuation nasal spray 1 spray intranasal Q3M 01/22/24 Unknown History ondansetron 4 mg disintegrating 4 mg PO Q8H PRN nausea 01/22/24 01/22/24 History tablet sulfamethoxazole 800 1 tab PO Q12H 01/22/24 01/21/24 History mg-trimethoprim 160 mg tablet Allergy/AdvReac Type Severity Reaction Status Date / Time hydrocodone (From Vicodin) Allergy Unknown Verified 01/22/24 11:58 oxycodone (From Percocet) Allergy Unknown Verified 01/22/24 11:58 Family History Sister Diabetes Surgical History History of esophagogastroduodenoscopy (EGD) Hx of tonsillectomy History of total right knee replacement H/O thyroidectomy History of cholecystectomy Social History Smoking Status: Former smoker alcohol intake: never substance use type: does not use EXAM Physical Exam Const Vital Signs: 01/22/24 11:56 01/22/24 11:58 01/22/24 12:58 Temperature 97.8 F 97.8 F 97.8 F Temperature Source Oral Oral Oral Pulse Rate 93 92 93 Respiratory Rate 16 18 22 H Blood Pressure 104/93 H 166/57 H 124/60 H Blood Pressure Mean 96 93 81 Pulse Ox 96 96 Oxygen Delivery Method Room Air Room Air Room Air 01/22/24 13:00 01/22/24 13:56 Temperature 97.8 F Temperature Source Oral Pulse Rate 91 92 Respiratory Rate 22 H 15 Blood Pressure 157/60 H 160/78 H Blood Pressure Mean 92 105 Pulse Ox 95 Oxygen Delivery Method Room Air Room Air MDM MDM MDM Narrative Medical decision making narrative: 83-year-old female with squamous cell carcinoma of the neck presents for evaluation of infection of her squamous cell carcinoma. See physical exam findings. Differential diagnosis includes but is not limited to superficial infection, bacteremia, electrolyte abnormality. On chart review patient has cultures from 12/17/2023 that shows ESBL Klebsiella pneumoniae, Corynebacterium straitum, Prevotella oralis, anaerobic cocci. Sensitive to imipenem and beta-lactamase positive. Imipenem ordered along with infectious workup. CBC without leukocytosis or anemia. BMP relatively unremarkable. Lactic acid unremarkable. Blood cultures ordered. Patient will warrant admission for IV antibiotics. Family confirmed understanding the plan. Hospitalist accepted admission. Impression: 1. Squamous cell carcinoma infection resistant to multiple antibiotics 2. Squamous cell carcinoma on radiation Lab Data Labs: Laboratory Results - last 24 hr 01/22/24 13:25 WBC 9.7 RBC 4.18 L Hgb 12.5 Hct 38.8 MCV 92.8 MCH 29.9 MCHC 32.2 RDW Std Deviation 50.3 H RDW Coeff of Sherrie 14.6 Plt Count 323 MPV 9.6 Immature Gran % (Auto) 0.400 Neut % (Auto) 85.0 H Lymph % (Auto) 4.7 L Wolfe % (Auto) 9.7 Eos % (Auto) 0.1 Baso % (Auto) 0.1 Absolute Neuts (auto) 8.3 H Absolute Lymphs (auto) 0.46 L Nucleated RBC % 0 Sodium 134 L Potassium 4.2 Chloride 98 Carbon Dioxide 31.0 Anion Gap 5 BUN 18 Creatinine 0.88 Estim Creat Clear Calc 43.59 Est GFR (MDRD) Af Amer 79 Est GFR (MDRD) Non-Af 65 BUN/Creatinine Ratio 20.5 H Glucose 109 H Lactic Acid 1.2 Calcium 9.5 Discharge Plan Triage Chief Complaint: Cellulitis ED Provider: Gene Modi Dx/Rx/DC Orders Prescriptions: No Action famotidine 20 mg tablet 20 mg PO DAILY pantoprazole 40 mg tablet,delayed release (DR/EC) 40 mg PO QDAY Jevity 1.5 Buddy 0.06 gram-1.5 kcal/mL liquid 240 ml PO TID tramadol 50 mg tablet 50 mg PO BID PRN (Reason: pain) Taltz Autoinjector 80 mg/mL Auto-Injector 80 mg SUBCUT QMONTH morphine concentrate 100 mg/5 mL (20 mg/mL) solution 10 mg PO Q3H PRN (Reason: pain) sulfamethoxazole-trimethoprim 800-160 mg tablet 1 tab PO Q12H levothyroxine 88 mcg tablet 88 mcg PO DAILY gabapentin 100 mg capsule 100 mg feeding tube Q12H Patient Comments: TAKE 1 CAP BY PEG AT BED X7DAYS THEN INCREASE TO 1 CAP 2X/DAY VIA PEG TUBE. NEOPLASM PAIN lactulose 10 gram/15 mL solution 30 ml PO DAILY PRN (Reason: constipation) naloxone 4 mg/actuation spray,non-aerosol 1 spray INTRANASAL Q3M Patient Comments: ADMINISTER A SINGLE SPRAY INTRANASALLY INTO ONE NOSTRIL OF VICTIM SUSPECTED OF EXPERIENCING AN OPIOID-RELATED OVERDOSE. CALL 911. REPEAT WITH SECOND DEVICE INTO OTHER NOSTRIL AFTER 2-3 MINUTES IF NO OR MINIMAL RESPONSE. cephalexin 500 mg tablet 500 mg PO BID ondansetron 4 mg tablet,disintegrating 4 mg PO Q8H PRN Primary Care Provider: Jaspreet Cole Chi Referrals: Jaspreet Cole Chi, MD [Primary Care Provider] - Print Language: Malay
[2024-01-22 13:39] LABS: Absolute Lymphocyte Count 0.46 X10^3/uL (0.83-4.51); Absolute Neutrophil Count 8.3 X10^3/uL (2.0-7.7); Basophil# 0.01 X10^3/uL; Basophil% 0.1 % (0-1); Eosinophil# 0.01 X10^3/uL; Eosinophils% 0.1 % (0-5); Hematocrit 38.8 % (37-47); Hemoglobin 12.5 g/dL (12.0-15.0); Lymphocyte # 0.46 X10^3/ul (0.83-4.51); Lymphocyte % 4.7 % (19-41); Mean Corp Hgb Conc 32.2 g/dL (32-36); Mean Corpuscular Hgb 29.9 pg (27.0-32.0); Mean Corpuscular Volume 92.8 fL (81-99); Mean Platelet Vol. 9.6 fl (6.2-12.0); Monocyte# 0.94 X10^3/uL; Monocyte% 9.7 % (0-10); NRBC Flagged by Analyzer 0 % (0-5); Neutrophil # 8.26 X10^3/uL (2.7-7.7); POSITIVE DIFFERENTIAL YES; Platelet Count 323 K/mm3 (150-450); RBC Distribution Width CV 14.6 % (11.6-14.6); RBC Distribution Width SD 50.3 fl (35.1-43.9); Red Blood Count 4.18 M/mm3 (4.2-5.4); White Blood Count 9.7 K/mm3 (4.4-11.0)
[2024-01-22] MEDS: Ondansetron 4 MG/2 ML Vial IV (13:40)
[2024-01-22 13:48] LABS: Anion Gap 5 (5-15); BUN 18 mg/dL (7-18); BUN/Creat Ratio 20.5 RATIO (10-20); Calcium,Total 9.5 mg/dL (8.5-10.1); Chloride 98 mmol/L (98-107); Creatinine, Serum 0.88 mg/dL (0.55-1.02); EST Glomerular Filtration Rate 65 mL/min (>60); Est Glom Filt Rate - Afr Amer 79 mL/min (>60); Estimated Creatinine Clearance 43.59 ml/min; Glucose 109 mg/dL (74-106); Potassium 4.2 mmol/L (3.5-5.1); Sodium Level 134 mmol/L (136-145)
[2024-01-22 14:02] LABS: Lactic Acid 1.2 mmol/L (0.4-1.9)
[2024-01-22] MEDS: Acetaminophen 650 MG/20 ML UDC GT ×2 (14:18→21:22)
--- NOTE | 2024-01-22 14:23 | PCM.HP.STD ---
HPI - General General Date of Admission: 01/22/24 Date of Service: 01/22/24 Chief Complaint: Left neck cellulitis with multidrug-resistant organisms HPI Narrative BALA MADDEN, is a 83 F who presented to [facility] ED on 01/22/2024 for left neck cellulitis with multidrug-resistant organisms. Saw patient at bedside in the ED, daughter present. Patient was sitting up comfortably in bed, in no acute distress. Patient has recent history of fairly rapidly growing left neck fungating mass with adenopathy that was proven on biopsy to be recurrent squamous cell carcinoma. She previously had stage III moderately differentiated SCC of the tongue s/p remote glossectomy. She follows with Dr. Zhao with oncology and Dr. Lamar with radiation oncology. She had a 2-day burst of radiation done about 3 weeks ago. She noticed worsening pain/tenderness from the left neck mass along with a foul odor and increased drainage about 5-6 days ago. She saw both her PCP Dr. Cole and wound therapy for this. Wound cultures were drawn on 01/16 and she was initiated on Bactrim and Keflex. Cultures have now resulted with ESBL Klebsiella, Corynebacterium, Prevotella and other anaerobic cocci with significant drug resistance so she was told to come to the ED for further evaluation. Patient denies any fevers or chills since then. Patient has a PEG tube in place and uses this for feeding. She has had worsened nausea over the past 2 to 3 days. She notably was started on morphine liquid through the PEG tube for worsening pain at the left neck site about 4 to 5 days ago. She has been using this for pain in addition to her tramadol twice daily as needed and Tylenol as needed. She states the morphine has not seemed to be that helpful for the pain. She has been continuing to give herself the same amount of tube feed as normal. She denies any episodes of vomiting. In the ED here she was given doses of liquid Tylenol and IV Zofran and reports some improvement in pain and nausea with these. Was also given a dose of imipenem. Will be admitted for further management. FOR[facility]LY [facility] Medical History Wears glasses Ambulates with cane Easy bruising Dietary restriction Gastric reflux Non-smoker History of stress test History of throat cancer Psoriasis Hypothyroidism HTN (hypertension) Tongue cancer Home Medications ?Medication ?Instructions ?Recorded ?Last Taken ?Type ixekizumab 80 mg/mL subcutaneous 80 mg subcut QMONTH 08/19/22 01/03/24 History auto-injector (Taltz Autoinjector) famotidine 20 mg tablet 20 mg PO DAILY 10/24/22 01/22/24 History lactose-reduced food with fiber 240 ml PO TID 12/19/23 Unknown History 0.06 gram-1.5 kcal/mL oral liquid (Jevity 1.5 Buddy) pantoprazole 40 mg tablet,delayed 40 mg PO QDAY 12/19/23 01/22/24 History release tramadol 50 mg tablet 50 mg PO BID PRN pain 12/25/23 01/22/24 History cephalexin 500 mg tablet 500 mg PO BID 01/22/24 01/21/24 History gabapentin 100 mg capsule 100 mg feeding tube Q12H 01/22/24 01/21/24 History lactulose 10 gram/15 mL oral 30 ml PO DAILY PRN constipation 01/22/24 01/21/24 History solution levothyroxine 88 mcg tablet 88 mcg PO DAILY 01/22/24 01/22/24 History morphine concentrate 100 mg/5 mL 10 mg PO Q3H PRN pain 01/22/24 01/21/24 History (20 mg/mL) oral solution naloxone 4 mg/actuation nasal spray 1 spray intranasal Q3M 01/22/24 Unknown History ondansetron 4 mg disintegrating 4 mg PO Q8H PRN nausea 01/22/24 01/22/24 History tablet sulfamethoxazole 800 1 tab PO Q12H 01/22/24 01/21/24 History mg-trimethoprim 160 mg tablet Allergy/AdvReac Type Severity Reaction Status Date / Time hydrocodone (From Vicodin) Allergy Unknown Verified 01/22/24 11:58 oxycodone (From Percocet) Allergy Unknown Verified 01/22/24 11:58 Family History Sister Diabetes Surgical History History of esophagogastroduodenoscopy (EGD) Hx of tonsillectomy History of total right knee replacement H/O thyroidectomy History of cholecystectomy Social History Smoking Status: Former smoker alcohol intake: never substance use type: does not use ROS Constitutional Constitutional: Denies chills, fatigue, fever(s) or weakness Cardiovascular Cardiovascular: Denies chest pain Respiratory/Chest Respiratory/Chest: Denies shortness of breath at rest Gastrointestinal Gastrointestinal: Reports nausea; Denies abdominal pain, constipation, diarrhea or vomiting Musculoskeletal Musculoskeletal: Denies arthralgias or myalgias Vital Signs Vital Signs Vital Signs: 01/22/24 11:56 01/22/24 11:58 01/22/24 12:58 Temperature 97.8 F 97.8 F 97.8 F Temperature Source Oral Oral Oral Pulse Rate 93 92 93 Respiratory Rate 16 18 22 H Blood Pressure 104/93 H 166/57 H 124/60 H Blood Pressure Mean 96 93 81 Pulse Ox 96 96 Oxygen Delivery Method Room Air Room Air Room Air 01/22/24 13:00 01/22/24 13:56 Temperature 97.8 F Temperature Source Oral Pulse Rate 91 92 Respiratory Rate 22 H 15 Blood Pressure 157/60 H 160/78 H Blood Pressure Mean 92 105 Pulse Ox 95 Oxygen Delivery Method Room Air Room Air Weight Weight: 62.3 kg Body Mass Index (BMI) 22.8 Physical Exam Const alert, oriented x3, no apparent distress and average body habitus Constitutional Narrative: Elderly female, mildly fatigued appearing, mild difficulty with conversation due to prior procedure for tongue cancer but otherwise answering questions appropriately, sitting up in bed, in no acute distress. General Appearance: cooperative and comfortable HEENT normocephalic, head/scalp atraumatic, hearing grossly normal bilaterally and nasal mucous membranes and turbinates normal Eyes PERRL, EOMs intact bilaterally and conjunctivae normal Neck full ROM Neck Narrative: Significant left-sided fungating mass noted with mild purulent discharge coming from mass. Bandage in place loosely covering the mass. Chest inspection of chest normal Resp normal respiratory effort, normal air movement, no use of accessory muscles and clear to auscultation bilaterally Cardio regular rate, regular rhythm, no murmurs and peripheral pulses 2+ throughout GI normal to inspection, nondistended, normoactive bowel sounds, soft to palpation, non-tender and non-distended GI Narrative: PEG tube in place, site appears clean and dry. Back/Spine normal ROM Extremity normal to inspection, full ROM and no pedal edema Skin no rashes or lesions noted Psych mental status grossly normal Results Lab / Micro Data 01/22/24 13:25 01/22/24 13:25 Labs: Laboratory Results - last 24 hr 01/22/24 13:25: WBC 9.7, RBC 4.18 L, Hgb 12.5, Hct 38.8, MCV 92.8, MCH 29.9, MCHC 32.2, RDW Std Deviation 50.3 H, RDW Coeff of Sherrie 14.6, Plt Count 323, MPV 9.6, Immature Gran % (Auto) 0.400, Neut % (Auto) 85.0 H, Lymph % (Auto) 4.7 L, [place] % (Auto) 9.7, Eos % (Auto) 0.1, Baso % (Auto) 0.1, Absolute Neuts (auto) 8.3 H, Absolute Lymphs (auto) 0.46 L, Nucleated RBC % 0, Sodium 134 L, Potassium 4.2, Chloride 98, Carbon Dioxide 31.0, Anion Gap 5, BUN 18, Creatinine 0.88, Estim Creat Clear Calc 43.59, Est GFR (MDRD) Af Amer 79, Est GFR (MDRD) Non-Af 65, BUN/Creatinine Ratio 20.5 H, Glucose 109 H, Lactic Acid 1.2, Calcium 9.5 Assessment & Plan Assessment/Plan (1) Cellulitis of neck: (2) Localized swelling, mass and lump, neck: (3) Recurrent squamous cell carcinoma: PLAN: Plan Patient is an 83-year-old female who presented [facility] ED on 01/22/2024 with left neck cellulitis with multidrug-resistant organisms. 1. Left neck cellulitis with multidrug-resistant organisms ? Admit under inpatient status to [facility]. Infectious disease consulted. Wound culture from 01/16 growing ESBL Klebsiella, Corynebacterium, Prevotella and other anaerobic cocci with significant drug resistance. All appear to be sensitive to imipenem, will treat with IV imipenem for now, appreciate ID assistance. Pain control with Tylenol as needed, tramadol as needed and IV morphine as needed. 2. 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 Patient follows with Drs. Zhao and Willard. Patient had appointment scheduled with Dr. Lamar this Monday which will need to be rescheduled. Plan tentatively was for initiation of palliative radiation therapy in the next few weeks. No inpatient oncology or radiation oncology needs but will need close outpatient follow-up after discharge. 3. Dysphagia s/p PEG tube placement ? Patient is only able to drink coffee with thickener and takes a few oral medications with this coffee. She otherwise uses her PEG tube for 3 times daily tube feedings and all other medications. Maintain n.p.o. status aside from coffee with thickener and okay to continue normal tube feedings. Chronic medical conditions: ? Hypothyroidism: Continue home Synthroid. ? GERD: Continue home PPI. ? Neuropathy: Continue home gabapentin. DVT prophylaxis: Lovenox CODE STATUS: DNR CCA, DNI. Confirmed with patient and daughter on admission. Expected disposition: Home, 2 to 3 days Total clinical time spent by myself addressing the patient's medical issues, reviewing all the data, and collaborating with patient's care team: 75 minutes. Charges/Coding Visit Charges Inpatient E&M: 34508 Init Hosp L3
[2024-01-22] MEDS: Meropenem 500 MG in 0.9% Normal Saline (50mL MB+) 50 ML 100 MG IV ×2 (14:42→21:15)
[2024-01-22] MEDS: traMADol 50 MG Tablet PO (17:19)
[2024-01-22] MEDS: 0.9% Saline Lock 10 ML Syringe IV ×3 (18:50→23:46)
[2024-01-22] MEDS: Morphine 2 MG/ML Syringe IV ×2 (18:50→23:46)
[2024-01-22] MEDS: Gabapentin 100 MG Capsule GT (21:18)
[2024-01-22] MEDS: MELATONIN 3 MG TABLET GT (21:20)
[2024-01-22] MEDS: Jevity 1.5. 1,000 ML Bottle 240 ML PO (22:11)
[2024-01-23 05:12] VITALS: BP 126/59; PULSE 77; RESP 15; TEMP 36.8; O2SAT 94
[2024-01-23] MEDS: Acetaminophen 650 MG/20 ML UDC GT ×3 (05:13→22:58)
[2024-01-23] MEDS: Levothyroxine 88 MCG Tablet GT (05:13)
[2024-01-23] MEDS: Jevity 1.5. 1,000 ML Bottle 240 ML PO ×3 (05:14→21:44)
--- NOTE | 2024-01-23 07:38 | PCM.PN.HOSP ---
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 who was sent to the ED by his primary care physician, consult for left leg cellulitis with MDR's Objective Data Objective Data Vital Signs: Vital Signs Temp Pulse Resp BP Pulse Ox O2 Del Method 98.3 F 77 15 126/59 H 94 Room Air 01/23/24 05:12 01/23/24 05:12 01/23/24 05:12 01/23/24 05:12 01/23/24 05:12 01/23/24 05:12 Oxygen Delivery Method Room Air Weight: 62.369 kg Body Mass Index (BMI) 22.8 Intake & Output: Intake and Output for Last 24 Hours 01/21/24 01/22/24 01/23/24 23:59 23:59 23:59 Intake Total 960 / 960 300 / 300 Balance 960 / 960 300 / 300 Lab / Micro Data 01/22/24 13:25 01/22/24 13:25 Labs: Laboratory Results - last 24 hr 01/22/24 13:25: WBC 9.7, RBC 4.18 L, Hgb 12.5, Hct 38.8, MCV 92.8, MCH 29.9, MCHC 32.2, RDW Std Deviation 50.3 H, RDW Coeff of Sherrie 14.6, Plt Count 323, MPV 9.6, Immature Gran % (Auto) 0.400, Neut % (Auto) 85.0 H, Lymph % (Auto) 4.7 L, [place] % (Auto) 9.7, Eos % (Auto) 0.1, Baso % (Auto) 0.1, Absolute Neuts (auto) 8.3 H, Absolute Lymphs (auto) 0.46 L, Nucleated RBC % 0, Sodium 134 L, Potassium 4.2, Chloride 98, Carbon Dioxide 31.0, Anion Gap 5, BUN 18, Creatinine 0.88, Estim Creat Clear Calc 43.59, Est GFR (MDRD) Af Amer 79, Est GFR (MDRD) Non-Af 65, BUN/Creatinine Ratio 20.5 H, Glucose 109 H, Lactic Acid 1.2, Calcium 9.5 Physical Exam Narrative GENERAL: cooperative HEENT: Atraumatic; left neck fungating mass EYES; Anicteric, Normal Conjunctiva NECK; supple, normal thyroid, RESPIRATORY: Diminished to auscultation CARDIOVASCULAR: Regular S1 S2, GI: soft, normoactive bowel sounds, : No Renal angle tenderness; EXTREMITIES: No edema, no clubbing, MUSCULOSKELETAL: no muscle wasting NEURO: Awake; no lateralizing signs. 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 Left neck cellulitis with multidrug-resistant organisms ? Wound culture from 01/16 growing ESBL Klebsiella, Corynebacterium, Prevotella and other anaerobic cocci with significant drug resistance. Patient was started on IV meropenem based on sensitivities with consultation placed to ID 2. 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 Patient follows with Drs. Zhao and Willard. Patient had appointment scheduled with Dr. Lamar this Monday which will need to be rescheduled. Plan tentatively was for initiation of palliative radiation therapy in the next few weeks. No inpatient oncology or radiation oncology needs but will need close outpatient follow-up after discharge. 3. Dysphagia s/p PEG tube placement ? Patient is only able to drink coffee with thickener and takes a few oral medications with this coffee. She otherwise uses her PEG tube for 3 times daily tube feedings and all other medications. Maintain n.p.o. status aside from coffee with thickener and okay to continue normal tube feedings. 4. Hypothyroidism ? Patient is on levothyroxine home dose continued 5. GERD On PPI 6. Peripheral neuropathy ? Patient is on gabapentin 7. Constipation ? Patient placed on a bowel regimen 8. DVT prophylaxis - Lovenox CODE STATUS: DNR CCA, DNI. Confirmed with patient and daughter on admission. Time spent in the patient's overall evaluation,decision-making process, review of diagnostic data, adjustment of management, discussion with other providers, nursing nursing and ancillary staff involved in patient's care documentation, 38 minutes Charges/Coding Visit Charges Inpatient E&M: 88937 Subs Hosp L2
[2024-01-23 07:59] VITALS: O2SAT 95
[2024-01-23] MEDS: Meropenem 500 MG in 0.9% Normal Saline (50mL MB+) 50 ML 100 MG IV ×2 (09:34→22:54)
[2024-01-23] MEDS: Enoxaparin 40 MG/0.4 ML Syringe SC (09:35)
[2024-01-23] MEDS: Famotidine 20 MG Tablet GT (09:36)
[2024-01-23] MEDS: Lactulose 20 GM/30 ML UDC GT (09:38)
--- NOTE | 2024-01-23 09:38 | WOUNDNOTE ---
wound photo: left neck
[2024-01-23 09:40] VITALS: BP 127/60; PULSE 76; RESP 16; TEMP 36.7; O2SAT 94
--- NOTE | 2024-01-23 09:40 | CASEMGMT ---
KIMBERLY JOSEPH Assessment: Face to Face with pt for initial transition planning/care coordination assessment. KIMBERLY JOSEPH introduced self and role at [facility], pt voices understanding and consents to assessment. Pt is A&O x4 and answers all questions appropriately at this time. Pt sitting up in chair in no distress. Care providers, pharmacy, and demographics verified/updated. Strata: 3 Admitting Dx: L Neck MDR Cellulitis PCP: Douglas Specialists: Gilmer, Ward Clerk; ENT. [facility] Insurance: [employer] [facility] Prescription Benefit: yes LNOK: Angi, Daughter; Kenzie, daughter. Living Arrangements: Pt lives alone in a 1 story home with 3 steps to enter. Pt reports daughter assists her when needed. ADLs: Pt reports I with ADLs and IADLs. Transportation: Pt drives self and denies concerns with transportation. DME: Wheelchair, walker, cane, shower bench. HHC/SNF: Previously at [facility], used HHC - does not recall what agency. Pt states would like to go home with HHC services, pt would like a list of local C agencies. KIMBERLY JOSEPH notified KIMBERLY JOSEPH on floor. Pt states no further concerns/needs. CM to follow. Advised pt to ask CM if any further question/concerns/needs arise, voices understanding. Pt Goal: Home with HHC. Plan: Home with HHC, follow for ID and wound care. Shireen HARRIS CM
[2024-01-23] MEDS: traMADol 50 MG Tablet GT ×2 (09:45→19:46)
[2024-01-23] MEDS: Gabapentin 100 MG Capsule GT ×2 (09:45→22:58)
--- NOTE | 2024-01-23 10:43 | PCM.CONS.GEN ---
Assessment & Plan Assessment/Plan (1) Cellulitis of neck: PLAN: L neck wound cx with ESBL klebs, corynebacter, and anaerobes. Cont radha. 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 Getting radiation therapy. Over past 2 weeks progressive pain, redness, and purulent drainage from neck. Was started on bactrim and keflex as outpt without improvement. No fever or chills. Reports increased n/v over past 4 days. Admitted on meropenem. Full ROS performed and neg except as noted [facility] Medical History Wears glasses Ambulates with cane Easy bruising Dietary restriction Gastric reflux Non-smoker History of stress test History of throat cancer Psoriasis Hypothyroidism HTN (hypertension) Tongue cancer Home Medications ?Medication ?Instructions ?Recorded ?Last Taken ?Type ixekizumab 80 mg/mL subcutaneous 80 mg subcut QMONTH 08/19/22 01/03/24 History auto-injector (Taltz Autoinjector) famotidine 20 mg tablet 20 mg PO DAILY 10/24/22 01/22/24 History lactose-reduced food with fiber 240 ml PO TID 12/19/23 Unknown History 0.06 gram-1.5 kcal/mL oral liquid (Jevity 1.5 Buddy) pantoprazole 40 mg tablet,delayed 40 mg PO QDAY 12/19/23 01/22/24 History release tramadol 50 mg tablet 50 mg PO BID PRN pain 12/25/23 01/22/24 History cephalexin 500 mg tablet 500 mg PO BID 01/22/24 01/21/24 History gabapentin 100 mg capsule 100 mg feeding tube Q12H 01/22/24 01/21/24 History lactulose 10 gram/15 mL oral 30 ml PO DAILY PRN constipation 01/22/24 01/21/24 History solution levothyroxine 88 mcg tablet 88 mcg PO DAILY 01/22/24 01/22/24 History morphine concentrate 100 mg/5 mL 10 mg PO Q3H PRN pain 11/11/24 11/10/24 History (20 mg/mL) oral solution naloxone 4 mg/actuation nasal spray 1 spray intranasal Q3M 01/22/24 Unknown History ondansetron 4 mg disintegrating 4 mg PO Q8H PRN nausea 01/22/24 01/22/24 History tablet sulfamethoxazole 800 1 tab PO Q12H 01/22/24 01/21/24 History mg-trimethoprim 160 mg tablet Allergy/AdvReac Type Severity Reaction Status Date / Time hydrocodone (From Vicodin) Allergy Unknown Verified 01/22/24 11:58 oxycodone (From Percocet) Allergy Unknown Verified 01/22/24 11:58 Family History Sister Diabetes Surgical History History of esophagogastroduodenoscopy (EGD) Hx of tonsillectomy History of total right knee replacement H/O thyroidectomy History of cholecystectomy Social History Smoking Status: Former smoker alcohol intake: never substance use type: does not use Physical Exam Const alert and no apparent distress General Appearance: cooperative HEENT normocephalic and head/scalp atraumatic Eyes PERRL and EOMs intact bilaterally Neck Neck Narrative: L neck fungating mass Resp normal air movement and clear to auscultation bilaterally Cardio regular rate and regular rhythm GI soft to palpation, non-tender and non-distended GI Narrative: PEG in place Extremity General Extremity: Negative for edema Skin no rashes or lesions noted Neuro CN's II-XII intact bilaterally Lab / Micro Data Attestation: I reviewed the patient's lab results. 01/22/24 13:25 01/22/24 13:25 Labs: Laboratory Results - last 24 hr 01/22/24 13:25: WBC 9.7, RBC 4.18 L, Hgb 12.5, Hct 38.8, MCV 92.8, MCH 29.9, MCHC 32.2, RDW Std Deviation 50.3 H, RDW Coeff of Sherrie 14.6, Plt Count 323, MPV 9.6, Immature Gran % (Auto) 0.400, Neut % (Auto) 85.0 H, Lymph % (Auto) 4.7 L, [place] % (Auto) 9.7, Eos % (Auto) 0.1, Baso % (Auto) 0.1, Absolute Neuts (auto) 8.3 H, Absolute Lymphs (auto) 0.46 L, Nucleated RBC % 0, Sodium 134 L, Potassium 4.2, Chloride 98, Carbon Dioxide 31.0, Anion Gap 5, BUN 18, Creatinine 0.88, Estim Creat Clear Calc 43.59, Est GFR (MDRD) Af Amer 79, Est GFR (MDRD) Non-Af 65, BUN/Creatinine Ratio 20.5 H, Glucose 109 H, Lactic Acid 1.2, Calcium 9.5
--- NOTE | 2024-01-23 12:18 | CASEMGMT ---
Discharge Planning A list of?HH providers including quality and resource use data and consistent with the patient's preferred geographic region, medical needs, and insurance network was created in [employer] Guide.? This list was provided to the RN JAKE. Bindu Madison, Discharge Planning Asst.
[2024-01-23] MEDS: Lansoprazole 15 MG Capsule.DR 30 MG GT (14:01)
[2024-01-23 15:30] VITALS: BP 167/75; PULSE 89; RESP 18; TEMP 36.7; O2SAT 100
[2024-01-23 19:29] VITALS: BP 157/72; PULSE 87; RESP 17; TEMP 36.4; O2SAT 100
[2024-01-23] MEDS: 0.9% Saline Lock 10 ML Syringe IV (22:53)
[2024-01-23] MEDS: Senna/Docusate Sodium 1 Tablet GT (22:55)
[2024-01-23] MEDS: MELATONIN 3 MG TABLET GT (22:58)
[2024-01-24 03:19] VITALS: BP 144/68; PULSE 80; RESP 16; TEMP 36.7; O2SAT 98
[2024-01-24] MEDS: Morphine 2 MG/ML Syringe IV ×3 (03:31→15:47)
[2024-01-24] MEDS: 0.9% Saline Lock 10 ML Syringe IV ×3 (03:32→15:45)
[2024-01-24 06:03] LABS: Absolute Lymphocyte Count 0.64 X10^3/uL (0.83-4.51); Absolute Neutrophil Count 6.6 X10^3/uL (2.0-7.7); Basophil# 0.04 X10^3/uL; Basophil% 0.5 % (0-1); Eosinophil# 0.04 X10^3/uL; Eosinophils% 0.5 % (0-5); Hematocrit 39.1 % (37-47); Hemoglobin 12.6 g/dL (12.0-15.0); Lymphocyte # 0.64 X10^3/ul (0.83-4.51); Lymphocyte % 7.8 % (19-41); Mean Corp Hgb Conc 32.2 g/dL (32-36); Mean Corpuscular Hgb 29.9 pg (27.0-32.0); Mean Corpuscular Volume 92.9 fL (81-99); Monocyte# 0.85 X10^3/uL; Monocyte% 10.4 % (0-10); NRBC Flagged by Analyzer 0 % (0-5); Neutrophil # 6.59 X10^3/uL (2.7-7.7); Neutrophil % 80.4 % (47-70); Platelet Count 330 K/mm3 (150-450); RBC Distribution Width CV 14.6 % (11.6-14.6); Red Blood Count 4.21 M/mm3 (4.2-5.4); White Blood Count 8.2 K/mm3 (4.4-11.0)
[2024-01-24] MEDS: Levothyroxine 88 MCG Tablet GT (06:07)
[2024-01-24] MEDS: Jevity 1.5. 1,000 ML Bottle 240 ML PO ×3 (06:15→19:34)
[2024-01-24 07:15] LABS: Anion Gap 5 (5-15); BUN 17 mg/dL (7-18); BUN/Creat Ratio 25.5 RATIO (10-20); Calcium,Total 9.4 mg/dL (8.5-10.1); Chloride 104 mmol/L (98-107); Creatinine, Serum 0.67 mg/dL (0.55-1.02); EST Glomerular Filtration Rate 90 mL/min (>60); Est Glom Filt Rate - Afr Amer 109 mL/min (>60); Estimated Creatinine Clearance 47.95 ml/min; Glucose 95 mg/dL (74-106); Magnesium 1.8 mg/dL (1.6-2.6); Phosphorus 3.4 mg/dL (2.5-4.9); Potassium 4.6 mmol/L (3.5-5.1); Sodium Level 136 mmol/L (136-145)
[2024-01-24 07:53] VITALS: O2SAT 95
--- NOTE | 2024-01-24 08:37 | PCM.PN.HOSP ---
Reason for Visit Reason for Visit: Diagnoses Squamous cell carcinoma of skin, unspecified (01/22/24) Secondary and unspecified malignant neoplasm of lymph nodes of head, face and neck (01/22/24) Cellulitis of neck (01/22/24) Localized swelling, mass and lump, neck (01/22/24) Subjective Subjective Patient seen complains of headache this morning. Blood pressure elevated. Objective Data Objective Data Vital Signs: Vital Signs Temp Pulse Resp BP Pulse Ox O2 Del Method 98.1 F 80 16 144/68 H 95 Room Air 01/24/24 03:19 01/24/24 03:19 01/24/24 03:19 01/24/24 03:19 01/24/24 07:53 01/24/24 07:53 Oxygen Delivery Method Room Air Weight: 62.369 kg Body Mass Index (BMI) 22.8 Intake & Output: Intake and Output for Last 24 Hours 01/22/24 01/23/24 01/24/24 23:59 23:59 23:59 Intake Total 960 / 960 500 / 500 60 / 60 Balance 960 / 960 500 / 500 60 / 60 Lab / Micro Data 01/24/24 05:08 01/24/24 05:08 Labs: Laboratory Results - last 24 hr 01/24/24 05:08: WBC 8.2, RBC 4.21, Hgb 12.6, Hct 39.1, MCV 92.9, MCH 29.9, MCHC 32.2, RDW Std Deviation 50.0 H, RDW Coeff of Sherrie 14.6, Plt Count 330, MPV 10.0, Immature Gran % (Auto) 0.400, Neut % (Auto) 80.4 H, Lymph % (Auto) 7.8 L, [place] % (Auto) 10.4 H, Eos % (Auto) 0.5, Baso % (Auto) 0.5, Absolute Neuts (auto) 6.6, Absolute Lymphs (auto) 0.64 L, Nucleated RBC % 0, Sodium 136, Potassium 4.6, Chloride 104, Carbon Dioxide 28.0, Anion Gap 5, BUN 17, Creatinine 0.67, Estim Creat Clear Calc 47.95, Est GFR (MDRD) Af Amer 109, Est GFR (MDRD) Non-Af 90, BUN/Creatinine Ratio 25.5 H, Glucose 95, Calcium 9.4, Phosphorus 3.4, Magnesium 1.8 Physical Exam Narrative GENERAL: cooperative HEENT: Atraumatic; left neck fungating mass EYES; Anicteric, Normal Conjunctiva NECK; supple, normal thyroid, RESPIRATORY: Diminished to auscultation CARDIOVASCULAR: Regular S1 S2, GI: soft, normoactive bowel sounds, : No Renal angle tenderness; EXTREMITIES: No edema, no clubbing, MUSCULOSKELETAL: no muscle wasting NEURO: Awake; no lateralizing signs. 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 Left neck cellulitis with multidrug-resistant organisms ? Wound culture from 01/16 growing ESBL Klebsiella, Corynebacterium, Prevotella and other anaerobic cocci with significant drug resistance. Patient was started on IV meropenem based on sensitivities with consultation placed to ID ? 01/24/2024 patient was seen in consultation by Dr. Miramontes his notes and recommendations reviewed 2. 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 Patient follows with Drs. Zhao and Willard. Patient had appointment scheduled with Dr. Lamar this Monday which will need to be rescheduled. Plan tentatively was for initiation of palliative radiation therapy in the next few weeks. No inpatient oncology or radiation oncology needs but will need close outpatient follow-up after discharge. 3. Dysphagia s/p PEG tube placement ? Patient is only able to drink coffee with thickener and takes a few oral medications with this coffee. She otherwise uses her PEG tube for 3 times daily tube feedings and all other medications. Maintain n.p.o. status aside from coffee with thickener and okay to continue normal tube feedings. 4. Hypothyroidism ? Patient is on levothyroxine home dose continued 5. GERD On PPI 6. Peripheral neuropathy ? Patient is on gabapentin 7. Constipation ? Patient placed on a bowel regimen 8. DVT prophylaxis - Lovenox 9. Elevated blood pressure ? Patient started on amlodipine 5 mg daily with hydralazine as needed for systolic blood pressure greater than 160 CODE STATUS: DNR CCA, DNI. Confirmed with patient and daughter on admission. Time spent in the patient's overall evaluation,decision-making process, review of diagnostic data, adjustment of management, discussion with other providers, nursing nursing and ancillary staff involved in patient's care documentation, 35 minutes Charges/Coding Visit Charges Inpatient E&M: 63295 Subs Hosp L2
[2024-01-24] MEDS: Famotidine 20 MG Tablet GT (08:39)
[2024-01-24] MEDS: Lansoprazole 15 MG Capsule.DR 30 MG GT (08:39)
[2024-01-24] MEDS: Gabapentin 100 MG Capsule GT ×2 (08:39→23:10)
[2024-01-24] MEDS: traMADol 50 MG Tablet GT (08:39)
[2024-01-24] MEDS: Senna/Docusate Sodium 1 Tablet GT ×2 (08:40→23:10)
[2024-01-24 08:50] VITALS: BP 187/88; PULSE 95; RESP 18; TEMP 36.6; O2SAT 98
[2024-01-24] MEDS: Meropenem 500 MG in 0.9% Normal Saline (50mL MB+) 50 ML 100 MG IV ×2 (10:42→23:10)
[2024-01-24] MEDS: Enoxaparin 40 MG/0.4 ML Syringe SC (10:43)
[2024-01-24] MEDS: Lactulose 20 GM/30 ML UDC GT (10:43)
[2024-01-24] MEDS: amLODIPine 5 MG Tablet GT (10:43)
--- NOTE | 2024-01-24 12:47 | CASEMGMT ---
Addendum entered by Marlene Carter 01/24/24 15:58: Received confirmation from [facility], they are able to accept pt for SOC on Monday morning. Updated pt. Addendum entered by Marlene Carter 01/24/24 13:53: Received IV rx from [facility]. KIMBERLY JOSEPH into pt room, discussed IV atb. Pt states that she can learn or her dtr who lives next door. Provided pt with a verbal list of Infusion companies, pt chose [facility]. Pt has chosen the following for [facility] 1. [facility] 2. [facility] 3. [facility]. TC to intake at [facility], left message with referral. Will await acceptance. DC technical assistant to send referral to [facility]. Original Note: KIMBERLY JOSEPH into pt room, pt sitting up in bed in no distress. Discussed with pt [facility] and requirements and benefits. Pt is interested in SN and PT. Discussed with pt that yesterday she declined radiation and today she went. Pt states she is not sure how long she will continue this. She states that I'd rather than go through the pain. Discussed with pt that she has options should she not want to continue treatment. Discussed palliative care, pt states she is active with [facility]. Provided pt with C list created by dc technical assistant. Pt to review for top 3 preferences and KIMBERLY JOSEPH will check back. Pt states she does her own TF at home. Pt denies further needs at this time.
--- NOTE | 2024-01-24 13:11 | PCM.PN.ID ---
Physical Exam Narrative Feeling ok, pain improved, no fever Const alert and no apparent distress Neck Neck Narrative: L neck fungating mass, less drainage Resp normal air movement and clear to auscultation bilaterally Cardio regular rate and regular rhythm GI soft to palpation, non-tender and non-distended Skin Skin Narrative: no new rash ID ID: Route of nutrition/ use of supplements: [] Nutritional Intake: [] IV Site: [] Boo Catheter: [] Assessment & Plan Assessment/Plan (1) Cellulitis of neck: PLAN: L neck wound cx with ESBL klebs, corynebacter, and anaerobes. Cont radha. Will order midline and 7 more days iv ertapenem for discharge. 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
--- NOTE | 2024-01-24 13:59 | CASEMGMT ---
Discharge Planning Referral sent via [employer] to [facility]. Bindu Madison DC Planning Asst.
--- NOTE | 2024-01-24 14:10 | CASEMGMT ---
Social Work Pt confirms she has completed a living will and health care POA naming daughter, Lisa Zendejas.? Pt notified that documents are not on file at [facility] and SW requested they be brought in for scanning into the EMR.? TANYA Bone
[2024-01-24] MEDS: Acetaminophen 650 MG/20 ML UDC GT ×2 (14:50→23:25)
[2024-01-24 15:15] VITALS: BP 138/97; PULSE 82; RESP 18; TEMP 36.9; O2SAT 97
[2024-01-24] MEDS: Ondansetron 4 MG/2 ML Vial IV (15:45)
[2024-01-24 23:07] VITALS: BP 140/64; PULSE 91; RESP 16; TEMP 36.4; O2SAT 95
[2024-01-24] MEDS: MELATONIN 3 MG TABLET GT (23:25)
[2024-01-25] MEDS: Levothyroxine 88 MCG Tablet GT (05:17)
[2024-01-25 05:26] VITALS: BP 174/73; PULSE 84; RESP 16; TEMP 36.3; O2SAT 96
[2024-01-25] MEDS: traMADol 50 MG Tablet GT (05:36)
[2024-01-25 05:52] VITALS: BP 174/73; PULSE 84
[2024-01-25] MEDS: hydrALAZINE 20 MG/ML Vial 10 MG IV (05:52)
[2024-01-25] MEDS: 0.9% Saline Lock 10 ML Syringe IV ×2 (05:52→07:51)
[2024-01-25] MEDS: Jevity 1.5. 1,000 ML Bottle 240 ML PO ×2 (06:36→13:46)
[2024-01-25 07:06] LABS: Absolute Lymphocyte Count 0.67 X10^3/uL (0.83-4.51); Absolute Neutrophil Count 6.8 X10^3/uL (2.0-7.7); Basophil# 0.02 X10^3/uL; Basophil% 0.2 % (0-1); Eosinophil# 0.05 X10^3/uL; Eosinophils% 0.6 % (0-5); Hematocrit 40.8 % (37-47); Hemoglobin 13.3 g/dL (12.0-15.0); Lymphocyte # 0.67 X10^3/ul (0.83-4.51); Lymphocyte % 7.9 % (19-41); Mean Corp Hgb Conc 32.6 g/dL (32-36); Mean Corpuscular Hgb 30.1 pg (27.0-32.0); Mean Corpuscular Volume 92.3 fL (81-99); Mean Platelet Vol. 9.5 fl (6.2-12.0); Monocyte# 0.88 X10^3/uL; Monocyte% 10.4 % (0-10); NRBC Flagged by Analyzer 0 % (0-5); Neutrophil # 6.79 X10^3/uL (2.7-7.7); Neutrophil % 80.3 % (47-70); Platelet Count 329 K/mm3 (150-450); RBC Distribution Width CV 14.6 % (11.6-14.6); RBC Distribution Width SD 50.1 fl (35.1-43.9); Red Blood Count 4.42 M/mm3 (4.2-5.4); White Blood Count 8.5 K/mm3 (4.4-11.0)
[2024-01-25 07:39] VITALS: BP 129/58; PULSE 96; RESP 16; TEMP 36.1; O2SAT 100
[2024-01-25 07:44] LABS: Anion Gap 3 (5-15); BUN 19 mg/dL (7-18); BUN/Creat Ratio 27.3 RATIO (10-20); Calcium,Total 9.1 mg/dL (8.5-10.1); Chloride 101 mmol/L (98-107); EST Glomerular Filtration Rate 86 mL/min (>60); Est Glom Filt Rate - Afr Amer 104 mL/min (>60); Estimated Creatinine Clearance 47.95 ml/min; Glucose 100 mg/dL (74-106); Potassium 4.4 mmol/L (3.5-5.1); Sodium Level 135 mmol/L (136-145)
[2024-01-25] MEDS: Polyethylene Glycol 3350 17 GM PACKET GT (07:45)
[2024-01-25] MEDS: Senna/Docusate Sodium 1 Tablet GT (07:45)
[2024-01-25] MEDS: Famotidine 20 MG Tablet GT (07:45)
[2024-01-25] MEDS: amLODIPine 5 MG Tablet GT (07:46)
[2024-01-25] MEDS: Lansoprazole 15 MG Capsule.DR 30 MG GT (07:46)
[2024-01-25] MEDS: Enoxaparin 40 MG/0.4 ML Syringe SC (07:46)
[2024-01-25] MEDS: Gabapentin 100 MG Capsule GT (07:51)
[2024-01-25] MEDS: Acetaminophen 650 MG/20 ML UDC GT ×2 (07:51→15:55)
--- NOTE | 2024-01-25 08:19 | PN.HOSP_ITS ---
Reason for Visit Reason for Visit: Diagnoses Squamous cell carcinoma of skin, unspecified (01/22/24) Secondary and unspecified malignant neoplasm of lymph nodes of head, face and neck (01/22/24) Cellulitis of neck (01/22/24) Localized swelling, mass and lump, neck (01/22/24) Subjective Subjective Patient had a midline placed the day prior. Patient to be discharged with IV antibiotics as recommended by ID Objective Data Objective Data Vital Signs: Vital Signs Temp Pulse Resp BP Pulse Ox O2 Del Method 96.9 F L 96 16 129/58 H 100 Room Air 01/25/24 07:39 01/25/24 07:39 01/25/24 07:39 01/25/24 07:39 01/25/24 07:39 01/25/24 07:39 Oxygen Delivery Method Room Air Weight: 62.369 kg Body Mass Index (BMI) 22.8 Intake & Output: Intake and Output for Last 24 Hours 01/23/24 01/24/24 01/25/24 23:59 23:59 23:59 Intake Total 500 / 500 1020 / 1020 400 / 400 Balance 500 / 500 1020 / 1020 400 / 400 Lab / Micro Data 01/25/24 06:47 01/25/24 06:47 Labs: Laboratory Results - last 24 hr 01/25/24 06:47: WBC 8.5, RBC 4.42, Hgb 13.3, Hct 40.8, MCV 92.3, MCH 30.1, MCHC 32.6, RDW Std Deviation 50.1 H, RDW Coeff of Sherrie 14.6, Plt Count 329, MPV 9.5, Immature Gran % (Auto) 0.600, Neut % (Auto) 80.3 H, Lymph % (Auto) 7.9 L, Baker % (Auto) 10.4 H, Eos % (Auto) 0.6, Baso % (Auto) 0.2, Absolute Neuts (auto) 6.8, A bsolute Lymphs (auto) 0.67 L, Nucleated RBC % 0, Sodium 135 L, Potassium 4.4, Chloride 101, Carbon Dioxide 31.0, Anion Gap 3 L, BUN 19 H, Creatinine 0.70, Estim Creat Clear Calc 47.95, Est GFR (MDRD) Af Amer 104, Est GFR (MDRD) Non-Af 86, BUN/Creatinine Ratio 27.3 H, Glucose 100, Calcium 9.1 Micro: Microbiology 01/22/24 13:25 Blood Culture (Wb) - Anticubital Left Blood Culture - Preliminary No growth in 48 hours. Physical Exam Narrative GENERAL: cooperative HEENT: Atraumatic; left neck fungating mass EYES; Anicteric, Normal Conjunctiva NECK; supple, normal thyroid, RESPIRATORY: Diminished to auscultation CARDIOVASCULAR: Regular S1 S2, GI: soft, normoactive bowel sounds, : No Renal angle tenderness; EXTREMITIES: No edema, no clubbing, MUSCULOSKELETAL: no muscle wasting NEURO: Awake; no lateralizing signs. 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 Left neck cellulitis with multidrug-resistant organisms ? Wound culture from 01/16 growing ESBL Klebsiella, Corynebacterium, Prevotella and other anaerobic cocci with significant drug resistance. Patient was started on IV meropenem based on sensitivities with consultation placed to ID ? 01/24/2024 patient was seen in consultation by Dr. Miramontes his notes and recommendations reviewed ? 01/25/2024 plan is for patient to be discharged home with IV ertapenem for 7 more days. She had had a midline placed the day prior 2. 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 Patient follows with Drs. Zhao and Willard. Patient had appointment scheduled with Dr. Lamar this Monday which will need to be rescheduled. Plan tentatively was for initiation of palliative radiation therapy in the next few weeks. No inpatient oncology or radiation oncology needs but will need close outpatient follow-up after discharge. 3. Dysphagia s/p PEG tube placement ? Patient is only able to drink coffee with thickener and takes a few oral medications with this coffee. She otherwise uses her PEG tube for 3 times daily tube feedings and all other medications. Maintain n.p.o. status aside from coffee with thickener and okay to continue normal tube feedings. 4. Hypothyroidism ? Patient is on levothyroxine home dose continued 5. GERD On PPI 6. Peripheral neuropathy ? Patient is on gabapentin 7. Constipation ? Patient placed on a bowel regimen 8. DVT prophylaxis - Lovenox 9. Elevated blood pressure ? Patient started on amlodipine 5 mg daily with hydralazine as needed for systolic blood pressure greater than 160 CODE STATUS: DNR CCA, DNI. Confirmed with patient and daughter on admission. Time spent in the patient's overall evaluation,decision-making process, review of diagnostic data, adjustment of management, discussion with other providers, nursing nursing and ancillary staff involved in patient's care documentation, 35 minutes Charges/Coding Visit Charges Inpatient E&M: 91985 [facility]
--- NOTE | 2024-01-25 09:30 | CASEMGMT ---
Addendum entered by Marlene Carter 01/25/24 11:33: [facility] nurse present on floor and will see pt. DC instructions sent to [facility] at this time via [employer]. Addendum entered by Marlene Carter 01/25/24 09:39: RN CM into pt room, pt sitting up in bed in no distress. Discussed dc plan with pt. Pt is aware that she will be switching to her homegoing med today and receive first dose in the hospital and then [facility] will be out tomorrow to her home to teach the IV to her and her dtr. Discussed the process of [facility] and delivering the med. Pt denies any questions or concerns and verbalizes understanding of plan. Original Note: Faxed IV rx to [facility]. Uploaded midline insertion information to [employer] and sent to [facility]. Updated ID and hospitalist that Infusion company would like pt to have first dose of antibiotic here at hospital prior to dc. Med to be changed so it will be given.
[2024-01-25] MEDS: 0.9% Normal Saline (500mL Bag) 500 ML 15 ML IV (10:41)
[2024-01-25] MEDS: Ertapenem Sod 1 GM in 0.9% Normal Saline (50mL MB+) 50 ML IV (10:41)
--- NOTE | 2024-01-25 11:17 | DS.PCM_ITS ---
Providers Date of Admission: 01/22/24 Date of Discharge: 01/25/24 Primary Care Physician: Dr. Jaspreet Cole MD Consultations 01/22/24 16:08 Consult: Infectious Disease Routine Consulting Provider: Nabeel Miramontes Reason for Consult: MDR L neck cellulitis EMERGENT Consult: No MD Notified: Yes Date Notified: 01/22/24 Time Notified: 16:11 Method of Notification: Text 01/22/24 16:49 Consult: Onc/Wound/radiation control technician Routine Comment: Reason for Consult:: peg tube redness/ large cancerous draining wound to left side nec Reason For Visit: LEFT NECK MDR CELLULITIS Diagnosis Discharge Diagnosis (1) Cellulitis of neck: Status: Acute Code(s): L03.221 - Cellulitis of neck (2) Localized swelling, mass and lump, neck: Status: Acute Code(s): R22.1 - Localized swelling, mass and lump, neck (3) Recurrent squamous cell carcinoma: Status: Acute Plan Patient is an 83-year-old female with 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 Left neck cellulitis with multidrug-resistant organisms ? Wound culture from 01/16 growing ESBL Klebsiella, Corynebacterium, Prevotella and other anaerobic cocci with significant drug resistance. Patient was started on IV meropenem based on sensitivities with consultation placed to ID ? 01/24/2024 patient was seen in consultation by Dr. Miramontes his notes and recommendations reviewed ? 01/25/2024 plan is for patient to be discharged home with IV ertapenem for 7 more days. She had had a midline placed the day prior 2. 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 Patient follows with Drs. Zhao and Willard. Patient had appointment scheduled with Dr. Lamar this Monday which will need to be rescheduled. Plan tentatively was for initiation of palliative radiation therapy in the next few weeks. No inpatient oncology or radiation oncology needs but will need close outpatient follow-up after discharge. 3. Dysphagia s/p PEG tube placement ? Patient is only able to drink coffee with thickener and takes a few oral medications with this coffee. She otherwise uses her PEG tube for 3 times daily tube feedings and all other medications. Maintain n.p.o. status aside from coffee with thickener and okay to continue normal tube feedings. 4. Hypothyroidism ? Patient is on levothyroxine home dose continued 5. GERD On PPI 6. Peripheral neuropathy ? Patient is on gabapentin 7. Constipation ? Patient placed on a bowel regimen 8. DVT prophylaxis - Lovenox 9. Elevated blood pressure ? Patient started on amlodipine 5 mg daily with hydralazine as needed for systolic blood pressure greater than 160 CODE STATUS: DNR CCA, DNI. Confirmed with patient and daughter on admission. Time spent in the patient's overall evaluation,decision-making process, review of diagnostic data, adjustment of management, discussion with other providers, nursing nursing and ancillary staff involved in patient's care documentation, 35 minutes Medications at Discharge Home Medications ixekizumab 80 mg/mL subcutaneous auto-injector (Taltz Autoinjector) 80 mg subcut QMONTH 08/19/22 famotidine 20 mg tablet 20 mg PO DAILY 10/24/22 lactose-reduced food with fiber 0.06 gram-1.5 kcal/mL oral liquid (Jevity 1.5 Buddy) 240 ml PO TID 12/19/23 pantoprazole 40 mg tablet,delayed release 40 mg PO QDAY 12/19/23 tramadol 50 mg tablet 50 mg PO BID PRN pain 12/25/23 gabapentin 100 mg capsule 100 mg feeding tube Q12H 01/22/24 lactulose 10 gram/15 mL oral solution 30 ml PO DAILY PRN constipation 01/22/24 levothyroxine 88 mcg tablet 88 mcg PO DAILY 01/22/24 morphine concentrate 100 mg/5 mL (20 mg/mL) oral solution 10 mg PO Q3H PRN pain 01/22/24 naloxone 4 mg/actuation nasal spray 1 spray intranasal Q3M 01/22/24 ondansetron 4 mg disintegrating tablet 4 mg PO Q8H PRN nausea 01/22/24 sulfamethoxazole 800 mg-trimethoprim 160 mg tablet 1 tab PO Q12H 01/22/24 ertapenem 1 gram solution for injection 1 g IV DAILY #7 ea 01/24/24 amlodipine 5 mg tablet 5 mg G-tube 0600 60 days #60 tabs 01/25/24 Physical Exam Narrative GENERAL: cooperative HEENT: Atraumatic; left neck fungating mass EYES; Anicteric, Normal Conjunctiva NECK; supple, normal thyroid, RESPIRATORY: Diminished to auscultation CARDIOVASCULAR: Regular S1 S2, GI: soft, normoactive bowel sounds, : No Renal angle tenderness; EXTREMITIES: No edema, no clubbing, MUSCULOSKELETAL: no muscle wasting NEURO: Awake; no lateralizing signs. SKIN: As described above PSYCH; Flat affect Weight / BMI Weight Weight: 62.369 kg Body Mass Index (BMI) 22.8 ABG / Lab / Microbiology Data 01/25/24 06:47 01/25/24 06:47 Laboratory: Laboratory Results - last 24 hr 01/25/24 06:47: WBC 8.5, RBC 4.42, Hgb 13.3, Hct 40.8, MCV 92.3, MCH 30.1, MCHC 32.6, RDW Std Deviation 50.1 H, RDW Coeff of Sherrie 14.6, Plt Count 329, MPV 9.5, Immature Gran % (Auto) 0.600, Neut % (Auto) 80.3 H, Lymph % (Auto) 7.9 L, Mccreary % (Auto) 10.4 H, Eos % (Auto) 0.6, Baso % (Auto) 0.2, Absolute Neuts (auto) 6.8, A bsolute Lymphs (auto) 0.67 L, Nucleated RBC % 0, Sodium 135 L, Potassium 4.4, Chloride 101, Carbon Dioxide 31.0, Anion Gap 3 L, BUN 19 H, Creatinine 0.70, Estim Creat Clear Calc 47.95, Est GFR (MDRD) Af Amer 104, Est GFR (MDRD) Non-Af 86, BUN/Creatinine Ratio 27.3 H, Glucose 100, Calcium 9.1 Microbiology: Microbiology 01/22/24 13:25 Blood Culture (Wb) - Anticubital Left Blood Culture - Preliminary No growth in 48 hours. D/C Instructions Discharge Diet: - (Via tube feed and pleasure feed orally) Discharge Activity: Return to Normal Activity Call your doctor if you observe: Fever of 101 or Higher, Shortness of breath, Fainting spells and Chest pain Meaningful Use Info Meaningful Use Meaningful Use Diagnoses (Choose all that apply): None applicable Ischemic Stroke Statin Dosing Therapy Reference: STATIN DOSE THERAPY REFERENCE: * Patients > 75 years receive moderate or high dose statin therapy. * Patients 75 years or YOUNGER should receive HIGH intensity statin dose unless contraindicated. You will be required to document reason for non-treatment if statin daily dose does not meet guidelines. HIGH DOSE STATIN THERAPY DAILY Atorvastatin > than or = to 40 mg Rosuvastatin > than or = to 20 mg Amlodipine + Atorvastatin > than or = to 2.5/40 mg Ezetimibe + Simvastatin 10/80 mg Simvastatin 80mg Discharge Plan Admission Admit Date/Time: 01/22/24 14:32 Attending Provider: Vinod Lawson Primary Care Provider: Jaspreet Cole Chi Consulting Providers: Nabeel Miramontes; Karl Fournier Discharge Orders/Prescriptions Prescriptions: New ertapenem 1 gram recon soln 1 g IV DAILY Qty: 7 0RF Rx Instructions: for esbl infection. Weekly bmp, cbc, and LFT; fax to [phone]. Routine midline care per protocol. amlodipine 5 mg Tablet 5 mg G-tube 0600 60 Days Qty: 60 0RF Continued famotidine 20 mg tablet 20 mg PO DAILY pantoprazole 40 mg tablet,delayed release (DR/EC) 40 mg PO QDAY Jevity 1.5 Buddy 0.06 gram-1.5 kcal/mL liquid 240 ml PO TID tramadol 50 mg tablet 50 mg PO BID PRN (Reason: pain) Taltz Autoinjector 80 mg/mL Auto-Injector 80 mg SUBCUT QMONTH morphine concentrate 100 mg/5 mL (20 mg/mL) solution 10 mg PO Q3H PRN (Reason: pain) sulfamethoxazole-trimethoprim 800-160 mg tablet 1 tab PO Q12H levothyroxine 88 mcg tablet 88 mcg PO DAILY gabapentin 100 mg capsule 100 mg feeding tube Q12H Patient Comments: TAKE 1 CAP BY PEG AT BED X7DAYS THEN INCREASE TO 1 CAP 2X/DAY VIA PEG TUBE. NEOPLASM PAIN lactulose 10 gram/15 mL solution 30 ml PO DAILY PRN (Reason: constipation) naloxone 4 mg/actuation spray,non-aerosol 1 spray INTRANASAL Q3M Patient Comments: ADMINISTER A SINGLE SPRAY INTRANASALLY INTO ONE NOSTRIL OF VICTIM SUSPECTED OF EXPERIENCING AN OPIOID-RELATED OVERDOSE. CALL 911. REPEAT WITH SECOND DEVICE INTO OTHER NOSTRIL AFTER 2-3 MINUTES IF NO OR MINIMAL RESPONSE. ondansetron 4 mg tablet,disintegrating 4 mg PO Q8H PRN Discontinued cephalexin 500 mg tablet 500 mg PO BID Referrals / Follow Up: Jaspreet Cole Chi, MD [Primary Care Provider] - Within 1 Week Disposition Disposition (needs filled in before D/C Order can be placed): Home Health Service Charges/Coding Visit Charges Inpatient E&M: 87294 Disch Hosp >30min
[2024-01-25 13:43] VITALS: BP 128/60; PULSE 89; RESP 16; TEMP 37.1; O2SAT 99
== END 2024-01-25 17:15 | disposition home health service (06) | DRG 603 ==
LOC: ED 12:56 → MS3 15:37
PROVIDERS: Admitting Provider Hospitalist; Emergency Provider Surgery; PCP Family Medicine Geriatric Medicine; Visit Provider Internal Medicine
DX: L03.221 Cellulitis of neck (principal); C77.0 Secondary and unspecified malignant neoplasm of lymph nodes of head, face and neck; Z16.24 Resistance to multiple antibiotics; L03.116 Cellulitis of left lower limb; Z16.12 Extended spectrum beta lactamase (ESBL) resistance; B96.1 Klebsiella pneumoniae [K. pneumoniae] as the cause of diseases classified elsewhere; Z66 Do not resuscitate; E89.0 Postprocedural hypothyroidism; I10 Essential (primary) hypertension; Z93.1 Gastrostomy status; G62.9 Polyneuropathy, unspecified; K21.9 Gastro-esophageal reflux disease without esophagitis; K59.00 Constipation, unspecified; C44.42 Squamous cell carcinoma of skin of scalp and neck; R13.10 Dysphagia, unspecified; Z79.891 Long term (current) use of opiate analgesic; Z79.890 Hormone replacement therapy; Z87.891 Personal history of nicotine dependence; Z85.810 Personal history of malignant neoplasm of tongue
CPT/HCPCS: 36415; 77290; 77300; 77301; 77338; 77387; 80048; 83605; 83735; 84100; 85025; 87040; 97162; 97165; 97802; 99284; J2185; Q9967; A4216; J2405

== ENCOUNTER 2024-01-29 14:09 | Outpatient (RCR) | payer MEDICARE, SELFPAY ==
[2023-06-05 08:51] VITALS: BMI 25.0
[2024-01-29 14:30] LABS: Hematocrit 36.2 % (37-47); Hemoglobin 11.6 g/dL (12.0-15.0); Mean Corpuscular Hgb 30.4 pg (27.0-32.0); Mean Corpuscular Volume 94.8 fL (81-99); Mean Platelet Vol. 10.2 fl (6.2-12.0); Platelet Count 334 K/mm3 (150-450); RBC Distribution Width CV 14.4 % (11.6-14.6); RBC Distribution Width SD 49.9 fl (35.1-43.9); Red Blood Count 3.82 M/mm3 (4.2-5.4); White Blood Count 10.3 K/mm3 (4.4-11.0)
[2024-01-29 14:37] LABS: AST(SGOT) 22 U/L (15-37); Alanine Aminotransfer ALT/SGPT 25 U/L (13-56); Alkaline Phosphatase 135 U/L (45-117); Anion Gap 5 (5-15); BUN 17 mg/dL (7-18); BUN/Creat Ratio 27.3 RATIO (10-20); Bilirubin, Direct 0.16 mg/dL (0.00-0.30); Calcium,Total 8.8 mg/dL (8.5-10.1); Chloride 98 mmol/L (98-107); Creatinine, Serum 0.62 mg/dL (0.55-1.02); EST Glomerular Filtration Rate 97 mL/min (>60); Est Glom Filt Rate - Afr Amer 118 mL/min (>60); Globulin 3.3 g/dL (2.2-4.2); Glucose 60 mg/dL (74-106); Potassium 4.1 mmol/L (3.5-5.1); Protein, Total 6.3 g/dL (6.4-8.2); Sodium Level 134 mmol/L (136-145)
== END 2024-02-10 18:00 | disposition home or self-care (01) ==
LOC: HHLAB 14:09
PROVIDERS: PCP Family Medicine Geriatric Medicine; Visit Provider Family Medicine Geriatric Medicine
DX: L03.221 Cellulitis of neck (principal)
CPT/HCPCS: 80048; 80076; 85027; 87493

== ENCOUNTER 2024-02-01 13:00 | Outpatient (RCR) | payer MEDICARE, SELFPAY ==
[2023-06-05 08:51] VITALS: BMI 25.0
[2024-01-12 00:54] VITALS: BP 157/70; PULSE 97; RESP 18; TEMP 35.8; BMI 22.9
[2024-01-18 14:43] VITALS: BP 137/55; PULSE 87; RESP 16; TEMP 36.1; BMI 22.9
--- NOTE | 2024-01-18 15:30 | PCM.WC.PN ---
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 This L neck fungating mass has an ulcerated center which drains pink-tinged fluid per patient. She has noticed this growing rather quickly over the last couple months. She is established with radiation oncology Dr. Lamar and will be starting radiation next week. As noted, she had this oral tongue cancer many years ago as well and had her tongue resected in addition to extensive radiation and chemo. 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 Subjective Subjective She had her 2-day burst of radiation nearly 3 weeks ago. She reports this was a painful and uncomfortable experience for her. She reports last week started to notice a foul odor and increased pain/tenderness and significantly increased drainage from the mass. She did see her PCP Dr. Cole yesterday and he initiated antibiotics, Bactrim and Keflex. She has not noticed a big difference yet, but has only had 2 doses. She did receive the foam border dressings that we sent and is very grateful for this though she is having to use 2 at a time to cover the mass. She has not really been washing the area except for sometimes with warm water because she was not sure what she might be allowed to use. She is worried that things will interact with the radiation. She reports she did call oncology but has not heard back from them yet. Objective Data Objective Data Vital Signs: Vital Signs Temp Pulse Resp BP O2 Del Method 96.9 F L 87 16 137/55 H Room Air 01/18/24 14:43 01/18/24 14:43 01/18/24 14:43 01/18/24 14:43 01/18/24 14:43 Oxygen Delivery Method Room Air Weight: 138 lb Body Mass Index (BMI) 22.9 Charges/Coding Visit Charges Office Visits / Consults: [id number] OV L3 Est 20min Physical Exam Const alert, oriented x3 and no apparent distress General Appearance: cooperative and comfortable HEENT normocephalic, hearing grossly normal bilaterally, external ears normal and external nose normal Mouth: tongue abnormal other (s/p glossectomy) Eyes EOMs intact bilaterally General Eye: normal appearance of both eyes Neck Neck Narrative: L neck fungating mass with ulcerated center. No surrounding erythema/excess warmth/foul odor. Serosanguineous drainage is noted. Lymph Lymphatic: lymphadenopathy Resp normal respiratory effort, no retractions and no use of accessory muscles Effort and Inspection: able to speak in complete sentences; Negative for labored, grunting or stridor Cardio regular rate and regular rhythm Extremity normal to inspection, no clubbing, cyanosis or edema and no calf tenderness Skin Wound Narrative: L neck fungating mass now with significantly more associated overlying skin breakdown/maceration/ulceration with associated strong foul odor, drainage, slough. There is surrounding erythema as well. Neuro oriented x3, CN's II-XII intact bilaterally, moves all extremities, no focal motor deficits and no sensory deficits noted Debridement Note Debridement Note No debridement was completed: No debridement was completed today Post-Debridement Measurements and Additional Note: Post-Debridement Measurements/Treatment - Nurse 1 - General Ulcer Assessment Start: 01/18/24 14:40 Freq: Status: Active Protocol: [email or web address].[email or web address] Activity Type Activity Date Activity User E-sign Co-sign Detail Recorded Client Recorded Date Recorded By Document 01/18/24 14:43 [facility] [id number] 01/18/24 14:51 [facility] 01/18/24 14:43 - Today's Visit Information Type of service Follow-up Visit (Physician/COMPARISON SHOPPER ) Arrival Mode Ambulatory Transfer Assistance None Transfer Assist (Other) DAUGHTER Patient Identification Verified (Name & Yes ) Patient Requires Transmission-Based No Precautions Height and Weight Body Mass Index (BMI) 22.9 BMI Classification Normal Vital Signs Temperature (97.8 F-99.1 F) 96.9 F L Temperature Source Temporal Pulse Rate (60-100) 87 Pulse Location Monitor Respiratory Rate (12-18) 16 Respiratory rate source Observation Oxygen Delivery Method Room Air Blood Pressure (90/60-120/80) 137/55 H Blood Pressure Mean (mm Hg) 82 Source Monitor Position Sitting Blood Pressure Location Right Arm History Since Last Visit- (Skip if this is Patient's initial visit) Have you changed medications since your No last visit? Any new allergies or adverse reactions No Had a fall/change in ADL's that may No increase risk of falls Signs or symptoms of abuse and/or No neglect since last visit Have you been in the hospital since your No last visit? Has dressing in place as prescribed Yes Has compression in place as prescribed N/A Has offloadiing in place as prescribed N/A Experienced any changes in pain level or No management Left Footwear Regular Shoe Right Footwear Regular Shoe Pain Scale: 0-10 Numeric Is Patient Pain Free? Yes WC - Nurse 1 - General Ulcer Measurement Start: 01/18/24 14:40 Freq: Status: Active Protocol: Activity Type Activity Date Activity User E-sign Co-sign Detail Recorded Client Recorded Date Recorded By Document 01/18/24 14:43 [facility] [id number] 01/18/24 14:51 [facility] 01/18/24 14:43 Wound Center Nurse 1 #7 LT LAT NECK -Combined with other wound No -Current Size (cm) - Length 4.8 -Current Size (cm) - Width 5.1 -Current Size (cm) - Depth 0.1 -Total Square Cm 24.48 -Date of Last Picture (Recall this 01/18/24 field) -Photo Taken Yes -Epithelialization None Present -Tunneling No -Undermining/Tunneling No -Circular Undermining No -Exudate Amt Large -Exudate Type Yellow/Green -Wound Margin Thickened -Granulation Amt Large (67-100%) -Granulation Quality Hyper- granulation, [place] -Slough/Fibrin Yes -Necrosis Amt Medium (34-66%) -Necrotic Tissue Type Adherent Slough -Texture (Rosie-wound Skin Appearance) Assessed, Friable, Scarring -Moisture (Rosie-wound Skin Appearance) Assessed -Color (Rosie-wound Skin Appearance) Assessed, Erythema -Temperature (Rosie-wound Skin No Abnormality Appearance) (Pt Warm) -Tenderness on Palpation (Rosie-wound No Skin Appearance) -Ulcer Cleansing Soap and Water -Foul Odor after Cleansing No -Anesthetic Used 5% Lidocaine Gel DANIELLE - Nurse 2 - General Ulcer CM Notes Start: 01/18/24 14:40 Freq: Status: Active Protocol: Activity Type Activity Date Activity User E-sign Co-sign Detail Recorded Client Recorded Date Recorded By Document 01/18/24 15:04 [id number] 01/18/24 15:16 GM 01/18/24 15:04 Wound Center Nurse 2 -Time 15:04 -Correct Patient Yes -Correct Side, Site, Position Yes -Wound/Ulcer Outcome Not Healed -Wound Comment(s) cancer growth Pain Scale: 0-10 Numeric Is Patient Pain Free? Yes WC - Nurse 3 - General Ulcer D/C NN Start: 01/18/24 14:40 Freq: Status: Active Protocol: Activity Type Activity Date Activity User E-sign Co-sign Detail Recorded Client Recorded Date Recorded By Document 01/18/24 15:25 ALAN [id number] 01/18/24 15:26 KW 01/18/24 15:25 Wound Care Center Nurse 3 #7 LT LAT NECK -Primary Dressing Applied Mepilex Border -Mepilex Border 1 Pain Scale: 0-10 Numeric Is Patient Pain Free? 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 I did today gently clean with moistened gauze to try to remove some of the slough without inciting excess bleeding or pain as it is tender. She saw Dr. Cole who started her on Bactrim and Keflex. He did also obtain a culture which is so far growing a gram-positive selene and GNR lactose pmo analyst. Sensitivities are pending and anaerobic studies pending. For now advised her to continue her current antibiotics and monitor for improvement, I would expect her to start to see some improvement after 48 hours. I will follow her culture results and we can adjust antibiotics accordingly or Dr. Cole may as well I think she would benefit from washing the area with antibacterial soap and water daily followed by continued application of the Mepilex border dressings. She received a 30-day supply but has been having to use 2 to cover the mass given how far it protrudes. If she runs out before more can be ordered or if she needs to change it more frequently throughout the day to manage drainage then could instead apply dry dressing with gauze and ABD pad secured with silicone tape. I strongly advise always using the silicone tape as other adhesives may be too harsh on her skin right now. I will reach out to radiation oncology to make sure they have no objections to her use of antibacterial soap. Can also see if they have any other recommendations. Will have her return to see me in 1 week.
--- NOTE | 2024-01-22 09:22 | WC ---
PHOTO LEFT LATERAL NECK
--- NOTE | 2024-01-23 10:10 | WC ---
PHOTO 01/18/24 LEFT LATERAL NECK
[2024-02-01 13:27] VITALS: BP 168/68; PULSE 91; RESP 18; TEMP 35.6; BMI 22.9
--- NOTE | 2024-02-01 17:27 | PN.PCM_ITS ---
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 This L neck fungating mass has an ulcerated center which drains pink-tinged fluid per patient. She has noticed this growing rather quickly over the last couple months. She is established with radiation oncology Dr. Lamar and will be starting radiation next week. As noted, she had this oral tongue cancer many years ago as well and had her tongue resected in addition to extensive radiation and chemo. 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 Subjective Subjective Since her last visit here, she was unfortunately admitted to the hospital for IV antibiotic treatment as the cultures from her left neck mass wound showed multidrug-resistant bacterial strains. She has been treated with IV meropenem and is nearly complete with this regimen. Signs and symptoms of infection remain resolved. She continues to have significant drainage of clear to yellow-tinged fluid. No foul odor anymore. She reports her pain is well-controlled right now. Unfortunately on Monday she did also fall and she injured her tailbone and also sustained bruising to both lower legs and a skin tear to her right harrison. Objective Data Objective Data Vital Signs: Vital Signs Temp Pulse Resp BP O2 Del Method 96.1 F L 91 18 168/68 H Room Air 02/01/24 13:27 02/01/24 13:27 02/01/24 13:27 02/01/24 13:27 02/01/24 13:27 Oxygen Delivery Method Room Air Weight: 138 lb Body Mass Index (BMI) 22.9 Charges/Coding Visit Charges Office Visits / Consults: 83271 OV L3 Est 20min Physical Exam Const alert, oriented x3 and no apparent distress General Appearance: cooperative and comfortable HEENT normocephalic, hearing grossly normal bilaterally, external ears normal and external nose normal Mouth: tongue abnormal other (s/p glossectomy) Eyes EOMs intact bilaterally General Eye: normal appearance of both eyes Neck Neck Narrative: L neck fungating mass with ulcerated center. Significant adherent slough. No surrounding erythema/excess warmth/foul odor. Serosanguineous drainage is noted. Lymph Lymphatic: lymphadenopathy Resp normal respiratory effort, no retractions and no use of accessory muscles Effort and Inspection: able to speak in complete sentences; Negative for labored, grunting or stridor Cardio regular rate and regular rhythm Extremity normal to inspection, no clubbing, cyanosis or edema and no calf tenderness Skin Wound Narrative: L neck fungating mass with ulcerated center. Significant adherent slough. No surrounding erythema/excess warmth/foul odor. Serosanguineous drainage is noted. Right harrison with skin tear. The portion of the skin is completely avulsed with associated superficial wound which has pink, easily bleeding wound base and no significant slough. The rest of the area the skin has been reapproximated and appears to be healing well at this time. There is significant surrounding ecchy mosis. There is no significant associated edema, fluctuance/induration, drainage, foul odor. Neuro oriented x3, CN's II-XII intact bilaterally, moves all extremities, no focal motor deficits and no sensory deficits noted Debridement Note Debridement Note No debridement was completed: No debridement was completed today Post-Debridement Measurements and Additional Note: Post-Debridement Measurements/Treatment - Nurse 1 - General Ulcer Assessment Start: 01/18/24 14:40 Freq: Status: Active Protocol: .LOWEXT Activity Type Activity Date Activity User E-sign Co-sign Detail Recorded Client Recorded Date Recorded By Document 01/18/24 14:43 [facility] [id number] 01/18/24 14:51 [facility] Document 02/01/24 13:27 [id number] 02/01/24 13:44 01/18/24 02/01/24 14:43 13:27 - Today's Visit Information Type of service Follow-up Visit Follow-up Visit (Physician/FOOT PIECE ASSEMBLER (Physician/FOOT PIECE ASSEMBLER ) ) Arrival Mode Ambulatory Ambulatory Transfer Assistance None Transfer Assist (Other) DAUGHTER Patient Identification Verified (Name & Yes Yes ) Patient Requires Transmission-Based No Precautions Height and Weight Body Mass Index (BMI) 22.9 22.9 BMI Classification Normal Normal Vital Signs Temperature (97.8 F-99.1 F) 96.9 F L 96.1 F L Temperature Source Temporal Temporal Pulse Rate (60-100) 87 91 Pulse Location Monitor Monitor Respiratory Rate (12-18) 16 18 Respiratory rate source Observation Observation Oxygen Delivery Method Room Air Room Air Blood Pressure (90/60-120/80) 137/55 H 168/68 H Blood Pressure Mean (mm Hg) 82 101 Source Monitor Monitor Position Sitting Semi-Fowlers Blood Pressure Location Right Arm Left Arm History Since Last Visit- (Skip if this is Patient's initial visit) Have you changed medications since your No No last visit? Any new allergies or adverse reactions No No Had a fall/change in ADL's that may No Yes increase risk of falls Signs or symptoms of abuse and/or No No neglect since last visit Have you been in the hospital since your No Yes last visit? Has dressing in place as prescribed Yes Yes Has compression in place as prescribed N/A N/A Has offloadiing in place as prescribed N/A N/A Experienced any changes in pain level or No No management Left Footwear Regular Shoe Regular Shoe Right Footwear Regular Shoe Regular Shoe Pain Scale: 0-10 Numeric Is Patient Pain Free? Yes No WC - Nurse 1 - General Ulcer Measurement Start: 01/18/24 14:40 Freq: Status: Active Protocol: Activity Type Activity Date Activity User E-sign Co-sign Detail Recorded Client Recorded Date Recorded By Document 01/18/24 14:43 [facility] [id number] 01/18/24 14:51 [facility] Document 02/01/24 13:27 [id number] 02/01/24 13:44 01/18/24 02/01/24 14:43 13:27 Wound Center Nurse 1 #8 rt harrison -Current Size (cm) - Length 3 -Current Size (cm) - Width 0.2 -Current Size (cm) - Depth 0.1 -Total Square Cm 0.6 -Date of Last Picture (Recall this 02/01/24 field) -Exudate Amt Large -Exudate Type Serosanguineous -Wound Margin Distinct, Outline Attached -Granulation Amt Large (67-100%) -Granulation Quality Red -Texture (Rosie-wound Skin Appearance) Assessed -Moisture (Rosie-wound Skin Appearance) Assessed -Color (Rosie-wound Skin Appearance) Assessed, Ecchymosis -Temperature (Rosie-wound Skin No Abnormality Appearance) (Pt Warm) -Tenderness on Palpation (Rosie-wound No Skin Appearance) -Ulcer Cleansing Rinsed/ Irrigated with Saline -Foul Odor after Cleansing No -Anesthetic Used 5% Lidocaine Gel #7 LT LAT NECK -Combined with other wound No -Current Size (cm) - Length 4.8 4.8 -Current Size (cm) - Width 5.1 4.5 -Current Size (cm) - Depth 0.1 -Total Square Cm 24.48 21.60 -Date of Last Picture (Recall this 01/18/24 field) -Photo Taken Yes -Epithelialization None Present -Tunneling No -Undermining/Tunneling No -Circular Undermining No -Exudate Amt Large Medium -Exudate Type Yellow/Green Serosanguineous -Wound Margin Thickened Distinct, Outline Attached -Granulation Amt Large (67-100%) -Granulation Quality Hyper- granulation, [place] -Slough/Fibrin Yes -Necrosis Amt Medium (34-66%) -Necrotic Tissue Type Adherent Slough -Texture (Rosie-wound Skin Appearance) Assessed, Assessed Friable, Scarring -Moisture (Rosie-wound Skin Appearance) Assessed Assessed -Color (Rosie-wound Skin Appearance) Assessed, Assessed Erythema -Temperature (Rosie-wound Skin No Abnormality No Abnormality Appearance) (Pt Warm) (Pt Warm) -Tenderness on Palpation (Rosie-wound No No Skin Appearance) -Ulcer Cleansing Soap and Water Soap and Water -Foul Odor after Cleansing No No -Anesthetic Used 5% Lidocaine Gel Right Calf (cm) 36 Right Ankle (cm) 22 Left Calf (cm) 36 Left Ankle (cm) 23 WC - Nurse 2 - General Ulcer CM Notes Start: 01/18/24 14:40 Freq: Status: Active Protocol: Activity Type Activity Date Activity User E-sign Co-sign Detail Recorded Client Recorded Date Recorded By Document 01/18/24 15:04 [id number] 01/18/24 15:16 Document 02/01/24 13:56 [id number] 02/01/24 14:12 01/18/24 02/01/24 15:04 13:56 Wound Center Nurse 2 #8 rt harrison -Time 13:56 -Correct Patient Yes -Correct Side, Site, Position Yes -Wound/Ulcer Outcome Not Healed #7 LT LAT NECK -Time 15:04 13:56 -Correct Patient Yes Yes -Correct Side, Site, Position Yes Yes -Wound/Ulcer Outcome Not Healed Not Healed -Wound Comment(s) cancer growth Pain Scale: 0-10 Numeric Is Patient Pain Free? Yes Yes WC - Nurse 3 - General Ulcer D/C NN Start: 01/18/24 14:40 Freq: Status: Active Protocol: Activity Type Activity Date Activity User E-sign Co-sign Detail Recorded Client Recorded Date Recorded By Document 01/18/24 15:25 KW [id number] 01/18/24 15:26 Document 02/01/24 14:12 [id number] 02/01/24 14:13 01/18/24 02/01/24 15:25 14:12 Wound Care Center Nurse 3 #8 rt harrison -Ulcer Cleansing Not Cleansed -Foul Odor after Cleansing No -Primary Dressing Applied Mepilex Border, Promogran Falguni Matter -Mepilex Border 1 -Promogran Falguni Matter 1 #7 LT LAT NECK -Ulcer Cleansing Not Cleansed -Primary Dressing Applied Mepilex Border Mepilex Border -Mepilex Border 1 1 Right -Lotion applied to leg before No compression wrap -Tubular Bandage Single Layer -Size of Tubigrip Used Size E -Size E ($) 1 Left -Lotion applied to leg before No compression wrap -Tubular Bandage Single Layer -Size of Tubigrip Used Size E -Size E ($) 1 Pain Scale: 0-10 Numeric Is Patient Pain Free? 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 I did today gently clean with moistened gauze to try to remove some of the slough without inciting excess bleeding or pain. She is completing IV antibiotics via PICC line as per ID. No signs/symptoms of infection today. Previous strong foul odor is resolved. Continue to wash the area with antibacterial soap and water daily followed by continued application of the Mepilex border dressings. She received a 30-day supply but has been having to use 2 to cover the mass given how far it protrudes. If she runs out before more can be ordered or if she needs to change it more frequently throughout the day to manage drainage then could instead apply dry dressing with gauze and ABD pad secured with silicone tape. I strongly advise always using the silicone tape as other adhesives may be too harsh on her skin right now. For the right harrison skin tear: wash the area with antibacterial soap and water and pat to dry, then apply lightly moistened Falguni to the open area, cover with silicone foam border dressing such as [employer] SAP or can do a dry gauze dressing with silicone tape. Next week is Thanksgiving so will have her return to see me in 2 weeks.
--- NOTE | 2024-02-02 08:48 | WC ---
PHOTO 02/01/24 RIGHT ALLEN
--- NOTE | 2024-02-02 08:49 | WC ---
PHOTO 02/01/24 LEFT LATERAL NECK
== END 2024-02-10 23:59 | disposition home or self-care (01) ==
LOC: WC 13:00
PROVIDERS: PCP Family Medicine Geriatric Medicine; Referring Provider Family Medicine Geriatric Medicine; Visit Provider Physician Assistant
DX: C44.92 Squamous cell carcinoma of skin, unspecified (principal); C77.0 Secondary and unspecified malignant neoplasm of lymph nodes of head, face and neck; S81.811A Laceration without foreign body, right lower leg, initial encounter; W19.XXXA Unspecified fall, initial encounter; Z79.899 Other long term (current) drug therapy; Z85.810 Personal history of malignant neoplasm of tongue; Z92.3 Personal history of irradiation; Z92.21 Personal history of antineoplastic chemotherapy
CPT/HCPCS: 99213; G0463

== ENCOUNTER → 2024-02-01 | Outpatient (CLI) | payer MEDICARE, SELFPAY ==
[2023-06-05 08:51] VITALS: BMI 25.0
== END | disposition home or self-care (01) ==
LOC: RAD 12:45
PROVIDERS: PCP Family Medicine Geriatric Medicine; Referring Provider Family Medicine Geriatric Medicine; Visit Provider Family Medicine Geriatric Medicine
DX: S09.90XA Unspecified injury of head, initial encounter (principal); M79.18 Myalgia, other site
CPT/HCPCS: 70260; 73521

== ENCOUNTER → 2024-02-22 | Outpatient (CLI) | payer MEDICARE, SELFPAY ==
[2023-06-05 08:51] VITALS: BMI 25.0
--- NOTE | 2024-02-22 15:55 | RAD_ITS ---
EXAM: XR RIGHT RIBS, 2 VIEWS CLINICAL INDICATION: RIB PAIN TECHNIQUE: Frontal and oblique views of the right ribs. COMPARISON: No relevant prior studies available. FINDINGS: LUNGS AND PLEURAL SPACES: Unremarkable. No consolidation or edema. No pneumothorax. No effusion. BONES/JOINTS: Unremarkable. No displaced fracture. No sclerotic or destructive changes observed. SOFT TISSUES: Unremarkable. No soft tissue swelling or gas. RAD/Ribs Unil 2V No CXR IMPRESSION: No evidence of displaced rib fracture. Electronically Signed: Aron Fitzgerald MD at 11:35 EST ,
== END | disposition home or self-care (01) ==
LOC: RAD 15:40
PROVIDERS: PCP Family Medicine Geriatric Medicine; Referring Provider Family Medicine Geriatric Medicine; Visit Provider Family Medicine Geriatric Medicine
DX: R07.82 Intercostal pain (principal)
CPT/HCPCS: 71100

== ENCOUNTER 2024-02-29 13:15 | Outpatient (RCR) | payer MEDICARE, SELFPAY ==
[2023-06-05 08:51] VITALS: BMI 25.0
[2024-02-11 00:29] VITALS: BP 157/70; PULSE 97; RESP 18; TEMP 35.8; BMI 22.9
[2024-02-15 13:13] VITALS: BP 116/46; PULSE 87; RESP 18; TEMP 35.7; BMI 22.9
--- NOTE | 2024-02-16 07:17 | PN.PCM_ITS ---
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 This L neck fungating mass has an ulcerated center which drains pink-tinged fluid per patient. She has noticed this growing rather quickly over the last couple months. She is established with radiation oncology Dr. Lamar and will be starting radiation next week. As noted, she had this oral tongue cancer many years ago as well and had her tongue resected in addition to extensive radiation and chemo. 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 Subjective Subjective They have been applying Telfa over the wound the followed by the [employer] SAP dressings, daughter says this is what they were given by HH. We did not know she had HH so they did not have our orders. There is increased maceration. No foul odor as previous with infection. Her RLE wound seems to be improving to her. Her daughter does all of her dressing changes including for the neck mass, RLE wound, her PEG tube dressing, and sacral stage I pressure injury. Her daughter is going to have surgery next week and will not be able to help with these dressing changes. She has HH on T and F but is not sure how she will change her dressings the other days. Objective Data Objective Data Vital Signs: Vital Signs Temp Pulse Resp BP O2 Del Method 96.3 F L 87 18 116/46 L Room Air 02/15/24 13:13 02/15/24 13:13 02/15/24 13:13 02/15/24 13:13 02/15/24 13:13 Oxygen Delivery Method Room Air Weight: 138 lb Body Mass Index (BMI) 22.9 Charges/Coding Procedures Integumentary 111xxx-113xx: 22081 Lety subq tissue 20 sq cm/< Physical Exam Const alert, oriented x3 and no apparent distress General Appearance: cooperative and comfortable HEENT normocephalic, hearing grossly normal bilaterally, external ears normal and external nose normal Mouth: tongue abnormal other (s/p glossectomy) Eyes EOMs intact bilaterally General Eye: normal appearance of both eyes Neck Neck Narrative: L neck fungating mass with ulcerated center, does appear to be decreasing in size. Significant adherent slough. Increased maceration today. No surrounding erythema/excess warmth/foul odor. Serosanguineous drainage is noted. Lymph Lymphatic: lymphadenopathy Resp normal respiratory effort, no retractions and no use of accessory muscles Effort and Inspection: able to speak in complete sentences; Negative for labored, grunting or stridor Cardio regular rate and regular rhythm Extremity normal to inspection, no clubbing, cyanosis or edema and no calf tenderness Skin Wound Narrative: L neck fungating mass with ulcerated center, does appear to be decreasing in size. Significant adherent slough. Increased maceration today. No surrounding erythema/excess warmth/foul odor. Serosanguineous drainage is noted. Right harrison with skin tear. A portion of the skin completely avulsed and is now superficial wound which has pink, easily bleeding wound base and no significant slough, improving in size. The rest of the area the skin had been reapproximated and is now well healed. Ecchymosis resolved. There is some surrounding erythema and warmth today, no foul odor/excess drainage/purulence. Neuro oriented x3, CN's II-XII intact bilaterally, moves all extremities, no focal motor deficits and no sensory deficits noted Debridement Note Debridement Note Wound debrided: R leg wound Laterality: Right Type of Debridement: Excisional debridement Anesthesia Used: 5% Lidocaine Gel Depth: Down to and including healthy tissue and in the subcutaneous layer Percentage of wound debrided: 100 Instrument Used: 3mm curette Severity: Fat Layer Exposed Amount of bleeding with debridement: Mild Bleeding Controlled with: Pressure Patient tolerated procedure: Patient tolerated procedure well Post-Debridement Measurements and Additional Note: Post-Debridement Measurements/Treatment DANIELLE - Nurse 1 - General Ulcer Assessment Start: 02/15/24 13:13 Freq: Status: Active Protocol: SAM Activity Type Activity Date Activity User E-sign Co-sign Detail Recorded Client Recorded Date Recorded By Document 02/15/24 13:13 ALAN [id number] 02/15/24 13:28 KW 02/15/24 13:13 DANIELLE - Today's Visit Information Type of service 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 ) Arrival Mode Ambulatory Patient Identification Verified (Name & Yes ) Height and Weight Body Mass Index (BMI) 22.9 BMI Classification Normal Vital Signs Temperature (97.8 F-99.1 F) 96.3 F L Temperature Source Temporal Pulse Rate (60-100) 87 Pulse Location Monitor Respiratory Rate (12-18) 18 Respiratory rate source Observation Oxygen Delivery Method Room Air Blood Pressure (90/60-120/80) 116/46 L Blood Pressure Mean (mm Hg) 69 Source Monitor Position Semi-Fowlers Blood Pressure Location Left Arm History Since Last Visit- (Skip if this is Patient's initial visit) Have you changed medications since your No last visit? Any new allergies or adverse reactions No Had a fall/change in ADL's that may No increase risk of falls Signs or symptoms of abuse and/or No neglect since last visit Have you been in the hospital since your No last visit? Has dressing in place as prescribed Yes Has compression in place as prescribed Yes Has offloadiing in place as prescribed N/A Experienced any changes in pain level or No management Left Footwear Regular Shoe Right Footwear Regular Shoe Pain Scale: 0-10 Numeric Is Patient Pain Free? Yes WC - Nurse 1 - General Ulcer Measurement Start: 02/15/24 13:13 Freq: Status: Active Protocol: Activity Type Activity Date Activity User E-sign Co-sign Detail Recorded Client Recorded Date Recorded By Document 02/15/24 13:13 ALAN [id number] 02/15/24 13:28 ALAN 02/15/24 13:13 Wound Center Nurse 1 #8 rt harrison -Current Size (cm) - Length 3 -Current Size (cm) - Width 2 -Current Size (cm) - Depth 0.1 -Total Square Cm 6 -Date of Last Picture (Recall this 02/15/24 field) -Exudate Amt Small -Exudate Type Serosanguineous -Wound Margin Distinct, Outline Attached -Granulation Amt Small (1-33%) -Granulation Quality [place] -Necrosis Amt Large (67-100%) -Necrotic Tissue Type Adherent Slough -Texture (Rosie-wound Skin Appearance) Assessed -Moisture (Rosie-wound Skin Appearance) Assessed -Color (Rosie-wound Skin Appearance) Assessed, Erythema -Temperature (Rosie-wound Skin No Abnormality Appearance) (Pt Warm) -Tenderness on Palpation (Rosie-wound No Skin Appearance) -Ulcer Cleansing Rinsed/ Irrigated with Saline -Foul Odor after Cleansing No -Anesthetic Used 5% Lidocaine Gel #7 LT LAT NECK -Current Size (cm) - Length 3.5 -Current Size (cm) - Width 5 -Current Size (cm) - Depth 0 -Total Square Cm 17.5 -Exudate Amt Large -Exudate Type Serosanguineous -Wound Margin Distinct, Outline Attached -Granulation Amt Small (1-33%) -Granulation Quality Hyper- granulation, [place] -Necrosis Amt Large (67-100%) -Necrotic Tissue Type Adherent Slough -Texture (Rosie-wound Skin Appearance) Assessed -Moisture (Rosie-wound Skin Appearance) Assessed, Maceration -Color (Rosie-wound Skin Appearance) Assessed -Temperature (Rosie-wound Skin No Abnormality Appearance) (Pt Warm) -Tenderness on Palpation (Rosie-wound No Skin Appearance) -Ulcer Cleansing Soap and Water -Foul Odor after Cleansing No WC - Nurse 2 - General Ulcer CM Notes Start: 02/15/24 13:13 Freq: Status: Active Protocol: Activity Type Activity Date Activity User E-sign Co-sign Detail Recorded Client Recorded Date Recorded By Document 02/15/24 13:59 [id number] 02/15/24 14:06 02/15/24 13:59 Wound Center Nurse 2 #8 rt harrison -Time 13:55 -Correct Patient Yes -Correct Side, Site, Position Yes -Correct Procedure Yes -Procedure Performed Yes -Type of Procedure Debridement -Clinical Debridement Subcutaneous -Tissue Removed Subcutaneous -Post Debridement (cm) - Length 3.0 -Post Debridement (cm) - Width 0.4 -Post Debridement (cm) - Depth 0.1 -Total Square (Post) (cm) 1.20 -Area of Debridement (cm) - Length 3.0 -Area of Debridement (cm) - Width 0.4 -Total Square (Area) (cm) 1.20 -Tunneling No -Undermining/Tunneling No -Circular Undermining No -Wound/Ulcer Outcome Not Healed -Ulcer Cleansing Rinsed/ Irrigated with Saline -Foul Odor after Cleansing No -Bioengineered Tissue No -Bleeding Controlled with Pressure -Treatment Response Procedure Tolerated Well -Debridement - Subq, 1st 20sq cm Yes #7 LT LAT NECK -Time 14:05 -Correct Patient Yes -Correct Side, Site, Position Yes -Correct Procedure No -Procedure Performed No -Tunneling No -Undermining/Tunneling No -Circular Undermining No -Wound/Ulcer Outcome Not Healed -Ulcer Cleansing Rinsed/ Irrigated with Saline -Foul Odor after Cleansing No -Bioengineered Tissue No -Bleeding Controlled with NA Pain Scale: 0-10 Numeric Is Patient Pain Free? Yes WC - Nurse 3 - General Ulcer D/C NN Start: 02/15/24 13:13 Freq: Status: Active Protocol: Activity Type Activity Date Activity User E-sign Co-sign Detail Recorded Client Recorded Date Recorded By Document 02/15/24 14:20 KW [id number] 02/15/24 14:21 KW 02/15/24 14:20 Wound Care Center Nurse 3 #8 rt harrison -Primary Dressing Applied Mepilex Border, Promogran Falguni Matter -Other Dressing apply bacitracin -Mepilex Border 1 -Promogran Falguni Matter 1 #7 LT LAT NECK -Primary Dressing Applied Mepilex Border, NonAdherent Contact Layer -Mepilex Border 2 Pain Scale: 0-10 Numeric Is Patient Pain Free? 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 I did today gently clean with moistened gauze to try to remove some of the slough without inciting excess bleeding or pain. Continue to wash the area with antibacterial soap and water daily followed by continued application of the Mepilex border dressings. She received a 30-day supply but has been having to use 2 to cover the mass given how far it protrudes. If she runs out before more can be ordered or if she needs to change it more frequently throughout the day to manage drainage then could instead apply dry dressing with gauze and ABD pad secured with silicone tape. I strongly advise always using the silicone tape as other adhesives may be too harsh on her skin right now. R harrison wound had increased erythema and warmth surrounding today. Obtained wound culture, will treat as indicated by C&S. For the right harrison skin tear: wash the area with antibacterial soap and water and pat to dry, then apply lightly moistened Falguni to the open area, cover with silicone foam border dressing such as [place] SAP or can do a dry gauze dressing with silicone tape. Return to the office in 1 week to see me. As her daughter is not able to do dressing changes next week will have her come in to the wound center Monday and Monday for nurse visits; to see me on ; sees her and Mon and we will send wound care orders to them.
--- NOTE | 2024-02-16 12:38 | WC ---
PHOTO 02/15/24 LEFT LATERAL NECK
--- NOTE | 2024-02-16 12:39 | WC ---
PHOTO 02/15/24 RIGHT ALLEN
[2024-02-22 13:28] VITALS: BP 151/74; PULSE 104; RESP 20; TEMP 36.3; BMI 22.9
--- NOTE | 2024-02-22 14:49 | PN.PCM_ITS ---
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 This L neck fungating mass has an ulcerated center which drains pink-tinged fluid per patient. She has noticed this growing rather quickly over the last couple months. She is established with radiation oncology Dr. Lamar and will be starting radiation next week. As noted, she had this oral tongue cancer many years ago as well and had her tongue resected in addition to extensive radiation and chemo. 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 Subjective Subjective Cherrie is having increased congestion and cough today. She reports she fell earlier this week and hit her ribs and it is painful to take deep breaths/cough. She is going to see her PCP immediately after her appointment today. She denies fevers/chills. She completed her 3 rounds of radiation. She follows back up with radiation oncology in 4 weeks. She reports the nurse visits over this last week were helpful with her dressing changes. Her daughter is still recovering from her back surgery. She will need nurse visits again next week. Objective Data Objective Data Vital Signs: Vital Signs Temp Pulse Resp BP O2 Del Method 97.3 F L 104 H 20 H 151/74 H Room Air 02/22/24 13:28 02/22/24 13:28 02/22/24 13:28 02/22/24 13:28 02/15/24 13:13 Oxygen Delivery Method Room Air Weight: 138 lb Body Mass Index (BMI) 22.9 Lab / Micro Data Micro: Microbiology 02/15/24 13:55 Wound - Leg, Right Gram Stain - Final 02/15/24 13:55 Wound - Leg, Right Wound Culture - Final Corynebacterium striatum 02/15/24 13:55 Wound - Leg, Right Anaerobic Culture - Preliminary Checking for anaerobes, further studies to follow. Charges/Coding Procedures Integumentary 111xxx-[id number]: [id number] Lety subq tissue 20 sq cm/< Physical Exam Const alert, oriented x3 and no apparent distress General Appearance: cooperative and comfortable HEENT normocephalic, hearing grossly normal bilaterally, external ears normal and external nose normal Mouth: tongue abnormal other (s/p glossectomy) Eyes EOMs intact bilaterally General Eye: normal appearance of both eyes Neck Neck Narrative: L neck fungating mass with ulcerated center, does appear to be decreasing in size. Significant adherent slough. Increased maceration today. No surrounding erythema/excess warmth/foul odor. Serosanguineous drainage is noted. Lymph Lymphatic: lymphadenopathy Resp normal respiratory effort, no retractions and no use of accessory muscles Effort and Inspection: able to speak in complete sentences; Negative for labored, grunting or stridor Cardio regular rate and regular rhythm Extremity normal to inspection, no clubbing, cyanosis or edema and no calf tenderness Skin Wound Narrative: L neck fungating mass with ulcerated center, does appear to be decreasing in size. Significant slough. Improved appearance, less maceration. No surrounding erythema/excess warmth/foul odor. Serosanguineous drainage is noted. Right harrison with skin tear. A portion of the skin completely avulsed and is now superficial wound which has pink, easily bleeding wound base and mild slough, improving in size. The rest of the area the skin had been reapproximated and is now well healed. Ecchymosis resolved. No foul odor/excess drainage/purulence. Neuro oriented x3, CN's II-XII intact bilaterally, moves all extremities, no focal motor deficits and no sensory deficits noted Debridement Note Debridement Note Wound debrided: R leg wound Laterality: Right Type of Debridement: Excisional debridement Anesthesia Used: 5% Lidocaine Gel Depth: Down to and including healthy tissue and in the subcutaneous layer Percentage of wound debrided: 100 Instrument Used: 3mm curette Severity: Fat Layer Exposed Amount of bleeding with debridement: Mild Bleeding Controlled with: Pressure Patient tolerated procedure: Patient tolerated procedure well Post-Debridement Measurements and Additional Note: Post-Debridement Measurements/Treatment WC - Nurse 1 - General Ulcer Assessment Start: 02/15/24 13:13 Freq: Status: Active Protocol: SAM Activity Type Activity Date Activity User E-sign Co-sign Detail Recorded Client Recorded Date Recorded By Document 02/15/24 13:13 ALAN [id number] 02/15/24 13:28 KW Document 02/22/24 13:28 DL [id number] 02/22/24 13:39 DL 02/15/24 02/22/24 13:13 13:28 - Today's Visit Information Type of service Follow-up Visit Follow-up Visit (Physician/AFTERNOON NANNY (Physician/AFTERNOON NANNY ) ) Arrival Mode Ambulatory Ambulatory Transfer Assistance None Patient Identification Verified (Name & Yes Yes ) Patient Requires Transmission-Based No Precautions Height and Weight Body Mass Index (BMI) 22.9 22.9 BMI Classification Normal Normal Vital Signs Temperature (97.8 F-99.1 F) 96.3 F L 97.3 F L Temperature Source Temporal Temporal Pulse Rate (60-100) 87 104 H Pulse Location Monitor Monitor Respiratory Rate (12-18) 18 20 H Respiratory rate source Observation Observation Oxygen Delivery Method Room Air Blood Pressure (90/60-120/80) 116/46 L 151/74 H Blood Pressure Mean (mm Hg) 69 99 Source Monitor Monitor Position Semi-Fowlers Blood Pressure Location Left Arm History Since Last Visit- (Skip if this is Patient's initial visit) Have you changed medications since your No No last visit? Any new allergies or adverse reactions No No Had a fall/change in ADL's that may No No increase risk of falls Signs or symptoms of abuse and/or No No neglect since last visit Have you been in the hospital since your No No last visit? Has dressing in place as prescribed Yes Yes Has compression in place as prescribed Yes N/A Has offloadiing in place as prescribed N/A Yes Experienced any changes in pain level or No No management Left Footwear Regular Shoe Right Footwear Regular Shoe Pain Scale: 0-10 Numeric Is Patient Pain Free? Yes Yes - Nurse 1 - General Ulcer Measurement Start: 02/15/24 13:13 Freq: Status: Active Protocol: Activity Type Activity Date Activity User E-sign Co-sign Detail Recorded Client Recorded Date Recorded By Document 02/15/24 13:13 KW [id number] 02/15/24 13:28 KW Document 02/22/24 13:28 DL [id number] 02/22/24 13:39 DL 02/15/24 02/22/24 13:13 13:28 Wound Center Nurse 1 #8 rt harrison -Current Size (cm) - Length 3 2.5 -Current Size (cm) - Width 2 1.8 -Current Size (cm) - Depth 0.1 0.1 -Total Square Cm 6 4.50 -Date of Last Picture (Recall this 02/15/24 field) -Exudate Amt Small Medium -Exudate Type Serosanguineous Serosanguineous -Wound Margin Distinct, Distinct, Outline Outline Attached Attached -Granulation Amt Small (1-33%) None Present (0 %) -Granulation Quality [place] -Necrosis Amt Large (67-100%) Large (67-100%) -Necrotic Tissue Type Adherent Slough Adherent Slough -Structure Exposed N/A -Texture (Rosie-wound Skin Appearance) Assessed Scarring -Moisture (Rosie-wound Skin Appearance) Assessed No Abnormality -Color (Rosie-wound Skin Appearance) Assessed, No Abnormality Erythema -Temperature (Rosie-wound Skin No Abnormality No Abnormality Appearance) (Pt Warm) (Pt Warm) -Tenderness on Palpation (Rosie-wound No No Skin Appearance) -Ulcer Cleansing Rinsed/ Rinsed/ Irrigated with Irrigated with Saline Saline -Foul Odor after Cleansing No No -Anesthetic Used 5% Lidocaine 5% Lidocaine Gel Gel #7 LT LAT NECK -Combined with (Name of Wound-Exactly 5 as it is documented) -Current Size (cm) - Length 3.5 5.4 -Current Size (cm) - Width 5 0.1 -Current Size (cm) - Depth 0 -Total Square Cm 17.5 0.54 -Exudate Amt Large Medium -Exudate Type Serosanguineous Serosanguineous -Wound Margin Distinct, Distinct, Outline Outline Attached Attached -Granulation Amt Small (1-33%) None Present (0 %) -Granulation Quality Hyper- Hyper- granulation, granulation [place] -Necrosis Amt Large (67-100%) Large (67-100%) -Necrotic Tissue Type Adherent Slough Adherent Slough -Structure Exposed N/A -Texture (Rosie-wound Skin Appearance) Assessed Scarring -Moisture (Rosie-wound Skin Appearance) Assessed, Maceration Maceration -Color (Rosie-wound Skin Appearance) Assessed No Abnormality -Temperature (Rosie-wound Skin No Abnormality No Abnormality Appearance) (Pt Warm) (Pt Warm) -Tenderness on Palpation (Rosie-wound No Yes Skin Appearance) -Ulcer Cleansing Soap and Water Soap and Water -Foul Odor after Cleansing No No WC - Nurse 2 - General Ulcer CM Notes Start: 12/05/24 13:13 Freq: Status: Active Protocol: Activity Type Activity Date Activity User E-sign Co-sign Detail Recorded Client Recorded Date Recorded By Document 02/15/24 13:59 [id number] 02/15/24 14:06 Document 02/22/24 13:53 [id number] 02/22/24 14:04 02/15/24 02/22/24 13:59 13:53 Wound Center Nurse 2 #8 rt harrison -Time 13:55 14:01 -Correct Patient Yes Yes -Correct Side, Site, Position Yes Yes -Correct Procedure Yes Yes -Procedure Performed Yes Yes -Type of Procedure Debridement Debridement -Clinical Debridement Subcutaneous Subcutaneous -Tissue Removed Subcutaneous Subcutaneous -Post Debridement (cm) - Length 3.0 3.0 -Post Debridement (cm) - Width 0.4 0.5 -Post Debridement (cm) - Depth 0.1 0.2 -Total Square (Post) (cm) 1.20 1.50 -Area of Debridement (cm) - Length 3.0 3.0 -Area of Debridement (cm) - Width 0.4 0.5 -Total Square (Area) (cm) 1.20 1.50 -Tunneling No No -Undermining/Tunneling No No -Circular Undermining No No -Wound/Ulcer Outcome Not Healed Not Healed -Ulcer Cleansing Rinsed/ Rinsed/ Irrigated with Irrigated with Saline Saline -Foul Odor after Cleansing No No -Bioengineered Tissue No No -Bleeding Controlled with Pressure Pressure -Treatment Response Procedure Procedure Tolerated Well Tolerated Well -Debridement - Subq, 1st 20sq cm Yes Yes #7 LT LAT NECK -Time 14:05 13:53 -Correct Patient Yes Yes -Correct Side, Site, Position Yes Yes -Correct Procedure No No -Procedure Performed No No -Post Debridement (cm) - Length 4.9 -Post Debridement (cm) - Width 6.0 -Total Square (Post) (cm) 29.40 -Tunneling No No -Undermining/Tunneling No No -Circular Undermining No No -Wound/Ulcer Outcome Not Healed Not Healed -Ulcer Cleansing Rinsed/ Rinsed/ Irrigated with Irrigated with Saline Saline -Foul Odor after Cleansing No No -Bioengineered Tissue No No -Bleeding Controlled with NA NA Pain Scale: 0-10 Numeric Is Patient Pain Free? Yes Yes WC - Nurse 3 - General Ulcer D/C NN Start: 02/15/24 13:13 Freq: Status: Active Protocol: Activity Type Activity Date Activity User E-sign Co-sign Detail Recorded Client Recorded Date Recorded By Document 02/15/24 14:20 KW [id number] 02/15/24 14:21 KW Document 02/22/24 14:19 DL [id number] 02/22/24 14:20 DL 02/15/24 02/22/24 14:20 14:19 Wound Care Center Nurse 3 #8 rt harrison -Ulcer Cleansing Rinsed/ Irrigated with Saline -Foul Odor after Cleansing No -Primary Dressing Applied Mepilex Border, Mepilex Border, Promogran Promogran Fal[place]i Matter Falguni Matter -Other Dressing apply bacitracin bacitracin -Mepilex Border 1 1 -Promogran [place] Matter 1 1 #7 LT LAT NECK -Ulcer Cleansing Soap and Water -Foul Odor after Cleansing No -Primary Dressing Applied Mepilex Border, Mepilex Border, NonAdherent NonAdherent Contact Layer Contact Layer -Mepilex Border 2 1 Treatment Response Procedure Tolerated Well Pain Scale: 0-10 Numeric Is Patient Pain Free? 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 I did today gently clean with moistened gauze to try to remove some of the slough without inciting excess bleeding or pain. Continue to wash the area with antibacterial soap and water daily followed by continued application of the Mepilex border dressings. She received a 30-day supply but has been having to use 2 to cover the mass given how far it protrud es. If she runs out before more can be ordered or if she needs to change it more frequently throughout the day to manage drainage then could instead apply dry dressing with gauze and ABD pad secured with silicone tape. I strongly advise always using the silicone tape as other adhesives may be too harsh on her skin right now. Wound culture from RLE wound grew only skin contaminant. For the right harrison skin tear: wash the area with antibacterial soap and water and pat to dry, then apply lightly moistened [place] to the open area, cover with silicone foam border dressing such as [place] SAP or can do a dry gauze dressing with silicone tape. Return to the office in 1 week to see me. As her daughter is not able to do dressing changes this next week will have her come in to the wound center Monday and Monday for nurse visits; to see me on ; sees her and Mon and we will send wound care orders to them.
[2024-02-26 10:10] VITALS: BP 136/64; PULSE 98; RESP 16; TEMP 35.9; BMI 22.9
[2024-02-28 13:23] VITALS: BP 130/52; PULSE 84; RESP 16; TEMP 36.8; BMI 22.9
[2024-02-29 13:39] VITALS: BP 139/64; PULSE 91; RESP 18; TEMP 35.9; BMI 22.9
--- NOTE | 2024-02-29 17:27 | PCM.WC.PN ---
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 This L neck fungating mass has an ulcerated center which drains pink-tinged fluid per patient. She has noticed this growing rather quickly over the last couple months. She is established with radiation oncology Dr. Lamar and will be starting radiation next week. As noted, she had this oral tongue cancer many years ago as well and had her tongue resected in addition to extensive radiation and chemo. 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 Subjective Subjective Cherrie is doing okay, reports neck pain in general consistent with what she has had since she started radiation treatments. No fevers, chills. Her daughter helps with her dressing changes, but her daughter had surgery a couple weeks ago so has been unable to do dressing changes; we have been supplementing with nurse visits here on days when she does not have HH. She reports this has been a big help and going well. She shares that her daughter is doing well and she expects she will be able to do her dressing changes this coming week, she does not think she will need further nurse visits. Objective Data Objective Data Vital Signs: Vital Signs Temp Pulse Resp BP O2 Del Method 96.7 F L 91 18 139/64 H Room Air 02/29/24 13:39 02/29/24 13:39 02/29/24 13:39 02/29/24 13:39 02/29/24 13:39 Oxygen Delivery Method Room Air Weight: 138 lb Body Mass Index (BMI) 22.9 Lab / Micro Data Micro: Microbiology 02/15/24 13:55 Wound - Leg, Right Gram Stain - Final 02/15/24 13:55 Wound - Leg, Right Wound Culture - Final Corynebacterium striatum 02/15/24 13:55 Wound - Leg, Right Anaerobic Culture - Final No anaerobic bacteria isolated. Charges/Coding Visit Charges Office Visits / Consults: [id number] OV L3 Est 20min Physical Exam Narrative PS 1-2 Const alert and oriented x3 General Appearance: cooperative and comfortable HEENT normocephalic, external ears normal and external nose normal Mouth: tongue abnormal other (s/p glossectomy) Eyes conjunctivae normal and no scleral icterus General Eye: normal appearance of both eyes Neck Neck Narrative: + 3cm fungating, friable mass L side of neck, continues to appear less dense/smaller than last week Lymph Lymphatic: no lymphadenopathy noted Resp normal respiratory effort and clear to auscultation bilaterally Effort and Inspection: able to speak in complete sentences; Negative for labored, grunting or stridor Cardio regular rhythm, S1 normal heart sound and S2 normal heart sound GI normal to inspection, nondistended, normoactive bowel sounds GI Narrative: +PEG tube no CVA tenderness Back/Spine no CVA tenderness Extremity no clubbing, cyanosis or edema Skin Skin Narrative: +L neck fungating mass. Wound Narrative: L neck fungating mass with friable ulcerated center, does appear to be decreasing in size/density. Significant slough. Minimal maceration, overall moisture balance remains improved. No surrounding erythema/excess warmth/foul odor. Serosanguineous drainage is noted. Right harrison with skin tear. A portion of the skin completely avulsed and is now superficial wound which has pink, easily bleeding wound base and mild slough, improving in size. Reactive erythema without excess warmth. No foul odor/excess drainage/purulence. Neuro oriented x3, CN's II-XII intact bilaterally and moves all extremities Psych mental status grossly normal Debridement Note Debridement Note No debridement was completed: No debridement was completed today Post-Debridement Measurements and Additional Note: Post-Debridement Measurements/Treatment WC - Nurse 1 - General Ulcer Assessment Start: 02/15/24 13:13 Freq: Status: Active Protocol: [email or web address].HECTOR Activity Type Activity Date Activity User E-sign Co-sign Detail Recorded Client Recorded Date Recorded By Document 02/15/24 13:13 KW [id number] 02/15/24 13:28 KW Document 02/22/24 13:28 DL [id number] 02/22/24 13:39 DL Document 02/26/24 10:10 BMF [id number] 02/26/24 10:12 BMF Document 02/28/24 13:23 CP [id number] 02/28/24 13:26 CP Document 02/29/24 13:39 KW [id number] 02/29/24 13:55 KW 02/15/24 02/22/24 02/26/24 13:13 13:28 10:10 - Today's Visit Information Type of service Follow-up Visit Follow-up Visit Nurse-only (Physician/PERSONALIZED LIVING MANAGER NURSE (Physician/PERSONALIZED LIVING MANAGER NURSE Visit ) ) Arrival Mode Ambulatory Ambulatory Ambulatory Transfer Assistance None None Accompanied by friend from [facility] brought patient Patient Identification Verified (Name & Yes Yes Yes ) Patient Requires Transmission-Based No Precautions Height and Weight Body Mass Index (BMI) 22.9 22.9 22.9 BMI Classification Normal Normal Normal Vital Signs Temperature (97.8 F-99.1 F) 96.3 F L 97.3 F L 96.6 F L Temperature Source Temporal Temporal Temporal Pulse Rate (60-100) 87 104 H 98 Pulse Location Monitor Monitor Monitor Respiratory Rate (12-18) 18 20 H 16 Respiratory rate source Observation Observation Observation Oxygen Delivery Method Room Air Room Air Blood Pressure (90/60-120/80) 116/46 L 151/74 H 136/64 H Blood Pressure Mean (mm Hg) 69 99 88 Source Monitor Monitor Monitor Position Semi-Fowlers Sitting Blood Pressure Location Left Arm Right Arm History Since Last Visit- (Skip if this is Patient's initial visit) Have you changed medications since your No No No last visit? Any new allergies or adverse reactions No No No Had a fall/change in ADL's that may No No No increase risk of falls Signs or symptoms of abuse and/or No No No neglect since last visit Have you been in the hospital since your No No No last visit? Has dressing in place as prescribed Yes Yes Yes Has compression in place as prescribed Yes N/A N/A Has offloadiing in place as prescribed N/A Yes N/A Experienced any changes in pain level or No No No management Left Footwear Regular Shoe Regular Shoe Right Footwear Regular Shoe Regular Shoe Pain Scale: 0-10 Numeric Is Patient Pain Free? Yes Yes Yes neck -Intensity -Alleviating Factors/Interventions 02/28/24 02/29/24 13:23 13:39 - Today's Visit Information Type of service Nurse-only Follow-up Visit Visit (Physician/PERSONALIZED LIVING MANAGER NURSE ) Arrival Mode Ambulatory Ambulatory Transfer Assistance Accompanied by Patient Identification Verified (Name & Yes Yes ) Patient Requires Transmission-Based No Precautions Height and Weight Body Mass Index (BMI) 22.9 22.9 BMI Classification Normal Normal Vital Signs Temperature (97.8 F-99.1 F) 98.3 F 96.7 F L Temperature Source Temporal Temporal Pulse Rate (60-100) 84 91 Pulse Location Monitor Monitor Respiratory Rate (12-18) 16 18 Respiratory rate source Observation Observation Oxygen Delivery Method Room Air Room Air Blood Pressure (90/60-120/80) 130/52 H 139/64 H Blood Pressure Mean (mm Hg) 78 89 Source Monitor Monitor Position Sitting Semi-Fowlers Blood Pressure Location Left Arm Left Arm History Since Last Visit- (Skip if this is Patient's initial visit) Have you changed medications since your No No last visit? Any new allergies or adverse reactions No No Had a fall/change in ADL's that may No No increase risk of falls Signs or symptoms of abuse and/or No neglect since last visit Have you been in the hospital since your No No last visit? Has dressing in place as prescribed Yes Yes Has compression in place as prescribed N/A Yes Has offloadiing in place as prescribed N/A N/A Experienced any changes in pain level or No No management Left Footwear Regular Shoe Right Footwear Regular Shoe Pain Scale: 0-10 Numeric Is Patient Pain Free? Yes No neck -Intensity 8 -Alleviating Factors/Interventions Medication, Medicate when due WC - Nurse 1 - General Ulcer Measurement Start: 02/15/24 13:13 Freq: Status: Active Protocol: Activity Type Activity Date Activity User E-sign Co-sign Detail Recorded Client Recorded Date Recorded By Document 02/15/24 13:13 KW [id number] 02/15/24 13:28 KW Document 02/22/24 13:28 DL [id number] 02/22/24 13:39 DL Document 02/29/24 13:39 KW [id number] 02/29/24 13:55 KW 02/15/24 02/22/24 02/29/24 13:13 13:28 13:39 Wound Center Nurse 1 #8 rt harrison -Current Size (cm) - Length 3 2.5 2 -Current Size (cm) - Width 2 1.8 1 -Current Size (cm) - Depth 0.1 0.1 0.1 -Total Square Cm 6 4.50 2 -Date of Last Picture (Recall this 02/15/24 field) -Exudate Amt Small Medium Small -Exudate Type Serosanguineous Serosanguineous Serosanguineous -Wound Margin Distinct, Distinct, Distinct, Outline Outline Outline Attached Attached Attached -Granulation Amt Small (1-33%) None Present (0 Medium (34-66%) %) -Granulation Quality Neville Neville -Necrosis Amt Large (67-100%) Large (67-100%) Medium (34-66%) -Necrotic Tissue Type Adherent Slough Adherent Slough Adherent Slough -Structure Exposed N/A -Texture (Rosie-wound Skin Appearance) Assessed Scarring Assessed -Moisture (Rosie-wound Skin Appearance) Assessed No Abnormality Assessed -Color (Rosie-wound Skin Appearance) Assessed, No Abnormality Assessed Erythema -Temperature (Rosie-wound Skin No Abnormality No Abnormality No Abnormality Appearance) (Pt Warm) (Pt Warm) (Pt Warm) -Tenderness on Palpation (Rosie-wound No No No Skin Appearance) -Ulcer Cleansing Rinsed/ Rinsed/ Rinsed/ Irrigated with Irrigated with Irrigated with Saline Saline Saline -Foul Odor after Cleansing No No No -Anesthetic Used 5% Lidocaine 5% Lidocaine 5% Lidocaine Gel Gel Gel #7 LT LAT NECK -Combined with (Name of Wound-Exactly 5 as it is documented) -Current Size (cm) - Length 3.5 5.4 4 -Current Size (cm) - Width 5 0.1 4.3 -Current Size (cm) - Depth 0 0.5 -Total Square Cm 17.5 0.54 17.2 -Exudate Amt Large Medium Large -Exudate Type Serosanguineous Serosanguineous Serosanguineous -Wound Margin Distinct, Distinct, Distinct, Outline Outline Outline Attached Attached Attached -Granulation Amt Small (1-33%) None Present (0 Small (1-33%) %) -Granulation Quality Hyper- Hyper- Neville granulation, granulation Neville -Necrosis Amt Large (67-100%) Large (67-100%) Large (67-100%) -Necrotic Tissue Type Adherent Slough Adherent Slough Adherent Slough -Structure Exposed N/A -Texture (Rosie-wound Skin Appearance) Assessed Scarring Assessed -Moisture (Rosie-wound Skin Appearance) Assessed, Maceration Assessed Maceration -Color (Rosie-wound Skin Appearance) Assessed No Abnormality Assessed -Temperature (Rosie-wound Skin No Abnormality No Abnormality No Abnormality Appearance) (Pt Warm) (Pt Warm) (Pt Warm) -Tenderness on Palpation (Rosie-wound No Yes No Skin Appearance) -Ulcer Cleansing Soap and Water Soap and Water Soap and Water -Foul Odor after Cleansing No No Yes WC - Nurse 2 - General Ulcer CM Notes Start: 02/15/24 13:13 Freq: Status: Active Protocol: Activity Type Activity Date Activity User E-sign Co-sign Detail Recorded Client Recorded Date Recorded By Document 02/15/24 13:59 [id number] 02/15/24 14:06 Document 02/22/24 13:53 [id number] 02/22/24 14:04 Document 02/29/24 14:28 [id number] 02/29/24 14:32 02/15/24 02/22/24 02/29/24 13:59 13:53 14:28 Wound Center Nurse 2 #8 rt harrison -Time 13:55 14:01 -Correct Patient Yes Yes -Correct Side, Site, Position Yes Yes -Correct Procedure Yes Yes -Procedure Performed Yes Yes -Type of Procedure Debridement Debridement -Clinical Debridement Subcutaneous Subcutaneous -Tissue Removed Subcutaneous Subcutaneous -Post Debridement (cm) - Length 3.0 3.0 -Post Debridement (cm) - Width 0.4 0.5 -Post Debridement (cm) - Depth 0.1 0.2 -Total Square (Post) (cm) 1.20 1.50 -Area of Debridement (cm) - Length 3.0 3.0 -Area of Debridement (cm) - Width 0.4 0.5 -Total Square (Area) (cm) 1.20 1.50 -Tunneling No No -Undermining/Tunneling No No -Circular Undermining No No -Wound/Ulcer Outcome Not Healed Not Healed -Ulcer Cleansing Rinsed/ Rinsed/ Irrigated with Irrigated with Saline Saline -Foul Odor after Cleansing No No -Bioengineered Tissue No No -Bleeding Controlled with Pressure Pressure -Treatment Response Procedure Procedure Tolerated Well Tolerated Well -Debridement - Subq, 1st 20sq cm Yes Yes #7 LT LAT NECK -Time 14:05 13:53 14:28 -Correct Patient Yes Yes Yes -Correct Side, Site, Position Yes Yes Yes -Correct Procedure No No No -Procedure Performed No No No -Post Debridement (cm) - Length 4.9 5.0 -Post Debridement (cm) - Width 6.0 4.2 -Total Square (Post) (cm) 29.40 21.00 -Tunneling No No No -Undermining/Tunneling No No No -Circular Undermining No No No -Wound/Ulcer Outcome Not Healed Not Healed Not Healed -Ulcer Cleansing Rinsed/ Rinsed/ Rinsed/ Irrigated with Irrigated with Irrigated with Saline Saline Saline -Foul Odor after Cleansing No No No -Bioengineered Tissue No No No -Bleeding Controlled with NA NA NA -Debridement - Open, 1st 20sq cm No -Debridement - Subq, 1st 20sq cm No -Debridement - Muscle / Fascia, 1st No 20sq cm -Debridement - Bone, 1st 20sq cm No Pain Scale: 0-10 Numeric Is Patient Pain Free? Yes Yes Yes WC - Nurse 3 - General Ulcer D/C NN Start: 02/15/24 13:13 Freq: Status: Active Protocol: Activity Type Activity Date Activity User E-sign Co-sign Detail Recorded Client Recorded Date Recorded By Document 02/15/24 14:20 KW [id number] 02/15/24 14:21 KW Document 02/22/24 14:19 DL [id number] 02/22/24 14:20 DL Document 02/26/24 10:10 BMF [id number] 02/26/24 10:12 BMF Document 02/28/24 13:23 CP [id number] 02/28/24 13:26 CP Edit Result 02/28/24 13:23 CP (1) [id number] 02/28/24 13:28 CP Document 02/29/24 15:02 DL [id number] 02/29/24 15:04 DL (1) #8 rt harrison - Other Dressing => bacitracin - Primary Dressing Covered/Secured with Dry Gauze & Roll => Gauze => 02/15/24 02/22/24 02/26/24 14:20 14:19 10:10 Wound Care Center Nurse 3 #8 rt harrison -Ulcer Cleansing Rinsed/ Soap and Water Irrigated with Saline -Foul Odor after Cleansing No No -Primary Dressing Applied Mepilex Border, Mepilex Border, Mepilex Border, Promogran Promogran Promogran Falguni Matter Falguni Matter Falguni Matter -Other Dressing apply bacitracin bacitracin -Mepilex Border 1 1 1 -Promogran Falguni Matter 1 1 1 -Wound Comment(s) bacitracin also , per order #7 LT LAT NECK -Ulcer Cleansing Soap and Water Soap and Water -Foul Odor after Cleansing No No -Primary Dressing Applied Mepilex Border, Mepilex Border, Mepilex Border, NonAdherent NonAdherent NonAdherent Contact Layer Contact Layer Contact Layer -Other Dressing -Mepilex Border 2 1 1 Treatment Response Procedure Procedure Tolerated Well Tolerated Well Vital Signs Temperature (97.8 F-99.1 F) 96.6 F L Temperature Source Temporal Pulse Rate (60-100) 98 Pulse Location Monitor Respiratory Rate (12-18) 16 Respiratory rate source Observation Oxygen Delivery Method Room Air Blood Pressure (90/60-120/80) 136/64 H Blood Pressure Mean (mm Hg) 88 Source Monitor Position Sitting Blood Pressure Location Right Arm Pain Scale: 0-10 Numeric Is Patient Pain Free? Yes Yes Yes WC - Visit Discharge Discharge Condition Stable Stable Stable Ambulatory Status Ambulatory Ambulatory Ambulatory Transportation Private Auto Private Auto Private Auto Medication Reconcilliation completed & No provided to patient/care provider Clinical Summary of Care Provided Yes Facility Type Home Health Orders Sent Yes 02/28/24 02/29/24 13:23 15:02 Wound Care Center Nurse 3 #8 rt harrison -Ulcer Cleansing Soap and Water Rinsed/ Irrigated with Saline -Foul Odor after Cleansing No No -Primary Dressing Applied Mepilex Border, Promogran Falguni Matter -Other Dressing bacitracin Falguni/ Mepilex -Mepilex Border 1 -Promogran Falguni Matter 1 -Wound Comment(s) #7 LT LAT NECK -Ulcer Cleansing Soap and Water Soap and Water -Foul Odor after Cleansing No -Primary Dressing Applied Mepilex Border NonAdherent Contact Layer -Other Dressing adaptic Mepilex -Mepilex Border 1 Treatment Response Procedure Tolerated Well Vital Signs Temperature (97.8 F-99.1 F) 98.3 F Temperature Source Temporal Pulse Rate (60-100) 84 Pulse Location Monitor Respiratory Rate (12-18) 16 Respiratory rate source Observation Oxygen Delivery Method Room Air Blood Pressure (90/60-120/80) 130/52 H Blood Pressure Mean (mm Hg) 78 Source Monitor Position Sitting Blood Pressure Location Left Arm Pain Scale: 0-10 Numeric Is Patient Pain Free? 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 I did today gently clean with moistened gauze/cotton tip applicator to try to remove some of the slough without inciting excess bleeding or pain. For care of her neck mass: Continue to wash the area with antibacterial soap and water daily followed by continued application of the Mepilex border dressings. She received a 30-day supply but has been having to use 2 to cover the mass given how far it protrudes. If she runs out before more can be ordered or if she needs to change it more frequently throughout the day to manage drainage then could instead apply dry dressing with gauze and ABD pad secured with silicone tape. She reports she is out of the silicone tape, provider her with an extra roll today. For the right harrison skin tear: wash the area with antibacterial soap and water and pat to dry, then apply lightly moistened Falguni to the open area, cover with silicone foam border dressing such as [place] SAP or can do a dry gauze dressing with silicone tape. Her RLE wound has been stable and consistently improved. Her L neck mass seems to producing less slough/drainage and overall moisture management has been improved. Will plan for follow-up in 2 weeks, but she is advised to please call and return sooner if needed.
--- NOTE | 2024-03-18 11:47 | WC ---
PHOTO 02/29/24 RIGHT ALLEN
--- NOTE | 2024-03-18 11:48 | WC ---
PHOTO 02/29/24 LEFT LATERAL NECK
== END 2024-03-12 23:59 | disposition home or self-care (01) ==
LOC: WC 13:15
PROVIDERS: PCP Family Medicine Geriatric Medicine; Referring Provider Family Medicine Geriatric Medicine; Visit Provider Physician Assistant
DX: C44.92 Squamous cell carcinoma of skin, unspecified (principal); C77.0 Secondary and unspecified malignant neoplasm of lymph nodes of head, face and neck; L89.151 Pressure ulcer of sacral region, stage 1; Z85.810 Personal history of malignant neoplasm of tongue; Z92.3 Personal history of irradiation; Z92.21 Personal history of antineoplastic chemotherapy; S81.811A Laceration without foreign body, right lower leg, initial encounter; X58.XXXA Exposure to other specified factors, initial encounter
CPT/HCPCS: 11042; 87070; 87075; 87077; 87205; 99213; G0463